=== PATIENT | male | born 1960 | race Caucasian/White ===

== ENCOUNTER → 2018-05-05 | Outpatient (CLI) | payer OTHER | END | disposition home or self-care (01) | LOC: RAD 12:17 | DX: M17.0 Bilateral primary osteoarthritis of knee (principal) | CPT/HCPCS: 73562 ==

== ENCOUNTER → 2021-05-01 | Outpatient (CLI) | payer OTHER ==
[~2021-05-01] MED LIST: IBUP-4 PO
--- NOTE | 2021-05-01 17:16 | KCIC ---
EXAM: Bilateral knees, 3 views. HISTORY: Pain. COMPARISON: 05/05/2018 FINDINGS: Right knee: 3 views of the right knee are obtained. There is severe medial compartment joint space na rrowing with subchondral sclerosis and spurring. There is a moderate right knee effusion. Left knee: 3 views of the left knee are obtained. There is severe medial compartment joint space narr owing, subchondral sclerosis and spurring. There is a moderate left knee effusion. There is left genu varus. IMPRESSION: 1. Severe bilateral medial compartment osteoarthritis and moderate bilateral knee effusions. These fi ndings have progressed compared to the prior exam. 2. Left genu varus. Electronically signed by: Kelsey Allison MD (05/01/2021 5:14 PM) [id number]
== END ==
LOC: KCIC 15:02
PROVIDERS: ATTEND Family Medicine
DX: M17.0 Bilateral primary osteoarthritis of knee (principal); M25.462 Effusion, left knee; M25.461 Effusion, right knee; M21.162 Varus deformity, not elsewhere classified, left knee
CPT/HCPCS: 73562-50

== ENCOUNTER → 2021-07-16 | Outpatient (CLI) | payer OTHER ==
[~2021-07-16] MED LIST changes: +IBUP-1060 PO; +LISI10TA16 PO; +OXYC5CAP PO; +TIMO10DR5 OD; +TRAM50TA PO; +WARF4TAB64 PO
[2021-07-16 09:16] LABS: BASO % 1 % (0-3); EOS # 0.2 x10^3/uL (0.0-0.7); EOS % 3 % (0-3); HEMATOCRIT 39.4 % (39.0-53.0); HEMOGLOBIN 13.8 g/dL (13.0-17.5); LYMPH # 1.4 x10^3/uL (1.0-4.8); LYMPH % 28 % (24-48); MEAN CORPUSCULAR HEMOGLOBIN 30 pg (25-35); MEAN CORPUSCULAR HGB CONC 35 g/dL (31-37); MEAN CORPUSCULAR VOLUME 85 fL (79-100); MONO # 0.6 x10^3/uL (0.0-1.1); MONO % 12 % (0-9); NEUT # 2.9 x10^3/uL (1.8-7.7); NEUT % 56 % (31-73); PLATELET COUNT 241 x10^3/uL (140-400); RED BLOOD COUNT 4.65 x10^6/uL (4.30-5.70); RED CELL DISTRIBUTION WIDTH 13.4 % (11.5-14.5); WHITE BLOOD COUNT 5.1 x10^3/uL (4.0-11.0)
[2021-07-16 09:21] LABS: PROTHROMBIN TIME PATIENT 12.9 SEC (11.7-14.0)
[2021-07-16 09:28] LABS: ALBUMIN 3.7 g/dL (3.4-5.0); CALCIUM 8.8 mg/dL (8.5-10.1); CREATININE 0.9 mg/dL (0.7-1.3); GFR 85.8; POTASSIUM 4.1 mmol/L (3.5-5.1)
--- NOTE | 2021-07-16 11:17 | EKG ---
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
--- NOTE | 2021-07-16 17:26 | RAD ---
Chest, PA and Lateral: Technique: PA and lateral views of the chest were obtained. History: Hypertension. Comparison: None. Findings: The heart and pulmonary vasculature appear within normal limits. Small 4-5 mm nodule or calcified gr anuloma in the left lower lobe lung.. The pleural margins are clear. Impression: Small 4-5 mm nodule or calcified granuloma in the left lower lobe lung. Electronically signed by: Efrain Nelson MD (07/16/2021 5:24 PM) [id number]
[2021-07-17 01:11] LABS: HEMOGLOBIN A1C 5.7 % (4.8-5.6)
== END ==
LOC: SURGPAT 10:40
PROVIDERS: ATTEND Orthopaedic Surgery
DX: Z01.818 Encounter for other preprocedural examination (principal); I45.10 Unspecified right bundle-branch block; M17.12 Unilateral primary osteoarthritis, left knee
CPT/HCPCS: 36415; 71046; 80048; 82040; 82306; 83036; 85025; 85610; 85651; 85730; 87641; 93005

== ENCOUNTER → 2021-07-29 | Outpatient (CLI) | payer OTHER | LOC: LAB 09:09 | PROVIDERS: ATTEND Orthopaedic Surgery | DX: Z01.812 Encounter for preprocedural laboratory examination (principal); Z20.822 Contact with and (suspected) exposure to COVID-19; M17.12 Unilateral primary osteoarthritis, left knee | CPT/HCPCS: U0003; U0005 ==

== ENCOUNTER 2021-07-30 09:49 | Observation (INO) | payer OTHER ==
[2021-07-17 10:59] VITALS: BP 172/88
[~2021-07-30] VITALS: Ht 167.6 cm; Wt 96.6 kg
[2021-07-30] VITALS (9 sets, daily range): BP systolic 116–191; BP diastolic 75–96
[~2021-07-30 09:49] MED LIST changes: +ACETAMINOPHEN 500 MG TABLET PO PRN; +GABAPENTIN 300 MG CAPSULE. PO PRN; +IV RINGERS,LACTATED 1000ML 1,000 ML IV SCH; +MELOXICAM 7.5 MG TABLET PO PRN; +MORPHINE SULFATE 5 MG, KETOROLAC 30MG VIAL 30 MG, ROPIVacaine 0.5% PF 60 ML, EPINEPHrin... INT ART ONE; -OXYC5CAP PO; +PROCHLORPERAZINE 10 MG/2 ML VIAL. IVP PRN; -TRAM50TA PO; +TRANEXAMIC ACID 1,000 MG in IV NS 50ML -- 1ST BAG INJ ONE; +TRANEXAMIC ACID 1,000 MG in IV NS 50ML -- 2ND BAG INJ ONE; -WARF4TAB64 PO; +fentaNYL PF VIAL 100 MCG/2 ML VIAL IVP PRN
[2021-07-30] MEDS ORDERED: VANCOMYCIN 1 GM VIAL. ONE ×2 (10:26)
[2021-07-30 10:53] LABS: PROTHROMBIN TIME PATIENT 13.3 SEC (11.7-14.0)
[2021-07-30] MEDS ORDERED: fentaNYL PF VIAL 250 MCG/5 ML VIAL ONE (11:43)
[2021-07-30] MEDS ORDERED: ONDANSETRON PF 4 MG/2 ML VIAL. ONE (12:05)
[2021-07-30] MEDS ORDERED: PROPOFOL 10 MG/ML (20ML) VIAL. IV ONE (12:05)
[2021-07-30] MEDS ORDERED: LIDOCAINE 2% PF 5 ML VIAL. ONE (12:05)
[2021-07-30] MEDS ORDERED: SEVOFLURANE > 120 MINUTES. IH ONE (12:05)
[2021-07-30] MEDS ORDERED: DEXAMETHASONE SOD PHOS 4 MG/ML VIAL ONE (12:05)
[2021-07-30] MEDS ORDERED: ePHEDrine PF IN SALINE 50 MG/10 ML SYRINGE. IV ONE (12:08)
--- NOTE | 2021-07-30 13:59 | HP ---
ADMIT DATE: 07/30/2021 CHIEF COMPLAINT: Bilateral knee pain, left worse than right, and degenerative joint disease. HISTORY OF PRESENT ILLNESS: The patient is a 60-year-old male with severe left knee pain limiting his activities of daily living much worse than the right and has had no response to treatment with ibuprofen and other nonsteroidals and only about a week of relief with a corticosteroid injection and other unsuccessful management of other nonoperative measures. PAST MEDICAL HISTORY: Significant for hypertension, hypercholesterolemia, history of right heart bundle branch block and he had a history of a rotator cuff tear in the left shoulder. PAST SURGICAL HISTORY: Left elbow surgery. FAMILY HISTORY: Diabetes, hypertension, cancer, coronary artery disease. SOCIAL HISTORY: Denies smoking or drug use. Occasional alcohol use. MEDICATIONS: List is reviewed. ALLERGIES: He has no known drug allergies. REVIEW OF SYSTEMS: Denies any chest pain, shortness of breath, fever, chills or other constitutional symptoms. PHYSICAL EXAMINATION: HEENT: Atraumatic, normocephalic. HEART: Regular rate and rhythm. LUNGS: Clear to auscultation bilaterally. ABDOMEN: Benign. VITAL SIGNS: Please add per admission sheet. EXTREMITIES: Examination of the left knee has more severe varus on the left than the right and has some medial compartment pseudolaxity bilaterally, resulting in some instability with valgus stress. Normal alignment, stability, bilateral hips and ankles. LABORATORY DATA: X-rays show tricompartmental degenerative change in both knees. IMPRESSION: Primary osteoarthritis of both knees, right knee pain greater than left. TREATMENT PLAN: We had previously discussed risks, benefits, postoperative course of total knee arthroplasty including the possibility of infection, nerve or blood vessel damage, medical or other anesthetic complications among others. All his questions were answered and he agrees to proceed with total knee arthroplasty with [facility] observation to follow. RADHA MCCOY: Cristina TID: [id number]
[2021-07-30] MEDS ORDERED: PROCHLORPERAZINE 10 MG/2 ML VIAL. ONE (14:15)
[2021-07-30] MEDS ORDERED: MORPHINE SULFATE 2 MG/ML INJ. ONE (14:15)
[2021-07-30] MEDS: MORPHINE SULFATE 2 MG/ML INJ. IVP PRN ×2 (14:18→14:29)
[2021-07-30] MEDS ORDERED: HYDROmorphone 2 MG/ML VIAL ONE (14:36)
[2021-07-30] MEDS: HYDROmorphone 2 MG/ML VIAL IVP PRN ×2 (14:38→14:52)
--- NOTE | 2021-07-30 14:43 | PDOC4 ---
Operative Note Operative Note Date of surgery: 07/30/2021 Preoperative diagnosis: Degenerative arthritis left knee Postoperative diagnosis: Same Operative procedure: Left total knee arthroplasty Surgeon: Steven Assist: Sunday lindsay Anesthesia: General Estimated blood loss: 25 cc Complications: None Specimens: Cartilage surfaces to pathology Operative indications: Please see my dictated preoperative history and physical for detailed operative indications and note that we had reviewed preoperatively risks benefits postoperative course of the surgery including the possibility of infection continued pain nerve or blood vessel damage premature wear or loosening instability medical or other anesthetic complications among others and he agrees to proceed with surgical evaluation and treatment having given informed consent Operative text: Patient was identified procedure verified patient placed in the supine position on the operating table. After adequate amounts of general anesthesia were administered the left lower extremity was prepped and draped in standard sterile fashion with a thigh tourniquet and after timeout was performed patient procedure identified and verified the left lower extremity was exsanguinated by Esmarch bandage tourniquet inflated to 300 mmHg and a midline incision was made followed by a medial parapatellar approach fat pad was excised and patella everted and the distal femur drilled to accommodate the intramedullary cutting guide which was set at 5 degrees with standard distal cut. A tibial cut was made using the extra medullary cutting guide aligned with the second toe and alignment verified. Balancing was confirmed with the drop leslie and noted in both flexion and extension, tibia was prepared with a size F persona trial component. Femur was sized at a size 9 and AP lateral chamfer cuts were made and ligament balancing carried out. A medial release was carried out and I did achieve excellent stability with a 14 mm trial medial congruent articular surface spacer. Femoral lug holes were drilled and patella was not resurfaced. She had excellent tracking. Trial components were removed thorough irrigation carried out with normal saline solution and the following persona components were cemented in place with polymethylmethacrylate cement: A size F persona natural tibial component and size 9 standard right persona cruciate retaining femur. Excess cement was removed with a curette and a vitamin E medial congruent 14 mm height articular spacer was locked into place and the knee held into extension until cement was dry. Irrigation again carried out with dilute Betadine lavage and normal saline solution and 1 g vancomycin was placed in the knee joint. Retinaculum closed with #1 PDS suture in a running fashion subcutaneous closure with buried Vicryl sutures subcuticular closure with 3-0 strata fix Monocryl. A leonarda dressing was placed. Toes were noted to be warm pink following deflation of the tourniquet patient was returned to recovery room in stable condition having tolerated procedure well. Sunday lindsay was present for the procedure and assisted in patient positioning prepping draping retraction closure dressings. BRYANT HENDRICKS MD Jul 30, 2021 14:43
[2021-07-30] MEDS ORDERED: fentaNYL PF VIAL 100 MCG/2 ML VIAL IVP PRN (14:45)
[2021-07-30] MEDS ORDERED: diphenhydrAMINE 50 MG/ML VIAL IVP PRN (14:45)
[2021-07-30] MEDS ORDERED: PROCHLORPERAZINE 5 MG TABLET. PO PRN (14:45)
[2021-07-30] MEDS ORDERED: CALCIUM CARBONATE 500 MG TAB.CHEW PO PRN (14:45)
[2021-07-30] MEDS ORDERED: 0.9 % SODIUM CHLORIDE 10 ML DISP.SYRIN. IV PRN (14:45)
[2021-07-30] MEDS ORDERED: ZOLPIDEM 5 MG TABLET. PO PRN (14:45)
[2021-07-30] MEDS: IV NORMAL SALINE 1000ML BAG 1,000 ML IV SCH (14:45)
[2021-07-30] MEDS ORDERED: MORPHINE SULFATE 2 MG/ML INJ. IVP PRN (14:45)
[2021-07-30] MEDS ORDERED: DEXTROSE 50% 25 GM / 50ML DISP.SYRIN. IV PRN (14:45)
--- NOTE | 2021-07-30 14:54 | NUR ---
Arrived to unit by bed from PACU. Very drowsy but awakens and falls back to sleep. No c/o. LTK elevated on pillow and ice pack. Left knee dressing d/i with REN. IVF's intact and infusing. O2 at 3l per n/c. Side rails up x's 2 with call light in reach. Family at bedside. Cont. monitor.
--- NOTE | 2021-07-30 15:30 | RAD ---
Left Knee 2 views: History: Postop total knee arthroplasty. Technique: AP and lateral views of the knee were obtained. Findings: The femoral and tibial components are aligned and well seated. There is air and fluid in the joint sp craig. Surgical changes are seen in the posterior patella. Impression: Status post total knee arthroplasty. Electronically signed by: Michael Orellana III, MD (07/30/2021 3:28 PM) [facility]
[2021-07-30] MEDS ORDERED: WARFARIN 7.5 MG TABLET. PO ONE (16:00)
[2021-07-30] MEDS: FERROUS SULFATE 325 MG TABLET. PO SCH (17:49)
[2021-07-30] MEDS: ONDANSETRON PF 4 MG/2 ML VIAL. IVP SCH (17:53)
[2021-07-30] MEDS: ONDANSETRON ODT 4 MG TAB.RAPDIS. PO SCH (17:54)
--- NOTE | 2021-07-30 18:00 | NUR ---
Alert and oriented x's 4. No c/o at this time. Instructed how to use IS went up 2500 ml. and daughter at bedside. Cont. monitor.
[2021-07-30] MEDS: TIMOLOL 0.5% OPHTH SOLUTION 5ML BOTTLE. OD SCH (20:52)
[2021-07-31] MEDS: ONDANSETRON PF 4 MG/2 ML VIAL. IVP SCH ×3 (00:11→12:00)
[2021-07-31] MEDS: ONDANSETRON ODT 4 MG TAB.RAPDIS. PO SCH ×3 (00:11→12:00)
[2021-07-31 03:32] VITALS: BP 128/72
[2021-07-31] MEDS ORDERED: GABAPENTIN 100 MG CAPSULE. PO SCH (06:00)
[2021-07-31] MEDS ORDERED: MAGNESIUM HYDROXIDE 2,400 MG/30 ML ORAL.SUSP. PO PRN (06:00)
[2021-07-31] MEDS: traMADol 50 MG TABLET PO SCH ×3 (06:01→18:03)
[2021-07-31 07:00] VITALS: BP 135/73
[2021-07-31 07:30] LABS: HEMATOCRIT 34.8 % (39.0-53.0)
[2021-07-31 07:58] LABS: PROTHROMBIN TIME PATIENT 14.8 SEC (11.7-14.0)
[2021-07-31] MEDS: ACETAMINOPHEN 500 MG TABLET PO SCH ×3 (08:59→22:27)
[2021-07-31] MEDS: SENNOSIDES/DOCUSATE 8.6/50MG TABLET. PO SCH (08:59)
[2021-07-31] MEDS: MELOXICAM 7.5 MG TABLET PO SCH (08:59)
[2021-07-31] MEDS: TIMOLOL 0.5% OPHTH SOLUTION 5ML BOTTLE. OD SCH ×2 (09:00→21:00)
[2021-07-31] MEDS: FERROUS SULFATE 325 MG TABLET. PO SCH ×2 (09:00→18:03)
[2021-07-31] MEDS: MULTIVITAMIN with MINERAL TABLET. PO SCH (09:00)
[2021-07-31] MEDS: oxyCODONE IR 5 MG TABLET PO PRN ×3 (09:02→22:27)
[2021-07-31] MEDS: LISINOPRIL 10 MG TABLET PO SCH (09:06)
--- NOTE | 2021-07-31 09:46 | NUR ---
Pharmacy Warfarin Dosing Note S:Pharmacy consulted to assist with anticoagulation therapy started 07/30/21 with target INR: 1.6 - 2.5 O:VANIA LEDESMA is a 60 year old M with TKA LABS: Last INR: 1.2 Last HGB: 12 Last HCT: 34.8 Last PLT: -- Last dose of 7.5 mg given on 07/30/21 at 1749 Drug Interaction Changes: Same Interacting Drug Ongoing Drug Interactions: meloxicam A:INR of 1.2 is below desired range. Target range for this patient is: 1.6 - 2.5 P: Warfarin dose: 5 mg Today at 1600 Bridge Therapy: None Next INR due 08/01/21 Pharmacy anticoagulation service will continue to follow. ANGELA VILLAVICENCIO RPH, 07/31/21 0971
--- NOTE | 2021-07-31 10:11 | PDOC ---
PROGRESS NOTES Date of Service DATE: 07/31/21 TIME: 10:08 Subjective Subjective Problems overnight: Indicates pain is well controlled has no other complaints Objective Vital Signs Vital Signs Date Time Temp Pulse Resp B/P (MAP) Pulse Ox O2 Delivery O2 Flow Rate FiO2 07/31/21 09:06 78 135/74 07/31/21 09:02 Room Air 07/31/21 07:00 97.2 16 96 97.2 07/30/21 19:40 2.0 Physical Exam Distal neurovascular status intact leonarda dressing intact excellent stability and patellofemoral tracking Labs Laboratory Tests Test 07/30/21 10:30 07/31/21 05:45 Prothrombin Time 13.3 SEC (11.7-14.0) 14.8 SEC (11.7-14.0) Prothromb Time International Ratio 1.0 (0.8-1.1) 1.2 (0.8-1.1) Activated Partial Thromboplast Time 29 SEC (24-38) Hemoglobin 12.0 g/dL (13.0-17.5) Hematocrit 34.8 % (39.0-53.0) Mean Corpuscular Hemoglobin Concent 35 g/dL (31-37) Laboratory Tests Test 07/30/21 10:30 07/31/21 05:45 Prothrombin Time 13.3 SEC (11.7-14.0) 14.8 SEC (11.7-14.0) Prothromb Time International Ratio 1.0 (0.8-1.1) 1.2 (0.8-1.1) Activated Partial Thromboplast Time 29 SEC (24-38) Hemoglobin 12.0 g/dL (13.0-17.5) Hematocrit 34.8 % (39.0-53.0) Mean Corpuscular Hemoglobin Concent 35 g/dL (31-37) Imaging Postop x-rays show excellent alignment of the left total knee arthroplasty Assessment Assessment POD#1 left total knee Plan Plan of Care Continue mobilize with physical therapy Warfarin anticoagulation likely home health on discharge Justicifation of Admission Dx: Justifications for Admission: Justification of Admission Dx: N/A BRYANT HENDRICKS MD Jul 31, 2021 10:10
[2021-07-31] MEDS ORDERED: ONDANSETRON PF 4 MG/2 ML VIAL. IVP PRN (12:00)
[2021-07-31] MEDS ORDERED: ONDANSETRON ODT 4 MG TAB.RAPDIS. PO PRN (12:00)
[2021-07-31] MEDS: IV NORMAL SALINE 1000ML BAG 1,000 ML IV SCH (14:45)
[2021-07-31] MEDS ORDERED: BISACODYL 10 MG SUPP.RECT. PR PRN (16:00)
[2021-07-31] MEDS ORDERED: WARFARIN 5 MG TABLET. PO ONE (16:00)
[2021-07-31 19:30] VITALS: BP 127/58
[2021-07-31 23:39] VITALS: BP 157/74
[2021-08-01] MEDS: oxyCODONE IR 5 MG TABLET PO PRN ×3 (02:41→16:54)
[2021-08-01 02:54] VITALS: BP 136/65
[2021-08-01] MEDS: ACETAMINOPHEN 500 MG TABLET PO SCH ×3 (03:00→15:14)
[2021-08-01] MEDS: traMADol 50 MG TABLET PO SCH ×3 (06:18→12:27)
[2021-08-01 07:00] VITALS: BP 141/83
[2021-08-01 07:17] LABS: HEMATOCRIT 31.1 % (39.0-53.0); HEMOGLOBIN 10.7 g/dL (13.0-17.5)
[2021-08-01 07:36] LABS: PROTHROMBIN TIME PATIENT 17.9 SEC (11.7-14.0)
[2021-08-01] MEDS: SENNOSIDES/DOCUSATE 8.6/50MG TABLET. PO SCH (08:17)
[2021-08-01] MEDS: LISINOPRIL 10 MG TABLET PO SCH (08:17)
[2021-08-01] MEDS: FERROUS SULFATE 325 MG TABLET. PO SCH ×2 (08:17→15:13)
[2021-08-01] MEDS: MULTIVITAMIN with MINERAL TABLET. PO SCH (08:18)
[2021-08-01] MEDS: TIMOLOL 0.5% OPHTH SOLUTION 5ML BOTTLE. OD SCH (08:18)
[2021-08-01] MEDS: MELOXICAM 7.5 MG TABLET PO SCH (08:21)
[2021-08-01 10:27] VITALS: BP 130/77
[2021-08-01] MEDS: IV NORMAL SALINE 1000ML BAG 1,000 ML IV SCH (13:38)
--- NOTE | 2021-08-01 15:45 | NUR ---
Pharmacy Warfarin Dosing Note S:Pharmacy consulted to assist with anticoagulation therapy started 07/30/21 with target INR: 1.6 - 2.5 O:VANIA LEDESMA is a 60 year old M with TKA LABS: Last INR: 1.5 Last HGB: 12 Last HCT: 34.8 Last PLT: -- Last dose of 5 mg given on 07/31/21 at 1749 Previous Regimen: Vitamin K given: N Drug Interaction Changes: Same Interacting Drug Ongoing Drug Interactions: meloxicam A:INR of 1.5 is below desired range. Target range for this patient is: 1.6 - 2.5 P: Warfarin dose: 3 mg Today at 1600, dc home with 4mg tablet #30 Bridge Therapy: None Next INR due on Sunday 08/05, 08/12 and 08/19 Pharmacy anticoagulation service will continue to follow. YOLANDA CASTILLO [facility], 08/01/21 [id number]
[2021-08-01] MEDS ORDERED: WARFARIN 3 MG TABLET. PO ONE (16:00)
[2021-08-01] MEDS ORDERED: TRAM50TA PO (17:19)
[2021-08-01] MEDS ORDERED: WARF4TAB64 PO (17:19)
[2021-08-01] MEDS ORDERED: OXYC5CAP PO (17:19)
--- NOTE | 2021-08-01 17:26 | DISCH ---
DISCHARGE INSTRUCTIONS Condition on Discharge Condition on Discharge: Stable Activity After Discharge Activity Instructions for Disc: Activity as tolerated, Avoid exertion, Prog ressive ambulation Bathing Instructions: Shower-keep dressing dry, No Tub Bath until see Lifting Instructions after Dis: No heavy lifting, No pulling or pushing Exercise Instruction after Dis: Exercise per therapy, Progress as tolerated Driving Instructions after Dis: Do not drive Weight Bearing Status after Di: As tolerated Diet after Discharge Diet after Discharge: Regular Liquid Texture: Thin Liquid Wound Incision Care Wound/Incision Care: Ice to area for comfort, Keep wound/cast CDI, Do not change dressing (Maintain ren dressing, call if saturated, otherwise when suction machine stops cut tail of dressing and tape over to maintain seal) Other wound/incision instructi: DO NOT remove REN. REN dressing remains in place till your appointment Community/Resources/Services Services at Discharge: Outpatient Therapy, PT EVALUATE & TREAT Contacting the [facility] after DC Call your doctor for: Concerns you may have Follow-Up Follow Up With: CAMILLE Tanner on 08/12/2021 at 10am at [facility]. [phone] Treatment/Equipment after DC Adaptive Equipment Issued: None Warfarin Follow-Up Warfarin Follow UP: Warfarin dosage and testing per [place] [facility] anticoagulation clinic BRYANT HENDRICKS MD Aug 01, 2021 17:26
--- NOTE | 2021-08-01 18:20 | NUR ---
Patient left at 1755 with his . Discharge education completed by this nurse, therapy, and the doctor prior to discharge. REN dressing instructions gone over in detail with a small amount of bloody drainage present at discharge. Coumadin instructions gone over in detail by this nurse and pharmacy with medication given to patient prior to discharge and script for lab draws. No concerns noted at discharge.
--- NOTE | 2021-08-01 19:10 | DS ---
DATE OF DISCHARGE: 08/01/2021 ORTHOPEDIC DISCHARGE SUMMARY PRINCIPAL DIAGNOSIS: Degenerative arthritis, left knee. PROCEDURE: Left total knee arthroplasty. DISPOSITION: Home with outpatient physical therapy. ACTIVITY: Weightbearing as tolerated, standard total knee protocol. Maintain REN dressing, call if saturated, otherwise remove suction machine when it stops at 1 week, cut dressing and tape over tail to maintain seal. CALL IF: Fever, chills, uncontrolled pain or other problems or concerns. DISPOSITION MEDICATIONS: Warfarin 4 mg p.o. daily, times of plan 28 days or as otherwise dictated by [facility] anticoagulation clinic; tramadol 50 mg p.o. q.4 hours p.r.n. moderate pain, dispense #60; oxycodone 5 mg p.o. q.4 hours p.r.n. severe pain, dispensed #30; continue lisinopril 10 mg p.o. daily for hypertension; timolol eyedrops. As previously directed, stop both doses of ibuprofen. BRIEF DESCRIPTION OF HOSPITAL COURSE: The patient underwent uncomplicated left total knee arthroplasty. Postoperatively, noted that he had a little bit less pain than preoperatively when he was trying to get up and around. He had a bit more pain on postop day #1, but progressed well through physical therapy, actually states that his right knee is bothering him a bit less than it did previously. He completed ambulation, transfers as well with physical therapy and was discharged home in stable condition, with planned outpatient physical therapy. Scheduled followup is Dr. Harris or Flores [address]: Cristina TID: [id number]
--- NOTE | 2021-08-02 18:08 | PATHOLOGY ---
[facility] Accession Number: [id number] . 01 Material submitted: . knee - LEFT KNEE CARTILAGE. Modifiers: left . 01 Clinical history: . L TKA LEFT KNEE OA . 02 Diagnosis: Segments of bone and soft tissue, left total knee arthroplasty: - Advanced degenerative arthritis. (JPM:francisco javier; 08/02/2021) QMS 08/02/2021 1140 Local . 02 Electronically signed: . Jon Allen MD, Pathologist NPI- [id number] . 01 Gross description: . The specimen is received in formalin, labeled "ConcradhaaSalty J, left knee cartilage". It consists of multiple peres irregular soft and bony tissue fragments measuring 12.5 x 11.0 x 4.0 cm in aggregate. Multiple bony segments display focally roughened articular surfaces. [employer] sections are submitted in A1 following decalcification. (MRF; 07/31/2021) MFE/MFE 07/31/2021 1831 Local . 02 Pathologist provided ICD-10: M17.12 . 02 CPT . 973610, [id number] Specimen Comment: A courtesy copy of this report has been sent to [phone], [phone] Specimen Comment: [id number] Specimen Comment: Report sent to / DR RODRIGEZ Performed at: 01 [facility] [address], [place] [id number] MD Dk Sweet MD Phone: [phone] Performed at: 02 [facility] [address], [place] [id number] MD Jon Allen MD Phone: [phone]
== END 2021-08-01 18:00 | disposition home or self-care (01) ==
LOC: SURG 09:49 → 4 NORTH 14:34
PROVIDERS: ADMIT Orthopaedic Surgery; ATTEND Orthopaedic Surgery
DX: M17.12 Unilateral primary osteoarthritis, left knee (principal); E78.00 Pure hypercholesterolemia, unspecified; I10 Essential (primary) hypertension; I45.4 Nonspecific intraventricular block; Z82.49 Family history of ischemic heart disease and other diseases of the circulatory system; Z83.3 Family history of diabetes mellitus; Z96.652 Presence of left artificial knee joint
CPT/HCPCS: 27447; 36415; 73560; 85014; 85018; 85610; 85730; 86850; 86900; 86901; 88305; 88311; 96365; 96366; 97110; 97116; 97150; 97162; 97166; 97530; 97535; A4213; A4930; A6223; A6253; A6258; A6402; A6450; A6550; C1713; C1755; C1776; G0378; J0171; J0690; J0780; J1100; J1170; J1885; J2270; J2704; J2795; J3010; J3370; A4223; A6454; G0379; J2405

== ENCOUNTER 2021-08-05 15:39 | Emergency (ER) | payer OTHER ==
[~2021-08-05] VITALS: Ht 167.6 cm; Wt 96.3 kg
[~2021-08-05 15:39] MED LIST changes: -ACETAMINOPHEN 500 MG TABLET PO PRN; -GABAPENTIN 300 MG CAPSULE. PO PRN; -IV RINGERS,LACTATED 1000ML 1,000 ML IV SCH; -MELOXICAM 7.5 MG TABLET PO PRN; -MORPHINE SULFATE 5 MG, KETOROLAC 30MG VIAL 30 MG, ROPIVacaine 0.5% PF 60 ML, EPINEPHrin... INT ART ONE; +OXYC5CAP PO; -PROCHLORPERAZINE 10 MG/2 ML VIAL. IVP PRN; +TRAM50TA PO; -TRANEXAMIC ACID 1,000 MG in IV NS 50ML -- 1ST BAG INJ ONE; -TRANEXAMIC ACID 1,000 MG in IV NS 50ML -- 2ND BAG INJ ONE; +WARF4TAB64 PO; -fentaNYL PF VIAL 100 MCG/2 ML VIAL IVP PRN
--- NOTE | 2021-08-05 17:42 | RAD ---
STUDY: US DPLX VENOUS EXTREMITY LOWER LT INDICATION: Left lower extremity pain. Recent surgery. DVT. TECHNIQUE: Color-flow and pulsed wave duplex ultrasound with compression of venous structures of the left lower extremity. COMPARISON: None. FINDINGS: Duplex ultrasound with compression of the deep venous structures of the left lower extremity from the common femoral vein through the popliteal vein is negative for DVT. The posterior tibial and peroneal veins are segmentally visualized and patent where seen. Normal veno us waveforms and augmentation are noted throughout. IMPRESSION: No deep venous thrombosis throughout the left lower extremity. Electronically signed by: JOHANNY MARK MD (08/05/2021 5:39 PM) [facility]
[2021-08-05 17:59] VITALS: BP 141/74
--- NOTE | 2021-08-05 18:48 | PHYS DOC ---
Past Medical History Past Surgical History: Knee Replacement (TREY SORIANO BORING MACHINE SET UP OPERATOR JIG) Smoking Status: Never Smoker (TREY SORIANO APRN) General Adult EDM: Chief Complaint: LOWER EXT PAIN HPI: HPI: Patient is a 60 year old male who presents to the ED today complaining of 5 out of 10 left moore pain, symptoms have been going on since this morning at physical therapy. Patient states he had left knee replacement last week on Thursday. He states he was put on Coumadin on Thursday last week. He states at physical therapy when he reported his pain he was sent to the ED for DVT rule out. Patient denies any injuries. Describes the pain as sharp and intermittent worse on weightbearing. Denies any chest pain or shortness of breath. (TREY SORIANO APRN) Review of Systems: Review of Systems: Constitutional: Denies fever or chills. [] Musculoskeletal: Reports left moore pain denies back pain Integument: Denies rash. [] Neurologic: Denies headache, focal weakness or sensory changes. [] Psychiatric: Denies depression or anxiety. [] (TREY SORIANO BORING MACHINE SET UP OPERATOR JIG) Heart Score: C/O Chest Pain: N/A Risk Factors: Risk Factors: DM, Current or recent (<one month) smoker, HTN, HLP, family history of CAD, obesity. Risk Scores: Score 0 - 3: 2.5% MACE over next 6 weeks - Discharge Home Score 4 - 6: 20.3% MACE over next 6 weeks - Admit for Clinical Observation Score 7 - 10: 72.7% MACE over next 6 weeks - Early Invasive Strategies (TREY SORIANO BORING MACHINE SET UP OPERATOR JIG) Allergies: Allergies: Allergies Coded Allergies Type Severity Reaction Last Updated Verified No Known Drug Allergies 07/30/21 No (TREY SORIANO APRN) Physical Exam: PE: Constitutional: Well developed, well nourished, no acute distress, non-toxic appearance. [] ] Skin: Warm, dry, no erythema, no rash. [] Back: No tenderness, no CVA tenderness. [] Extremities: Left anterior knee with original surgical dressing with small amount of dried blood in the drain from the incision site. +1 edema to the left lower extremity. +2 left pedal pulse. Negative Homans' sign to the left lower extremity. Range of motion is limited to the left lower extremity partly due to pain. No cellulitis noted. Neurologic: Alert and oriented X 3, normal motor function, normal sensory function, no focal deficits noted. [] Psychologic: Affect normal, judgement normal, mood normal. [] (TREY SROIANO APRN) Current Patient Data: Vital Signs: Vital Signs Date Time Temp Pulse Resp B/P (MAP) Pulse Ox O2 Delivery O2 Flow Rate FiO2 08/05/21 17:59 88 141/74 (96) 98 Room Air 08/05/21 16:50 98.8 18 98.8 (TREY SORIANO APRN) EKG: EKG: [] (TREY SORIANO APRN) Radiology/Procedures: Radiology/Procedures: []PROCEDURE: VENOUS LOWER EXTREMITY LEFT STUDY: US DPLX VENOUS EXTREMITY LOWER LT INDICATION: Left lower extremity pain. Recent surgery. DVT. TECHNIQUE: Color-flow and pulsed wave duplex ultrasound with compression of venous structures of the left lower extremity. COMPARISON: None. FINDINGS: Duplex ultrasound with compression of the deep venous structures of the left lower extremity from the common femoral vein through the popliteal vein is negative for DVT. The posterior tibial and peroneal veins are segmentally visualized and patent where seen. Normal venous waveforms and augmentation are noted throughout. IMPRESSION: No deep venous thrombosis throughout the left lower extremity. Electronically signed by: JOHANNY MARK MD (08/05/2021 5:39 PM) [facility] DICTATED and SIGNED BY: JOHANNY MARK MD DATE: 08/05/21 [id number] (TREY SORIANO APRN) Course & Med Decision Making: Course & Med Decision Making Pertinent Labs and Imaging studies reviewed. (See chart for details) This is a 60-year-old male patient presented to the ED today complaining of left moore pain. Patient had left knee replacement last week and Thursday currently on Coumadin. He is concerned for DVT. Venous Doppler of the left lower extremity is negative. Patient requested INR done in the ED because he missed his appointment this afternoon. INR was done, Ortho and PCP will follow up with it. Discharged back to home. (TREY SORIANO APRN) Course & Med Decision Making I was the Attending physician on the above date of service of this patient. This patient was evaluated, examined, treated, and dispositioned from the emergency department by the mid-level practitioner. Although I was working at the time , no assistance was requested. Electronically signed, Nguyễn Manzanares DO (NGUYỄN MANZANARES DO) Vinny Disclaimer: Vinny Disclaimer: This electronic medical record was generated, in whole or in part, using a voice recognition dictation system. (TREY SORIANO APRN) Departure Departure Impression: Primary Impression: Lower extremity pain, left Disposition: HOME / SELF CARE / HOMELESS Condition: STABLE Referrals: BRITNEY RODRIGEZ MD (PCP) follow up in the course of this week BRYANT HENDRICKS MD follow up in the course of this week Patient Instructions: Musculoskeletal Pain Additional Instructions: You were evaluated in the emergency room with pain to your leg. We did a venous Doppler/ultrasound of your left lower extremity which was negative for any blood clot. We encourage you to continue icing and elevating the left lower extremity. You can take your pain medicine at home as needed. Follow-up with the orthopedic doctor in the course of this week TREY SORIANO APRN Aug 05, 2021 18:48 NGUYỄN MANZANARES DO Aug 09, 2021 17:31
[2021-08-05 18:50] LABS: PROTHROMBIN TIME PATIENT 18.4 SEC (11.7-14.0)
== END 2021-08-05 18:45 | disposition home or self-care (01) ==
LOC: ER 15:39
DX: M79.662 Pain in left lower leg (principal); Z96.652 Presence of left artificial knee joint
CPT/HCPCS: 36415; 85610; 93971; 99284-25

== ENCOUNTER 2021-09-25 07:02 | Inpatient (IN) | payer OTHER ==
[~2021-09-25] VITALS: Ht 170.2 cm; Wt 88.7 kg
--- NOTE | 2021-09-25 07:58 | RAD ---
XR CHEST 1V History: Reason: SOA / Spl. Instructions: / History: Comparison: July 16, 2021 Findings: Mild multifocal ill-defined opacities bilaterally. Prior granulomatous disease within the chest. No p leural effusion. No pneumothorax. Normal heart size. Impression: 1. Mild multifocal opacities bilaterally, represent pneumonia including viral pneumonia. Recommend f ollow-up to ensure resolution. Electronically signed by: Kofi Harper DO (09/25/2021 7:56 AM) [facility]
[2021-09-25 08:40] LABS: BASO % 0 % (0-3); EOS % 0 % (0-3); HEMATOCRIT 35.8 % (39.0-53.0); HEMOGLOBIN 12.5 g/dL (13.0-17.5); LYMPH # 0.9 x10^3/uL (1.0-4.8); LYMPH % 22 % (24-48); MEAN CORPUSCULAR HEMOGLOBIN 28 pg (25-35); MEAN CORPUSCULAR HGB CONC 35 g/dL (31-37); MEAN CORPUSCULAR VOLUME 81 fL (79-100); MONO # 0.3 x10^3/uL (0.0-1.1); MONO % 7 % (0-9); NEUT # 2.9 x10^3/uL (1.8-7.7); NEUT % 71 % (31-73); PLATELET COUNT 209 x10^3/uL (140-400); RED BLOOD COUNT 4.42 x10^6/uL (4.30-5.70); RED CELL DISTRIBUTION WIDTH 13.7 % (11.5-14.5)
--- NOTE | 2021-09-25 08:45 | PHYS DOC ---
Past Medical History Past Surgical History: Knee Replacement Smoking Status: Never Smoker Alcohol Use: Occasionally General Adult EDM: Chief Complaint: SHORTNESS OF BREATH HPI: HPI: Patient is a 60 year old male who present to ER due to cough and trouble breathing for the last 10 days. Patient said his father been infected with COVID-19, currently admitted to hospital. Patient is not vaccinated for COVID- 19. Patient denies any history of diabetic, but he does have history of hypertension. Patient is not a smoker. Patient denies any chest pain. Patient denies history of asthma or COPD, he is not on oxygen at home. Review of Systems: Review of Systems: Constitutional: Positive fever Eyes: Denies change in visual acuity. [] HENT: Denies nasal congestion or sore throat. [] Respiratory: Positive for cough and trouble breathing Cardiovascular: Denies chest pain or edema. [] GI: Denies abdominal pain, nausea, vomiting, bloody stools or diarrhea. [] : Denies dysuria. [] Musculoskeletal: Denies back pain or joint pain. [] Integument: Denies rash. [] Neurologic: Denies headache, focal weakness or sensory changes. [] Endocrine: Denies polyuria or polydipsia. [] Lymphatic: Denies swollen glands. [] Psychiatric: Denies depression or anxiety. [] Heart Score: C/O Chest Pain: N/A Risk Factors: Risk Factors: DM, Current or recent (<one month) smoker, HTN, HLP, family history of CAD, obesity. Risk Scores: Score 0 - 3: 2.5% MACE over next 6 weeks - Discharge Home Score 4 - 6: 20.3% MACE over next 6 weeks - Admit for Clinical Observation Score 7 - 10: 72.7% MACE over next 6 weeks - Early Invasive Strategies Allergies: Allergies: Allergies Coded Allergies Type Severity Reaction Last Updated Verified No Known Drug Allergies 09/25/21 No Physical Exam: PE: Constitutional: Well developed, well nourished, no acute distress, non-toxic appearance. [] HENT: Normocephalic, atraumatic, bilateral external ears normal, oropharynx moist, no oral exudates, nose normal. [] Eyes: PERRLA, EOMI, conjunctiva normal, no discharge. [] Neck: Normal range of motion, no tenderness, supple, no stridor. [] Cardiovascular: Sinus tachycardia, normal] Lungs & Thorax: Bilateral breath sounds crackles at lung bases to auscultation. Abdomen: Bowel sounds normal, soft, no tenderness, no masses, no pulsatile masses. [] Skin: Warm, dry, no erythema, no rash. [] Back: No tenderness, no CVA tenderness. [] Extremities: No tenderness, no cyanosis, no clubbing, ROM intact, no edema. [] Neurologic: Alert and oriented X 3, normal motor function, normal sensory function, no focal deficits noted. [] Psychologic: Affect normal, judgement normal, mood normal. [] Current Patient Data: Labs: Laboratory Tests Test 09/25/21 07:38 09/25/21 08:12 SARS-CoV-2 Antigen (Rapid) Positive White Blood Count 4.0 x10^3/uL Red Blood Count 4.42 x10^6/uL Hemoglobin 12.5 g/dL Hematocrit 35.8 % Mean Corpuscular Volume 81 fL Mean Corpuscular Hemoglobin 28 pg Mean Corpuscular Hemoglobin Concent 35 g/dL Red Cell Distribution Width 13.7 % Platelet Count 209 x10^3/uL Neutrophils (%) (Auto) 71 % Lymphocytes (%) (Auto) 22 % Monocytes (%) (Auto) 7 % Eosinophils (%) (Auto) 0 % Basophils (%) (Auto) 0 % Neutrophils # (Auto) 2.9 x10^3/uL Lymphocytes # (Auto) 0.9 x10^3/uL Monocytes # (Auto) 0.3 x10^3/uL Eosinophils # (Auto) 0.0 x10^3/uL Basophils # (Auto) 0.0 x10^3/uL Sodium Level 133 mmol/L Potassium Level 3.5 mmol/L Chloride Level 95 mmol/L Carbon Dioxide Level 29 mmol/L Anion Gap 9 Blood Urea Nitrogen 21 mg/dL Creatinine 1.3 mg/dL Estimated GFR (Cockcroft-Gault) 56.1 BUN/Creatinine Ratio 16 Glucose Level 116 mg/dL Lactic Acid Level 0.8 mmol/L Calcium Level 8.3 mg/dL Magnesium Level 2.3 mg/dL Total Bilirubin 0.6 mg/dL Aspartate Amino Transf (AST/SGOT) 49 U/L Alanine Aminotransferase (ALT/SGPT) 9 U/L Alkaline Phosphatase 99 U/L Troponin I High Sensitivity 17 ng/L BX-[id number]-[id number]-Type Natriuretic Peptide 335 pg/mL Total Protein 7.9 g/dL Albumin 3.5 g/dL Albumin/Globulin Ratio 0.8 Current Medications Medications (Trade) Dose Ordered Sig/Jody Route PRN Reason Start Time Stop Time Status Last Admin Dose Admin Methylprednisolone Sodium Succinate (SOLU-Medrol 125MG VIAL) 125 mg 1X ONCE IV 09/25/21 09:15 09/25/21 09:16 Laboratory Tests Test 09/25/21 07:38 SARS-CoV-2 Antigen (Rapid) Positive (NEGATIVE) *A Vital Signs: Vital Signs Date Time Temp Pulse Resp B/P (MAP) Pulse Ox O2 Delivery O2 Flow Rate FiO2 09/25/21 07:16 98.1 125 18 133/77 (95) 93 Room Air 98.1 EKG: EKG: [] Radiology/Procedures: Radiology/Procedures: [][facility] [address] [place] [address] IMAGING REPORT Signed PATIENT: VANIA THORPE JACCOUNT: [id number] : 1960 LOCATION: ER AGE: 60 SEX: M EXAM STATUS: REG ER ORD. PHYSICIAN: XAVIER JAY DO REASON: SOA PROCEDURE: CHEST AP ONLY XR CHEST 1V History: Reason: SOA / Spl. Instructions: / History: Comparison: July 16, 2021 Findings: Mild multifocal ill-defined opacities bilaterally. Prior granulomatous disease within the chest. No pleural effusion. No pneumothorax. Normal heart size. Impression: 1. Mild multifocal opacities bilaterally, represent pneumonia including viral pneumonia. Recommend follow-up to ensure resolution. Electronically signed by: Kofi Harper DO (09/25/2021 7:56 AM) [facility] DICTATED and SIGNED BY: KOFI HARPER DO DATE: 09/25/21 [id number] 0 Course & Med Decision Making: Course & Med Decision Making Pertinent Labs and Imaging studies reviewed. (See chart for details) Patient is a 60-year-old male who present to ER due to cough and trouble breathing. Patient was tested positive for COVID-19. Chest x-ray showed bilateral infiltration. Patient is hypoxic on room air. Patient will be admitted to hospital for further evaluation treatment. Dragon Disclaimer: Dragon Disclaimer: This electronic medical record was generated, in whole or in part, using a voice recognition dictation system. Departure Departure Impression: Primary Impression: Pneumonia due to COVID-19 virus Additional Impression: Hypoxia Disposition: ADMITTED INPATIENT Admitting Physician: FLORENTIN (Dr. Mauro Tucker) Condition: STABLE Referrals: BRITNEY RODRIGEZ MD (PCP) XAVIER JAY DO Sep 25, 2021 08:45
[2021-09-25 08:50] LABS: CALCIUM 8.3 mg/dL (8.5-10.1); CREATININE 1.3 mg/dL (0.7-1.3); GFR 56.1; POTASSIUM 3.5 mmol/L (3.5-5.1)
[2021-09-25 08:57] LABS: ALBUMIN 3.5 g/dL (3.4-5.0); ALBUMIN/GLOBULIN RATIO 0.8 (1.0-1.7); MAGNESIUM 2.3 mg/dL (1.8-2.4); TOTAL BILIRUBIN 0.6 mg/dL (0.2-1.0); TOTAL PROTEIN 7.9 g/dL (6.4-8.2)
[2021-09-25] MEDS ORDERED: methylPREDNISolone SOD SUCC PF 125 MG/2 ML VIAL. IV ONE (09:15)
[2021-09-25 09:19] LABS: PROTHROMBIN TIME PATIENT 12.7 SEC (11.7-14.0)
[2021-09-25] MEDS ORDERED: ONDANSETRON PF 4 MG/2 ML VIAL. IVP PRN ×2 (09:30→11:30)
[2021-09-25] MEDS ORDERED: ACETAMINOPHEN 325 MG TABLET. PO PRN ×2 (09:30→11:30)
[2021-09-25] MEDS: IV NORMAL SALINE 1000ML BAG 1,000 ML IV SCH ×2 (09:40→22:13)
[2021-09-25] MEDS ORDERED: AZITHRMYCN 500MG IVPB FOR OMNI 250 ML IV ONE (09:45)
[2021-09-25] MEDS ORDERED: cefTRIAXone IV Push 1 GM VIAL. IVP ONE (09:45)
[2021-09-25] MEDS ORDERED: PIP/TAZO PER PHARMACY MC PRN (11:30)
[2021-09-25] MEDS ORDERED: CALCIUM CARBONATE 500 MG TAB.CHEW PO PRN (11:30)
[2021-09-25] MEDS ORDERED: ELECTROLYTE (NON-ICU) PROTOCOL. MC PRN (11:30)
[2021-09-25] MEDS ORDERED: oxyCODONE/APAP 5/325 1 TAB TABLET PO PRN ×2 (11:30)
[2021-09-25] MEDS ORDERED: ZOLPIDEM 5 MG TABLET. PO PRN (11:30)
[2021-09-25] MEDS ORDERED: traMADol 50 MG TABLET PO PRN (11:30)
[2021-09-25 11:45] VITALS: BP 105/64
[2021-09-25] MEDS ORDERED: ENOXAPARIN 40 MG/0.4 ML SYRINGE. SQ SCH (12:00)
[2021-09-25] MEDS: SENNOSIDES/DOCUSATE 8.6/50MG TABLET. PO SCH ×2 (12:00→22:13)
[2021-09-25] MEDS: MULTIVITAMIN with MINERAL TABLET. PO SCH (12:36)
[2021-09-25] MEDS: PIPERACILLIN/TAZOBACTAM 3.375 GM in IV NORMAL SALINE 50ML 50 ML IV SCH ×3 (12:36→23:53)
--- NOTE | 2021-09-25 13:06 | PDOC1 ---
History and Physical Date of Service: DOS: DATE: 09/25/21 TIME: 13:01 Chief Complaint: Chief Complain: Shortness of breath History of Present Illness: HPI: Patient is 60-year-old male presented to the emergency room today due to 2 worsening shortness of breath. Patient reports he started having some respiratory symptoms about 3 weeks ago. Initially used wzxy-yhl-obeqfvd medicines and actually was improving. However the past 3 to 5 days he said he has had symptoms returned and worsened causing his presentation today. He does have a father he is in close contact with that is currently hospitalized with [facility]. Denies headache, dizziness, vision changes, chest pain, abdominal pain, dysuria When I evaluated patient at bedside he was resting in bed on room air; said that he was feeling a little bit better from earlier. Denies with any other past medical history other than hypertension. He did have his knee replaced and was on warfarin for short time during then. Past Medical/Surgical History: PMH/PSH: HTN, knee replacement Allergies: Allergies: Coded Allergies: No Known Drug Allergies (Unverified , 09/25/21) Family History: Family History: HTN Social History: Social History: Denies alcohol tobacco drug use Current Medications: Current Medications Current Medications Methylprednisolone Sodium Succinate (SOLU-Medrol 125MG VIAL) 125 mg 1X ONCE IV Last administered on 09/25/21at 09:34; Start 09/25/21 at 09:15; Stop 09/25/21 at 09:16; Status DC Ceftriaxone Sodium (Rocephin) 1 gm 1X ONCE IVP Last administered on 09/25/21at 09:35; Start 09/25/21 at 09:45; Stop 09/25/21 at 09:46; Status DC Azithromycin 250 ml @ 250 mls/hr 1X ONCE IV Last administered on 09/25/21at 09:40; Start 09/25/21 at 09:45; Stop 09/25/21 at 10:44; Status DC Ondansetron HCl (Zofran) 4 mg PRN Q8HRS PRN IVP NAUSEA/VOMITING; Start 09/25/21 at 09:30; Stop 09/26/21 at 09:29 Sodium Chloride 1,000 ml @ 75 mls/hr [id number] IV Last administered on 09/25/21at 09:40; Start 09/25/21 at 09:30; Stop 09/26/21 at 09:29 Acetaminophen (Tylenol) 650 mg PRN Q4HRS PRN PO FEVER > 100.3'F; Start 09/25/21 at 09:30; Stop 09/26/21 at 09:29 Dexamethasone Sodium Phosphate (Decadron) 6 mg DAILY IVP ; Start 09/26/21 at 09:00 Multivitamins (Thera M Plus) 1 tab DAILY PO Last administered on 09/25/21at 12:36; Start 09/25/21 at 11:30 Guaifenesin/ Codeine Phosphate (Robitussin Ac) 5 ml PRN Q6HRS PRN PO COUGH; Start 09/25/21 at 11:30 Piperacillin Sod/ Tazobactam Sod (Zosyn Per Pharmacy) 1 each PRN DAILY PRN MC SEE COMMENTS; Start 09/25/21 at 11:30 Lisinopril (Prinivil) 10 mg DAILY PO ; Start 09/26/21 at 09:00 Timolol Maleate (Timoptic 0.5% [facility]) 1 drop BID OD ; Start 09/25/21 at 21:00 Tramadol HCl (Ultram) 50 mg PRN Q4HRS PRN PO MODERATE PAIN 4-6; Start 09/25/21 at 11:30 Ondansetron HCl (Zofran) 4 mg PRN Q6HRS PRN IVP NAUSEA/VOMITING; Start 09/25/21 at 11:30 Calcium Carbonate/ Glycine (Tums) 500 mg PRN Q3HRS PRN PO UPSET STOMACH; Start 09/25/21 at 11:30 Zolpidem Tartrate (Ambien) 5 mg PRN QHS PRN PO INSOMNIA, MAY REPEAT IN 1HR; Start 09/25/21 at 11:30 Info (Non-Icu Electrolyte Protocol) 1 ea PRN DAILY PRN MC SEE COMMENTS; Start 09/25/21 at 11:30 Oxycodone HCl (Roxicodone) 5 mg PRN Q3HRS PRN PO BREAKTHROUGH PAIN; Start 09/25/21 at 11:30 Oxycodone/ Acetaminophen (Percocet 5/325) 1 tab PRN Q4HRS PRN PO MILD PAIN, 1ST CHOICE; Start 09/25/21 at 11:30 Oxycodone/ Acetaminophen (Percocet 5/325) 2 tab PRN Q4HRS PRN PO MODERATE PAIN, SEVERE PAIN; Start 09/25/21 at 11:30 Acetaminophen (Tylenol) 650 mg PRN Q6HRS PRN PO Headaches, Temp > 101.5F; Start 09/25/21 at 11:30 Senna/Docusate Sodium (Senna Plus) 1 tab BID PO ; Start 09/25/21 at 12:00 Enoxaparin Sodium (Lovenox 40mg Syringe) 40 mg Q12HR SQ Last administered on 09/25/21at 12:36; Start 09/25/21 at 12:00 Piperacillin Sod/ Tazobactam Sod 3.375 gm/Sodium Chloride 50 ml @ 100 mls/hr Q6HRS IV Last administered on 09/25/21at 12:36; Start 09/25/21 at 12:00 Active Scripts Active Oxycodone Hcl 5 Mg Capsule 5 Mg PO PRN Q4HRS PRN Tramadol Hcl 50 Mg Tablet 50 Mg PO Q4HRS PRN Warfarin Sodium 4 Mg Tablet 4 Mg PO DAILY 28 Days Reported Timoptic 0.5% (Timolol Maleate) 10 Ml Drops 1 Drop OD BID 30 Days Lisinopril 10 Mg Tablet 10 Mg PO DAILY ROS: Review of Systems Review of System Unless noted in HPI 14 point review of systems was negative Physical Exam: Vital Signs: Vital Signs Date Time Temp Pulse Resp B/P (MAP) Pulse Ox O2 Delivery O2 Flow Rate FiO2 09/25/21 11:45 97.4 81 16 105/64 (78) 93 Room Air 97.4 Physcial Exam: GEN: No apparent distress. Alert and oriented HEENT: Normal cephalic, atraumatic, external auditory canals are patent EYES: Extraocular muscles are intact, pupil are equally round and reactive to light and accommodation MUSCULOSKELETAL: Well developed , well nourished, good range of motion ENDOCRINE: No thyromegaly was palpated LYMPHATICS: No cervical chain or axillary nodes were noted HEMATOPOIETIC: No bruising NECK: Supple, no JVD, no thyromegaly was noted LUNGS: Coarse breath sounds decreased air entry HEART: RRR, S1, S2 present. Peripheral pulses intact, no obvious murmurs noted ABDOMEN: Soft, nontender. Positive bowel sounds, no organomegaly, normal bowel sounds EXTREMITIES: Without clubbing, cyanosis, or edema. Pedal pulses intact. NEUROLOGIC: Normal speech and tone. A&O x 3, moves all extremities, no obvious focal deficits PSYCHIATRIC: Normal affect, normal mood. Stable SKIN: No ulcerations or rashes, good skin turgor, no jaundice VASCULAR: Good capillary refill, neurovascular bundle appears to be intact Labs: Labs: Laboratory Tests Test 09/25/21 07:38 09/25/21 08:12 09/25/21 08:55 SARS-CoV-2 Antigen (Rapid) Positive (NEGATIVE) White Blood Count 4.0 x10^3/uL (4.0-11.0) Red Blood Count 4.42 x10^6/uL (4.30-5.70) Hemoglobin 12.5 g/dL (13.0-17.5) Hematocrit 35.8 % (39.0-53.0) Mean Corpuscular Volume 81 fL (79-100) Mean Corpuscular Hemoglobin 28 pg (25-35) Mean Corpuscular Hemoglobin Concent 35 g/dL (31-37) Red Cell Distribution Width 13.7 % (11.5-14.5) Platelet Count 209 x10^3/uL (140-400) Neutrophils (%) (Auto) 71 % (31-73) Lymphocytes (%) (Auto) 22 % (24-48) Monocytes (%) (Auto) 7 % (0-9) Eosinophils (%) (Auto) 0 % (0-3) Basophils (%) (Auto) 0 % (0-3) Neutrophils # (Auto) 2.9 x10^3/uL (1.8-7.7) Lymphocytes # (Auto) 0.9 x10^3/uL (1.0-4.8) Monocytes # (Auto) 0.3 x10^3/uL (0.0-1.1) Eosinophils # (Auto) 0.0 x10^3/uL (0.0-0.7) Basophils # (Auto) 0.0 x10^3/uL (0.0-0.2) Sodium Level 133 mmol/L (136-145) Potassium Level 3.5 mmol/L (3.5-5.1) Chloride Level 95 mmol/L (98-107) Carbon Dioxide Level 29 mmol/L (21-32) Anion Gap 9 (6-14) Blood Urea Nitrogen 21 mg/dL (8-26) Creatinine 1.3 mg/dL (0.7-1.3) Estimated GFR (Cockcroft-Gault) 56.1 BUN/Creatinine Ratio 16 (6-20) Glucose Level 116 mg/dL (70-99) Lactic Acid Level 0.8 mmol/L (0.4-2.0) Calcium Level 8.3 mg/dL (8.5-10.1) Magnesium Level 2.3 mg/dL (1.8-2.4) Total Bilirubin 0.6 mg/dL (0.2-1.0) Aspartate Amino Transf (AST/SGOT) 49 U/L (15-37) Alanine Aminotransferase (ALT/SGPT) 9 U/L (16-63) Alkaline Phosphatase 99 U/L (46-116) Troponin I High Sensitivity 17 ng/L (4-75) DV-Ynn-A-Type Natriuretic Peptide 335 pg/mL (0-124) Total Protein 7.9 g/dL (6.4-8.2) Albumin 3.5 g/dL (3.4-5.0) Albumin/Globulin Ratio 0.8 (1.0-1.7) Prothrombin Time 12.7 SEC (11.7-14.0) Prothromb Time International Ratio 1.0 (0.8-1.1) Activated Partial Thromboplast Time 39 SEC (24-38) Laboratory Tests Test 09/25/21 07:38 09/25/21 08:12 09/25/21 08:55 SARS-CoV-2 Antigen (Rapid) Positive (NEGATIVE) White Blood Count 4.0 x10^3/uL (4.0-11.0) Red Blood Count 4.42 x10^6/uL (4.30-5.70) Hemoglobin 12.5 g/dL (13.0-17.5) Hematocrit 35.8 % (39.0-53.0) Mean Corpuscular Volume 81 fL (79-100) Mean Corpuscular Hemoglobin 28 pg (25-35) Mean Corpuscular Hemoglobin Concent 35 g/dL (31-37) Red Cell Distribution Width 13.7 % (11.5-14.5) Platelet Count 209 x10^3/uL (140-400) Neutrophils (%) (Auto) 71 % (31-73) Lymphocytes (%) (Auto) 22 % (24-48) Monocytes (%) (Auto) 7 % (0-9) Eosinophils (%) (Auto) 0 % (0-3) Basophils (%) (Auto) 0 % (0-3) Neutrophils # (Auto) 2.9 x10^3/uL (1.8-7.7) Lymphocytes # (Auto) 0.9 x10^3/uL (1.0-4.8) Monocytes # (Auto) 0.3 x10^3/uL (0.0-1.1) Eosinophils # (Auto) 0.0 x10^3/uL (0.0-0.7) Basophils # (Auto) 0.0 x10^3/uL (0.0-0.2) Sodium Level 133 mmol/L (136-145) Potassium Level 3.5 mmol/L (3.5-5.1) Chloride Level 95 mmol/L (98-107) Carbon Dioxide Level 29 mmol/L (21-32) Anion Gap 9 (6-14) Blood Urea Nitrogen 21 mg/dL (8-26) Creatinine 1.3 mg/dL (0.7-1.3) Estimated GFR (Cockcroft-Gault) 56.1 BUN/Creatinine Ratio 16 (6-20) Glucose Level 116 mg/dL (70-99) Lactic Acid Level 0.8 mmol/L (0.4-2.0) Calcium Level 8.3 mg/dL (8.5-10.1) Magnesium Level 2.3 mg/dL (1.8-2.4) Total Bilirubin 0.6 mg/dL (0.2-1.0) Aspartate Amino Transf (AST/SGOT) 49 U/L (15-37) Alanine Aminotransferase (ALT/SGPT) 9 U/L (16-63) Alkaline Phosphatase 99 U/L (46-116) Troponin I High Sensitivity 17 ng/L (4-75) BL-Ade-C-Type Natriuretic Peptide 335 pg/mL (0-124) Total Protein 7.9 g/dL (6.4-8.2) Albumin 3.5 g/dL (3.4-5.0) Albumin/Globulin Ratio 0.8 (1.0-1.7) Prothrombin Time 12.7 SEC (11.7-14.0) Prothromb Time International Ratio 1.0 (0.8-1.1) Activated Partial Thromboplast Time 39 SEC (24-38) Assessment/Plan Assessment/Plan Acute hypoxic respiratory failure secondary to COVID-19 pneumonia, hypertension -Patient with couple weeks of respiratory symptoms initially were improving but worsened over the past few days. Close Covid contacts. Covid positive here. -Received Decadron in emergency room. Will continue this for now. -We will do Zosyn doxy for antibiotics to cover for any superimposed bacterial pneumonia -Should he have an oxygen requirement okay to start remdesivir -As needed inhaler -DVT prophylaxis -Regular diet -Plan of care discussed with bedside RN. Justifications for Admission Other Justification ERIKA VALLE MD Sep 25, 2021 13:06
[2021-09-25] MEDS: DOXYCYCLINE HYCLATE 100 MG TABLET PO SCH ×2 (14:01→22:13)
[2021-09-25 15:00] VITALS: BP 116/55
[2021-09-25 19:00] VITALS: BP 116/55
[2021-09-25] MEDS: TIMOLOL 0.5% OPHTH SOLUTION 5ML BOTTLE. OD SCH (22:14)
[2021-09-25 23:00] VITALS: BP 114/66
[2021-09-26 02:54] VITALS: BP 121/70
[2021-09-26] MEDS: PIPERACILLIN/TAZOBACTAM 3.375 GM in IV NORMAL SALINE 50ML 50 ML IV SCH ×4 (05:58→23:55)
[2021-09-26 07:00] VITALS: BP 113/68
[2021-09-26] MEDS: SENNOSIDES/DOCUSATE 8.6/50MG TABLET. PO SCH ×2 (07:58→20:49)
[2021-09-26] MEDS: DEXAMETHASONE SOD PHOS 4 MG/ML VIAL IVP SCH (08:18)
[2021-09-26] MEDS: TIMOLOL 0.5% OPHTH SOLUTION 5ML BOTTLE. OD SCH ×2 (08:18→20:49)
[2021-09-26] MEDS: DOXYCYCLINE HYCLATE 100 MG TABLET PO SCH ×2 (08:20→20:48)
[2021-09-26] MEDS: MULTIVITAMIN with MINERAL TABLET. PO SCH (08:20)
[2021-09-26] MEDS: LISINOPRIL 10 MG TABLET PO SCH (09:32)
[2021-09-26 11:00] VITALS: BP 113/67
[2021-09-26] MEDS ORDERED: REMDESIVIR LOAD in IV NORMAL SALINE 250ML TV IV ONE (11:30)
--- NOTE | 2021-09-26 12:11 | EKG ---
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
--- NOTE | 2021-09-26 12:18 | PDOC ---
[employer] PROGRESS NOTE Date of Service DOS: DATE: 09/26/21 TIME: 12:12 Chief Complaint Chief Complaint Covid-19 Pneumonia Hypoxia Dyspnea History of Present Illness History of Present Illness 09/26/2021 Patient was seen and examined today, Patient in good spirits and doing better. Patient is on 5 L O2 via NC. Reviewed chart and discussed with RN Vitals/I&O Vitals/I&O: Vital Signs Date Time Temp Pulse Resp B/P (MAP) Pulse Ox O2 Delivery O2 Flow Rate FiO2 09/26/21 11:00 96.3 78 18 113/67 (82) 94 Nasal Cannula 3.0 96.3 I & O 09/25/21 09/25/21 09/26/21 15:00 23:00 07:00 Intake Total 50 ml 300 ml 100 ml Output Total 400 ml 400 ml Balance 50 ml -100 ml -300 ml Assessment and Plan Assessmemt and Plan Problems Medical Problems: (1) Hypoxia Status: Acute (2) Pneumonia due to COVID-19 virus Status: Acute PLAN: Continue Covid Protocol - Continue Remdisiver, Antibiotics (zosyn and doxycycline), Continue steroids, Continue Multivitamin, Albuterol MDI, Codeine Cough Syrup, Levenox, and Supp oxygen. - Start Aspirin Continue Cardiac monitoring Start Home Meds Trend Labs Continue DVT prophylaxis Comment Review of Relevant I have reviewed the following items dino (where applicable) has been applied. Medications: Current Medications Medications (Trade) Dose Ordered Sig/Jody Route PRN Reason Start Time Stop Time Status Last Admin Dose Admin Dexamethasone Sodium Phosphate (Decadron) 6 mg DAILY IVP 09/26/21 09:00 09/26/21 08:18 Lisinopril (Prinivil) 10 mg DAILY PO 09/26/21 09:00 09/26/21 09:32 Timolol Maleate (Timoptic 0.5% Oph) 1 drop BID OD 09/25/21 21:00 09/26/21 08:18 Doxycycline Hyclate (Vibra-Tab) 100 mg BID PO 09/25/21 13:15 09/26/21 08:20 Remdesivir 200 mg/ Sodium Chloride 210 ml @ 210 mls/hr 1X ONCE IV 09/26/21 11:30 09/26/21 12:29 09/26/21 12:02 Justifications for Admission Other Justification CASTLE,NIAL K III DO Sep 26, 2021 12:18
[2021-09-26] MEDS: ENOXAPARIN 40 MG/0.4 ML SYRINGE. SQ SCH (13:25)
[2021-09-26] MEDS: ASPIRIN CHEWABLE 81 MG TABLET. PO SCH (13:48)
--- NOTE | 2021-09-26 14:09 | NUR ---
SS following for discharge planning. SS reviewed pt chart and discussed with pt RN. Pt is currently requiring oxygen at three liters nasal canula. COVID19 positive. Pt on IV Decadron, IV Remdesivir, IV Zosyn, and PO Doxycycline. SS will continue to follow for discharge planning.
[2021-09-26 15:00] VITALS: BP 112/61
[2021-09-26 19:50] VITALS: BP 121/66
[2021-09-26] MEDS: LACTOBACILLUS RHAMNOSUS GG 1 CAPSULE. PO SCH (20:48)
[2021-09-26 22:48] VITALS: BP 123/68
[2021-09-27] MEDS: PIPERACILLIN/TAZOBACTAM 3.375 GM in IV NORMAL SALINE 50ML 50 ML IV SCH ×4 (05:43→23:12)
[2021-09-27 07:57] VITALS: BP 123/70
[2021-09-27] MEDS: SENNOSIDES/DOCUSATE 8.6/50MG TABLET. PO SCH ×2 (09:00→20:28)
[2021-09-27] MEDS: TIMOLOL 0.5% OPHTH SOLUTION 5ML BOTTLE. OD SCH ×2 (09:00→21:00)
[2021-09-27] MEDS: ENOXAPARIN 40 MG/0.4 ML SYRINGE. SQ SCH (09:23)
[2021-09-27] MEDS: ASPIRIN CHEWABLE 81 MG TABLET. PO SCH (09:23)
[2021-09-27] MEDS: DOXYCYCLINE HYCLATE 100 MG TABLET PO SCH ×2 (09:24→20:28)
[2021-09-27] MEDS: LACTOBACILLUS RHAMNOSUS GG 1 CAPSULE. PO SCH ×2 (09:24→20:28)
[2021-09-27] MEDS: DEXAMETHASONE SOD PHOS 4 MG/ML VIAL IVP SCH (09:24)
[2021-09-27] MEDS: LISINOPRIL 10 MG TABLET PO SCH (09:24)
[2021-09-27] MEDS: MULTIVITAMIN with MINERAL TABLET. PO SCH (09:24)
[2021-09-27 11:30] VITALS: BP 94/60
[2021-09-27] MEDS: REMDESIVIR 100mg in NORMAL SALINE 250ML X 4 DAYS IV SCH (11:30)
--- NOTE | 2021-09-27 12:09 | PDOC ---
[employer] PROGRESS NOTE Date of Service DOS: DATE: 09/27/21 TIME: 12:02 Chief Complaint Chief Complaint Covid-19 Pneumonia Hypoxia Dyspnea History of Present Illness History of Present Illness 09/27/2021 Patient was seen and examined today, in NAD and doing well. Patient is on 12 L O2 via NC Daugher was in room to comfort as patient's father was just put on hospice. Reviewed chart and discussed with RN. 09/26/2021 Patient was seen and examined today, Patient in good spirits and doing better. Patient is motivated to continue to improved and be discharged. Patient is on 5 L O2 via NC. Reviewed chart and discussed with RN Vitals/I&O Vitals/I&O: Vital Signs Date Time Temp Pulse Resp B/P (MAP) Pulse Ox O2 Delivery O2 Flow Rate FiO2 09/27/21 09:24 76 123/70 09/27/21 08:00 Nasal Cannula 15.0 09/27/21 07:57 98.0 18 91 98.0 I & O 09/26/21 09/26/21 09/27/21 15:00 23:00 07:00 Intake Total 780 ml 970 ml 300 ml Output Total 400 ml Balance 780 ml 970 ml -100 ml Assessment and Plan Assessmemt and Plan Problems Medical Problems: (1) Hypoxia Status: Acute (2) Pneumonia due to COVID-19 virus Status: Acute Covid-19 Pneumonia, Hypoxia PLAN: Continue Covid Protocol (on day 2 of Remedesivir) Continue IV Abx (Zosyn and Doxycycline) Continue supplemental Oxygen Cardiac Monitoring Home Meds DVT Prophylaxis Full Code Trend Labs Incentive spirometer ordered Comment Review of Relevant I have reviewed the following items dino (where applicable) has been applied. Medications: Current Medications Medications (Trade) Dose Ordered Sig/Jody Route PRN Reason Start Time Stop Time Status Last Admin Dose Admin Enoxaparin Sodium (Lovenox 40mg Syringe) 40 mg DAILY SQ 09/26/21 13:00 09/27/21 09:23 Aspirin (Aspirin Chewable) 81 mg DAILYWBKFT PO 09/26/21 12:30 09/27/21 09:23 Lactobacillus Rhamnosus (Culturelle) 1 cap BID PO 09/26/21 21:00 09/27/21 09:24 Justifications for Admission Other Justification ANJUM NEWTON K III DO Sep 27, 2021 12:09
--- NOTE | 2021-09-27 14:49 | NUR ---
SS following up with discharge planning. SS reviewed pt chart and discussed with pt RN. Pt is currently requiring oxygen at five liters nasal canula. COVID19 positive. Pt on IV Remdesivir, IV Zosyn, IV Decadron, and PO Doxycycline. SS will continue to follow for discharge planning.
[2021-09-27 15:20] VITALS: BP 123/64
[2021-09-27 19:39] VITALS: BP 109/64
[2021-09-27 22:18] VITALS: BP 109/64
[2021-09-28] MEDS: guaiFENesin/CODEINE 100mg/10mg 5 ML LIQUID PO PRN (00:12)
[2021-09-28 02:43] VITALS: BP 115/57
[2021-09-28] MEDS: PIPERACILLIN/TAZOBACTAM 3.375 GM in IV NORMAL SALINE 50ML 50 ML IV SCH ×4 (05:37→23:36)
[2021-09-28 07:00] VITALS: BP 125/65
[2021-09-28] MEDS: ASPIRIN CHEWABLE 81 MG TABLET. PO SCH (08:00)
[2021-09-28] MEDS: SENNOSIDES/DOCUSATE 8.6/50MG TABLET. PO SCH ×2 (09:00→21:36)
[2021-09-28] MEDS: LACTOBACILLUS RHAMNOSUS GG 1 CAPSULE. PO SCH ×2 (09:09→21:36)
[2021-09-28] MEDS: LISINOPRIL 10 MG TABLET PO SCH (09:09)
[2021-09-28] MEDS: MULTIVITAMIN with MINERAL TABLET. PO SCH (09:09)
[2021-09-28] MEDS: ENOXAPARIN 40 MG/0.4 ML SYRINGE. SQ SCH (09:10)
[2021-09-28] MEDS: DOXYCYCLINE HYCLATE 100 MG TABLET PO SCH ×2 (09:10→21:36)
[2021-09-28] MEDS: DEXAMETHASONE SOD PHOS 4 MG/ML VIAL IVP SCH (09:10)
[2021-09-28] MEDS: TIMOLOL 0.5% OPHTH SOLUTION 5ML BOTTLE. OD SCH ×2 (09:13→21:00)
--- NOTE | 2021-09-28 10:31 | PDOC ---
[employer] PROGRESS NOTE Date of Service DOS: DATE: 09/28/21 TIME: 10:29 Chief Complaint Chief Complaint Covid-19 Pneumonia Hypoxia Dyspnea Hypertension Knee replacement History of Present Illness History of Present Illness 09/28/2021 Patient seen and examined He seems a little down apparently his dad from Covid yesterday The is Thursday he would like to get out of here soon He is still on high flow oxygen at 15 L per nasal cannula I turned it down to 10 L he seems to be holding his oxygen saturation for at le ast 5 minutes at 94% or higher Discussed with RN Chart reviewed 09/27/2021 Patient was seen and examined today, in NAD and doing well. Patient is on 12 L O2 via NC Daugher was in room to comfort as patient's father was just put on hospice. Reviewed chart and discussed with RN. 09/26/2021 Patient was seen and examined today, Patient in good spirits and doing better. Patient is motivated to continue to improved and be discharged. Patient is on 5 L O2 via NC. Reviewed chart and discussed with RN Vitals/I&O Vitals/I&O: Vital Signs Date Time Temp Pulse Resp B/P (MAP) Pulse Ox O2 Delivery O2 Flow Rate FiO2 09/28/21 09:09 78 125/65 09/28/21 08:00 Nasal Cannula 15.0 09/28/21 07:00 96.4 25 88 96.4 I & O 09/27/21 09/27/21 09/28/21 15:00 23:00 07:00 Intake Total 240 ml 300 ml 200 ml Output Total 200 ml Balance 240 ml 300 ml 0 ml Physical Exam General: mild distress Heart: Regular rate Lungs: Crackles Abdomen: Normal bowel sounds Extremities: No clubbing Skin: No rashes Assessment and Plan Assessmemt and Plan Problems Medical Problems: (1) Hypoxia Status: Acute (2) Pneumonia due to COVID-19 virus Status: Acute Covid-19 Pneumonia, Hypoxia History of hypertension and knee replacement PLAN: Continue Covid Protocol (on day 3 of Remedesivir) Continue IV Abx (Zosyn and Doxycycline) Continue supplemental Oxygen (I have him down to 10 L per nasal cannula) Cardiac Monitoring Home Meds DVT Prophylaxis Full Code Trend Labs Incentive spirometer ordered Hopefully we can get him out Thursday for his dad's if I can get his oxygen requirements down to at least 2 or 3 L Comment Review of Relevant I have reviewed the following items dino (where applicable) has been applied. Medications: Current Medications Medications (Trade) Dose Ordered Sig/Jody Route PRN Reason Start Time Stop Time Status Last Admin Dose Admin Remdesivir 100 mg/ Sodium Chloride 230 ml @ 460 mls/hr Q24H IV 09/27/21 11:30 09/30/21 11:59 09/27/21 11:30 Justifications for Admission Other Justification ANJUM NEWTON III DO Sep 28, 2021 10:31
[2021-09-28 10:32] VITALS: BP 122/70
--- NOTE | 2021-09-28 14:35 | NUR ---
DISCHARGE INSTRUCTIONS GIVEN, QUESTIONS AND CONCERNS ANSWERED, PATIENT AND FAMILY MEMBERS AT THE BEDSIDE VERBALIZED UNDERSTANDING OF DISCHARGE INFORMATION INCLUDING TAKING ALL MEDICATIONS INSTRUCTED AND FOLLOWING UP WITH HER PRIMARY PROVIDER IN 1-2 WEEKS AND OTHER CONSULTS INSTRUCTED. ALL PERSONAL BELONGINGS GATHERED AND PLACED IN BAGS FOR DISCHARGE BY THE FAMILY. SALINE LOCKS REMOVED FROM PATIENTS 'RIGHT AC AND LEFT WRIST PER THIS COMMUNICATIONS DESIGNER.
[2021-09-28 15:03] VITALS: BP 147/81
--- NOTE | 2021-09-28 15:10 | NUR ---
PATIENT LEAVES THE UNIT PER W/C AND ALONGSIDE HER FAMILY AND THIS FASHION ILLUSTRATOR, EMOTIONAL SUPPORT GIVEN, FOLLOW UP APPOINTMENTS ENCOURAGED.
[2021-09-28] MEDS: REMDESIVIR 100mg in NORMAL SALINE 250ML X 4 DAYS IV SCH (15:45)
[2021-09-28 19:22] VITALS: BP 126/70
[2021-09-28 22:40] VITALS: BP 147/71
[2021-09-29 02:41] VITALS: BP 154/75
[2021-09-29] MEDS: PIPERACILLIN/TAZOBACTAM 3.375 GM in IV NORMAL SALINE 50ML 50 ML IV SCH ×4 (05:46→23:12)
[2021-09-29 06:38] VITALS: BP 165/76
[2021-09-29] MEDS: TIMOLOL 0.5% OPHTH SOLUTION 5ML BOTTLE. OD SCH ×2 (09:00→20:40)
[2021-09-29] MEDS: ASPIRIN CHEWABLE 81 MG TABLET. PO SCH (09:30)
[2021-09-29] MEDS: SENNOSIDES/DOCUSATE 8.6/50MG TABLET. PO SCH ×2 (09:30→20:40)
[2021-09-29] MEDS: DOXYCYCLINE HYCLATE 100 MG TABLET PO SCH ×2 (09:30→20:40)
[2021-09-29] MEDS: LISINOPRIL 10 MG TABLET PO SCH (09:30)
[2021-09-29] MEDS: LACTOBACILLUS RHAMNOSUS GG 1 CAPSULE. PO SCH ×2 (09:30→20:40)
[2021-09-29] MEDS: MULTIVITAMIN with MINERAL TABLET. PO SCH (09:30)
[2021-09-29] MEDS: DEXAMETHASONE SOD PHOS 4 MG/ML VIAL IVP SCH (09:31)
[2021-09-29] MEDS: ENOXAPARIN 40 MG/0.4 ML SYRINGE. SQ SCH (09:31)
[2021-09-29 11:00] VITALS: BP 143/66
[2021-09-29] MEDS: REMDESIVIR 100mg in NORMAL SALINE 250ML X 4 DAYS IV SCH (11:30)
--- NOTE | 2021-09-29 12:46 | PDOC ---
[facility] PROGRESS NOTE Date of Service DOS: DATE: 09/29/21 TIME: 12:44 Chief Complaint Chief Complaint Covid-19 Pneumonia Hypoxia Dyspnea Hypertension Knee replacement History of Present Illness History of Present Illness 09/29/2021 Patient seen and examined He is on the phone talking again I told him to please conserve his energy Chart reviewed Discussed with RN He is currently on 15 L of oxygen per nasal cannula O2 sat ranging from 88-92 09/28/2021 Patient seen and examined He seems a little down apparently his dad from Covid yesterday The is Thursday he would like to get out of here soon He is still on high flow oxygen at 15 L per nasal cannula I turned it down to 10 L he seems to be holding his oxygen saturation for at least 5 minutes at 94% or higher Discussed with RN Chart reviewed 09/27/2021 Patient was seen and examined today, in NAD and doing well. Patient is on 12 L O2 via NC Daugher was in room to comfort as patient's father was just put on hospice. Reviewed chart and discussed with RN. 09/26/2021 Patient was seen and examined today, Patient in good spirits and doing better. Patient is motivated to continue to improved and be discharged. Patient is on 5 L O2 via NC. Reviewed chart and discussed with RN Vitals/I&O Vitals/I&O: Vital Signs Date Time Temp Pulse Resp B/P (MAP) Pulse Ox O2 Delivery O2 Flow Rate FiO2 09/29/21 11:00 99.2 77 18 143/66 (91) 92 Nasal Cannula 12.0 99.2 I & O 09/28/21 09/28/21 09/29/21 15:00 23:00 07:00 Intake Total 550 ml 610 ml 0 ml Output Total 600 ml 1150 ml Balance -50 ml -540 ml 0 ml Physical Exam General: moderate distress Heart: Regular rate Lungs: Crackles Abdomen: Normal bowel sounds Extremities: No clubbing Skin: No rashes Assessment and Plan Assessmemt and Plan Problems Medical Problems: (1) Hypoxia Status: Acute (2) Pneumonia due to COVID-19 virus Status: Acute Covid-19 Pneumonia, Hypoxia History of hypertension and knee replacement PLAN: Continue Covid Protocol (on day 4 of Remedesivir) Continue IV Abx (Zosyn and Doxycycline) Continue supplemental Oxygen trying to titrate down from 15 Cardiac Monitoring Home Meds DVT Prophylaxis Full Code [employer] Incentive spirometer ordered He wants to go to his dad's in the morning but he realizes he probably will not go to make that due to his high oxygen requirement Comment Review of Relevant I have reviewed the following items dino (where applicable) has been applied. Justifications for Admission Other Justification ANJUM NEWTON III DO Sep 29, 2021 12:46
[2021-09-29 15:00] VITALS: BP 137/63
[2021-09-29 19:05] VITALS: BP 138/73
[2021-09-29 23:06] VITALS: BP 146/76
[2021-09-30] VITALS (14 sets, daily range): BP systolic 82–172; BP diastolic 56–85
[2021-09-30] MEDS: PIPERACILLIN/TAZOBACTAM 3.375 GM in IV NORMAL SALINE 50ML 50 ML IV SCH ×3 (05:32→18:03)
[2021-09-30] MEDS: ASPIRIN CHEWABLE 81 MG TABLET. PO SCH (08:15)
[2021-09-30] MEDS: ENOXAPARIN 40 MG/0.4 ML SYRINGE. SQ SCH (08:15)
[2021-09-30] MEDS: LACTOBACILLUS RHAMNOSUS GG 1 CAPSULE. PO SCH ×2 (08:15→20:46)
[2021-09-30] MEDS: DEXAMETHASONE SOD PHOS 4 MG/ML VIAL IVP SCH (08:15)
[2021-09-30] MEDS: DOXYCYCLINE HYCLATE 100 MG TABLET PO SCH ×2 (08:15→20:46)
[2021-09-30] MEDS: SENNOSIDES/DOCUSATE 8.6/50MG TABLET. PO SCH ×2 (08:15→20:52)
[2021-09-30] MEDS: MULTIVITAMIN with MINERAL TABLET. PO SCH (08:15)
[2021-09-30] MEDS: LISINOPRIL 10 MG TABLET PO SCH (08:16)
[2021-09-30] MEDS: TIMOLOL 0.5% OPHTH SOLUTION 5ML BOTTLE. OD SCH ×2 (09:00→20:50)
--- NOTE | 2021-09-30 10:18 | NUR ---
SS following up with discharge planning. SS reviewed pt chart and discussed with pt RN. Pt is currently requiring oxygen at 15 liters non-rebreather and six liters nasal canula. COVID19 positive. Pt on IV Remdesivir, IV Decadron, IV Zosyn, and PO Doxycycline. Pt transferred to ICU 106 this morning. Not stable. SS will continue to follow for discharge planning.
[2021-09-30] MEDS: REMDESIVIR 100mg in NORMAL SALINE 250ML X 4 DAYS IV SCH (10:35)
--- NOTE | 2021-09-30 11:20 | PDOC ---
[facility] [facility] PROGRESS NOTE Date of Service DOS: DATE: 09/30/21 TIME: 11:17 Chief Complaint Chief Complaint Covid-19 Pneumonia Hypoxia Dyspnea Hypertension Knee replacement History of Present Illness History of Present Illness 09/30/2021 Patient seen and examined. He now has increasing oxygen requirements and is on a 100% nonrebreather plus nasal cannula oxygen He keeps taking his mask off trying to talk on the phone seems agitated Only satting in the high 80s I discussed the case with the nurse terminal gauger supervisor Discussed with case management Discussed with RN Chart reviewed I am going to go and transfer to ICU He is becoming critically ill prognosis guarded 09/29/2021 Patient seen and examined He is on the phone talking again I told him to please conserve his energy Chart reviewed Discussed with RN He is currently on 15 L of oxygen per nasal cannula O2 sat ranging from 88-92 09/28/2021 Patient seen and examined He seems a little down apparently his dad from Covid yesterday The is Thursday he would like to get out of here soon He is still on high flow oxygen at 15 L per nasal cannula I turned it down to 10 L he seems to be holding his oxygen saturation for at least 5 minutes at 94% or higher Discussed with RN Chart reviewed 09/27/2021 Patient was seen and examined today, in NAD and doing well. Patient is on 12 L O2 via NC Daugher was in room to comfort as patient's father was just put on hospice. Reviewed chart and discussed with RN. 09/26/2021 Patient was seen and examined today, Patient in good spirits and doing better. Patient is motivated to continue to improved and be discharged. Patient is on 5 L O2 via NC. Reviewed chart and discussed with RN Vitals/I&O Vitals/I&O: Vital Signs Date Time Temp Pulse Resp B/P (MAP) Pulse Ox O2 Delivery O2 Flow Rate FiO2 09/30/21 11:00 97.5 96 22 172/81 (111) 92 NonRebreather Mask 15.0 97.5 I & O 09/29/21 09/29/21 09/30/21 15:00 23:00 07:00 Intake Total 420 ml 580 ml 0 ml Output Total 400 ml Balance 420 ml 180 ml 0 ml Physical Exam General: severe distress Heart: Other (Tachycardic) Lungs: Crackles Abdomen: Normal bowel sounds Extremities: No clubbing Skin: No rashes Assessment and Plan Assessmemt and Plan Problems Medical Problems: (1) Hypoxia Status: Acute (2) Pneumonia due to COVID-19 virus Status: Acute Covid-19 Pneumonia, Hypoxia History of hypertension and knee replacement PLAN: Transfer to ICU Consult pulmonary medicine Continue Covid Protocol (on day 5 of Remedesivir) Continue IV Abx (Zosyn and Doxycycline) Continue supplemental Oxygen trying to titrate down from 15 Cardiac Monitoring Home Meds DVT Prophylaxis Full Code [employer] Incentive spirometry His dad from Covid a few days ago his parents today but I explained to him that he will not be able to go to the Prognosis extremely guarded CC time 32 minutes Comment Review of Relevant I have reviewed the following items dino (where applicable) has been applied. Justifications for Admission Other Justification ANJUM NEWTON III DO Sep 30, 2021 11:20
--- NOTE | 2021-09-30 11:56 | CONS ---
DATE OF CONSULTATION: 09/30/2021 PULMONARY CONSULTATION ATTENDING PHYSICIAN: Mauro Tucker MD REASON FOR CONSULTATION: Respiratory failure, COVID-19 pneumonia. HISTORY OF PRESENT ILLNESS: The patient is a 60-year-old male with no significant tobacco history. He was brought into the hospital with 2 days of increasing shortness of breath. The patient had a cough. No chest pain. He was diagnosed with COVID-19. While in the hospital, his dyspnea and hypoxia has progressed. Now he is requiring 15 liters of oxygen via nonrebreather mask and additional high flow oxygen via nasal cannula. Chest x-ray on admission showed multifocal bilateral patchy infiltrates. He is now being moved to the ICU. I have been asked to see him for further evaluation. He is being treated with dexamethasone, Lovenox for DVT prophylaxis along with remdesivir. PAST MEDICAL HISTORY: History of hypertension and knee replacement. PAST SURGICAL HISTORY: Knee replacement. ALLERGIES: None. MEDICATIONS: Reviewed as listed in the MRAD. REVIEW OF SYSTEMS: Twelve-point system obtained. Pertinent positives discussed in my present illness, otherwise noncontributory. All systems that were negative were reviewed as well. SOCIAL HISTORY: No history of tobacco use. FAMILY HISTORY: Hypertension. Father just of COVID-19 viral pneumonia. PHYSICAL EXAMINATION: Vital signs were reviewed. Blood pressure 172/81, afebrile, pulse ox is 92% on nonrebreather mask. Visual exam done due to COVID-19. He appears anxious and mildly tachypneic, but no significant respiratory distress. He is obese. No obvious leg edema. LABORATORY DATA: Reviewed. BUN and creatinine 21 and 1.3. Bilirubin 0.6, AST mildly elevated at 49. White cell count 4.0, hemoglobin 12.5 and platelets are 209. IMPRESSION: 1. Acute hypoxic respiratory failure secondary to COVID-19 viral pneumonia. 2. COVID-19 viral pneumonia/early acute respiratory distress syndrome. 3. Abnormal chest x-ray with bilateral patchy infiltrates consistent with viral pneumonia. We will followup x-ray. 4. Mildly increased liver function test. Likely due to COVID. 5. Mild leukopenia. Secondary to COVID. RECOMMENDATIONS: 1. Discussed with RN and RT. We will transfer the patient to the ICU and place him on 100% FiO2 via Vapotherm. 2. I have discussed with the patient that if his hypoxia worsens and has relative intolerance to BiPAP mask, he may require intubation. He states that he is going to think about it. He at this point does not want to be very aggressive. 3. Continue to finish remdesivir course. 4. Continue with steroids for a total of 10 days. 5. Obtain CRP and if elevated, may be a candidate for Actemra. 6. DVT prophylaxis. 7. Empiric antibiotics. We will follow along with you. Discussed with RN and RT. Chart reviewed, imaging studies reviewed. Critical care time [address]: Corrina TID: [id number]
[2021-09-30 13:16] LABS: ALBUMIN 2.6 g/dL (3.4-5.0); DIRECT BILIRUBIN 0.2 mg/dL (0.0-0.2); TOTAL BILIRUBIN 0.7 mg/dL (0.2-1.0); TOTAL PROTEIN 7.1 g/dL (6.4-8.2)
[2021-09-30] MEDS ORDERED: METOPROLOL IV PUSH 5 MG/5 ML VIAL. IVP ONE (13:30)
[2021-09-30 15:31] LABS: CALCIUM 8.7 mg/dL (8.5-10.1); CREATININE 0.8 mg/dL (0.7-1.3); GFR 98.3; MAGNESIUM 2.4 mg/dL (1.8-2.4); POTASSIUM 3.6 mmol/L (3.5-5.1)
[2021-09-30 16:33] LABS: C-REACTIVE PROTEIN 193.7 mg/L (0-3.3)
--- NOTE | 2021-09-30 17:52 | EKG ---
[facility] [address] [place] [address] Test Date: 2021-09-30 Test Time: 15:15:25 Pat Name: VANIA THORPE Department: Room: 106 1 Gender: M Dolphin Researcher: : 1960 Requested By: ANJUM NEWTON Order Number: [id number] Reading MD: Yehuda Ledezma Measurements Intervals [place] Rate: 85 P: 28 WI: 138 QRS: 10 QRSD: 84 T: -7 QT: 432 QTc: 520 Interpretive Statements SINUS RHYTHM ST ABNORMALITY, POSSIBLE ISCHEMIA OR SUBENDOCARDIAL INJURY PROLONGED QT Electronically Signed On 10-07-2021 11:26:03 MEAT GRINDER by Yehuda Ledezma
[2021-09-30] MEDS: METOPROLOL IV PUSH 5 MG/5 ML VIAL. IVP SCH (18:05)
[2021-09-30] MEDS ORDERED: TOCILIZUMAB IV ONE (18:30)
[2021-09-30] MEDS ORDERED: NORMAL SALINE IV ONE (18:30)
[2021-10-01] VITALS (24 sets, daily range): BP systolic 104–150; BP diastolic 51–78
[2021-10-01] MEDS: METOPROLOL IV PUSH 5 MG/5 ML VIAL. IVP SCH ×3 (00:17→11:38)
[2021-10-01] MEDS: PIPERACILLIN/TAZOBACTAM 3.375 GM in IV NORMAL SALINE 50ML 50 ML IV SCH ×4 (00:18→18:00)
[2021-10-01] MEDS ORDERED: guaiFENesin ORAL 200 MG/10 ML LIQUID. PO PRN (01:00)
[2021-10-01] MEDS: guaiFENesin/CODEINE 100mg/10mg 5 ML LIQUID PO PRN (01:45)
[2021-10-01] MEDS ORDERED: STERILE WATER for RESP 1,000 ML BAG. INH PRN (03:30)
--- NOTE | 2021-10-01 04:02 | RAD ---
XR CHEST 1V History: Respiratory failure. Covid. Comparison: 09/25/2021, 07/16/2021 Technique: Portable AP radiograph of the chest. Findings: The lungs are adequately inflated. Significant worsening of bilateral airspace opacities. No pleural effusion or pneumothorax. The cardiomediastinal silhouette and pulmonary vasculature are within preethi l limits. Osseous structures and soft tissues are unremarkable. Impression: 1. Progressive bilateral airspace disease compatible with Covid pneumonia. Electronically signed by: Moreno Flores MD (10/01/2021 3:59 AM) [facility]
[2021-10-01] MEDS: ENOXAPARIN 40 MG/0.4 ML SYRINGE. SQ SCH (08:22)
[2021-10-01] MEDS: ASPIRIN CHEWABLE 81 MG TABLET. PO SCH (08:23)
[2021-10-01] MEDS: DOXYCYCLINE HYCLATE 100 MG TABLET PO SCH ×2 (08:23→20:53)
[2021-10-01] MEDS: DEXAMETHASONE SOD PHOS 4 MG/ML VIAL IVP SCH (08:23)
[2021-10-01] MEDS: SENNOSIDES/DOCUSATE 8.6/50MG TABLET. PO SCH ×2 (08:23→20:53)
[2021-10-01] MEDS: MULTIVITAMIN with MINERAL TABLET. PO SCH (08:23)
[2021-10-01] MEDS: LACTOBACILLUS RHAMNOSUS GG 1 CAPSULE. PO SCH ×2 (08:23→20:52)
[2021-10-01] MEDS: LISINOPRIL 10 MG TABLET PO SCH (08:24)
--- NOTE | 2021-10-01 09:55 | PDOC ---
PULMONARY PROGRESS NOTES DATE: 10/01/21 TIME: 09:50 Subjective Remains on Vapotherm at 100% FiO2. Tolerating it reasonably well. No increased shortness of breath Vitals Vital Signs Date Time Temp Pulse Resp B/P (MAP) Pulse Ox O2 Delivery O2 Flow Rate FiO2 10/01/21 09:10 92 VAPOTHERM 40.0 10/01/21 08:24 70 138/72 10/01/21 07:00 20 10/01/21 04:00 99.2 99.2 Comments Visual exam done due to COVID-19 pneumonia. No obvious respiratory distress, no use of accessory muscles. No leg edema no skin rash. Labs Laboratory Tests Test 09/30/21 12:48 Sodium Level 135 mmol/L (136-145) Potassium Level 3.6 mmol/L (3.5-5.1) Chloride Level 97 mmol/L (98-107) Carbon Dioxide Level 26 mmol/L (21-32) Anion Gap 12 (6-14) Blood Urea Nitrogen 12 mg/dL (8-26) Creatinine 0.8 mg/dL (0.7-1.3) Estimated GFR (Cockcroft-Gault) 98.3 Glucose Level 124 mg/dL (70-99) Calcium Level 8.7 mg/dL (8.5-10.1) Magnesium Level 2.4 mg/dL (1.8-2.4) Total Bilirubin 0.7 mg/dL (0.2-1.0) Direct Bilirubin 0.2 mg/dL (0.0-0.2) Aspartate Amino Transf (AST/SGOT) 52 U/L (15-37) Alanine Aminotransferase (ALT/SGPT) 38 U/L (16-63) Alkaline Phosphatase 110 U/L (46-116) C-Reactive Protein, Quantitative 193.7 mg/L (0-3.3) Total Protein 7.1 g/dL (6.4-8.2) Albumin 2.6 g/dL (3.4-5.0) Laboratory Tests Test 09/30/21 12:48 Sodium Level 135 mmol/L (136-145) Potassium Level 3.6 mmol/L (3.5-5.1) Chloride Level 97 mmol/L (98-107) Carbon Dioxide Level 26 mmol/L (21-32) Anion Gap 12 (6-14) Blood Urea Nitrogen 12 mg/dL (8-26) Creatinine 0.8 mg/dL (0.7-1.3) Estimated GFR (Cockcroft-Gault) 98.3 Glucose Level 124 mg/dL (70-99) Calcium Level 8.7 mg/dL (8.5-10.1) Magnesium Level 2.4 mg/dL (1.8-2.4) Total Bilirubin 0.7 mg/dL (0.2-1.0) Direct Bilirubin 0.2 mg/dL (0.0-0.2) Aspartate Amino Transf (AST/SGOT) 52 U/L (15-37) Alanine Aminotransferase (ALT/SGPT) 38 U/L (16-63) Alkaline Phosphatase 110 U/L (46-116) C-Reactive Protein, Quantitative 193.7 mg/L (0-3.3) Total Protein 7.1 g/dL (6.4-8.2) Albumin 2.6 g/dL (3.4-5.0) Medications Active Scripts Medications Dose Route/Sig Max Daily Dose Days Date Category Oxycodone Hcl 5 Mg Capsule 5 Mg PO PRN Q4HRS PRN 08/01/21 Rx Tramadol Hcl 50 Mg Tablet 50 Mg PO Q4HRS PRN 08/01/21 Rx Warfarin Sodium 4 Mg Tablet 4 Mg PO DAILY 28 08/01/21 Rx Timoptic 0.5% (Timolol Maleate) 10 Ml Drops 1 Drop OD BID 30 07/17/21 Reported Lisinopril 10 Mg Tablet 10 Mg PO DAILY 07/17/21 Reported Comments Chest x-ray reviewed dated 10/01/2021. Diffuse bilateral interstitial infiltrates. No significant pleural effusion. There is mild progression. No evidence of pneumothorax Impression . 1. Acute hypoxic respiratory failure secondary to COVID-19 viral pneumonia. 2. COVID-19 viral pneumonia/early acute respiratory distress syndrome. 3. Abnormal chest x-ray with diffuse bilateral infiltrates consistent with viral pneumonia. 4. Mildly increased liver function test. Likely due to COVID. 5. Mild leukopenia. Secondary to COVID. 6. Markedly elevated CRP level of 197. Patient qualified for Actemra. He received with 09/30/2021 Plan . 1. Discussed with RN and RT. continue with 100% FiO2 via Vapotherm. As needed BiPAP. 2. I discussed advanced directives with the patient yesterday. At present full code. 3. Continue to finish remdesivir course. 4. Continue with steroids for a total of 10 days. 5. Status post Actemra. 6. DVT prophylaxis. 7. Empiric antibiotics. . Discussed with RN and RT. total critical care time 30 minutes including decision making ORQUIDEA JENNINGS MD Oct 01, 2021 09:55
[2021-10-01] MEDS: TIMOLOL 0.5% OPHTH SOLUTION 5ML BOTTLE. OD SCH ×2 (10:00→20:54)
--- NOTE | 2021-10-01 10:04 | PDOC ---
[employer] [facility] PROGRESS NOTE Date of Service DOS: DATE: 10/01/21 TIME: 09:59 Chief Complaint Chief Complaint Covid-19 Pneumonia status post remdesivir and Actemra Acute hypoxic respiratory failure requiring Vapotherm support Hypertension Knee replacement Appreciate pulmonology recommendationscontinue Vapotherm and as needed BiPAP Continue with IV steroids for total 10 days Continue Camacho IV antibiotics Lovenox for DVT prophylaxis Continue Protonix for GI prophylaxis while on steroids History of Present Illness History of Present Illness 09/30/2021 Patient seen and examined. He now has increasing oxygen requirements and is on a 100% nonrebreather plus nasal cannula oxygen He keeps taking his mask off trying to talk on the phone seems agitated Only satting in the high 80s I discussed the case with the nurse tube room supervisor Discussed with case management Discussed with RN Chart reviewed I am going to go and transfer to ICU He is becoming critically ill prognosis guarded 09/29/2021 Patient seen and examined He is on the phone talking again I told him to please conserve his energy Chart reviewed Discussed with RN He is currently on 15 L of oxygen per nasal cannula O2 sat ranging from 88-92 09/28/2021 Patient seen and examined He seems a little down apparently his dad from Covid yesterday The is Thursday he would like to get out of here soon He is still on high flow oxygen at 15 L per nasal cannula I turned it down to 10 L he seems to be holding his oxygen saturation for at least 5 minutes at 94% or higher Discussed with RN Chart reviewed 09/27/2021 Patient was seen and examined today, in NAD and doing well. Patient is on 12 L O2 via NC Daugher was in room to comfort as patient's father was just put on hospice. Reviewed chart and discussed with RN. 09/26/2021 Patient was seen and examined today, Patient in good spirits and doing better. Patient is motivated to continue to improved and be discharged. Patient is on 5 L O2 via NC. Reviewed chart and discussed with RN Vitals/I&O Vitals/I&O: Vital Signs Date Time Temp Pulse Resp B/P (MAP) Pulse Ox O2 Delivery O2 Flow Rate FiO2 10/01/21 09:10 92 VAPOTHERM 40.0 10/01/21 08:24 70 138/72 10/01/21 07:00 20 11/23/21 04:00 99.2 99.2 I & O 09/30/21 09/30/21 10/01/21 15:00 23:00 07:00 Intake Total 500 ml 800 ml 300 ml Output Total 350 ml 1000 ml 700 ml Balance 150 ml -200 ml -400 ml Physical Exam General: Alert, Oriented X3, Cooperative, severe distress Heart: Regular rate, Other (Tachycardic) Abdomen: Normal bowel sounds Extremities: No clubbing Skin: No rashes Labs Labs: Laboratory Tests Test 09/30/21 12:48 Sodium Level 135 mmol/L (136-145) Potassium Level 3.6 mmol/L (3.5-5.1) Chloride Level 97 mmol/L (98-107) Carbon Dioxide Level 26 mmol/L (21-32) Anion Gap 12 (6-14) Blood Urea Nitrogen 12 mg/dL (8-26) Creatinine 0.8 mg/dL (0.7-1.3) Estimated GFR (Cockcroft-Gault) 98.3 Glucose Level 124 mg/dL (70-99) Calcium Level 8.7 mg/dL (8.5-10.1) Magnesium Level 2.4 mg/dL (1.8-2.4) Total Bilirubin 0.7 mg/dL (0.2-1.0) Direct Bilirubin 0.2 mg/dL (0.0-0.2) Aspartate Amino Transf (AST/SGOT) 52 U/L (15-37) Alanine Aminotransferase (ALT/SGPT) 38 U/L (16-63) Alkaline Phosphatase 110 U/L (46-116) C-Reactive Protein, Quantitative 193.7 mg/L (0-3.3) Total Protein 7.1 g/dL (6.4-8.2) Albumin 2.6 g/dL (3.4-5.0) Assessment and Plan Assessmemt and Plan Problems Medical Problems: (1) Hypoxia Status: Acute (2) Pneumonia due to COVID-19 virus Status: Acute Comment Review of Relevant I have reviewed the following items dino (where applicable) has been applied. Medications: Current Medications Medications (Trade) Dose Ordered Sig/Jody Route PRN Reason Start Time Stop Time Status Last Admin Dose Admin Metoprolol Tartrate (Lopressor Vial) 5 mg 1X ONCE IVP 09/30/21 13:30 09/30/21 13:31 DC 09/30/21 13:38 Metoprolol Tartrate (Lopressor Vial) 5 mg Q6HRS IVP 09/30/21 18:00 10/01/21 05:58 Tocilizumab 800 mg/Sodium Chloride 100 ml @ 100 mls/hr 1X ONCE IV 09/30/21 18:30 09/30/21 19:29 DC 09/30/21 17:35 Justifications for Admission Other Justification RONNI MENDOZA MD Oct 01, 2021 10:04
--- NOTE | 2021-10-01 11:16 | PDOC2 ---
MARCELO MIRELES ELEVATOR STARTER 10/01/21 1116: CARDIAC CONSULT DATE OF CONSULT Date of Consult DATE: 10/01/21 TIME: 11:09 REASON FOR CONSULT Reason for Consult: New onset a-flutter REFERRING PHYSICIAN Referring Physician: Dr. Ferraro SOURCE Source: Chart review, Patient HISTORY OF PRESENT ILLNESS HISTORY OF PRESENT ILLNESS This is a 60 male who presented secondary to worsening cough and shortness of breath. Patient began having COVID symptoms on 09/17/21. Last Thursday, began feeling short of breath and having difficulty breathing, which prompted his arrival to the ED. Father contracted COVID the week prior and unfortunately . His is today. Patient COVID + upon arrival. Due to increasing oxygen demands, was transferred to ICU yesterday afternoon. On tele, was noted with tachyarrhythmia, which prompted this consult. Metoprolol was added, which has improved heart rhythm and rate and he is presently sinus rhythm. He denies any chest pain, palpitations, dizziness, or diaphoresis. Reports feeling much better today that he did upon arrival. Is presently on Vapotherm. PAST MEDICAL HISTORY Cardiovascular: HTN Musculoskeletal: Osteoarthritis PAST SURGICAL HISTORY Past Surgical History: Total knee replacement FAMILY HISTORY Family History: Heart Disease, Hypertension SOCIAL HISTORY Smoke: No ALCOHOL: social Drugs: None Lives: Alone CURRENT MEDICATIONS CURRENT MEDICATIONS Current Medications Medications (Trade) Dose Ordered Sig/Jody Route PRN Reason Start Time Stop Time Status Last Admin Dose Admin Metoprolol Tartrate (Lopressor Vial) 5 mg 1X ONCE IVP 09/30/21 13:30 09/30/21 13:31 DC 09/30/21 13:38 Metoprolol Tartrate (Lopressor Vial) 5 mg Q6HRS IVP 09/30/21 18:00 10/01/21 05:58 Tocilizumab 800 mg/Sodium Chloride 100 ml @ 100 mls/hr 1X ONCE IV 09/30/21 18:30 09/30/21 19:29 DC 09/30/21 17:35 ALLERGIES ALLERGIES: Coded Allergies: No Known Drug Allergies (Unverified , 09/25/21) ROS Review of System 14 point ROS conducted with pertinent positives noted above in HPI PHYSICAL EXAM General: Alert, Oriented X3, Cooperative, No acute distress HEENT: Atraumatic Lungs: Other (on vapotherm ) Heart: Regular rate (SR) Abdomen: Soft Extremities: No edema, Normal pulses Skin: No significant lesion Neuro: Normal speech, Sensation intact Psych/Mental Status: Mental status NL, Mood NL MUSCULOSKELETAL: Osteoarthritic changes both hands VITALS/I&O VITALS/I&O: Vital Signs Date Time Temp Pulse Resp B/P (MAP) Pulse Ox O2 Delivery O2 Flow Rate FiO2 10/01/21 10:00 92 18 105/51 (69) 90 Vapotherm 40.0 10/01/21 08:00 98.2 98.2 I & O 09/30/21 09/30/21 10/01/21 15:00 23:00 07:00 Intake Total 500 ml 800 ml 300 ml Output Total 350 ml 1000 ml 700 ml Balance 150 ml -200 ml -400 ml LABS Lab: Laboratory Tests Test 09/30/21 12:48 Sodium Level 135 mmol/L (136-145) L Potassium Level 3.6 mmol/L (3.5-5.1) Chloride Level 97 mmol/L (98-107) L Carbon Dioxide Level 26 mmol/L (21-32) Anion Gap 12 (6-14) Blood Urea Nitrogen 12 mg/dL (8-26) Creatinine 0.8 mg/dL (0.7-1.3) Estimated GFR (Cockcroft-Gault) 98.3 Glucose Level 124 mg/dL (70-99) H Calcium Level 8.7 mg/dL (8.5-10.1) Magnesium Level 2.4 mg/dL (1.8-2.4) Total Bilirubin 0.7 mg/dL (0.2-1.0) Direct Bilirubin 0.2 mg/dL (0.0-0.2) Aspartate Amino Transferase (AST) 52 U/L (15-37) H Alanine Aminotransferase (ALT) 38 U/L (16-63) Alkaline Phosphatase 110 U/L (46-116) C-Reactive Protein, Quantitative 193.7 mg/L (0-3.3) H Total Protein 7.1 g/dL (6.4-8.2) Albumin 2.6 g/dL (3.4-5.0) L Laboratory Tests 09/30/21 12:48 ASSESSMENT/PLAN ASSESSMENT/PLAN 1. Acute respiratory failure secondary to COVID 2. Tachyarrhythmia; tele noted with periods of ST and bursts of SVT. Metoprolol added and patient maintaining SR. Most probable secondary to above 3. Hypertension; controlled 4. Hypokalemia 5. Hyperthyroidism; as per IM Recommendations Continue metoprolol ASA therapy Monitor tele Replace K Ongoing lung optimization, treatment of COVID as per pulmonary team Consider outpatient echo when recovered from COVID Supportive care CHANDLER CRUZ MD 10/02/21 0754: CARDIAC CONSULT ASSESSMENT/PLAN ASSESSMENT/PLAN Patient seen and examined 10/01/2021. Agree with TECHNICAL SERVICES COORDINATOR's assessment and plan. Telemetry with brief episodes of AT/SVT noted. Agree with adding metoprolol. Continue current treatment for acute respiratory failure secondary to Covid pneumonia per pulmonary team. Plan for 2D echo and event monitor recording once Covid recovered. Thank you for your consultation MARCELO MIRELES APRN Oct 01, 2021 11:16 CHANDLER CRUZ MD Oct 02, 2021 07:54
[2021-10-01] MEDS: PANTOPRAZOLE 40 MG TABLET.DR. PO SCH (11:38)
[2021-10-01 12:33] LABS: HEMATOCRIT 37.1 % (39.0-53.0); HEMOGLOBIN 12.5 g/dL (13.0-17.5); RED BLOOD COUNT 4.61 x10^6/uL (4.30-5.70); RED CELL DISTRIBUTION WIDTH 13.6 % (11.5-14.5); WHITE BLOOD COUNT 8.6 x10^3/uL (4.0-11.0)
[2021-10-01 12:52] LABS: CALCIUM 8.3 mg/dL (8.5-10.1); CREATININE 0.9 mg/dL (0.7-1.3); GFR 85.8; MAGNESIUM 2.5 mg/dL (1.8-2.4); POTASSIUM 3.1 mmol/L (3.5-5.1)
[2021-10-01] MEDS ORDERED: POTASSIUM CHLORIDE 20 MEQ TABLET.ER. PO ONE (13:30)
--- NOTE | 2021-10-01 14:18 | NUR ---
SS following up with discharge planning. SS reviewed pt chart and discussed with pt RN. Pt is currently on Vapotherm at 40 liters and 100%. COVID19 positive. Pt on IV Decadron, IV Zosyn, and PO Doxycycline. SS will continue to follow for discharge planning.
[2021-10-01] MEDS: STERILE WATER for RESP 2,000 ML BAG. INH PRN (18:10)
[2021-10-01] MEDS: METOPROLOL TART IMMED RELEASE 25 MG TABLET. PO SCH (20:53)
[2021-10-02] VITALS (24 sets, daily range): BP systolic 105–159; BP diastolic 59–107
[2021-10-02] MEDS: PIPERACILLIN/TAZOBACTAM 3.375 GM in IV NORMAL SALINE 50ML 50 ML IV SCH ×4 (00:04→17:44)
[2021-10-02] MEDS: MULTIVITAMIN with MINERAL TABLET. PO SCH (08:30)
[2021-10-02] MEDS: DOXYCYCLINE HYCLATE 100 MG TABLET PO SCH ×2 (08:30→21:11)
[2021-10-02] MEDS: LACTOBACILLUS RHAMNOSUS GG 1 CAPSULE. PO SCH ×2 (08:30→21:10)
[2021-10-02] MEDS: SENNOSIDES/DOCUSATE 8.6/50MG TABLET. PO SCH ×3 (08:30→21:00)
[2021-10-02] MEDS: PANTOPRAZOLE 40 MG TABLET.DR. PO SCH (08:31)
[2021-10-02] MEDS: ENOXAPARIN 40 MG/0.4 ML SYRINGE. SQ SCH (08:31)
[2021-10-02] MEDS: LISINOPRIL 10 MG TABLET PO SCH (08:31)
[2021-10-02] MEDS: ASPIRIN CHEWABLE 81 MG TABLET. PO SCH (08:31)
[2021-10-02] MEDS: METOPROLOL TART IMMED RELEASE 25 MG TABLET. PO SCH ×2 (08:31→21:11)
[2021-10-02] MEDS: DEXAMETHASONE SOD PHOS 4 MG/ML VIAL IVP SCH (08:32)
[2021-10-02] MEDS: TIMOLOL 0.5% OPHTH SOLUTION 5ML BOTTLE. OD SCH ×2 (08:32→21:00)
[2021-10-02 08:46] LABS: CALCIUM 8.2 mg/dL (8.5-10.1); CREATININE 0.9 mg/dL (0.7-1.3); GFR 85.8; POTASSIUM 3.2 mmol/L (3.5-5.1)
--- NOTE | 2021-10-02 09:46 | PDOC ---
PULMONARY PROGRESS NOTES DATE: 10/02/21 TIME: 09:45 Subjective Remains on Vapotherm at 100% FiO2. He also is on supplemental nonrebreather mask. Tolerating it reasonably well. No increased shortness of breath but he desaturates very easily with any activity. Vitals Vital Signs Date Time Temp Pulse Resp B/P (MAP) Pulse Ox O2 Delivery O2 Flow Rate FiO2 10/02/21 08:31 84 159/81 10/02/21 08:00 Vapotherm 40.0 10/02/21 07:15 91 10/02/21 06:00 20 10/02/21 04:00 98.3 98.3 Comments Visual exam done due to COVID-19 pneumonia. No obvious respiratory distress, no use of accessory muscles. No leg edema no skin rash. Labs Laboratory Tests Test 09/30/21 12:48 10/01/21 11:57 10/02/21 08:00 Sodium Level 135 mmol/L (136-145) 136 mmol/L (136-145) 141 mmol/L (136-145) Potassium Level 3.6 mmol/L (3.5-5.1) 3.1 mmol/L (3.5-5.1) 3.2 mmol/L (3.5-5.1) Chloride Level 97 mmol/L (98-107) 99 mmol/L (98-107) 100 mmol/L (98-107) Carbon Dioxide Level 26 mmol/L (21-32) 29 mmol/L (21-32) 32 mmol/L (21-32) Anion Gap 12 (6-14) 8 (6-14) 9 (6-14) Blood Urea Nitrogen 12 mg/dL (8-26) 20 mg/dL (8-26) 20 mg/dL (8-26) Creatinine 0.8 mg/dL (0.7-1.3) 0.9 mg/dL (0.7-1.3) 0.9 mg/dL (0.7-1.3) Estimated GFR (Cockcroft-Gault) 98.3 85.8 85.8 Glucose Level 124 mg/dL (70-99) 149 mg/dL (70-99) 99 mg/dL (70-99) Calcium Level 8.7 mg/dL (8.5-10.1) 8.3 mg/dL (8.5-10.1) 8.2 mg/dL (8.5-10.1) Magnesium Level 2.4 mg/dL (1.8-2.4) 2.5 mg/dL (1.8-2.4) Total Bilirubin 0.7 mg/dL (0.2-1.0) Direct Bilirubin 0.2 mg/dL (0.0-0.2) Aspartate Amino Transf (AST/SGOT) 52 U/L (15-37) Alanine Aminotransferase (ALT/SGPT) 38 U/L (16-63) Alkaline Phosphatase 110 U/L (46-116) C-Reactive Protein, Quantitative 193.7 mg/L (0-3.3) Total Protein 7.1 g/dL (6.4-8.2) Albumin 2.6 g/dL (3.4-5.0) White Blood Count 8.6 x10^3/uL (4.0-11.0) Red Blood Count 4.61 x10^6/uL (4.30-5.70) Hemoglobin 12.5 g/dL (13.0-17.5) Hematocrit 37.1 % (39.0-53.0) Mean Corpuscular Volume 81 fL (79-100) Mean Corpuscular Hemoglobin 27 pg (25-35) Mean Corpuscular Hemoglobin Concent 34 g/dL (31-37) Red Cell Distribution Width 13.6 % (11.5-14.5) Platelet Count 413 x10^3/uL (140-400) Thyroid Stimulating Hormone (TSH) 0.194 uIU/mL (0.358-3.74) Laboratory Tests Test 10/01/21 11:57 10/02/21 08:00 White Blood Count 8.6 x10^3/uL (4.0-11.0) Red Blood Count 4.61 x10^6/uL (4.30-5.70) Hemoglobin 12.5 g/dL (13.0-17.5) Hematocrit 37.1 % (39.0-53.0) Mean Corpuscular Volume 81 fL (79-100) Mean Corpuscular Hemoglobin 27 pg (25-35) Mean Corpuscular Hemoglobin Concent 34 g/dL (31-37) Red Cell Distribution Width 13.6 % (11.5-14.5) Platelet Count 413 x10^3/uL (140-400) Sodium Level 136 mmol/L (136-145) 141 mmol/L (136-145) Potassium Level 3.1 mmol/L (3.5-5.1) 3.2 mmol/L (3.5-5.1) Chloride Level 99 mmol/L (98-107) 100 mmol/L (98-107) Carbon Dioxide Level 29 mmol/L (21-32) 32 mmol/L (21-32) Anion Gap 8 (6-14) 9 (6-14) Blood Urea Nitrogen 20 mg/dL (8-26) 20 mg/dL (8-26) Creatinine 0.9 mg/dL (0.7-1.3) 0.9 mg/dL (0.7-1.3) Estimated GFR (Cockcroft-Gault) 85.8 85.8 Glucose Level 149 mg/dL (70-99) 99 mg/dL (70-99) Calcium Level 8.3 mg/dL (8.5-10.1) 8.2 mg/dL (8.5-10.1) Magnesium Level 2.5 mg/dL (1.8-2.4) Thyroid Stimulating Hormone (TSH) 0.194 uIU/mL (0.358-3.74) Medications Active Scripts Medications Dose Route/Sig Max Daily Dose Days Date Category Oxycodone Hcl 5 Mg Capsule 5 Mg PO PRN Q4HRS PRN 08/01/21 Rx Tramadol Hcl 50 Mg Tablet 50 Mg PO Q4HRS PRN 08/01/21 Rx Warfarin Sodium 4 Mg Tablet 4 Mg PO DAILY 28 08/01/21 Rx Timoptic 0.5% (Timolol Maleate) 10 Ml Drops 1 Drop OD BID 30 07/17/21 Reported Lisinopril 10 Mg Tablet 10 Mg PO DAILY 07/17/21 Reported Comments Chest x-ray reviewed dated 10/01/2021. Diffuse bilateral interstitial infiltrates. No significant pleural effusion. There is mild progression. No evidence of pneumothorax Impression . 1. Acute hypoxic respiratory failure secondary to COVID-19 viral pneumonia. 2. COVID-19 viral pneumonia/early acute respiratory distress syndrome. 3. Abnormal chest x-ray with diffuse bilateral infiltrates consistent with viral pneumonia. 4. Mildly increased liver function test. Likely due to COVID. 5. Mild leukopenia. Secondary to COVID. 6. Markedly elevated CRP level of 197. Patient qualified for Actemra. He received with 09/30/2021 Plan . 1. Discussed with RN and RT. continue with 100% FiO2 via Vapotherm. As needed BiPAP. 2. We will continue to discuss advanced directives moving forward. 3. Continue to finish remdesivir course. 4. Continue with steroids for a total of 10 days. 5. Status post Actemra. 6. DVT prophylaxis. 7. Empiric antibiotics. . Discussed with RN and RT. ORQUIDEA JENNINGS MD Oct 02, 2021 09:46
--- NOTE | 2021-10-02 09:49 | PDOC ---
MARY BANG INTERPRETER 10/02/21 0949: CARDIO Progress Notes Date and Time Date of Service 10/02/2021 Time of Evaluation 0830 Subjective Subjective: No Chest Pain, No Palpitations, Other (SOA better) Vitals Vitals Vital Signs Date Time Temp Pulse Resp B/P (MAP) Pulse Ox O2 Delivery O2 Flow Rate FiO2 10/02/21 08:31 84 159/81 10/02/21 08:00 Vapotherm 40.0 10/02/21 07:15 91 10/02/21 06:00 20 10/02/21 04:00 98.3 98.3 Weight Weight [ ] Input and Output Intake and Output Intake and Output 10/02/21 07:00 Intake Total 840 ml Output Total 1550 ml Balance -710 ml Intake Oral 740 ml IV Total 100 ml Output Urine Total 1550 ml Laboratory Labs Laboratory Tests Test 10/01/21 11:57 10/02/21 08:00 White Blood Count 8.6 x10^3/uL (4.0-11.0) Red Blood Count 4.61 x10^6/uL (4.30-5.70) Hemoglobin 12.5 g/dL (13.0-17.5) Hematocrit 37.1 % (39.0-53.0) Mean Corpuscular Volume 81 fL (79-100) Mean Corpuscular Hemoglobin 27 pg (25-35) Mean Corpuscular Hemoglobin Concent 34 g/dL (31-37) Red Cell Distribution Width 13.6 % (11.5-14.5) Platelet Count 413 x10^3/uL (140-400) Sodium Level 136 mmol/L (136-145) 141 mmol/L (136-145) Potassium Level 3.1 mmol/L (3.5-5.1) 3.2 mmol/L (3.5-5.1) Chloride Level 99 mmol/L (98-107) 100 mmol/L (98-107) Carbon Dioxide Level 29 mmol/L (21-32) 32 mmol/L (21-32) Anion Gap 8 (6-14) 9 (6-14) Blood Urea Nitrogen 20 mg/dL (8-26) 20 mg/dL (8-26) Creatinine 0.9 mg/dL (0.7-1.3) 0.9 mg/dL (0.7-1.3) Estimated GFR (Cockcroft-Gault) 85.8 85.8 Glucose Level 149 mg/dL (70-99) 99 mg/dL (70-99) Calcium Level 8.3 mg/dL (8.5-10.1) 8.2 mg/dL (8.5-10.1) Magnesium Level 2.5 mg/dL (1.8-2.4) Thyroid Stimulating Hormone (TSH) 0.194 uIU/mL (0.358-3.74) Microbiology Micro Microbiology 09/25/21 Blood Culture - Final, Complete NO GROWTH AFTER 5 DAYS Physical Exam HEENT: Neck Supple W Full Motion Chest: Symmetric LUNGS: Other (NRB) Heart: RRR (SR) Abdomen: Soft N/T Extremities: No Calf Tenderness Neurology: alert, oriented, follow commands Assessment Assessment 1. Acute respiratory failure secondary to COVID: on NRB 2. Tachyarrhythmia; tele noted with periods of ST and bursts of SVT. better with BB 3. Hypertension; controlled 4. Hypokalemia 5. Hyperthyroidism; as per IM Recommendations Continue metoprolol ASA therapy. Replace K Ongoing lung optimization, treatment of COVID as per pulmonary team Consider outpatient echo when recovered from COVID Supportive care Justicifation of Admission Dx: Justifications for Admission: Justification of Admission Dx: N/A CHANDLER CRUZ MD 10/03/21 1153: CARDIO Progress Notes Assessment Assessment Patient seen and examined 10/02/2021. Agree with MANAGER WEB [employer]PLICATION's assessment and plan. Tele did not show any further episodes of AT/SVT noted. Continue metoprolol. Continue current treatment for acute respiratory failure secondary to Covid pneumonia per pulmonary team. Plan for 2D echo and event monitor recording once Covid recovered. MARY BANG APRN Oct 02, 2021 09:49 CHANDLER CRUZ MD Oct 03, 2021 11:53
--- NOTE | 2021-10-02 10:20 | PDOC ---
[facility] PROGRESS NOTE Date of Service DOS: DATE: 10/02/21 TIME: 10:16 Chief Complaint Chief Complaint Covid-19 Pneumonia status post remdesivir and Actemra Acute hypoxic respiratory failure requiring Vapotherm support Hypertension Knee replacement Appreciate pulmonology recommendationscontinue Vapotherm and as needed BiPAP Continue with IV steroids for total 10 days Continue Camacho IV antibiotics Lovenox for DVT prophylaxis Continue Protonix for GI prophylaxis while on steroids History of Present Illness History of Present Illness 10/02: Seen in ICU. On Vapotherm 40 L/min 100% FiO2 with supplemental facemask O2 saturations 94%. Chest radiograph from 10/01 consistent with severe COVID. CR 3.2 cc time 34 min 09/30: Patient seen and examined. He now has increasing oxygen requirements and is on a 100% nonrebreather plus nasal cannula oxygen He keeps taking his mask off trying to talk on the phone seems agitated Only satting in the high 80s I discussed the case with the nurse extra gang supervisor Discussed with case management Discussed with RN Chart reviewed I am going to go and transfer to ICU He is becoming critically ill prognosis guarded 09/29/2021 Patient seen and examined He is on the phone talking again I told him to please conserve his energy Chart reviewed Discussed with RN He is currently on 15 L of oxygen per nasal cannula O2 sat ranging from 88-92 09/28/2021 Patient seen and examined He seems a little down apparently his dad from Covid yesterday The is Thursday he would like to get out of here soon He is still on high flow oxygen at 15 L per nasal cannula I turned it down to 10 L he seems to be holding his oxygen saturation for at least 5 minutes at 94% or higher Discussed with RN Chart reviewed 09/27/2021 Patient was seen and examined today, in NAD and doing well. Patient is on 12 L O2 via NC Daugher was in room to comfort as patient's father was just put on hospice. Reviewed chart and discussed with RN. 09/26/2021 Patient was seen and examined today, Patient in good spirits and doing better. Patient is motivated to continue to improved and be discharged. Patient is on 5 L O2 via NC. Reviewed chart and discussed with RN Vitals/I&O Vitals/I&O: Vital Signs Date Time Temp Pulse Resp B/P (MAP) Pulse Ox O2 Delivery O2 Flow Rate FiO2 10/02/21 09:35 92 VAPOTHERM 40.0 10/02/21 08:31 84 159/81 10/02/21 06:00 20 10/02/21 04:00 98.3 98.3 I & O 10/01/21 10/01/21 10/02/21 15:00 23:00 07:00 Intake Total 490 ml 350 ml Output Total 500 ml 750 ml 300 ml Balance -10 ml -400 ml -300 ml Physical Exam General: Alert, Oriented X3, Cooperative, No acute distress Heart: Regular rate (SR) Abdomen: Soft Extremities: No edema, Normal pulses Skin: No significant lesion Labs Labs: Laboratory Tests Test 10/01/21 11:57 10/02/21 08:00 White Blood Count 8.6 x10^3/uL (4.0-11.0) Red Blood Count 4.61 x10^6/uL (4.30-5.70) Hemoglobin 12.5 g/dL (13.0-17.5) Hematocrit 37.1 % (39.0-53.0) Mean Corpuscular Volume 81 fL (79-100) Mean Corpuscular Hemoglobin 27 pg (25-35) Mean Corpuscular Hemoglobin Concent 34 g/dL (31-37) Red Cell Distribution Width 13.6 % (11.5-14.5) Platelet Count 413 x10^3/uL (140-400) Sodium Level 136 mmol/L (136-145) 141 mmol/L (136-145) Potassium Level 3.1 mmol/L (3.5-5.1) 3.2 mmol/L (3.5-5.1) Chloride Level 99 mmol/L (98-107) 100 mmol/L (98-107) Carbon Dioxide Level 29 mmol/L (21-32) 32 mmol/L (21-32) Anion Gap 8 (6-14) 9 (6-14) Blood Urea Nitrogen 20 mg/dL (8-26) 20 mg/dL (8-26) Creatinine 0.9 mg/dL (0.7-1.3) 0.9 mg/dL (0.7-1.3) Estimated GFR (Cockcroft-Gault) 85.8 85.8 Glucose Level 149 mg/dL (70-99) 99 mg/dL (70-99) Calcium Level 8.3 mg/dL (8.5-10.1) 8.2 mg/dL (8.5-10.1) Magnesium Level 2.5 mg/dL (1.8-2.4) Thyroid Stimulating Hormone (TSH) 0.194 uIU/mL (0.358-3.74) Assessment and Plan Assessmemt and Plan Problems Medical Problems: (1) Hypoxia Status: Acute (2) Pneumonia due to COVID-19 virus Status: Acute Comment Review of Relevant I have reviewed the following items dino (where applicable) has been applied. Medications: Current Medications Medications (Trade) Dose Ordered Sig/Jody Route PRN Reason Start Time Stop Time Status Last Admin Dose Admin Pantoprazole Sodium (Protonix) 40 mg DAILYAC PO 10/01/21 11:30 10/02/21 08:31 Metoprolol Tartrate (Lopressor) 25 mg BID PO 10/01/21 21:00 10/02/21 08:31 Potassium Chloride (Klor-Con) 40 meq 1X ONCE PO 10/01/21 13:30 10/01/21 13:31 DC 10/01/21 13:30 Sterile Water (WATER for RESP) 2,000 ml CONT PRN INH VIA VAPOTHERM DEVICE 10/01/21 16:30 10/01/21 18:10 Justifications for Admission Other Justification ERIKA GONZALEZ MD Oct 02, 2021 10:20
[2021-10-02] MEDS ORDERED: POTASSIUM CHLORIDE 20 MEQ TABLET.ER. PO ONE (10:30)
[2021-10-02] MEDS: guaiFENesin/CODEINE 100mg/10mg 5 ML LIQUID PO PRN (11:53)
[2021-10-02] MEDS: STERILE WATER for RESP 2,000 ML BAG. INH PRN (16:12)
[2021-10-02] MEDS ORDERED: IV NORMAL SALINE 500ML BAG 500 ML IV PRN (18:00)
[2021-10-02] MEDS ORDERED: ATROPINE 0.5 MG/5 ML DISP.SYRINGE. IV PRN (18:00)
[2021-10-03] VITALS (23 sets, daily range): BP systolic 91–166; BP diastolic 51–82
[2021-10-03] MEDS: PIPERACILLIN/TAZOBACTAM 3.375 GM in IV NORMAL SALINE 50ML 50 ML IV SCH ×5 (00:05→23:33)
--- NOTE | 2021-10-03 03:00 | NUR ---
Pt slightly agitated this am and having difficulty getting back to sleep. Pt refused ambien tonight and states he did not need it. Pt with VT elevated on bipap. Called RT and notified of pt's status. Bipap continued to beep during the noc until RT arrived. Pt with O2 saturation between 88-91% majority of the noc until this am. Noted pt O2 saturation 82-85%. Called RT back after pt started on precedex gtt and only able to get O2 saturation to 82% on current bipap settings. ABG done and currently abnormal. Report given to ICU nurse and mccoy catheter placed.
[2021-10-03] MEDS: DEXMEDETOMIDINE 400 MCG in IV NORMAL SALINE 100ML 96 ML IV PRN ×3 (03:40→16:36)
--- NOTE | 2021-10-03 05:00 | NUR ---
Due to pt's current status report given to ICU nurse.
[2021-10-03 05:01] LABS: BASE EXCESS ABG 3 mmol/L (-3-3); HCO3 ABG 26 mmol/L (21-28); PCO2 ABG 35 mmHg (35-46); SAT O2 ABG 81 % (92-99)
[2021-10-03 05:06] LABS: PO2 ABG 45 mmHg (65-108)
[2021-10-03 05:07] LABS: FIO2 ABG 100
--- NOTE | 2021-10-03 06:26 | NUR ---
ABG results obtained with a critical value, [id number]. Patients RR has been between 35-40 throughout this night. ABG results called into . stated to discuss intubation and code status with patient. Orders given to intubate patient if patient is agreeable and to determine code status if not. Patient stated he did not want to be intubated and he would like to change his code status to DNR.
[2021-10-03] MEDS: DEXAMETHASONE SOD PHOS 4 MG/ML VIAL IVP SCH (08:12)
[2021-10-03] MEDS ORDERED: BISACODYL 10 MG SUPP.RECT. PR PRN (09:00)
[2021-10-03] MEDS: TIMOLOL 0.5% OPHTH SOLUTION 5ML BOTTLE. OD SCH ×2 (09:00→20:36)
--- NOTE | 2021-10-03 09:05 | PDOC ---
[facility] [facility] PROGRESS NOTE Date of Service DOS: DATE: 10/03/21 TIME: 08:58 Chief Complaint Chief Complaint Covid-19 Pneumonia status post remdesivir and Actemra Acute hypoxic respiratory failure requiring Vapotherm support Hypertension Knee replacement Appreciate pulmonology recommendationscontinue Vapotherm and as needed BiPAP Continue with IV steroids for total 10 days Continue empiric IV antibiotics Lovenox for DVT prophylaxis Continue Protonix for GI prophylaxis while on steroids CODE - DNR/DNI History of Present Illness History of Present Illness 10/03: Had O2 desaturations overnight and ABG 7.4 / on Vapotherm 100% FiO2 40 L/min. He discussed with nursing staff and family he wishes not to be on a ventilator. Currently on BiPAP 26/04 100% FiO2 with saturations 76 to 89%. cc time 37 min 10/02: Seen in ICU. On Vapotherm 40 L/min 100% FiO2 with supplemental facemask O2 saturations 94%. Chest radiograph from 10/01 consistent with severe COVID. CR 3.2 09/30: Patient seen and examined. He now has increasing oxygen requirements and is on a 100% nonrebreather plus nasal cannula oxygen. Only satting in the high 80s. Transfer to ICU 09/29: Patient seen and examined. He is currently on 15 L of oxygen per nasal cannula. O2 sat ranging from 88-92 09/28: Patient seen and examined. He seems a little down apparently his dad from Covid yesterday. The is Thursday he would like to get out of here soon. He is still on high flow oxygen at 15 L per nasal cannula. 09/27: Patient was seen and examined today, in NAD and doing well. Patient is on 12 L O2 via NC. Daughter was in room to comfort as patient's father was just put on hospice. 09/26: Patient was seen and examined today, Patient in good spirits and doing better. Patient is motivated to continue to improved and be discharged. Patient is on 5 L O2 via NC. Vitals/I&O Vitals/I&O: Vital Signs Date Time Temp Pulse Resp B/P (MAP) Pulse Ox O2 Delivery O2 Flow Rate FiO2 10/03/21 07:38 Vapotherm 40.0 10/03/21 07:29 82 10/03/21 06:00 84 35 135/66 10/03/21 04:30 98.7 98.7 I & O 10/02/21 10/02/21 10/03/21 15:00 23:00 07:00 Intake Total 680 ml 500 ml 50 ml Output Total 640 ml 0 ml 300 ml Balance 40 ml 500 ml -250 ml Physical Exam General: Alert, Oriented X3, Cooperative, No acute distress Heart: Regular rate (SR) Abdomen: Soft Extremities: No edema, Normal pulses Skin: No significant lesion Labs Labs: Laboratory Tests Test 10/03/21 04:34 O2 Saturation 81 % (92-99) Arterial Blood pH 7.48 (7.35-7.45) Arterial Blood pCO2 at Patient Temp 35 mmHg (35-46) Arterial Blood pO2 at Patient Temp 45 mmHg (65-108) Arterial Blood HCO3 26 mmol/L (21-28) Arterial Blood Base Excess 3 mmol/L (-3-3) FiO2 100 Assessment and Plan Assessmemt and Plan Problems Medical Problems: (1) Hypoxia Status: Acute (2) Pneumonia due to COVID-19 virus Status: Acute Comment Review of Relevant I have reviewed the following items dino (where applicable) has been applied. Medications: Current Medications Medications (Trade) Dose Ordered Sig/Jody Route PRN Reason Start Time Stop Time Status Last Admin Dose Admin Potassium Chloride (Klor-Con) 40 meq 1X ONCE PO 10/02/21 10:30 10/02/21 10:31 DC 10/02/21 10:16 Dexmedetomidine HCl 400 mcg/ Sodium Chloride 100 ml @ 4.84 mls/hr CONT PRN IV PER PROTOCOL 10/02/21 18:00 10/03/21 08:14 Justifications for Admission Other Justification ERIKA GONZALEZ MD Oct 03, 2021 09:05
[2021-10-03 09:15] LABS: BASO % 0 % (0-3); EOS # 0.5 x10^3/uL (0.0-0.7); EOS % 5 % (0-3); HEMATOCRIT 38.2 % (39.0-53.0); HEMOGLOBIN 12.5 g/dL (13.0-17.5); LYMPH # 0.4 x10^3/uL (1.0-4.8); LYMPH % 4 % (24-48); MEAN CORPUSCULAR HEMOGLOBIN 27 pg (25-35); MEAN CORPUSCULAR HGB CONC 33 g/dL (31-37); MEAN CORPUSCULAR VOLUME 81 fL (79-100); MONO # 0.3 x10^3/uL (0.0-1.1); MONO % 3 % (0-9); NEUT # 8.7 x10^3/uL (1.8-7.7); NEUT % 88 % (31-73); PLATELET COUNT 285 x10^3/uL (140-400); RED BLOOD COUNT 4.71 x10^6/uL (4.30-5.70); RED CELL DISTRIBUTION WIDTH 14.2 % (11.5-14.5); WHITE BLOOD COUNT 9.8 x10^3/uL (4.0-11.0)
[2021-10-03 09:27] LABS: ALBUMIN 2.2 g/dL (3.4-5.0); ALBUMIN/GLOBULIN RATIO 0.6 (1.0-1.7); CALCIUM 7.6 mg/dL (8.5-10.1); CREATININE 0.9 mg/dL (0.7-1.3); GFR 85.8; POTASSIUM 3.7 mmol/L (3.5-5.1); TOTAL BILIRUBIN 0.5 mg/dL (0.2-1.0); TOTAL PROTEIN 5.9 g/dL (6.4-8.2)
[2021-10-03 09:49] LABS: % ATYL 2 % (0-0); % BANDS 4 % (0-9); % EOS 7 % (0-5); % LYMPHS 6 % (24-48); % MONOS 1 % (0-10); % SEGS 80 % (35-66); PLT ESTIMATE ADEQUATE (ADEQUATE)
--- NOTE | 2021-10-03 10:01 | PDOC ---
CARDIOLOGY PROGRESS NOTE SUBJECTIVE: Overnight, patient had worsening hypoxic resp failure. No chest pain. Few bouts of SVT. Currently is DNR as he did not want to be intubated. OBJECTIVE: Vital Signs/I&O: Vital Signs Date Time Temp Pulse Resp B/P (MAP) Pulse Ox O2 Delivery O2 Flow Rate FiO2 10/03/21 09:44 82 VAPOTHERM 40.0 10/03/21 06:00 84 35 135/66 10/03/21 04:30 98.7 98.7 l I & O 10/02/21 10/02/21 10/03/21 15:00 23:00 07:00 Intake Total 680 ml 500 ml 50 ml Output Total 640 ml 0 ml 300 ml Balance 40 ml 500 ml -250 ml Objective: HEENT: NC/AT Chest: Symmetric LUNGS: Other -vapotherm, tachypneic Heart: RRR (SR) Abdomen: Soft N/T Extremities: No Calf Tenderness Neurology: alert, oriented, follow commands CURRENT MEDICATIONS: Metoprolol 5mg IV push q 6 hours prn DIAGNOSTIC TESTING: No new diagnostic tests Telemetry reviewed. Labs: Laboratory Tests 10/03/21 08:50 Laboratory Tests Test 10/03/21 04:34 10/03/21 08:50 O2 Saturation 81 % (92-99) L Arterial Blood pH 7.48 (7.35-7.45) H Arterial Blood pCO2 at Patient Temp 35 mmHg (35-46) Arterial Blood pO2 at Patient Temp 45 mmHg (65-108) *L Arterial Blood HCO3 26 mmol/L (21-28) Arterial Blood Base Excess 3 mmol/L (-3-3) FiO2 100 White Blood Count 9.8 x10^3/uL (4.0-11.0) Red Blood Count 4.71 x10^6/uL (4.30-5.70) Hemoglobin 12.5 g/dL (13.0-17.5) L Hematocrit 38.2 % (39.0-53.0) L Mean Corpuscular Volume 81 fL (79-100) Mean Corpuscular Hemoglobin 27 pg (25-35) Mean Corpuscular Hemoglobin Concent 33 g/dL (31-37) Red Cell Distribution Width 14.2 % (11.5-14.5) Platelet Count 285 x10^3/uL (140-400) Neutrophils (%) (Auto) 88 % (31-73) H Lymphocytes (%) (Auto) 4 % (24-48) L Monocytes (%) (Auto) 3 % (0-9) Eosinophils (%) (Auto) 5 % (0-3) H Basophils (%) (Auto) 0 % (0-3) Neutrophils # (Auto) 8.7 x10^3/uL (1.8-7.7) H Lymphocytes # (Auto) 0.4 x10^3/uL (1.0-4.8) L Monocytes # (Auto) 0.3 x10^3/uL (0.0-1.1) Eosinophils # (Auto) 0.5 x10^3/uL (0.0-0.7) Basophils # (Auto) 0.0 x10^3/uL (0.0-0.2) Segmented Neutrophils % 80 % (35-66) H Band Neutrophils % 4 % (0-9) Lymphocytes % 6 % (24-48) L Atypical Lymphocytes % (Manual) 2 % (0-0) H Monocytes % 1 % (0-10) Eosinophils % 7 % (0-5) H Platelet Estimate Adequate (ADEQUATE) Sodium Level 139 mmol/L (136-145) Potassium Level 3.7 mmol/L (3.5-5.1) Chloride Level 102 mmol/L (98-107) Carbon Dioxide Level 28 mmol/L (21-32) Anion Gap 9 (6-14) Blood Urea Nitrogen 22 mg/dL (8-26) Creatinine 0.9 mg/dL (0.7-1.3) Estimated GFR (Cockcroft-Gault) 85.8 BUN/Creatinine Ratio 24 (6-20) H Glucose Level 112 mg/dL (70-99) H Calcium Level 7.6 mg/dL (8.5-10.1) L Total Bilirubin 0.5 mg/dL (0.2-1.0) Aspartate Amino Transf (AST/SGOT) 64 U/L (15-37) H Alkaline Phosphatase 159 U/L (46-116) H Total Protein 5.9 g/dL (6.4-8.2) L Albumin 2.2 g/dL (3.4-5.0) L Albumin/Globulin Ratio 0.6 (1.0-1.7) L ASSESSMENT: 1. Acute hypoxic resp failure due to COVID 2. SVT due to above. PLAN: 1. Supportive care for resp failure. No new CV interventions needed. 2. Check CXR given worsening hypoxia. Outpt f/u in cardiology. Justicifation of Admission Dx: Justifications for Admission: Justification of Admission Dx: N/A PRINCE KOENIG MD Oct 03, 2021 10:01
--- NOTE | 2021-10-03 10:28 | RAD ---
EXAM: CHEST ONE VIEW. HISTORY: Hypoxia. COMPARISON: 10/01/2021. FINDINGS: A frontal view of the chest is obtained. Bilateral diffuse airspace and interstitial infiltrates have increased. There is no pneumothorax or c lear pleural effusion. The heart is not enlarged. There are calcified granulomas in the left hilum an d left base. IMPRESSION: 1. Bilateral diffuse infiltrates have increased. Electronically signed by: Misha Valencia MD (10/03/2021 10:26 AM) [id number]
[2021-10-03] MEDS: METOPROLOL TART IMMED RELEASE 25 MG TABLET. PO SCH ×2 (10:30→20:35)
[2021-10-03] MEDS: PANTOPRAZOLE 40 MG TABLET.DR. PO SCH (10:30)
[2021-10-03] MEDS: LACTOBACILLUS RHAMNOSUS GG 1 CAPSULE. PO SCH ×2 (10:30→20:35)
[2021-10-03] MEDS: ASPIRIN CHEWABLE 81 MG TABLET. PO SCH (10:30)
[2021-10-03] MEDS: SENNOSIDES/DOCUSATE 8.6/50MG TABLET. PO SCH ×2 (10:31→20:36)
[2021-10-03] MEDS: LISINOPRIL 10 MG TABLET PO SCH (10:31)
[2021-10-03] MEDS: MULTIVITAMIN with MINERAL TABLET. PO SCH (10:32)
[2021-10-03] MEDS: DOXYCYCLINE HYCLATE 100 MG TABLET PO SCH ×2 (10:32→20:36)
[2021-10-03] MEDS: AA 4.25 %/CALCIUM/LYTES/D5W 1,000 ML IV SCH ×2 (10:38→21:34)
[2021-10-03] MEDS: ENOXAPARIN 40 MG/0.4 ML SYRINGE. SQ SCH (10:38)
--- NOTE | 2021-10-03 10:56 | PDOC ---
PULMONARY PROGRESS NOTES DATE: 10/03/21 TIME: 10:52 Subjective Remains on Vapotherm at 100% FiO2. He also is on supplemental nonrebreather mask. Patient was noted to have severe hypoxia early this morning. Advanced directives were discussed with him. Patient wants to be a DNR/DNI. Vitals Vital Signs Date Time Temp Pulse Resp B/P (MAP) Pulse Ox O2 Delivery O2 Flow Rate FiO2 10/03/21 09:44 82 VAPOTHERM 40.0 10/03/21 06:00 84 35 135/66 10/03/21 04:30 98.7 98.7 Comments Visual exam done due to COVID-19 pneumonia. No obvious respiratory distress, no use of accessory muscles. No leg edema no skin rash. ROS: No Nausea, No Chest Pain Labs Laboratory Tests Test 10/01/21 11:57 10/02/21 08:00 10/03/21 04:34 10/03/21 08:50 White Blood Count 8.6 x10^3/uL (4.0-11.0) 9.8 x10^3/uL (4.0-11.0) Red Blood Count 4.61 x10^6/uL (4.30-5.70) 4.71 x10^6/uL (4.30-5.70) Hemoglobin 12.5 g/dL (13.0-17.5) 12.5 g/dL (13.0-17.5) Hematocrit 37.1 % (39.0-53.0) 38.2 % (39.0-53.0) Mean Corpuscular Volume 81 fL (79-100) 81 fL (79-100) Mean Corpuscular Hemoglobin 27 pg (25-35) 27 pg (25-35) Mean Corpuscular Hemoglobin Concent 34 g/dL (31-37) 33 g/dL (31-37) Red Cell Distribution Width 13.6 % (11.5-14.5) 14.2 % (11.5-14.5) Platelet Count 413 x10^3/uL (140-400) 285 x10^3/uL (140-400) Sodium Level 136 mmol/L (136-145) 141 mmol/L (136-145) 139 mmol/L (136-145) Potassium Level 3.1 mmol/L (3.5-5.1) 3.2 mmol/L (3.5-5.1) 3.7 mmol/L (3.5-5.1) Chloride Level 99 mmol/L (98-107) 100 mmol/L (98-107) 102 mmol/L (98-107) Carbon Dioxide Level 29 mmol/L (21-32) 32 mmol/L (21-32) 28 mmol/L (21-32) Anion Gap 8 (6-14) 9 (6-14) 9 (6-14) Blood Urea Nitrogen 20 mg/dL (8-26) 20 mg/dL (8-26) 22 mg/dL (8-26) Creatinine 0.9 mg/dL (0.7-1.3) 0.9 mg/dL (0.7-1.3) 0.9 mg/dL (0.7-1.3) Estimated GFR (Cockcroft-Gault) 85.8 85.8 85.8 Glucose Level 149 mg/dL (70-99) 99 mg/dL (70-99) 112 mg/dL (70-99) Calcium Level 8.3 mg/dL (8.5-10.1) 8.2 mg/dL (8.5-10.1) 7.6 mg/dL (8.5-10.1) Magnesium Level 2.5 mg/dL (1.8-2.4) Thyroid Stimulating Hormone (TSH) 0.194 uIU/mL (0.358-3.74) Free Thyroxine 1.49 ng/dL (0.76-1.46) Total Triiodothyronine 70 ng/dL (71-180) O2 Saturation 81 % (92-99) Arterial Blood pH 7.48 (7.35-7.45) Arterial Blood pCO2 at Patient Temp 35 mmHg (35-46) Arterial Blood pO2 at Patient Temp 45 mmHg (65-108) Arterial Blood HCO3 26 mmol/L (21-28) Arterial Blood Base Excess 3 mmol/L (-3-3) FiO2 100 Neutrophils (%) (Auto) 88 % (31-73) Lymphocytes (%) (Auto) 4 % (24-48) Monocytes (%) (Auto) 3 % (0-9) Eosinophils (%) (Auto) 5 % (0-3) Basophils (%) (Auto) 0 % (0-3) Neutrophils # (Auto) 8.7 x10^3/uL (1.8-7.7) Lymphocytes # (Auto) 0.4 x10^3/uL (1.0-4.8) Monocytes # (Auto) 0.3 x10^3/uL (0.0-1.1) Eosinophils # (Auto) 0.5 x10^3/uL (0.0-0.7) Basophils # (Auto) 0.0 x10^3/uL (0.0-0.2) Segmented Neutrophils % 80 % (35-66) Band Neutrophils % 4 % (0-9) Lymphocytes % 6 % (24-48) Atypical Lymphocytes % (Manual) 2 % (0-0) Monocytes % 1 % (0-10) Eosinophils % 7 % (0-5) Platelet Estimate Adequate (ADEQUATE) BUN/Creatinine Ratio 24 (6-20) Total Bilirubin 0.5 mg/dL (0.2-1.0) Aspartate Amino Transf (AST/SGOT) 64 U/L (15-37) Alanine Aminotransferase (ALT/SGPT) 34 U/L (16-63) Alkaline Phosphatase 159 U/L (46-116) Total Protein 5.9 g/dL (6.4-8.2) Albumin 2.2 g/dL (3.4-5.0) Albumin/Globulin Ratio 0.6 (1.0-1.7) Laboratory Tests Test 10/03/21 04:34 10/03/21 08:50 O2 Saturation 81 % (92-99) Arterial Blood pH 7.48 (7.35-7.45) Arterial Blood pCO2 at Patient Temp 35 mmHg (35-46) Arterial Blood pO2 at Patient Temp 45 mmHg (65-108) Arterial Blood HCO3 26 mmol/L (21-28) Arterial Blood Base Excess 3 mmol/L (-3-3) FiO2 100 White Blood Count 9.8 x10^3/uL (4.0-11.0) Red Blood Count 4.71 x10^6/uL (4.30-5.70) Hemoglobin 12.5 g/dL (13.0-17.5) Hematocrit 38.2 % (39.0-53.0) Mean Corpuscular Volume 81 fL (79-100) Mean Corpuscular Hemoglobin 27 pg (25-35) Mean Corpuscular Hemoglobin Concent 33 g/dL (31-37) Red Cell Distribution Width 14.2 % (11.5-14.5) Platelet Count 285 x10^3/uL (140-400) Neutrophils (%) (Auto) 88 % (31-73) Lymphocytes (%) (Auto) 4 % (24-48) Monocytes (%) (Auto) 3 % (0-9) Eosinophils (%) (Auto) 5 % (0-3) Basophils (%) (Auto) 0 % (0-3) Neutrophils # (Auto) 8.7 x10^3/uL (1.8-7.7) Lymphocytes # (Auto) 0.4 x10^3/uL (1.0-4.8) Monocytes # (Auto) 0.3 x10^3/uL (0.0-1.1) Eosinophils # (Auto) 0.5 x10^3/uL (0.0-0.7) Basophils # (Auto) 0.0 x10^3/uL (0.0-0.2) Segmented Neutrophils % 80 % (35-66) Band Neutrophils % 4 % (0-9) Lymphocytes % 6 % (24-48) Atypical Lymphocytes % (Manual) 2 % (0-0) Monocytes % 1 % (0-10) Eosinophils % 7 % (0-5) Platelet Estimate Adequate (ADEQUATE) Sodium Level 139 mmol/L (136-145) Potassium Level 3.7 mmol/L (3.5-5.1) Chloride Level 102 mmol/L (98-107) Carbon Dioxide Level 28 mmol/L (21-32) Anion Gap 9 (6-14) Blood Urea Nitrogen 22 mg/dL (8-26) Creatinine 0.9 mg/dL (0.7-1.3) Estimated GFR (Cockcroft-Gault) 85.8 BUN/Creatinine Ratio 24 (6-20) Glucose Level 112 mg/dL (70-99) Calcium Level 7.6 mg/dL (8.5-10.1) Total Bilirubin 0.5 mg/dL (0.2-1.0) Aspartate Amino Transf (AST/SGOT) 64 U/L (15-37) Alanine Aminotransferase (ALT/SGPT) 34 U/L (16-63) Alkaline Phosphatase 159 U/L (46-116) Total Protein 5.9 g/dL (6.4-8.2) Albumin 2.2 g/dL (3.4-5.0) Albumin/Globulin Ratio 0.6 (1.0-1.7) Medications Active Scripts Medications Dose Route/Sig Max Daily Dose Days Date Category Oxycodone Hcl 5 Mg Capsule 5 Mg PO PRN Q4HRS PRN 08/01/21 Rx Tramadol Hcl 50 Mg Tablet 50 Mg PO Q4HRS PRN 08/01/21 Rx Warfarin Sodium 4 Mg Tablet 4 Mg PO DAILY 28 08/01/21 Rx Timoptic 0.5% (Timolol Maleate) 10 Ml Drops 1 Drop OD BID 30 07/17/21 Reported Lisinopril 10 Mg Tablet 10 Mg PO DAILY 07/17/21 Reported Comments Chest x-ray reviewed dated 10/01/2021. Diffuse bilateral interstitial infiltrates. No significant pleural effusion. There is mild progression. No evidence of pneumothorax Impression . 1. Acute hypoxic respiratory failure secondary to COVID-19 viral pneumonia. 2. COVID-19 viral pneumonia/early acute respiratory distress syndrome. 3. Abnormal chest x-ray with diffuse bilateral infiltrates consistent with viral pneumonia. 4. Mildly increased liver function test. Likely due to COVID. 5. Mild leukopenia. Secondary to COVID. 6. Markedly elevated CRP level of 197. Patient qualified for Actemra. He received with 09/30/2021 Plan . 1. Discussed with RN and RT. continue with 100% FiO2 via Vapotherm. As needed BiPAP. 2. I have discussed the advanced directives again with the patient. He wants to be DNR/DNI. At this point he wants to fight but does not want to have mechanical ventilation 3. Continue to finish remdesivir course. 4. Continue with steroids for a total of 10 days. 5. Status post Actemra. 6. DVT prophylaxis. 7. Empiric antibiotics. . Discussed with RN and RT.. Discussed with Dr. Loo. We will continue present aggressive care. Critical care time 30 minutes ORQUIDEA JENNINGS MD Oct 03, 2021 10:56
[2021-10-03] MEDS: MORPHINE SULFATE 2 MG/ML INJ. IVP PRN (19:45)
[2021-10-04] VITALS (23 sets, daily range): BP systolic 90–145; BP diastolic 54–86
[2021-10-04] MEDS: DEXMEDETOMIDINE 400 MCG in IV NORMAL SALINE 100ML 96 ML IV PRN ×4 (00:25→22:42)
[2021-10-04] MEDS: STERILE WATER for RESP 2,000 ML BAG. INH PRN (01:00)
[2021-10-04] MEDS: MORPHINE SULFATE 2 MG/ML INJ. IVP PRN ×2 (03:54→20:39)
[2021-10-04] MEDS: PIPERACILLIN/TAZOBACTAM 3.375 GM in IV NORMAL SALINE 50ML 50 ML IV SCH ×4 (05:31→23:52)
[2021-10-04] MEDS: ASPIRIN CHEWABLE 81 MG TABLET. PO SCH (08:00)
[2021-10-04] MEDS: PANTOPRAZOLE IV PUSH 40 MG VIAL. IVP SCH (08:20)
[2021-10-04] MEDS: DEXAMETHASONE SOD PHOS 4 MG/ML VIAL IVP SCH (08:20)
[2021-10-04] MEDS: ENOXAPARIN 40 MG/0.4 ML SYRINGE. SQ SCH (08:21)
[2021-10-04] MEDS: LACTOBACILLUS RHAMNOSUS GG 1 CAPSULE. PO SCH ×2 (08:23→20:51)
[2021-10-04] MEDS: LISINOPRIL 10 MG TABLET PO SCH (08:23)
[2021-10-04] MEDS: SENNOSIDES/DOCUSATE 8.6/50MG TABLET. PO SCH ×2 (08:24→20:51)
[2021-10-04] MEDS: MULTIVITAMIN with MINERAL TABLET. PO SCH (08:24)
--- NOTE | 2021-10-04 08:56 | PDOC ---
CARDIOLOGY PROGRESS NOTE SUBJECTIVE: No new issues. He has refused oral meds due to dyspnea. No chest pain. OBJECTIVE: Vital Signs/I&O: Vital Signs Date Time Temp Pulse Resp B/P (MAP) Pulse Ox O2 Delivery O2 Flow Rate FiO2 10/04/21 08:23 83 121/72 10/04/21 08:11 40.0 10/04/21 08:10 98.7 39 79 BiPAP/CPAP 98.7 I & O 10/03/21 10/03/21 10/04/21 15:00 23:00 07:00 Intake Total 80 ml 1012.6 ml 1330 ml Output Total 400 ml 325 ml 300 ml Balance -320 ml 687.6 ml 1030 ml Objective: Examined from door due to covid precautions He is a/o x3. He is tachypneic No edema. CURRENT MEDICATIONS: Metoprolol/lisinopril held this a.m due to dyspnea. DIAGNOSTIC TESTING: Labs reviewed. Tele reviewed. ASSESSMENT: 1. COVID pna 2. Hypoxic resp failure. 3. Paroxysmal SVT PLAN: 1. Plan for lasix today as he is overtly positive last 24 hours. 2. Otherwise, supportive care. No further CV interventions needed. Justicifation of Admission Dx: Justifications for Admission: Justification of Admission Dx: N/A PRINCE KOENIG MD Oct 04, 2021 08:56
[2021-10-04] MEDS ORDERED: FUROSEMIDE 40 MG/4 ML VIAL. IVP ONE (09:00)
[2021-10-04] MEDS: METOPROLOL TART IMMED RELEASE 25 MG TABLET. PO SCH (09:00)
[2021-10-04] MEDS: TIMOLOL 0.5% OPHTH SOLUTION 5ML BOTTLE. OD SCH ×2 (09:00→20:38)
[2021-10-04 09:15] LABS: BASO % 0 % (0-3); EOS # 0.5 x10^3/uL (0.0-0.7); EOS % 4 % (0-3); HEMATOCRIT 41.1 % (39.0-53.0); HEMOGLOBIN 13.5 g/dL (13.0-17.5); LYMPH # 0.4 x10^3/uL (1.0-4.8); LYMPH % 3 % (24-48); MEAN CORPUSCULAR HEMOGLOBIN 27 pg (25-35); MEAN CORPUSCULAR HGB CONC 33 g/dL (31-37); MEAN CORPUSCULAR VOLUME 83 fL (79-100); MONO # 0.3 x10^3/uL (0.0-1.1); MONO % 2 % (0-9); NEUT # 13.4 x10^3/uL (1.8-7.7); NEUT % 91 % (31-73); PLATELET COUNT 253 x10^3/uL (140-400); RED BLOOD COUNT 4.97 x10^6/uL (4.30-5.70); RED CELL DISTRIBUTION WIDTH 13.9 % (11.5-14.5); WHITE BLOOD COUNT 14.7 x10^3/uL (4.0-11.0)
[2021-10-04 09:22] LABS: CALCIUM 7.8 mg/dL (8.5-10.1); POTASSIUM 3.9 mmol/L (3.5-5.1)
--- NOTE | 2021-10-04 09:38 | PDOC ---
PULMONARY PROGRESS NOTES DATE: 10/04/21 TIME: 09:35 Subjective Patient is currently on BiPAP at 100% FiO2 due to worsening hypoxia. He does appear to be comfortable. Vitals Vital Signs Date Time Temp Pulse Resp B/P (MAP) Pulse Ox O2 Delivery O2 Flow Rate FiO2 10/04/21 08:23 83 121/72 10/04/21 08:11 40.0 10/04/21 08:10 98.7 39 79 BiPAP/CPAP 98.7 Comments Visual exam done due to COVID-19 pneumonia. No obvious respiratory distress, no use of accessory muscles. No leg edema no skin rash. ROS: No Nausea, No Chest Pain Labs Laboratory Tests Test 10/03/21 04:34 10/03/21 08:50 O2 Saturation 81 % (92-99) Arterial Blood pH 7.48 (7.35-7.45) Arterial Blood pCO2 at Patient Temp 35 mmHg (35-46) Arterial Blood pO2 at Patient Temp 45 mmHg (65-108) Arterial Blood HCO3 26 mmol/L (21-28) Arterial Blood Base Excess 3 mmol/L (-3-3) FiO2 100 White Blood Count 9.8 x10^3/uL (4.0-11.0) Red Blood Count 4.71 x10^6/uL (4.30-5.70) Hemoglobin 12.5 g/dL (13.0-17.5) Hematocrit 38.2 % (39.0-53.0) Mean Corpuscular Volume 81 fL (79-100) Mean Corpuscular Hemoglobin 27 pg (25-35) Mean Corpuscular Hemoglobin Concent 33 g/dL (31-37) Red Cell Distribution Width 14.2 % (11.5-14.5) Platelet Count 285 x10^3/uL (140-400) Neutrophils (%) (Auto) 88 % (31-73) Lymphocytes (%) (Auto) 4 % (24-48) Monocytes (%) (Auto) 3 % (0-9) Eosinophils (%) (Auto) 5 % (0-3) Basophils (%) (Auto) 0 % (0-3) Neutrophils # (Auto) 8.7 x10^3/uL (1.8-7.7) Lymphocytes # (Auto) 0.4 x10^3/uL (1.0-4.8) Monocytes # (Auto) 0.3 x10^3/uL (0.0-1.1) Eosinophils # (Auto) 0.5 x10^3/uL (0.0-0.7) Basophils # (Auto) 0.0 x10^3/uL (0.0-0.2) Segmented Neutrophils % 80 % (35-66) Band Neutrophils % 4 % (0-9) Lymphocytes % 6 % (24-48) Atypical Lymphocytes % (Manual) 2 % (0-0) Monocytes % 1 % (0-10) Eosinophils % 7 % (0-5) Platelet Estimate Adequate (ADEQUATE) Sodium Level 139 mmol/L (136-145) Potassium Level 3.7 mmol/L (3.5-5.1) Chloride Level 102 mmol/L (98-107) Carbon Dioxide Level 28 mmol/L (21-32) Anion Gap 9 (6-14) Blood Urea Nitrogen 22 mg/dL (8-26) Creatinine 0.9 mg/dL (0.7-1.3) Estimated GFR (Cockcroft-Gault) 85.8 BUN/Creatinine Ratio 24 (6-20) Glucose Level 112 mg/dL (70-99) Calcium Level 7.6 mg/dL (8.5-10.1) Total Bilirubin 0.5 mg/dL (0.2-1.0) Aspartate Amino Transf (AST/SGOT) 64 U/L (15-37) Alanine Aminotransferase (ALT/SGPT) 34 U/L (16-63) Alkaline Phosphatase 159 U/L (46-116) Total Protein 5.9 g/dL (6.4-8.2) Albumin 2.2 g/dL (3.4-5.0) Albumin/Globulin Ratio 0.6 (1.0-1.7) Medications Active Scripts Medications Dose Route/Sig Max Daily Dose Days Date Category Oxycodone Hcl 5 Mg Capsule 5 Mg PO PRN Q4HRS PRN 08/01/21 Rx Tramadol Hcl 50 Mg Tablet 50 Mg PO Q4HRS PRN 08/01/21 Rx Warfarin Sodium 4 Mg Tablet 4 Mg PO DAILY 28 08/01/21 Rx Timoptic 0.5% (Timolol Maleate) 10 Ml Drops 1 Drop OD BID 30 07/17/21 Reported Lisinopril 10 Mg Tablet 10 Mg PO DAILY 07/17/21 Reported Comments Chest x-ray reviewed dated 10/01/2021. Diffuse bilateral interstitial infiltrates. No significant pleural effusion. There is mild progression. No evidence of pneumothorax Impression . 1. Acute hypoxic respiratory failure secondary to COVID-19 viral pneumonia. 2. COVID-19 viral pneumonia/early acute respiratory distress syndrome. 3. Abnormal chest x-ray with diffuse bilateral infiltrates consistent with viral pneumonia. 4. Mildly increased liver function test. Likely due to COVID. 5. Mild leukopenia. Secondary to COVID. 6. Markedly elevated CRP level of 197. Patient qualified for Actemra. He received with 09/30/2021 Plan . Updated 10/04/2021. 1. Discussed with RN and RT. continue with 100% FiO2 via BiPAP along with supplemental oxygen. 2. Patient remains DNR/DNI 3. Continue to finish remdesivir course. 4. Continue with steroids for a total of 10 days. 5. Status post Actemra. 6. DVT prophylaxis. 7. Empiric antibiotics. Discussed with RN and RT.. Discussed with Dr. Loo. We will continue present aggressive care. 1. Discussed with RN and RT. continue with 100% FiO2 via Vapotherm. As needed BiPAP. 2. I have discussed the advanced directives again with the patient. He wants to be DNR/DNI. At this point he wants to fight but does not want to have mechanical ventilation 3. Continue to finish remdesivir course. 4. Continue with steroids for a total of 10 days. 5. Status post Actemra. 6. DVT prophylaxis. 7. Empiric antibiotics. . Discussed with RN and RT.. Discussed with Dr. Loo. We will continue present aggressive care. Critical care time 30 minutes ORQUIDEA JENNINGS MD Oct 04, 2021 09:38
[2021-10-04] MEDS ORDERED: ENALAPRILAT 1.25 MG/ML VIAL. IVP PRN (09:45)
[2021-10-04] MEDS ORDERED: ASPIRIN RECTAL 300 MG SUPP. PR PRN (09:45)
[2021-10-04] MEDS ORDERED: ACETAMINOPHEN 650 MG SUPP.RECT. PR PRN (09:45)
--- NOTE | 2021-10-04 09:49 | PDOC ---
[employer] PROGRESS NOTE Date of Service DOS: DATE: 10/04/21 TIME: 09:47 Chief Complaint Chief Complaint Covid-19 Pneumonia status post remdesivir and Actemra Acute hypoxic respiratory failure requiring Vapotherm support Hypertension Knee replacement Appreciate pulmonology recommendationscontinue Vapotherm and as needed BiPAP Continue with IV steroids for total 10 days Continue empiric IV antibiotics Lovenox for DVT prophylaxis Continue Protonix for GI prophylaxis while on steroids CODE - DNR/DNI History of Present Illness History of Present Illness 10/04: Seen in ICU on Vapotherm 100% FiO2 40 L/min supplemental BiPAP 18/6. O2 saturations are 76 to 82%. He is medically clear he does not want to be intubated we will attempt to prone. Long discussion with patient and family 10/03 involving goals of care, he wants to be comfortable but still wants maximum treatment up to but not including mechanical ventilation. We will continue aggressive care. I discussed with pulmonology will initiate TPN today and PICC insertion cc time 35 min 10/03: Had O2 desaturations overnight and ABG 7.4 on Vapotherm 100% FiO2 40 L/min. He discussed with nursing staff and family he wishes not to be on a ventilator. Currently on BiPAP 18/6 100% FiO2 with saturations 76 to 89%. 10/02: Seen in ICU. On Vapotherm 40 L/min 100% FiO2 with supplemental facemask O2 saturations 94%. Chest radiograph from 10/01 consistent with severe COVID. CR 3.2 09/30: Patient seen and examined. He now has increasing oxygen requirements and is on a 100% nonrebreather plus nasal cannula oxygen. Only satting in the high 80s. Transfer to ICU 09/29: Patient seen and examined. He is currently on 15 L of oxygen per nasal cannula. O2 sat ranging from 88-92 09/28: Patient seen and examined. He seems a little down apparently his dad from Covid yesterday. The is Thursday he would like to get out of here soon. He is still on high flow oxygen at 15 L per nasal cannula. 09/27: Patient was seen and examined today, in NAD and doing well. Patient is on 12 L O2 via NC. Daughter was in room to comfort as patient's father was just put on hospice. 09/26: Patient was seen and examined today, Patient in good spirits and doing better. Patient is motivated to continue to improved and be discharged. Patient is on 5 L O2 via NC. Vitals/I&O Vitals/I&O: Vital Signs Date Time Temp Pulse Resp B/P (MAP) Pulse Ox O2 Delivery O2 Flow Rate FiO2 10/04/21 08:23 83 121/72 10/04/21 08:11 40.0 10/04/21 08:10 98.7 39 79 BiPAP/CPAP 98.7 I & O 10/03/21 10/03/21 10/04/21 15:00 23:00 07:00 Intake Total 80 ml 1012.6 ml 1330 ml Output Total 400 ml 325 ml 300 ml Balance -320 ml 687.6 ml 1030 ml Physical Exam General: Alert, Oriented X3, Cooperative, No acute distress Heart: Regular rate (SR) Abdomen: Soft Extremities: No edema, Normal pulses Skin: No significant lesion Labs Labs: Laboratory Tests Test 10/04/21 08:45 White Blood Count 14.7 x10^3/uL (4.0-11.0) Red Blood Count 4.97 x10^6/uL (4.30-5.70) Hemoglobin 13.5 g/dL (13.0-17.5) Hematocrit 41.1 % (39.0-53.0) Mean Corpuscular Volume 83 fL (79-100) Mean Corpuscular Hemoglobin 27 pg (25-35) Mean Corpuscular Hemoglobin Concent 33 g/dL (31-37) Red Cell Distribution Width 13.9 % (11.5-14.5) Platelet Count 253 x10^3/uL (140-400) Neutrophils (%) (Auto) 91 % (31-73) Lymphocytes (%) (Auto) 3 % (24-48) Monocytes (%) (Auto) 2 % (0-9) Eosinophils (%) (Auto) 4 % (0-3) Basophils (%) (Auto) 0 % (0-3) Neutrophils # (Auto) 13.4 x10^3/uL (1.8-7.7) Lymphocytes # (Auto) 0.4 x10^3/uL (1.0-4.8) Monocytes # (Auto) 0.3 x10^3/uL (0.0-1.1) Eosinophils # (Auto) 0.5 x10^3/uL (0.0-0.7) Basophils # (Auto) 0.0 x10^3/uL (0.0-0.2) Sodium Level 140 mmol/L (136-145) Potassium Level 3.9 mmol/L (3.5-5.1) Chloride Level 104 mmol/L (98-107) Carbon Dioxide Level 26 mmol/L (21-32) Anion Gap 10 (6-14) Blood Urea Nitrogen 32 mg/dL (8-26) Creatinine 1.0 mg/dL (0.7-1.3) Estimated GFR (Cockcroft-Gault) 76.0 Glucose Level 132 mg/dL (70-99) Calcium Level 7.8 mg/dL (8.5-10.1) Assessment and Plan Assessmemt and Plan Problems Medical Problems: (1) Hypoxia Status: Acute (2) Pneumonia due to COVID-19 virus Status: Acute Comment Review of Relevant I have reviewed the following items dino (where applicable) has been applied. Medications: Current Medications Medications (Trade) Dose Ordered Sig/Jody Route PRN Reason Start Time Stop Time Status Last Admin Dose Admin Pantoprazole Sodium (PROTONIX VIAL for IV PUSH) 40 mg DAILYAC IVP 10/04/21 08:15 10/04/21 08:20 Furosemide (Lasix) 40 mg 1X ONCE IVP 10/04/21 09:00 10/04/21 09:01 DC 10/04/21 09:32 Justifications for Admission Other Justification ERIKA GONZALEZ MD Oct 04, 2021 09:49
[2021-10-04] MEDS: DOXYCYCLINE HYCLATE 100 MG in IV DEXTROSE 5% 100ML 100 ML IV SCH ×2 (10:15→20:38)
[2021-10-04] MEDS: TPN PER PHARMACY MC PRN (12:13)
--- NOTE | 2021-10-04 12:17 | NUR ---
Pharmacy TPN Dosing Note S: JACINTOAILYNVANIA Yarbrough is a 60 year old M Currently receiving Central Continuous TPN started 10/04/21 B:Pertinent PMH: NPO Height: 5 feet, 7 inches Weight: 91.3 kg Current diet: NPO LABS: Sodium: 140 Potassium: 3.9 Chloride: 104 Calcium: 7.8 Corrected Calcium: 9.24 Magnesium: 2.5 CO2: 26 SCr: 1 Glucose: 132 Albumin: 2.2 AST: 64 ALT: 34 TPN FORMULA: TPN TYPE: Central Continuous AMINO ACIDS: 80 gm DEXTROSE: 255 gm LIPIDS: 0 gm SODIUM CHLORIDE: 90 mEq POTASSIUM CHLORIDE: 50 mEq POTASSIUM PHOSPHATE: 13.6 mmol MAGNESIUM: 10 mEq CALCIUM: 10 mEq MULTIPLE VITAMIN: 10 ml TRACE ELEMENTS: 1 ml(s) TPN PLAN: Inititate TPN per decontamination worker rec's and standard electrolytes. Lipids will be omitted for today d/t national shortage. Can be added next week at maximum of 100g/week (i.e. 30g MWF). R: Begin TPN per plan and ordered formula. Will monitor electrolytes, glucose, and tolerance to TPN. Mariana Mcfarlane [facility], 10/04/21 [id number]
[2021-10-04] MEDS: AA 4.25 %/CALCIUM/LYTES/D5W 1,000 ML IV SCH (12:19)
--- NOTE | 2021-10-04 15:23 | NUR ---
Patient's son called to let us know that patient would like the son to be his DPOA while in hospital to take care of some matters. This RN called Nursing Integrity Consultant to see what we can do for a notary. The Nursing Integrity Consultant relayed to this RN that the notary is able to stand outside the room to witness the patient signing paperwork. This RN relayed this information to the patient and his son.
--- NOTE | 2021-10-04 19:40 | RAD ---
Exam: Chest one view INDICATION: PICC placement TECHNIQUE: Frontal view of the chest Comparisons: 08/03/2021 FINDINGS: Left-sided PICC with tip likely in the SVC. Heart size is normal. Pulmonary vessels are obscured. Extensive bilateral airspace disease. No pleural effusion. IMPRESSION: Lines and tubes described above. Electronically signed by: Marla Brady MD (10/04/2021 7:37 PM) [facility]
[2021-10-04] MEDS ORDERED: [UNRECOGNIZED DRUG - OTHER] IV SCH (22:00)
[2021-10-04] MEDS ORDERED: AMINO ACID IV SCH (22:00)
[2021-10-04] MEDS ORDERED: DEXTROSE 70% IV SCH (22:00)
[2021-10-04] MEDS ORDERED: TOTAL PARENTERAL NUTRITION IV SCH (22:00)
[2021-10-05] VITALS (24 sets, daily range): BP systolic 84–177; BP diastolic 52–96
[2021-10-05] MEDS: MORPHINE SULFATE 2 MG/ML INJ. IVP PRN ×3 (00:18→20:52)
[2021-10-05] MEDS: STERILE WATER for RESP 2,000 ML BAG. INH PRN (01:45)
[2021-10-05] MEDS: DEXMEDETOMIDINE 400 MCG in IV NORMAL SALINE 100ML 96 ML IV PRN ×3 (04:58→18:40)
[2021-10-05] MEDS: PIPERACILLIN/TAZOBACTAM 3.375 GM in IV NORMAL SALINE 50ML 50 ML IV SCH ×3 (05:56→18:23)
[2021-10-05 06:42] LABS: CALCIUM 7.9 mg/dL (8.5-10.1); MAGNESIUM 2.6 mg/dL (1.8-2.4); PHOSPHORUS 3.9 mg/dL (2.6-4.7); POTASSIUM 3.7 mmol/L (3.5-5.1)
[2021-10-05] MEDS: LACTOBACILLUS RHAMNOSUS GG 1 CAPSULE. PO SCH (07:31)
[2021-10-05] MEDS: ASPIRIN CHEWABLE 81 MG TABLET. PO SCH (07:31)
[2021-10-05] MEDS: SENNOSIDES/DOCUSATE 8.6/50MG TABLET. PO SCH ×2 (07:31→20:53)
[2021-10-05] MEDS: MULTIVITAMIN with MINERAL TABLET. PO SCH (07:32)
[2021-10-05] MEDS: PANTOPRAZOLE IV PUSH 40 MG VIAL. IVP SCH (08:15)
[2021-10-05] MEDS: DEXAMETHASONE SOD PHOS 4 MG/ML VIAL IVP SCH (08:15)
[2021-10-05] MEDS: ENOXAPARIN 40 MG/0.4 ML SYRINGE. SQ SCH (08:16)
[2021-10-05] MEDS: TIMOLOL 0.5% OPHTH SOLUTION 5ML BOTTLE. OD SCH ×2 (08:16→20:52)
[2021-10-05] MEDS: DOXYCYCLINE HYCLATE 100 MG in IV DEXTROSE 5% 100ML 100 ML IV SCH ×2 (08:16→20:52)
--- NOTE | 2021-10-05 09:52 | PDOC ---
PULMONARY PROGRESS NOTES DATE: 10/05/21 TIME: 09:50 Subjective Patient is currently on BiPAP at 100% FiO2 due to worsening hypoxia. He is also 100% FiO2 via Vapotherm. He does appear to be comfortable. Vitals Vital Signs Date Time Temp Pulse Resp B/P (MAP) Pulse Ox O2 Delivery O2 Flow Rate FiO2 10/05/21 09:07 82 36 136/73 78 BiPAP/CPAP 10/05/21 08:37 40.0 10/05/21 08:00 97.2 97.2 Comments Visual exam done due to COVID-19 pneumonia. No obvious respiratory distress, no use of accessory muscles. No leg edema no skin rash. ROS: No Nausea, No Chest Pain Labs Laboratory Tests Test 10/04/21 08:45 10/05/21 05:30 White Blood Count 14.7 x10^3/uL (4.0-11.0) Red Blood Count 4.97 x10^6/uL (4.30-5.70) Hemoglobin 13.5 g/dL (13.0-17.5) Hematocrit 41.1 % (39.0-53.0) Mean Corpuscular Volume 83 fL (79-100) Mean Corpuscular Hemoglobin 27 pg (25-35) Mean Corpuscular Hemoglobin Concent 33 g/dL (31-37) Red Cell Distribution Width 13.9 % (11.5-14.5) Platelet Count 253 x10^3/uL (140-400) Neutrophils (%) (Auto) 91 % (31-73) Lymphocytes (%) (Auto) 3 % (24-48) Monocytes (%) (Auto) 2 % (0-9) Eosinophils (%) (Auto) 4 % (0-3) Basophils (%) (Auto) 0 % (0-3) Neutrophils # (Auto) 13.4 x10^3/uL (1.8-7.7) Lymphocytes # (Auto) 0.4 x10^3/uL (1.0-4.8) Monocytes # (Auto) 0.3 x10^3/uL (0.0-1.1) Eosinophils # (Auto) 0.5 x10^3/uL (0.0-0.7) Basophils # (Auto) 0.0 x10^3/uL (0.0-0.2) Sodium Level 140 mmol/L (136-145) 140 mmol/L (136-145) Potassium Level 3.9 mmol/L (3.5-5.1) 3.7 mmol/L (3.5-5.1) Chloride Level 104 mmol/L (98-107) 104 mmol/L (98-107) Carbon Dioxide Level 26 mmol/L (21-32) 28 mmol/L (21-32) Anion Gap 10 (6-14) 8 (6-14) Blood Urea Nitrogen 32 mg/dL (8-26) 41 mg/dL (8-26) Creatinine 1.0 mg/dL (0.7-1.3) 1.0 mg/dL (0.7-1.3) Estimated GFR (Cockcroft-Gault) 76.0 76.0 Glucose Level 132 mg/dL (70-99) 132 mg/dL (70-99) Calcium Level 7.8 mg/dL (8.5-10.1) 7.9 mg/dL (8.5-10.1) Phosphorus Level 3.9 mg/dL (2.6-4.7) Magnesium Level 2.6 mg/dL (1.8-2.4) Triglycerides Level 222 mg/dL (0-150) Laboratory Tests Test 10/05/21 05:30 Sodium Level 140 mmol/L (136-145) Potassium Level 3.7 mmol/L (3.5-5.1) Chloride Level 104 mmol/L (98-107) Carbon Dioxide Level 28 mmol/L (21-32) Anion Gap 8 (6-14) Blood Urea Nitrogen 41 mg/dL (8-26) Creatinine 1.0 mg/dL (0.7-1.3) Estimated GFR (Cockcroft-Gault) 76.0 Glucose Level 132 mg/dL (70-99) Calcium Level 7.9 mg/dL (8.5-10.1) Phosphorus Level 3.9 mg/dL (2.6-4.7) Magnesium Level 2.6 mg/dL (1.8-2.4) Triglycerides Level 222 mg/dL (0-150) Medications Active Scripts Medications Dose Route/Sig Max Daily Dose Days Date Category Oxycodone Hcl 5 Mg Capsule 5 Mg PO PRN Q4HRS PRN 9/23/21 Rx Tramadol Hcl 50 Mg Tablet 50 Mg PO Q4HRS PRN 08/01/21 Rx Warfarin Sodium 4 Mg Tablet 4 Mg PO DAILY 28 08/01/21 Rx Timoptic 0.5% (Timolol Maleate) 10 Ml Drops 1 Drop OD BID 30 07/17/21 Reported Lisinopril 10 Mg Tablet 10 Mg PO DAILY 07/17/21 Reported Comments Chest x-ray reviewed dated 10/01/2021. Diffuse bilateral interstitial infiltrates. No significant pleural effusion. There is mild progression. No evidence of pneumothorax Impression . 1. Acute hypoxic respiratory failure secondary to COVID-19 viral pneumonia. 2. COVID-19 viral pneumonia/early acute respiratory distress syndrome. 3. Abnormal chest x-ray with diffuse bilateral infiltrates consistent with viral pneumonia. 4. Mildly increased liver function test. Likely due to COVID. 5. Mild leukopenia. Secondary to COVID. 6. Markedly elevated CRP level of 197. Patient qualified for Actemra. He received with 09/30/2021 Plan . Updated 10/05 1. Discussed with RN and RT. continue with 100% FiO2 via BiPAP along with supplemental oxygen, 100% via Vapotherm.. 2. Patient remains DNR/DNI 3. Status post remdesivir course. 4. Continue with steroids for a total of 10 days. 5. Status post Actemra. 6. DVT prophylaxis. 7. Empiric antibiotics. Discussed with RN and RT.. Discussed with Dr. Loo. We will continue present aggressive care. Updated 10/04/2021. 1. Discussed with RN and RT. continue with 100% FiO2 via BiPAP along with supplemental oxygen. 2. Patient remains DNR/DNI 3. Continue to finish remdesivir course. 4. Continue with steroids for a total of 10 days. 5. Status post Actemra. 6. DVT prophylaxis. 7. Empiric antibiotics. Discussed with RN and RT.. Discussed with Dr. Loo. We will continue present aggressive care. 1. Discussed with RN and RT. continue with 100% FiO2 via Vapotherm. As needed BiPAP. 2. I have discussed the advanced directives again with the patient. He wants to be DNR/DNI. At this point he wants to fight but does not want to have mechanical ventilation 3. Continue to finish remdesivir course. 4. Continue with steroids for a total of 10 days. 5. Status post Actemra. 6. DVT prophylaxis. 7. Empiric antibiotics. . Discussed with RN and RT.. Discussed with Dr. Loo. We will continue present aggressive care. Critical care time 30 minutes ORQUIDEA JENNINGS MD Oct 05, 2021 09:52
[2021-10-05] MEDS: TPN PER PHARMACY MC PRN (10:03)
--- NOTE | 2021-10-05 10:04 | NUR ---
Pharmacy TPN Dosing Note S: ILAVANIA is a 60 year old M Currently receiving Central Continuous TPN started 10/04/21 B:Pertinent PMH: NPO Height: 5 feet, 7 inches Weight: 89.6 kg Current diet: NPO LABS: Sodium: 140 Potassium: 3.7 Chloride: 104 Calcium: 7.9 Corrected Calcium: 9.34 Magnesium: 2.6 CO2: 28 SCr: 1 Glucose: 132 Albumin: 2.2 AST: 64 ALT: 34 TPN FORMULA: TPN TYPE: Central Continuous AMINO ACIDS: 80 gm DEXTROSE: 255 gm SODIUM CHLORIDE: 90 mEq POTASSIUM CHLORIDE: 50 mEq POTASSIUM PHOSPHATE: 13.6 mmol CALCIUM: 10 mEq INSULIN: units MULTIPLE VITAMIN: 10 ml TRACE ELEMENTS: 1 ml(s) TPN PLAN: Remove magnesium from tonight's bag of TPN R: Change TPN per plan and ordered formula Will monitor electrolytes, glucose, and tolerance to TPN. Mariana Mcfarlane [facility], 10/05/21 [id number]
--- NOTE | 2021-10-05 10:07 | PDOC ---
[employer] PROGRESS NOTE Date of Service DOS: DATE: 10/05/21 TIME: 10:06 Chief Complaint Chief Complaint Covid-19 Pneumonia status post remdesivir and Actemra Acute hypoxic respiratory failure requiring Vapotherm support Hypertension Knee replacement Appreciate pulmonology recommendationscontinue Vapotherm and as needed BiPAP Continue with IV steroids for total 10 days Continue empiric IV antibiotics Lovenox for DVT prophylaxis Continue Protonix for GI prophylaxis while on steroids CODE - DNR/DNI History of Present Illness History of Present Illness 10/05: Afebrile. Seen in ICU on Vapotherm 1% FiO2 40 L/min with supplemental BiPAP 18/6. O2 saturations 82 to 84% today. PICC placed and tolerating TPN. He is alert. cc time 31 min 10/04: Seen in ICU on Vapotherm 100% FiO2 40 L/min supplemental BiPAP 18/6. O2 saturations are 76 to 82%. He is mentally clear he does not want to be intubated we will attempt to prone. Long discussion with patient and family 10/03 involving goals of care, he wants to be comfortable but still wants maximum treatment up to but not including mechanical ventilation. We will continue aggressive care. I discussed with pulmonology will initiate TPN today and PICC insertion 10/03: Had O2 desaturations overnight and ABG 7.4 / on Vapotherm 100% FiO2 40 L/min. He discussed with nursing staff and family he wishes not to be on a ventilator. Currently on BiPAP 18/6 100% FiO2 with saturations 76 to 89%. 10/02: Seen in ICU. On Vapotherm 40 L/min 100% FiO2 with supplemental facemask O2 saturations 94%. Chest radiograph from 10/01 consistent with severe COVID. CR 3.2 09/30: Patient seen and examined. He now has increasing oxygen requirements and is on a 100% nonrebreather plus nasal cannula oxygen. Only satting in the high 80s. Transfer to ICU 09/29: Patient seen and examined. He is currently on 15 L of oxygen per nasal cannula. O2 sat ranging from 88-92 09/28: Patient seen and examined. He seems a little down apparently his dad from Covid yesterday. The is Thursday he would like to get out of here soon. He is still on high flow oxygen at 15 L per nasal cannula. 09/27: Patient was seen and examined today, in NAD and doing well. Patient is on 12 L O2 via NC. Daughter was in room to comfort as patient's father was just put on hospice. 09/26: Patient was seen and examined today, Patient in good spirits and doing better. Patient is motivated to continue to improved and be discharged. Patient is on 5 L O2 via NC. Vitals/I&O Vitals/I&O: Vital Signs Date Time Temp Pulse Resp B/P (MAP) Pulse Ox O2 Delivery O2 Flow Rate FiO2 10/05/21 09:07 82 36 136/73 78 BiPAP/CPAP 10/05/21 08:37 40.0 10/05/21 08:00 97.2 97.2 I & O 10/04/21 10/04/21 10/05/21 15:00 23:00 07:00 Intake Total 150 ml 1525 ml 691 ml Output Total 1700 ml 625 ml 425 ml Balance -1550 ml 900 ml 266 ml Physical Exam General: Alert, Oriented X3, Cooperative, No acute distress Heart: Regular rate (SR) Abdomen: Soft Extremities: No edema, Normal pulses Skin: No significant lesion Labs Labs: Laboratory Tests Test 10/05/21 05:30 Sodium Level 140 mmol/L (136-145) Potassium Level 3.7 mmol/L (3.5-5.1) Chloride Level 104 mmol/L (98-107) Carbon Dioxide Level 28 mmol/L (21-32) Anion Gap 8 (6-14) Blood Urea Nitrogen 41 mg/dL (8-26) Creatinine 1.0 mg/dL (0.7-1.3) Estimated GFR (Cockcroft-Gault) 76.0 Glucose Level 132 mg/dL (70-99) Calcium Level 7.9 mg/dL (8.5-10.1) Phosphorus Level 3.9 mg/dL (2.6-4.7) Magnesium Level 2.6 mg/dL (1.8-2.4) Triglycerides Level 222 mg/dL (0-150) Assessment and Plan Assessmemt and Plan Problems Medical Problems: (1) Hypoxia Status: Acute (2) Pneumonia due to COVID-19 virus Status: Acute Comment Review of Relevant I have reviewed the following items dino (where applicable) has been applied. Medications: Current Medications Medications (Trade) Dose Ordered Sig/Jody Route PRN Reason Start Time Stop Time Status Last Admin Dose Admin Doxycycline Hyclate 100 mg/ Dextrose 100 ml @ 50 mls/hr Q12HR IV 10/04/21 10:30 10/05/21 08:16 Sodium Chloride 90 meq/Potassium Chloride 50 meq/ Potassium Phosphate 13.6 mmol/Magnesium Sulfate 10 meq/ Calcium Gluconate 10 meq/ Multivitamins 10 ml/Zinc/Copper/ Manganese/ Selenium 1 ml/ Total Parenteral Nutrition/Amino Acids/Dextrose/ Fat Emulsion Intravenous 1,512 ml @ 63 mls/hr TPN CONT IV 10/04/21 22:00 10/05/21 21:59 10/04/21 21:59 Info (Tpn Per Pharmacy) 1 each PRN DAILY PRN MC SEE COMMENTS 10/04/21 12:15 10/05/21 10:03 Justifications for Admission Other Justification ERIKA GONZALEZ MD Oct 05, 2021 10:07
--- NOTE | 2021-10-05 17:25 | PDOC ---
CARDIOLOGY PROGRESS NOTE SUBJECTIVE: No new events overnight. No chest pain. He is having some confusion. OBJECTIVE: Vital Signs/I&O: Vital Signs Date Time Temp Pulse Resp B/P (MAP) Pulse Ox O2 Delivery O2 Flow Rate FiO2 10/05/21 17:06 91 30 137/80 84 BiPap + Vapotherm 10/05/21 16:08 97.5 97.5 10/05/21 15:48 40.0 I & O 10/04/21 10/04/21 10/05/21 15:00 23:00 07:00 Intake Total 150 ml 1525 ml 741 ml Output Total 1700 ml 625 ml 425 ml Balance -1550 ml 900 ml 316 ml Objective: GEN.: No apparent distress. Alert. HEENT: Head is normocephalic, atraumatic NECK: Supple. LUNGS: Diminished breath sounds. HEART: Tachycardic. Pulses intact. ABDOMEN: Soft, nontender. Positive bowel sounds. EXTREMITIES: Without any cyanosis. NEUROLOGIC: Normal speech, normal tone PSYCHIATRIC: Flat affect. SKIN: No ulcerations CURRENT MEDICATIONS: No specific CV meds DIAGNOSTIC TESTING: Labs/meds reviewed. Labs: Laboratory Tests 10/05/21 05:30 Laboratory Tests Test 10/05/21 05:30 Sodium Level 140 mmol/L (136-145) Potassium Level 3.7 mmol/L (3.5-5.1) Chloride Level 104 mmol/L (98-107) Carbon Dioxide Level 28 mmol/L (21-32) Anion Gap 8 (6-14) Blood Urea Nitrogen 41 mg/dL (8-26) H Creatinine 1.0 mg/dL (0.7-1.3) Estimated GFR (Cockcroft-Gault) 76.0 Glucose Level 132 mg/dL (70-99) H Calcium Level 7.9 mg/dL (8.5-10.1) L Phosphorus Level 3.9 mg/dL (2.6-4.7) ASSESSMENT: ASSESSMENT: 1. COVID pna 2. Hypoxic resp failure. 3. Paroxysmal SVT PLAN: 1. Supportive care. No new issues. Justicifation of Admission Dx: Justifications for Admission: Justification of Admission Dx: N/A PRINCE KOENIG MD Oct 05, 2021 17:25
[2021-10-05] MEDS ORDERED: DEXTROSE 70% IV SCH (22:00)
[2021-10-05] MEDS ORDERED: AMINO ACID IV SCH (22:00)
[2021-10-05] MEDS ORDERED: [UNRECOGNIZED DRUG - OTHER] IV SCH (22:00)
[2021-10-05] MEDS ORDERED: TOTAL PARENTERAL NUTRITION IV SCH (22:00)
[2021-10-06] VITALS (23 sets, daily range): BP systolic 114–237; BP diastolic 64–120
[2021-10-06] MEDS: PIPERACILLIN/TAZOBACTAM 3.375 GM in IV NORMAL SALINE 50ML 50 ML IV SCH ×5 (00:37→23:23)
[2021-10-06] MEDS: DEXMEDETOMIDINE 400 MCG in IV NORMAL SALINE 100ML 96 ML IV PRN ×5 (01:32→20:38)
[2021-10-06] MEDS: STERILE WATER for RESP 2,000 ML BAG. INH PRN ×2 (02:19→16:22)
[2021-10-06] MEDS: MORPHINE SULFATE 2 MG/ML INJ. IVP PRN ×6 (02:41→23:24)
[2021-10-06 06:26] LABS: CREATININE 0.7 mg/dL (0.7-1.3); GFR 114.6; MAGNESIUM 2.1 mg/dL (1.8-2.4); POTASSIUM 4.2 mmol/L (3.5-5.1)
[2021-10-06] MEDS: SENNOSIDES/DOCUSATE 8.6/50MG TABLET. PO SCH ×2 (07:36→20:36)
[2021-10-06] MEDS: ASPIRIN CHEWABLE 81 MG TABLET. PO SCH (07:36)
[2021-10-06] MEDS: PANTOPRAZOLE IV PUSH 40 MG VIAL. IVP SCH (08:53)
[2021-10-06] MEDS: TIMOLOL 0.5% OPHTH SOLUTION 5ML BOTTLE. OD SCH ×2 (08:53→20:35)
[2021-10-06] MEDS: DOXYCYCLINE HYCLATE 100 MG in IV DEXTROSE 5% 100ML 100 ML IV SCH ×2 (08:53→20:35)
[2021-10-06] MEDS: ENOXAPARIN 40 MG/0.4 ML SYRINGE. SQ SCH (08:53)
--- NOTE | 2021-10-06 09:52 | PDOC ---
[employer] PROGRESS NOTE Date of Service DOS: DATE: 10/06/21 TIME: 09:51 Chief Complaint Chief Complaint Covid-19 Pneumonia status post remdesivir and Actemra Acute hypoxic respiratory failure requiring Vapotherm support Hypertension Knee replacement Appreciate pulmonology recommendationscontinue Vapotherm and as needed BiPAP Continue with IV steroids for total 10 days Continue empiric IV antibiotics Lovenox for DVT prophylaxis Continue Protonix for GI prophylaxis while on steroids CODE - DNR/DNI History of Present Illness History of Present Illness 10/06: Afebrile. Seen in ICU on Vapotherm high percent FiO2 40 L/min with supplemental BiPAP 18/6. O2 saturations in the mid 80s high as 84. He was little more anxious and had Precedex increased. No pain complaints. Still communicating well. Updated family 10/05: Afebrile. Seen in ICU on Vapotherm 100% FiO2 40 L/min with supplemental BiPAP 18/6. O2 saturations 82 to 84% today. PICC placed and tolerating TPN. He is alert. 10/04: Seen in ICU on Vapotherm 100% FiO2 40 L/min supplemental BiPAP 18/6. O2 saturations are 76 to 82%. He is mentally clear he does not want to be intubated we will attempt to prone. Long discussion with patient and family 10/03 involving goals of care, he wants to be comfortable but still wants maximum treatment up to but not including mechanical ventilation. We will continue aggressive care. I discussed with pulmonology will initiate TPN today and PICC insertion 10/03: Had O2 desaturations overnight and ABG 7.4 8/45 on Vapotherm 100% FiO2 40 L/min. He discussed with nursing staff and family he wishes not to be on a ventilator. Currently on BiPAP 18/6 100% FiO2 with saturations 76 to 89%. 10/02: Seen in ICU. On Vapotherm 40 L/min 100% FiO2 with supplemental facemask O2 saturations 94%. Chest radiograph from 10/01 consistent with severe COVID. CR 3.2 09/30: Patient seen and examined. He now has increasing oxygen requirements and is on a 100% nonrebreather plus nasal cannula oxygen. Only satting in the high 80s. Transfer to ICU 09/29: Patient seen and examined. He is currently on 15 L of oxygen per nasal cannula. O2 sat ranging from 88-92 09/28: Patient seen and examined. He seems a little down apparently his dad from Covid yesterday. The is Thursday he would like to get out of here soon. He is still on high flow oxygen at 15 L per nasal cannula. 09/27: Patient was seen and examined today, in NAD and doing well. Patient is on 12 L O2 via NC. Daughter was in room to comfort as patient's father was just put on hospice. 09/26: Patient was seen and examined today, Patient in good spirits and doing better. Patient is motivated to continue to improved and be discharged. Patient is on 5 L O2 via NC. Vitals/I&O Vitals/I&O: Vital Signs Date Time Temp Pulse Resp B/P (MAP) Pulse Ox O2 Delivery O2 Flow Rate FiO2 10/06/21 09:00 88 37 150/76 84 BiPap + Vapotherm 10/06/21 08:00 40.0 10/06/21 08:00 97.5 97.5 I & O 10/05/21 10/05/21 10/06/21 15:00 23:00 07:00 Intake Total 150 ml 955 ml 1167 ml Output Total 700 ml 750 ml 350 ml Balance -550 ml 205 ml 817 ml Physical Exam General: Alert, Oriented X3, Cooperative, No acute distress Heart: Regular rate (SR) Abdomen: Soft Extremities: No edema, Normal pulses Skin: No significant lesion Labs Labs: Laboratory Tests Test 10/06/21 06:00 Sodium Level 143 mmol/L (136-145) Potassium Level 4.2 mmol/L (3.5-5.1) Chloride Level 108 mmol/L (98-107) Carbon Dioxide Level 27 mmol/L (21-32) Anion Gap 8 (6-14) Blood Urea Nitrogen 31 mg/dL (8-26) Creatinine 0.7 mg/dL (0.7-1.3) Estimated GFR (Cockcroft-Gault) 114.6 Glucose Level 127 mg/dL (70-99) Calcium Level 8.0 mg/dL (8.5-10.1) Phosphorus Level 3.0 mg/dL (2.6-4.7) Magnesium Level 2.1 mg/dL (1.8-2.4) Assessment and Plan Assessmemt and Plan Problems Medical Problems: (1) Hypoxia Status: Acute (2) Pneumonia due to COVID-19 virus Status: Acute Comment Review of Relevant I have reviewed the following items dino (where applicable) has been applied. Medications: Current Medications Medications (Trade) Dose Ordered Sig/Jody Route PRN Reason Start Time Stop Time Status Last Admin Dose Admin Sodium Chloride 90 meq/Potassium Chloride 50 meq/ Potassium Phosphate 13.6 mmol/Calcium Gluconate 10 meq/ Multivitamins 10 ml/Zinc/Copper/ Manganese/ Selenium 1 ml/ Total Parenteral Nutrition/Amino Acids/Dextrose/ Fat Emulsion Intravenous 1,512 ml @ 63 mls/hr TPN CONT IV 10/05/21 22:00 10/06/21 21:59 10/05/21 21:46 Justifications for Admission Other Justification ERIKA GONZALEZ MD Oct 06, 2021 09:52
--- NOTE | 2021-10-06 10:06 | PDOC ---
PULMONARY PROGRESS NOTES DATE: 10/06/21 TIME: 10:04 Subjective Patient remains on BiPAP at 100% FiO2 . He is also 100% FiO2 via Vapotherm. He does appear to be comfortable. Vitals Vital Signs Date Time Temp Pulse Resp B/P (MAP) Pulse Ox O2 Delivery O2 Flow Rate FiO2 10/06/21 09:00 88 37 150/76 84 BiPap + Vapotherm 10/06/21 08:00 40.0 10/06/21 08:00 97.5 97.5 Comments Visual exam done due to COVID-19 pneumonia. No obvious respiratory distress, no use of accessory muscles. No leg edema no skin rash. ROS: No Nausea, No Chest Pain Labs Laboratory Tests Test 10/05/21 05:30 10/06/21 06:00 Sodium Level 140 mmol/L (136-145) 143 mmol/L (136-145) Potassium Level 3.7 mmol/L (3.5-5.1) 4.2 mmol/L (3.5-5.1) Chloride Level 104 mmol/L (98-107) 108 mmol/L (98-107) Carbon Dioxide Level 28 mmol/L (21-32) 27 mmol/L (21-32) Anion Gap 8 (6-14) 8 (6-14) Blood Urea Nitrogen 41 mg/dL (8-26) 31 mg/dL (8-26) Creatinine 1.0 mg/dL (0.7-1.3) 0.7 mg/dL (0.7-1.3) Estimated GFR (Cockcroft-Gault) 76.0 114.6 Glucose Level 132 mg/dL (70-99) 127 mg/dL (70-99) Calcium Level 7.9 mg/dL (8.5-10.1) 8.0 mg/dL (8.5-10.1) Phosphorus Level 3.9 mg/dL (2.6-4.7) 3.0 mg/dL (2.6-4.7) Magnesium Level 2.6 mg/dL (1.8-2.4) 2.1 mg/dL (1.8-2.4) Triglycerides Level 222 mg/dL (0-150) Laboratory Tests Test 10/06/21 06:00 Sodium Level 143 mmol/L (136-145) Potassium Level 4.2 mmol/L (3.5-5.1) Chloride Level 108 mmol/L (98-107) Carbon Dioxide Level 27 mmol/L (21-32) Anion Gap 8 (6-14) Blood Urea Nitrogen 31 mg/dL (8-26) Creatinine 0.7 mg/dL (0.7-1.3) Estimated GFR (Cockcroft-Gault) 114.6 Glucose Level 127 mg/dL (70-99) Calcium Level 8.0 mg/dL (8.5-10.1) Phosphorus Level 3.0 mg/dL (2.6-4.7) Magnesium Level 2.1 mg/dL (1.8-2.4) Medications Active Scripts Medications Dose Route/Sig Max Daily Dose Days Date Category Oxycodone Hcl 5 Mg Capsule 5 Mg PO PRN Q4HRS PRN 08/01/21 Rx Tramadol Hcl 50 Mg Tablet 50 Mg PO Q4HRS PRN 08/01/21 Rx Warfarin Sodium 4 Mg Tablet 4 Mg PO DAILY 28 08/01/21 Rx Timoptic 0.5% (Timolol Maleate) 10 Ml Drops 1 Drop OD BID 30 07/17/21 Reported Lisinopril 10 Mg Tablet 10 Mg PO DAILY 07/17/21 Reported Comments Chest x-ray reviewed dated 10/01/2021. Diffuse bilateral interstitial infiltrates. No significant pleural effusion. There is mild progression. No evidence of pneumothorax Impression . 1. Acute hypoxic respiratory failure secondary to COVID-19 viral pneumonia. 2. COVID-19 viral pneumonia/early acute respiratory distress syndrome. 3. Abnormal chest x-ray with diffuse bilateral infiltrates consistent with viral pneumonia. 4. Mildly increased liver function test. Likely due to COVID. 5. Mild leukopenia. Secondary to COVID. 6. Markedly elevated CRP level of 197. Status post Actemra. He received with 09/30/2021 Plan . Updated 10/06 1. Discussed with RN and RT. continue with 100% FiO2 via BiPAP along with supplemental oxygen,/ 100% via Vapotherm.. Patient has so far tolerated hypoxia reasonably well without any obvious respiratory distress. We will continue present high flow oxygen 2. Patient remains DNR/DNI 3. Status post remdesivir course. 4. Continue with steroids for a total of 10 days. 5. Status post Actemra. 6. DVT prophylaxis. 7. Empiric antibiotics. Discussed with RN and RT.. Discussed with Dr. Loo. We will continue present aggressive care. Updated 10/05 1. Discussed with RN and RT. continue with 100% FiO2 via BiPAP along with supplemental oxygen, 100% via Vapotherm.. 2. Patient remains DNR/DNI 3. Status post remdesivir course. 4. Continue with steroids for a total of 10 days. 5. Status post Actemra. 6. DVT prophylaxis. 7. Empiric antibiotics. Discussed with RN and RT.. Discussed with Dr. Loo. We will continue present aggressive care. Updated 10/04/2021. 1. Discussed with RN and RT. continue with 100% FiO2 via BiPAP along with supplemental oxygen. 2. Patient remains DNR/DNI 3. Continue to finish remdesivir course. 4. Continue with steroids for a total of 10 days. 5. Status post Actemra. 6. DVT prophylaxis. 7. Empiric antibiotics. Discussed with RN and RT.. Discussed with Dr. Loo. We will continue present aggressive care. 1. Discussed with RN and RT. continue with 100% FiO2 via Vapotherm. As needed BiPAP. 2. I have discussed the advanced directives again with the patient. He wants to be DNR/DNI. At this point he wants to fight but does not want to have mechanical ventilation 3. Continue to finish remdesivir course. 4. Continue with steroids for a total of 10 days. 5. Status post Actemra. 6. DVT prophylaxis. 7. Empiric antibiotics. . Discussed with RN and RT.. Discussed with Dr. Loo. We will continue present aggressive care. Critical care time 30 minutes ORQUIDEA JENNINGS MD Oct 06, 2021 10:06
[2021-10-06] MEDS ORDERED: TOTAL PARENTERAL NUTRITION IV SCH (22:00)
[2021-10-06] MEDS ORDERED: [UNRECOGNIZED DRUG - OTHER] IV SCH (22:00)
[2021-10-06] MEDS ORDERED: AMINO ACID IV SCH (22:00)
[2021-10-06] MEDS ORDERED: DEXTROSE 70% IV SCH (22:00)
[2021-10-07] VITALS (25 sets, daily range): BP systolic 85–219; BP diastolic 69–115
[2021-10-07] MEDS: DEXMEDETOMIDINE 400 MCG in IV NORMAL SALINE 100ML 96 ML IV PRN ×5 (02:05→23:45)
[2021-10-07] MEDS: MORPHINE SULFATE 2 MG/ML INJ. IVP PRN ×2 (02:16→16:19)
[2021-10-07] MEDS: PIPERACILLIN/TAZOBACTAM 3.375 GM in IV NORMAL SALINE 50ML 50 ML IV SCH ×4 (06:17→23:44)
[2021-10-07] MEDS: SENNOSIDES/DOCUSATE 8.6/50MG TABLET. PO SCH ×2 (07:33→21:00)
[2021-10-07] MEDS: ASPIRIN CHEWABLE 81 MG TABLET. PO SCH (07:33)
[2021-10-07 08:09] LABS: CALCIUM 8.2 mg/dL (8.5-10.1); CREATININE 0.6 mg/dL (0.7-1.3); PHOSPHORUS 3.4 mg/dL (2.6-4.7); POTASSIUM 4.3 mmol/L (3.5-5.1)
[2021-10-07] MEDS: DOXYCYCLINE HYCLATE 100 MG in IV DEXTROSE 5% 100ML 100 ML IV SCH ×2 (08:52→21:51)
[2021-10-07] MEDS: ENOXAPARIN 40 MG/0.4 ML SYRINGE. SQ SCH (08:52)
[2021-10-07] MEDS: PANTOPRAZOLE IV PUSH 40 MG VIAL. IVP SCH (08:52)
[2021-10-07] MEDS: METOPROLOL IV PUSH 5 MG/5 ML VIAL. IVP PRN (08:54)
[2021-10-07] MEDS: TIMOLOL 0.5% OPHTH SOLUTION 5ML BOTTLE. OD SCH ×2 (09:00→21:00)
--- NOTE | 2021-10-07 09:15 | PDOC ---
[employer] PROGRESS NOTE Date of Service DOS: DATE: 10/07/21 TIME: 09:04 Chief Complaint Chief Complaint Covid-19 Pneumonia status post remdesivir and Actemra Acute hypoxic respiratory failure requiring Vapotherm support Hypertension Knee replacement Appreciate pulmonology recommendationscontinue Vapotherm and as needed BiPAP Continue with IV steroids for total 10 days Continue empiric IV antibiotics Lovenox for DVT prophylaxis Continue Protonix for GI prophylaxis while on steroids CODE - DNR/DNI History of Present Illness History of Present Illness 10/07: Afebrile. Seen in ICU Vapotherm 100% FiO2 40 L/min with supplemental BiPAP 18/6 with O2 saturations 80%. Anxiety and pain are controlled today. He still communicating well. He still reinforces he does not wish for intubation. Tolerating TPN and PICC well. cc time 31 min 10/06: Afebrile. Seen in ICU on Vapotherm high percent FiO2 40 L/min with supplemental BiPAP 18/6. O2 saturations in the mid 80s high as 84. He was little more anxious and had Precedex increased. No pain complaints. Still communicating well. Updated family 10/05: Afebrile. Seen in ICU on Vapotherm 100% FiO2 40 L/min with supplemental BiPAP 18/6. O2 saturations 82 to 84% today. PICC placed and tolerating TPN. He is alert. 10/04: Seen in ICU on Vapotherm 100% FiO2 40 L/min supplemental BiPAP 18/6. O2 saturations are 76 to 82%. He is mentally clear he does not want to be intubated we will attempt to prone. Long discussion with patient and family 10/03 involving goals of care, he wants to be comfortable but still wants maximum treatment up to but not including mechanical ventilation. We will continue aggressive care. I discussed with pulmonology will initiate TPN today and PICC insertion 10/03: Had O2 desaturations overnight and ABG 7.4 / on Vapotherm 100% FiO2 40 L/min. He discussed with nursing staff and family he wishes not to be on a ventilator. Currently on BiPAP 18/6 100% FiO2 with saturations 76 to 89%. 10/02: Seen in ICU. On Vapotherm 40 L/min 100% FiO2 with supplemental facemask O2 saturations 94%. Chest radiograph from 10/01 consistent with severe COVID. CR 3.2 09/30: Patient seen and examined. He now has increasing oxygen requirements and is on a 100% nonrebreather plus nasal cannula oxygen. Only satting in the high 80s. Transfer to ICU 09/29: Patient seen and examined. He is currently on 15 L of oxygen per nasal cannula. O2 sat ranging from 88-92 09/28: Patient seen and examined. He seems a little down apparently his dad from Covid yesterday. The is Thursday he would like to get out of here soon. He is still on high flow oxygen at 15 L per nasal cannula. 09/27: Patient was seen and examined today, in NAD and doing well. Patient is on 12 L O2 via NC. Daughter was in room to comfort as patient's father was just put on hospice. 09/26: Patient was seen and examined today, Patient in good spirits and doing better. Patient is motivated to continue to improved and be discharged. Patient is on 5 L O2 via NC. Mr Lehman is a 60-year-old male with PMHx HTN brought into the hospital due to cough and trouble breathing for the last 10 days, notes his father was positive for COVID 19 and was hospitalized. He has not been vaccinated against COVID 19. 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 Notably hypoxic on initial examination. Chest x-ray on admission showed multifocal bilateral patchy infiltrates. Rapid COVID 19 positive, started on dexamethasone, Lovenox for DVT prophylaxis along with remdesivir and admitted for further care. Vitals/I&O Vitals/I&O: Vital Signs Date Time Temp Pulse Resp B/P (MAP) Pulse Ox O2 Delivery O2 Flow Rate FiO2 10/07/21 08:54 105 161/101 10/07/21 08:29 82 BiPAP/CPAP 10/07/21 06:00 34 10/07/21 04:00 40.0 10/07/21 04:00 97.7 97.7 I & O 10/06/21 10/06/21 10/07/21 15:00 23:00 07:00 Intake Total 100 ml 2130 ml Output Total 700 ml 1200 ml 550 ml Balance -700 ml -1100 ml 1580 ml Physical Exam General: Alert, Oriented X3, Cooperative, No acute distress Heart: Regular rate (SR) Abdomen: Soft Extremities: No edema, Normal pulses Skin: No significant lesion Labs Labs: Laboratory Tests Test 10/07/21 06:20 Sodium Level 143 mmol/L (136-145) Potassium Level 4.3 mmol/L (3.5-5.1) Chloride Level 107 mmol/L (98-107) Carbon Dioxide Level 28 mmol/L (21-32) Anion Gap 8 (6-14) Blood Urea Nitrogen 28 mg/dL (8-26) Creatinine 0.6 mg/dL (0.7-1.3) Estimated GFR (Cockcroft-Gault) 137.0 Glucose Level 123 mg/dL (70-99) Calcium Level 8.2 mg/dL (8.5-10.1) Phosphorus Level 3.4 mg/dL (2.6-4.7) Magnesium Level 2.0 mg/dL (1.8-2.4) Assessment and Plan Assessmemt and Plan Problems Medical Problems: (1) Hypoxia Status: Acute (2) Pneumonia due to COVID-19 virus Status: Acute Comment Review of Relevant I have reviewed the following items dino (where applicable) has been applied. Medications: Current Medications Medications (Trade) Dose Ordered Sig/Jody Route PRN Reason Start Time Stop Time Status Last Admin Dose Admin Sodium Chloride 90 meq/Potassium Chloride 50 meq/ Potassium Phosphate 13.6 mmol/Calcium Gluconate 10 meq/ Multivitamins 10 ml/Zinc/Copper/ Manganese/ Selenium 1 ml/ Total Parenteral Nutrition/Amino Acids/Dextrose/ Fat Emulsion Intravenous 1,512 ml @ 63 mls/hr TPN CONT IV 10/06/21 22:00 10/07/21 21:59 10/06/21 21:09 Justifications for Admission Other Justification ERIKA GONZALEZ MD Oct 07, 2021 09:15
[2021-10-07] MEDS: TPN PER PHARMACY MC PRN ×2 (10:03→12:40)
--- NOTE | 2021-10-07 10:22 | PDOC ---
MARCELO MIRELES NURSERY RN 10/07/21 1022: CARDIO Progress Notes Date and Time Date of Service 10/07/21 Time of Evaluation 1020 Subjective Subjective: Other (on BiPAP) Vitals Vitals Vital Signs Date Time Temp Pulse Resp B/P (MAP) Pulse Ox O2 Delivery O2 Flow Rate FiO2 10/07/21 08:54 105 161/101 10/07/21 08:29 82 BiPAP/CPAP 10/07/21 06:00 34 10/07/21 04:00 40.0 10/07/21 04:00 97.7 97.7 Weight Weight [ ] Input and Output Intake and Output Intake and Output 10/07/21 07:00 Intake Total 2230 ml Output Total 2450 ml Balance -220 ml IV Total 2230 ml Output Urine Total 2450 ml Laboratory Labs Laboratory Tests Test 10/07/21 06:20 Sodium Level 143 mmol/L (136-145) Potassium Level 4.3 mmol/L (3.5-5.1) Chloride Level 107 mmol/L (98-107) Carbon Dioxide Level 28 mmol/L (21-32) Anion Gap 8 (6-14) Blood Urea Nitrogen 28 mg/dL (8-26) Creatinine 0.6 mg/dL (0.7-1.3) Estimated GFR (Cockcroft-Gault) 137.0 Glucose Level 123 mg/dL (70-99) Calcium Level 8.2 mg/dL (8.5-10.1) Phosphorus Level 3.4 mg/dL (2.6-4.7) Magnesium Level 2.0 mg/dL (1.8-2.4) Microbiology Micro Microbiology 09/25/21 Blood Culture - Final, Complete NO GROWTH AFTER 5 DAYS Physical Exam HEENT: Neck Supple W Full Motion Chest: Symmetric LUNGS: Other (BIPAP) Heart: RRR (SR) Abdomen: Other (obese ) Extremities: No Edema Neurology: alert, oriented, follow commands Assessment Assessment 1. Acute respiratory failure secondary to COVID: on NRB 2. Tachyarrhythmia; tele noted with periods of AT and bursts of SVT. improved with BB 3. Hypertension; controlled 4. Hyperthyroidism; as per IM 5. Leukocytosis Recommendations Continue metoprolol ASA therapy. Ongoing lung optimization, treatment of COVID as per pulmonary team Consider outpatient echo when recovered from COVID Supportive care Justicifation of Admission Dx: Justifications for Admission: Justification of Admission Dx: N/A CHANDLER CRUZ MD 10/07/21 1639: CARDIO Progress Notes Assessment Assessment Agree with RAILROAD INSPECTOR's assessment and plan. AT/SVT noted on telemetry, improved with beta-blockers Continue current treatment for Covid pneumonia Plan for outpatient 2D echocardiogram and possibly event monitor recording MARCELO MIRELES APRN Oct 07, 2021 10:22 CHANDLER CRUZ MD Oct 07, 2021 16:39
--- NOTE | 2021-10-07 10:32 | PDOC ---
PULMONARY PROGRESS NOTES DATE: 10/07/21 TIME: 10:31 Subjective Patient remains on BiPAP at 100% FiO2 . He is also 100% FiO2 via Vapotherm. He does appear to be comfortable. Vitals Vital Signs Date Time Temp Pulse Resp B/P (MAP) Pulse Ox O2 Delivery O2 Flow Rate FiO2 10/07/21 08:54 105 161/101 10/07/21 08:29 82 BiPAP/CPAP 10/07/21 07:00 97.7 33 40.0 97.7 Comments Visual exam done due to COVID-19 pneumonia. No obvious respiratory distress, no use of accessory muscles. No leg edema no skin rash. ROS: No Nausea, No Chest Pain Labs Laboratory Tests Test 10/06/21 06:00 10/07/21 06:20 Sodium Level 143 mmol/L (136-145) 143 mmol/L (136-145) Potassium Level 4.2 mmol/L (3.5-5.1) 4.3 mmol/L (3.5-5.1) Chloride Level 108 mmol/L (98-107) 107 mmol/L (98-107) Carbon Dioxide Level 27 mmol/L (21-32) 28 mmol/L (21-32) Anion Gap 8 (6-14) 8 (6-14) Blood Urea Nitrogen 31 mg/dL (8-26) 28 mg/dL (8-26) Creatinine 0.7 mg/dL (0.7-1.3) 0.6 mg/dL (0.7-1.3) Estimated GFR (Cockcroft-Gault) 114.6 137.0 Glucose Level 127 mg/dL (70-99) 123 mg/dL (70-99) Calcium Level 8.0 mg/dL (8.5-10.1) 8.2 mg/dL (8.5-10.1) Phosphorus Level 3.0 mg/dL (2.6-4.7) 3.4 mg/dL (2.6-4.7) Magnesium Level 2.1 mg/dL (1.8-2.4) 2.0 mg/dL (1.8-2.4) Laboratory Tests Test 10/07/21 06:20 Sodium Level 143 mmol/L (136-145) Potassium Level 4.3 mmol/L (3.5-5.1) Chloride Level 107 mmol/L (98-107) Carbon Dioxide Level 28 mmol/L (21-32) Anion Gap 8 (6-14) Blood Urea Nitrogen 28 mg/dL (8-26) Creatinine 0.6 mg/dL (0.7-1.3) Estimated GFR (Cockcroft-Gault) 137.0 Glucose Level 123 mg/dL (70-99) Calcium Level 8.2 mg/dL (8.5-10.1) Phosphorus Level 3.4 mg/dL (2.6-4.7) Magnesium Level 2.0 mg/dL (1.8-2.4) Medications Active Scripts Medications Dose Route/Sig Max Daily Dose Days Date Category Oxycodone Hcl 5 Mg Capsule 5 Mg PO PRN Q4HRS PRN 08/01/21 Rx Tramadol Hcl 50 Mg Tablet 50 Mg PO Q4HRS PRN 08/01/21 Rx Warfarin Sodium 4 Mg Tablet 4 Mg PO DAILY 28 08/01/21 Rx Timoptic 0.5% (Timolol Maleate) 10 Ml Drops 1 Drop OD BID 30 07/17/21 Reported Lisinopril 10 Mg Tablet 10 Mg PO DAILY 07/17/21 Reported Comments Chest x-ray reviewed dated 10/01/2021. Diffuse bilateral interstitial infiltrates. No significant pleural effusion. T here is mild progression. No evidence of pneumothorax Impression . 1. Acute hypoxic respiratory failure secondary to COVID-19 viral pneumonia. 2. COVID-19 viral pneumonia/early acute respiratory distress syndrome. 3. Abnormal chest x-ray with diffuse bilateral infiltrates consistent with viral pneumonia. 4. Mildly increased liver function test. Likely due to COVID. 5. Mild leukopenia. Secondary to COVID. 6. Markedly elevated CRP level of 197. Status post Actemra. He received with 09/30/2021 Plan . Updated 10/07 1. Discussed with RN and RT. continue with 100% FiO2 via BiPAP along with supplemental oxygen,/ 100% via Vapotherm.. Patient has so far tolerated hypoxia reasonably well without any obvious respiratory distress. We will continue present high flow oxygen 2. Patient remains DNR/DNI 3. Status post remdesivir course. 4. Continue with steroids for a total of 10 days. 5. Status post Actemra. 6. DVT prophylaxis. 7. Empiric antibiotics. Discussed with RN and RT.. Discussed with Dr. Loo. We will continue present aggressive care. Updated 10/06 1. Discussed with RN and RT. continue with 100% FiO2 via BiPAP along with supplemental oxygen,/ 100% via Vapotherm.. Patient has so far tolerated hypoxia reasonably well without any obvious respiratory distress. We will continue present high flow oxygen 2. Patient remains DNR/DNI 3. Status post remdesivir course. 4. Continue with steroids for a total of 10 days. 5. Status post Actemra. 6. DVT prophylaxis. 7. Empiric antibiotics. Discussed with RN and RT.. Discussed with Dr. Loo. We will continue present aggressive care. Updated 10/05 1. Discussed with RN and RT. continue with 100% FiO2 via BiPAP along with supplemental oxygen, 100% via Vapotherm.. 2. Patient remains DNR/DNI 3. Status post remdesivir course. 4. Continue with steroids for a total of 10 days. 5. Status post Actemra. 6. DVT prophylaxis. 7. Empiric antibiotics. Discussed with RN and RT.. Discussed with Dr. Loo. We will continue present aggressive care. Updated 10/04/2021. 1. Discussed with RN and RT. continue with 100% FiO2 via BiPAP along with supplemental oxygen. 2. Patient remains DNR/DNI 3. Continue to finish remdesivir course. 4. Continue with steroids for a total of 10 days. 5. Status post Actemra. 6. DVT prophylaxis. 7. Empiric antibiotics. Discussed with RN and RT.. Discussed with Dr. Loo. We will continue present aggressive care. 1. Discussed with RN and RT. continue with 100% FiO2 via Vapotherm. As needed BiPAP. 2. I have discussed the advanced directives again with the patient. He wants to be DNR/DNI. At this point he wants to fight but does not want to have mechanical ventilation 3. Continue to finish remdesivir course. 4. Continue with steroids for a total of 10 days. 5. Status post Actemra. 6. DVT prophylaxis. 7. Empiric antibiotics. . Discussed with RN and RT.. Discussed with Dr. Loo. We will continue present aggressive care. Critical care time 30 minutes ORQUIDEA JENNINGS MD Oct 07, 2021 10:32
--- NOTE | 2021-10-07 14:57 | NUR ---
report given to Delia TOTH
--- NOTE | 2021-10-07 15:51 | NUR ---
SS following up with discharge planning. SS reviewed pt chart and discussed with pt RN. Pt is currently on BIPAP and Vapotherm at 100%. COVID19 positive. Pt on TPN, IV Doxycycline, and IV Zosyn. Pt on Precedex. DNR/DNI. Not stable. SS will continue to follow for discharge planning.
[2021-10-07] MEDS ORDERED: TOTAL PARENTERAL NUTRITION IV SCH (22:00)
[2021-10-07] MEDS ORDERED: AMINO ACID IV SCH (22:00)
[2021-10-07] MEDS ORDERED: [UNRECOGNIZED DRUG - OTHER] IV SCH (22:00)
[2021-10-07] MEDS ORDERED: DEXTROSE 70% IV SCH (22:00)
[2021-10-07] MEDS: fentaNYL PF VIAL 100 MCG/2 ML VIAL IVP PRN (23:42)
[2021-10-08] VITALS (24 sets, daily range): BP systolic 109–206; BP diastolic 71–110
[2021-10-08] MEDS: fentaNYL PF VIAL 100 MCG/2 ML VIAL IVP PRN (02:05)
[2021-10-08] MEDS: STERILE WATER for RESP 1,000 ML BAG. INH PRN ×2 (05:13→15:07)
[2021-10-08] MEDS: DEXMEDETOMIDINE 400 MCG in IV NORMAL SALINE 100ML 96 ML IV PRN ×4 (05:16→20:44)
[2021-10-08] MEDS: PIPERACILLIN/TAZOBACTAM 3.375 GM in IV NORMAL SALINE 50ML 50 ML IV SCH ×4 (05:30→23:59)
[2021-10-08] MEDS: ASPIRIN CHEWABLE 81 MG TABLET. PO SCH (08:00)
--- NOTE | 2021-10-08 08:08 | PDOC ---
PULMONARY PROGRESS NOTES DATE: 10/08/21 TIME: 08:08 Subjective Patient remains on BiPAP, along with Vapotherm. Vitals Vital Signs Date Time Temp Pulse Resp B/P (MAP) Pulse Ox O2 Delivery O2 Flow Rate FiO2 10/08/21 07:20 90 30 119/75 81 BiPAP/CPAP 40.0 10/08/21 04:00 98.4 98.4 ROS: No Nausea, No Chest Pain, No Abdominal Pain General: Alert Cardiovascular: S1, S2 Abdomen: Soft Neuro Exam: Alert Extremities: No Edema Skin: Warm Labs Laboratory Tests Test 10/07/21 06:20 Sodium Level 143 mmol/L (136-145) Potassium Level 4.3 mmol/L (3.5-5.1) Chloride Level 107 mmol/L (98-107) Carbon Dioxide Level 28 mmol/L (21-32) Anion Gap 8 (6-14) Blood Urea Nitrogen 28 mg/dL (8-26) Creatinine 0.6 mg/dL (0.7-1.3) Estimated GFR (Cockcroft-Gault) 137.0 Glucose Level 123 mg/dL (70-99) Calcium Level 8.2 mg/dL (8.5-10.1) Phosphorus Level 3.4 mg/dL (2.6-4.7) Magnesium Level 2.0 mg/dL (1.8-2.4) Medications Active Scripts Medications Dose Route/Sig Max Daily Dose Days Date Category Oxycodone Hcl 5 Mg Capsule 5 Mg PO PRN Q4HRS PRN 08/01/21 Rx Tramadol Hcl 50 Mg Tablet 50 Mg PO Q4HRS PRN 08/01/21 Rx Warfarin Sodium 4 Mg Tablet 4 Mg PO DAILY 28 08/01/21 Rx Timoptic 0.5% (Timolol Maleate) 10 Ml Drops 1 Drop OD BID 30 07/17/21 Reported Lisinopril 10 Mg Tablet 10 Mg PO DAILY 07/17/21 Reported Comments Chest x-ray reviewed dated 10/01/2021. Diffuse bilateral interstitial infiltrates. No significant pleural effusion. There is mild progression. No evidence of pneumothorax Impression . 1. Acute hypoxic respiratory failure secondary to COVID-19 viral pneumonia. 2. COVID-19 viral pneumonia/early acute respiratory distress syndrome. 3. Abnormal chest x-ray with diffuse bilateral infiltrates consistent with viral pneumonia. 4. Mildly increased liver function test. Likely due to COVID. 5. Mild leukopenia. Secondary to COVID. 6. Markedly elevated CRP level of 197. Status post Actemra. He received on 09/30/2021 Plan . Update 10/08 Continue BiPAP, supplemental oxygen with Vapotherm Patient has elected to proceed with DO NOT INTUBATE DO NOT RESUSCITATE Completed course of remdesivir Steroids Status post tocilizumab updated 10/07 1. Discussed with RN and RT. continue with 100% FiO2 via BiPAP along with supplemental oxygen,/ 100% via Vapotherm.. Patient has so far tolerated hypoxia reasonably well without any obvious respiratory distress. We will continue present high flow oxygen 2. Patient remains DNR/DNI 3. Status post remdesivir course. 4. Continue with steroids for a total of 10 days. 5. Status post Actemra. 6. DVT prophylaxis. 7. Empiric antibiotics. Discussed with RN and RT.. Discussed with Dr. Loo. We will continue present aggressive care. KRAIG YADAV MD Oct 08, 2021 08:08
[2021-10-08] MEDS: PANTOPRAZOLE IV PUSH 40 MG VIAL. IVP SCH (08:24)
[2021-10-08] MEDS: DOXYCYCLINE HYCLATE 100 MG in IV DEXTROSE 5% 100ML 100 ML IV SCH ×2 (08:25→20:45)
[2021-10-08] MEDS: TIMOLOL 0.5% OPHTH SOLUTION 5ML BOTTLE. OD SCH ×2 (08:25→20:47)
[2021-10-08] MEDS: ENOXAPARIN 40 MG/0.4 ML SYRINGE. SQ SCH (08:26)
[2021-10-08] MEDS: SENNOSIDES/DOCUSATE 8.6/50MG TABLET. PO SCH ×2 (08:26→20:47)
[2021-10-08] MEDS: MORPHINE SULFATE 2 MG/ML INJ. IVP PRN ×5 (08:56→23:04)
--- NOTE | 2021-10-08 09:29 | PDOC ---
[facility] PROGRESS NOTE Date of Service DOS: DATE: 10/08/21 TIME: 09:27 Chief Complaint Chief Complaint Covid-19 Pneumonia status post remdesivir and Actemra Acute hypoxic respiratory failure requiring Vapotherm support Hypertension Knee replacement Appreciate pulmonology recommendationscontinue Vapotherm and as needed BiPAP Continue with IV steroids for total 10 days Continue empiric IV antibiotics Lovenox for DVT prophylaxis Continue Protonix for GI prophylaxis while on steroids CODE - DNR/DNI History of Present Illness History of Present Illness 10/08: Afebrile. Seen in ICU on Vapotherm 1% FiO2 4 L/min with supplemental BiPAP 18/6 O2 saturations steady 80%. He is able to have a conversation. Notes he is having a little trouble seen in his nose hurts. Pretty weak. Tolerating TPN well. cc time 31 min 10/07: Afebrile. Seen in ICU Vapotherm 100% FiO2 40 L/min with supplemental BiPAP 18/6 with O2 saturations 80%. Anxiety and pain are controlled today. He still communicating well. He still reinforces he does not wish for intubation. Tolerating TPN and PICC well. 10/06: Afebrile. Seen in ICU on Vapotherm high percent FiO2 40 L/min with supplemental BiPAP 18/6. O2 saturations in the mid 80s high as 84. He was little more anxious and had Precedex increased. No pain complaints. Still communicating well. Updated family 10/05: Afebrile. Seen in ICU on Vapotherm 100% FiO2 40 L/min with supplemental BiPAP 18/6. O2 saturations 82 to 84% today. PICC placed and tolerating TPN. He is alert. 10/04: Seen in ICU on Vapotherm 100% FiO2 40 L/min supplemental BiPAP 18/6. O2 saturations are 76 to 82%. He is mentally clear he does not want to be intubated we will attempt to prone. Long discussion with patient and family 10/03 involving goals of care, he wants to be comfortable but still wants maximum treatment up to but not including mechanical ventilation. We will continue aggressive care. I discussed with pulmonology will initiate TPN today and PICC insertion 10/03: Had O2 desaturations overnight and ABG 7.4 on Vapotherm 100% FiO2 40 L/min. He discussed with nursing staff and family he wishes not to be on a ventilator. Currently on BiPAP 26/04 100% FiO2 with saturations 76 to 89%. 10/02: Seen in ICU. On Vapotherm 40 L/min 100% FiO2 with supplemental facemask O2 saturations 94%. Chest radiograph from 10/01 consistent with severe COVID. CR 3.2 09/30: Patient seen and examined. He now has increasing oxygen requirements and is on a 100% nonrebreather plus nasal cannula oxygen. Only satting in the high 80s. Transfer to ICU 09/29: Patient seen and examined. He is currently on 15 L of oxygen per nasal cannula. O2 sat ranging from 88-92 09/28: Patient seen and examined. He seems a little down apparently his dad from Covid yesterday. The is Thursday he would like to get out of here soon. He is still on high flow oxygen at 15 L per nasal cannula. 09/27: Patient was seen and examined today, in NAD and doing well. Patient is on 12 L O2 via NC. Daughter was in room to comfort as patient's father was just put on hospice. 09/26: Patient was seen and examined today, Patient in good spirits and doing better. Patient is motivated to continue to improved and be discharged. Patient is on 5 L O2 via NC. Mr Lehman is a 60-year-old male with PMHx HTN brought into the hospital due to cough and trouble breathing for the last 10 days, notes his father was positive for COVID 19 and was hospitalized. He has not been vaccinated against COVID 19. 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 Notably hypoxic on initial examination. Chest x-ray on admission showed multifocal bilateral patchy infiltrates. Rapid COVID 19 positive, started on dexamethasone, Lovenox for DVT prophylaxis along with remdesivir and admitted for further care. Vitals/I&O Vitals/I&O: Vital Signs Date Time Temp Pulse Resp B/P (MAP) Pulse Ox O2 Delivery O2 Flow Rate FiO2 10/08/21 09:00 97 31 148/90 85 BiPAP/CPAP 40.0 10/08/21 04:00 98.4 98.4 I & O 10/07/21 10/07/21 10/08/21 15:00 23:00 07:00 Intake Total 150 ml 929 ml 998 ml Output Total 680 ml 1080 ml 900 ml Balance -530 ml -151 ml 98 ml Physical Exam General: Alert, Oriented X3, Cooperative, No acute distress Heart: Regular rate (SR) Abdomen: Soft Extremities: No edema, Normal pulses Skin: No significant lesion Assessment and Plan Assessmemt and Plan Problems Medical Problems: (1) Hypoxia Status: Acute (2) Pneumonia due to COVID-19 virus Status: Acute Comment Review of Relevant I have reviewed the following items dino (where applicable) has been applied. Medications: Current Medications Medications (Trade) Dose Ordered Sig/Jody Route PRN Reason Start Time Stop Time Status Last Admin Dose Admin Sodium Chloride 80 meq/Potassium Chloride 50 meq/ Potassium Phosphate 13.6 mmol/Calcium Gluconate 10 meq/ Multivitamins 10 ml/Zinc/Copper/ Manganese/ Selenium 1 ml/ Total Parenteral Nutrition/Amino Acids/Dextrose/ Fat Emulsion Intravenous 1,512 ml @ 63 mls/hr TPN CONT IV 10/07/21 22:00 10/08/21 21:59 10/07/21 21:54 Justifications for Admission Other Justification ERIKA GONZALEZ MD Oct 08, 2021 09:29
--- NOTE | 2021-10-08 10:25 | PDOC ---
MARCELO MIRELES APRN 10/08/21 1025: CARDIO Progress Notes Date and Time Date of Service 10/08/21 Time of Evaluation 1020 Subjective Subjective: Other (on BiPAP) Vitals Vitals Vital Signs Date Time Temp Pulse Resp B/P (MAP) Pulse Ox O2 Delivery O2 Flow Rate FiO2 10/08/21 10:00 98 34 166/100 86 BiPAP/CPAP 40.0 10/08/21 04:00 98.4 98.4 Weight Weight [ ] Input and Output Intake and Output l Intake and Output 10/08/21 07:00 Intake Total 2077 ml Output Total 2660 ml Balance -583 ml IV Total 2077 ml Output Urine Total 2660 ml Microbiology Micro Microbiology 09/25/21 Blood Culture - Final, Complete NO GROWTH AFTER 5 DAYS Physical Exam HEENT: Neck Supple W Full Motion Chest: Symmetric LUNGS: Other (BIPAP, vapotherm) Heart: RRR (SR) Abdomen: Other (obese ) Extremities: No Edema Neurology: alert, oriented, follow commands Assessment Assessment 1. Acute respiratory failure secondary to COVID: on NRB 2. Tachyarrhythmia; tele noted with periods of AT, bursts of SVT. improved with BB. Now SR/ST 3. Hypertension; controlled 4. Hyperthyroidism; as per IM 5. Leukocytosis Recommendations Continue metoprolol ASA therapy Ongoing lung optimization, treatment of COVID as per pulmonary team Consider outpatient echo when recovered from COVID Supportive care Justicifation of Admission Dx: Justifications for Admission: Justification of Admission Dx: N/A CHANDLER CRUZ MD 10/08/21 1804: CARDIO Progress Notes Assessment Assessment Agree with HIGHBALLER's assessment and plan. AT/SVT noted on telemetry, improved with beta-blockers Continue current treatment for Covid pneumonia Plan for outpatient 2D echocardiogram and possibly event monitor recording MARCELO MIRELES APRN Oct 08, 2021 10:25 CHANDLER CRUZ MD Oct 08, 2021 18:04
[2021-10-08] MEDS: TPN PER PHARMACY MC PRN (12:16)
--- NOTE | 2021-10-08 12:16 | NUR ---
Pharmacy TPN Dosing Note S: JACINTONIKOLASVANIA ENRIQUE is a 60 year old M Currently receiving Central Continuous TPN started 10/04/21 B:Pertinent PMH: NPO Height: 5 feet, 7 inches Weight: 88.0 kg Current diet: NPO LABS: Sodium: 143 Potassium: 4.3 Chloride: 107 Calcium: 8.2 Corrected Calcium: 9.64 Magnesium: 2.0 CO2: 28 SCr: 0.6 Glucose: 123 Albumin: 2.2 AST: 64 ALT: 34 TPN FORMULA: TPN TYPE: Central Continuous AMINO ACIDS: 80 gm DEXTROSE: 255 gm SODIUM CHLORIDE: 70 mEq POTASSIUM CHLORIDE: 50 mEq POTASSIUM PHOSPHATE: 13.6 mmol CALCIUM: 10 mEq MULTIPLE VITAMIN: 10 ml TRACE ELEMENTS: 1 ml(s) TPN PLAN: No labs today. Remove lipids - dosing MWF d/t shortage. -BMP, Mag and Phos in AM. R: Change TPN as noted above. Will monitor electrolytes, glucose, and tolerance to TPN. ANGELA VILLAVICENCIO [facility], 10/08/21 [id number]
[2021-10-08] MEDS ORDERED: STERILE WATER for RESP 2,000 ML BAG. INH PRN (18:45)
[2021-10-08] MEDS ORDERED: DEXTROSE 70% IV SCH (22:00)
[2021-10-08] MEDS ORDERED: [UNRECOGNIZED DRUG - OTHER] IV SCH (22:00)
[2021-10-08] MEDS ORDERED: TOTAL PARENTERAL NUTRITION IV SCH (22:00)
[2021-10-08] MEDS ORDERED: AMINO ACID IV SCH (22:00)
[2021-10-09] VITALS (23 sets, daily range): BP systolic 112–167; BP diastolic 74–101
[2021-10-09] MEDS: DEXMEDETOMIDINE 400 MCG in IV NORMAL SALINE 100ML 96 ML IV PRN ×4 (02:12→19:25)
[2021-10-09] MEDS: PIPERACILLIN/TAZOBACTAM 3.375 GM in IV NORMAL SALINE 50ML 50 ML IV SCH ×4 (05:29→23:33)
[2021-10-09 06:30] LABS: BASO # 0.1 x10^3/uL (0.0-0.2); BASO % 0 % (0-3); EOS # 0.5 x10^3/uL (0.0-0.7); EOS % 3 % (0-3); HEMATOCRIT 42.1 % (39.0-53.0); HEMOGLOBIN 13.7 g/dL (13.0-17.5); LYMPH # 0.8 x10^3/uL (1.0-4.8); LYMPH % 6 % (24-48); MEAN CORPUSCULAR HEMOGLOBIN 28 pg (25-35); MEAN CORPUSCULAR HGB CONC 33 g/dL (31-37); MEAN CORPUSCULAR VOLUME 85 fL (79-100); MONO # 0.8 x10^3/uL (0.0-1.1); MONO % 6 % (0-9); NEUT # 11.8 x10^3/uL (1.8-7.7); NEUT % 85 % (31-73); PLATELET COUNT 192 x10^3/uL (140-400); RED BLOOD COUNT 4.98 x10^6/uL (4.30-5.70); RED CELL DISTRIBUTION WIDTH 15.2 % (11.5-14.5); WHITE BLOOD COUNT 13.9 x10^3/uL (4.0-11.0)
[2021-10-09 06:41] LABS: CREATININE 0.6 mg/dL (0.7-1.3); GFR 136.5; MAGNESIUM 2.1 mg/dL (1.8-2.4); PHOSPHORUS 3.8 mg/dL (2.6-4.7); POTASSIUM 4.3 mmol/L (3.5-5.1)
[2021-10-09] MEDS: MORPHINE SULFATE 2 MG/ML INJ. IVP PRN ×3 (06:45→23:06)
[2021-10-09] MEDS: ASPIRIN CHEWABLE 81 MG TABLET. PO SCH (08:00)
--- NOTE | 2021-10-09 08:07 | PDOC ---
PULMONARY PROGRESS NOTES DATE: 10/09/21 TIME: 08:07 Subjective Patient currently on BiPAP 16/8, 100% FiO2, Precedex. Vitals Vital Signs Date Time Temp Pulse Resp B/P (MAP) Pulse Ox O2 Delivery O2 Flow Rate FiO2 10/09/21 07:34 98 31 150/101 82 BiPAP/CPAP 40.0 10/09/21 04:00 97.8 97.8 ROS: No Nausea, No Chest Pain, No Abdominal Pain General: Alert Cardiovascular: S1, S2 Abdomen: Soft Neuro Exam: Alert Extremities: No Edema Skin: Warm Labs Laboratory Tests Test 10/09/21 05:58 White Blood Count 13.9 x10^3/uL (4.0-11.0) Red Blood Count 4.98 x10^6/uL (4.30-5.70) Hemoglobin 13.7 g/dL (13.0-17.5) Hematocrit 42.1 % (39.0-53.0) Mean Corpuscular Volume 85 fL (79-100) Mean Corpuscular Hemoglobin 28 pg (25-35) Mean Corpuscular Hemoglobin Concent 33 g/dL (31-37) Red Cell Distribution Width 15.2 % (11.5-14.5) Platelet Count 192 x10^3/uL (140-400) Neutrophils (%) (Auto) 85 % (31-73) Lymphocytes (%) (Auto) 6 % (24-48) Monocytes (%) (Auto) 6 % (0-9) Eosinophils (%) (Auto) 3 % (0-3) Basophils (%) (Auto) 0 % (0-3) Neutrophils # (Auto) 11.8 x10^3/uL (1.8-7.7) Lymphocytes # (Auto) 0.8 x10^3/uL (1.0-4.8) Monocytes # (Auto) 0.8 x10^3/uL (0.0-1.1) Eosinophils # (Auto) 0.5 x10^3/uL (0.0-0.7) Basophils # (Auto) 0.1 x10^3/uL (0.0-0.2) Sodium Level 139 mmol/L (136-145) Potassium Level 4.3 mmol/L (3.5-5.1) Chloride Level 104 mmol/L (98-107) Carbon Dioxide Level 28 mmol/L (21-32) Anion Gap 7 (6-14) Blood Urea Nitrogen 22 mg/dL (8-26) Creatinine 0.6 mg/dL (0.7-1.3) Estimated GFR (Cockcroft-Gault) 136.5 Glucose Level 163 mg/dL (70-99) Calcium Level 8.0 mg/dL (8.5-10.1) Phosphorus Level 3.8 mg/dL (2.6-4.7) Magnesium Level 2.1 mg/dL (1.8-2.4) Laboratory Tests Test 10/09/21 05:58 White Blood Count 13.9 x10^3/uL (4.0-11.0) Red Blood Count 4.98 x10^6/uL (4.30-5.70) Hemoglobin 13.7 g/dL (13.0-17.5) Hematocrit 42.1 % (39.0-53.0) Mean Corpuscular Volume 85 fL (79-100) Mean Corpuscular Hemoglobin 28 pg (25-35) Mean Corpuscular Hemoglobin Concent 33 g/dL (31-37) Red Cell Distribution Width 15.2 % (11.5-14.5) Platelet Count 192 x10^3/uL (140-400) Neutrophils (%) (Auto) 85 % (31-73) Lymphocytes (%) (Auto) 6 % (24-48) Monocytes (%) (Auto) 6 % (0-9) Eosinophils (%) (Auto) 3 % (0-3) Basophils (%) (Auto) 0 % (0-3) Neutrophils # (Auto) 11.8 x10^3/uL (1.8-7.7) Lymphocytes # (Auto) 0.8 x10^3/uL (1.0-4.8) Monocytes # (Auto) 0.8 x10^3/uL (0.0-1.1) Eosinophils # (Auto) 0.5 x10^3/uL (0.0-0.7) Basophils # (Auto) 0.1 x10^3/uL (0.0-0.2) Sodium Level 139 mmol/L (136-145) Potassium Level 4.3 mmol/L (3.5-5.1) Chloride Level 104 mmol/L (98-107) Carbon Dioxide Level 28 mmol/L (21-32) Anion Gap 7 (6-14) Blood Urea Nitrogen 22 mg/dL (8-26) Creatinine 0.6 mg/dL (0.7-1.3) Estimated GFR (Cockcroft-Gault) 136.5 Glucose Level 163 mg/dL (70-99) Calcium Level 8.0 mg/dL (8.5-10.1) Phosphorus Level 3.8 mg/dL (2.6-4.7) Magnesium Level 2.1 mg/dL (1.8-2.4) Medications Active Scripts Medications Dose Route/Sig Max Daily Dose Days Date Category Oxycodone Hcl 5 Mg Capsule 5 Mg PO PRN Q4HRS PRN 08/01/21 Rx Tramadol Hcl 50 Mg Tablet 50 Mg PO Q4HRS PRN 08/01/21 Rx Warfarin Sodium 4 Mg Tablet 4 Mg PO DAILY 28 08/01/21 Rx Timoptic 0.5% (Timolol Maleate) 10 Ml Drops 1 Drop OD BID 30 07/17/21 Reported Lisinopril 10 Mg Tablet 10 Mg PO DAILY 07/17/21 Reported Comments Chest x-ray reviewed dated 10/01/2021. Diffuse bilateral interstitial infiltrates. No significant pleural effusion. There is mild progression. No evidence of pneumothorax Impression . 1. Acute hypoxic respiratory failure secondary to COVID-19 viral pneumonia. 2. COVID-19 viral pneumonia/early acute respiratory distress syndrome. 3. Abnormal chest x-ray with diffuse bilateral infiltrates consistent with viral pneumonia. 4. Mildly increased liver function test. Likely due to COVID. 5. Mild leukopenia. Secondary to COVID. 6. Markedly elevated CRP level of 197. Status post Actemra. He received on 09/30/2021 Plan . Updated 10/09 Continue current BiPAP Blood cultures negative Status post remdesivir, tocilizumab Nutritional support Up to chair update 10/08 Continue BiPAP, supplemental oxygen with Vapotherm Patient has elected to proceed with DO NOT INTUBATE DO NOT RESUSCITATE Completed course of remdesivir Steroids Status post tocilizumab updated 10/07 1. Discussed with RN and RT. continue with 100% FiO2 via BiPAP along with supplemental oxygen,/ 100% via Vapotherm.. Patient has so far tolerated hypoxia reasonably well without any obvious respiratory distress. We will continue present high flow oxygen 2. Patient remains DNR/DNI 3. Status post remdesivir course. 4. Continue with steroids for a total of 10 days. 5. Status post Actemra. 6. DVT prophylaxis. 7. Empiric antibiotics. Discussed with RN and RT.. Discussed with Dr. Loo. We will continue present aggressive care. KRAIG YADAV MD Oct 09, 2021 08:07
[2021-10-09] MEDS: PANTOPRAZOLE IV PUSH 40 MG VIAL. IVP SCH (08:39)
[2021-10-09] MEDS: DOXYCYCLINE HYCLATE 100 MG in IV DEXTROSE 5% 100ML 100 ML IV SCH ×2 (08:40→20:55)
[2021-10-09] MEDS: TIMOLOL 0.5% OPHTH SOLUTION 5ML BOTTLE. OD SCH ×2 (08:40→20:55)
[2021-10-09] MEDS: SENNOSIDES/DOCUSATE 8.6/50MG TABLET. PO SCH ×2 (08:40→20:56)
[2021-10-09] MEDS: ENOXAPARIN 40 MG/0.4 ML SYRINGE. SQ SCH (08:41)
--- NOTE | 2021-10-09 08:56 | PDOC ---
[facility] PROGRESS NOTE Date of Service DOS: DATE: 10/09/21 TIME: 08:53 Chief Complaint Chief Complaint acute Covid-19 Pneumonia status post remdesivir and Actemra Acute hypoxic respiratory failure requiring Vapotherm and bipap support SEPSIS malnutrition Hypertension Knee replacement Appreciate pulmonology recommendationscontinue Vapotherm and as needed BiPAP Continue with IV steroids for total 10 days Continue empiric IV antibiotics Lovenox for DVT prophylaxis Continue Protonix for GI prophylaxis while on steroids CODE - DNR/DNI History of Present Illness History of Present Illness 10/09., He has had hallucincations of angels overnight, calm and responsive this AM, on max oxygen support for DNR, vapotherm and BIpap, but sstill has Sa02 in mid 80 range he can drink a little through a straw still, can still talk 10/08: Afebrile. Seen in ICU on Vapotherm 1% FiO2 4 L/min with supplemental BiPAP 18/6 O2 saturations steady 80%. He is able to have a conversation. Notes he is having a little trouble seen in his nose hurts. Pretty weak. Tolerating TPN well. cc time 31 min 10/07: Afebrile. Seen in ICU Vapotherm 100% FiO2 40 L/min with supplemental BiPAP 18/6 with O2 saturations 80%. Anxiety and pain are controlled today. He still communicating well. He still reinforces he does not wish for intubation. Tolerating TPN and PICC well. 10/06: Afebrile. Seen in ICU on Vapotherm high percent FiO2 40 L/min with supplemental BiPAP 18/6. O2 saturations in the mid 80s high as 84. He was little more anxious and had Precedex increased. No pain complaints. Still communicating well. Updated family 10/05: Afebrile. Seen in ICU on Vapotherm 100% FiO2 40 L/min with supplemental BiPAP 18/6. O2 saturations 82 to 84% today. PICC placed and tolerating TPN. He is alert. 10/04: Seen in ICU on Vapotherm 100% FiO2 40 L/min supplemental BiPAP 18/6. O2 saturations are 76 to 82%. He is mentally clear he does not want to be intubated we will attempt to prone. Long discussion with patient and family 10/03 involving goals of care, he wants to be comfortable but still wants maximum treatment up to but not including mechanical ventilation. We will continue aggressive care. I discussed with pulmonology will initiate TPN today and PICC insertion 10/03: Had O2 desaturations overnight and ABG 7.4 / on Vapotherm 100% FiO2 40 L/min. He discussed with nursing staff and family he wishes not to be on a ventilator. Currently on BiPAP 26/04 100% FiO2 with saturations 76 to 89%. 10/02: Seen in ICU. On Vapotherm 40 L/min 100% FiO2 with supplemental facemask O2 saturations 94%. Chest radiograph from 10/01 consistent with severe COVID. CR 3.2 09/30: Patient seen and examined. He now has increasing oxygen requirements and is on a 100% nonrebreather plus nasal cannula oxygen. Only satting in the high 80s. Transfer to ICU 09/29: Patient seen and examined. He is currently on 15 L of oxygen per nasal cannula. O2 sat ranging from 88-92 09/28: Patient seen and examined. He seems a little down apparently his dad from Covid yesterday. The is Thursday he would like to get out of here soon. He is still on high flow oxygen at 15 L per nasal cannula. 09/27: Patient was seen and examined today, in NAD and doing well. Patient is on 12 L O2 via NC. Daughter was in room to comfort as patient's father was just put on hospice. 09/26: Patient was seen and examined today, Patient in good spirits and doing better. Patient is motivated to continue to improved and be discharged. Patient is on 5 L O2 via NC. Mr Lehman is a 60-year-old male with PMHx HTN brought into the hospital due to cough and trouble breathing for the last 10 days, notes his father was positive for COVID 19 and was hospitalized. He has not been vaccinated against COVID 19. 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 Notably hypoxic on initial examination. Chest x-ray on admission showed multifocal bilateral patchy infiltrates. Rapid COVID 19 positive, started on dexamethasone, Lovenox for DVT prophylaxis along with remdesivir and admitted for further care. Vitals/I&O Vitals/I&O: Vital Signs Date Time Temp Pulse Resp B/P (MAP) Pulse Ox O2 Delivery O2 Flow Rate FiO2 10/09/21 08:24 40.0 10/09/21 08:18 Bi-pap 10/09/21 08:10 86 10/09/21 07:34 98 31 150/101 10/09/21 04:00 97.8 97.8 I & O 10/08/21 10/08/21 10/09/21 15:00 23:00 07:00 Intake Total 150 ml 992 ml 1075 ml Output Total 650 ml 425 ml 275 ml Balance -500 ml 567 ml 800 ml Physical Exam General: Alert, Oriented X3, Cooperative, No acute distress Heart: Regular rate (SR), Other (tele stable, sinus) Lungs: Other Abdomen: Soft Extremities: No clubbing, No edema, Normal pulses Skin: No rashes, No significant lesion Labs Labs: Laboratory Tests Test 10/09/21 05:58 White Blood Count 13.9 x10^3/uL (4.0-11.0) Red Blood Count 4.98 x10^6/uL (4.30-5.70) Hemoglobin 13.7 g/dL (13.0-17.5) Hematocrit 42.1 % (39.0-53.0) Mean Corpuscular Volume 85 fL (79-100) Mean Corpuscular Hemoglobin 28 pg (25-35) Mean Corpuscular Hemoglobin Concent 33 g/dL (31-37) Red Cell Distribution Width 15.2 % (11.5-14.5) Platelet Count 192 x10^3/uL (140-400) Neutrophils (%) (Auto) 85 % (31-73) Lymphocytes (%) (Auto) 6 % (24-48) Monocytes (%) (Auto) 6 % (0-9) Eosinophils (%) (Auto) 3 % (0-3) Basophils (%) (Auto) 0 % (0-3) Neutrophils # (Auto) 11.8 x10^3/uL (1.8-7.7) Lymphocytes # (Auto) 0.8 x10^3/uL (1.0-4.8) Monocytes # (Auto) 0.8 x10^3/uL (0.0-1.1) Eosinophils # (Auto) 0.5 x10^3/uL (0.0-0.7) Basophils # (Auto) 0.1 x10^3/uL (0.0-0.2) Sodium Level 139 mmol/L (136-145) Potassium Level 4.3 mmol/L (3.5-5.1) Chloride Level 104 mmol/L (98-107) Carbon Dioxide Level 28 mmol/L (21-32) Anion Gap 7 (6-14) Blood Urea Nitrogen 22 mg/dL (8-26) Creatinine 0.6 mg/dL (0.7-1.3) Estimated GFR (Cockcroft-Gault) 136.5 Glucose Level 163 mg/dL (70-99) Calcium Level 8.0 mg/dL (8.5-10.1) Phosphorus Level 3.8 mg/dL (2.6-4.7) Magnesium Level 2.1 mg/dL (1.8-2.4) Assessment and Plan Assessmemt and Plan Problems Medical Problems: (1) Hypoxia Status: Acute (2) Pneumonia due to COVID-19 virus Status: Acute Comment Review of Relevant I have reviewed the following items dino (where applicable) has been applied. Medications: Current Medications Medications (Trade) Dose Ordered Sig/Jody Route PRN Reason Start Time Stop Time Status Last Admin Dose Admin Sodium Chloride 80 meq/Potassium Chloride 50 meq/ Potassium Phosphate 13.6 mmol/Calcium Gluconate 10 meq/ Multivitamins 10 ml/Zinc/Copper/ Manganese/ Selenium 1 ml/ Total Parenteral Nutrition/Amino Acids/Dextrose 1,512 ml @ 63 mls/hr TPN CONT IV 10/08/21 22:00 10/09/21 21:59 10/08/21 20:47 Justifications for Admission Other Justification NANCY MAN MD Oct 09, 2021 08:56
--- NOTE | 2021-10-09 12:32 | PDOC ---
MARCELO MIRELES NOC TECHNICIAN 10/09/21 1232: CARDIO Progress Notes Date and Time Date of Service 10/09/21 Time of Evaluation 1230 Subjective Subjective: Other (on BiPAP) Vitals Vitals Vital Signs Date Time Temp Pulse Resp B/P (MAP) Pulse Ox O2 Delivery O2 Flow Rate FiO2 10/09/21 12:10 Bi-pap 40.0 10/09/21 12:07 97.3 95 30 145/93 81 97.3 Weight Weight [ ] Input and Output Intake and Output Intake and Output 10/09/21 07:00 Intake Total 2217 ml Output Total 1350 ml Balance 867 ml IV Total 2217 ml Output Urine Total 1350 ml Laboratory Labs Laboratory Tests Test 10/09/21 05:58 White Blood Count 13.9 x10^3/uL (4.0-11.0) Red Blood Count 4.98 x10^6/uL (4.30-5.70) Hemoglobin 13.7 g/dL (13.0-17.5) Hematocrit 42.1 % (39.0-53.0) Mean Corpuscular Volume 85 fL (79-100) Mean Corpuscular Hemoglobin 28 pg (25-35) Mean Corpuscular Hemoglobin Concent 33 g/dL (31-37) Red Cell Distribution Width 15.2 % (11.5-14.5) Platelet Count 192 x10^3/uL (140-400) Neutrophils (%) (Auto) 85 % (31-73) Lymphocytes (%) (Auto) 6 % (24-48) Monocytes (%) (Auto) 6 % (0-9) Eosinophils (%) (Auto) 3 % (0-3) Basophils (%) (Auto) 0 % (0-3) Neutrophils # (Auto) 11.8 x10^3/uL (1.8-7.7) Lymphocytes # (Auto) 0.8 x10^3/uL (1.0-4.8) Monocytes # (Auto) 0.8 x10^3/uL (0.0-1.1) Eosinophils # (Auto) 0.5 x10^3/uL (0.0-0.7) Basophils # (Auto) 0.1 x10^3/uL (0.0-0.2) Sodium Level 139 mmol/L (136-145) Potassium Level 4.3 mmol/L (3.5-5.1) Chloride Level 104 mmol/L (98-107) Carbon Dioxide Level 28 mmol/L (21-32) Anion Gap 7 (6-14) Blood Urea Nitrogen 22 mg/dL (8-26) Creatinine 0.6 mg/dL (0.7-1.3) Estimated GFR (Cockcroft-Gault) 136.5 Glucose Level 163 mg/dL (70-99) Calcium Level 8.0 mg/dL (8.5-10.1) Phosphorus Level 3.8 mg/dL (2.6-4.7) Magnesium Level 2.1 mg/dL (1.8-2.4) Microbiology Micro Microbiology 09/25/21 Blood Culture - Final, Complete NO GROWTH AFTER 5 DAYS Physical Exam HEENT: Neck Supple W Full Motion Chest: Symmetric LUNGS: Other (BIPAP, vapotherm) Heart: RRR (SR) Abdomen: Other (obese ) Extremities: No Edema Neurology: alert, oriented, follow commands Assessment Assessment 1. Acute respiratory failure secondary to COVID: on NRB 2. Tachyarrhythmia; tele noted with periods of AT, bursts of SVT. improved with BB. Now SR/ST 3. Hypertension; controlled 4. Hyperthyroidism; as per IM 5. Leukocytosis Recommendations Continue metoprolol ASA therapy Ongoing lung optimization, treatment of COVID as per pulmonary team Supportive care Justicifation of Admission Dx: Justifications for Admission: Justification of Admission Dx: N/A CHANDLER CRUZ MD 10/09/212049: CARDIO Progress Notes Assessment Assessment Agree with SALON SUPERVISOR's assessment and plan. AT/SVT improved with beta-blockers Continue current treatment for Covid pneumonia Plan for outpatient 2D echocardiogram and possibly event monitor recording MARCELO MIRELES APRN Oct 09, 2021 12:32 CHANDLER CRUZ MD Oct 09, 2021 20:50
[2021-10-09] MEDS: TPN PER PHARMACY MC PRN (12:40)
--- NOTE | 2021-10-09 12:41 | NUR ---
Pharmacy TPN Dosing Note S: JACINTONIKOLASVANIA ENRIQUE is a 60 year old M Currently receiving Central Continuous TPN started 10/04/21 B:Pertinent PMH: NPO Height: 5 feet, 7 inches Weight: 87.8 kg Current diet: NPO LABS: Sodium: 139 Potassium: 4.3 Chloride: 104 Calcium: 8.0 Corrected Calcium: 9.44 Magnesium: 2.1 CO2: 28 SCr: 0.6 Glucose: 163 Albumin: 2.2 AST: 64 ALT: 34 TPN FORMULA: TPN TYPE: Central Continuous AMINO ACIDS: 80 gm DEXTROSE: 255 gm LIPIDS: 30 gm SODIUM CHLORIDE: 70 mEq POTASSIUM CHLORIDE: 50 mEq POTASSIUM PHOSPHATE: 13.6 mmol CALCIUM: 10 mEq MULTIPLE VITAMIN: 10 ml TRACE ELEMENTS: 1 ml(s) TPN PLAN: Labs stable, add lipids 30 gm. -No labs tomorrow d/t stability R: Change TPN as noted above. Will monitor electrolytes, glucose, and tolerance to TPN. ANGELA VILLAVICENCIO [facility], 10/09/21 [id number]
[2021-10-09] MEDS: STERILE WATER for RESP 1,000 ML BAG. INH PRN (16:12)
[2021-10-09] MEDS ORDERED: [UNRECOGNIZED DRUG - OTHER] IV SCH (22:00)
[2021-10-09] MEDS ORDERED: AMINO ACID IV SCH (22:00)
[2021-10-09] MEDS ORDERED: TOTAL PARENTERAL NUTRITION IV SCH (22:00)
[2021-10-09] MEDS ORDERED: DEXTROSE 70% IV SCH (22:00)
[2021-10-10] VITALS (24 sets, daily range): BP systolic 122–181; BP diastolic 75–104
[2021-10-10] MEDS: DEXMEDETOMIDINE 400 MCG in IV NORMAL SALINE 100ML 96 ML IV PRN ×5 (00:53→22:19)
[2021-10-10] MEDS: PIPERACILLIN/TAZOBACTAM 3.375 GM in IV NORMAL SALINE 50ML 50 ML IV SCH ×3 (06:00→17:01)
[2021-10-10] MEDS: ASPIRIN CHEWABLE 81 MG TABLET. PO SCH (08:00)
--- NOTE | 2021-10-10 08:12 | PDOC ---
PULMONARY PROGRESS NOTES DATE: 10/10/21 TIME: 08:11 Subjective Patient with low O2 sats, but feels ok. Patient currently on BiPAP 16/, 100% FiO2, Precedex. Vitals Vital Signs Date Time Temp Pulse Resp B/P (MAP) Pulse Ox O2 Delivery O2 Flow Rate FiO2 10/10/21 07:40 86 BiPAP/CPAP 10/10/21 06:00 78 32 177/94 40.0 10/10/21 04:00 98.1 98.1 ROS: No Nausea, No Chest Pain, No Abdominal Pain General: Alert Lungs: Other Cardiovascular: S1, S2 Abdomen: Soft Neuro Exam: Alert Extremities: No Edema Skin: Warm Labs Laboratory Tests Test 10/09/21 05:58 White Blood Count 13.9 x10^3/uL (4.0-11.0) Red Blood Count 4.98 x10^6/uL (4.30-5.70) Hemoglobin 13.7 g/dL (13.0-17.5) Hematocrit 42.1 % (39.0-53.0) Mean Corpuscular Volume 85 fL (79-100) Mean Corpuscular Hemoglobin 28 pg (25-35) Mean Corpuscular Hemoglobin Concent 33 g/dL (31-37) Red Cell Distribution Width 15.2 % (11.5-14.5) Platelet Count 192 x10^3/uL (140-400) Neutrophils (%) (Auto) 85 % (31-73) Lymphocytes (%) (Auto) 6 % (24-48) Monocytes (%) (Auto) 6 % (0-9) Eosinophils (%) (Auto) 3 % (0-3) Basophils (%) (Auto) 0 % (0-3) Neutrophils # (Auto) 11.8 x10^3/uL (1.8-7.7) Lymphocytes # (Auto) 0.8 x10^3/uL (1.0-4.8) Monocytes # (Auto) 0.8 x10^3/uL (0.0-1.1) Eosinophils # (Auto) 0.5 x10^3/uL (0.0-0.7) Basophils # (Auto) 0.1 x10^3/uL (0.0-0.2) Sodium Level 139 mmol/L (136-145) Potassium Level 4.3 mmol/L (3.5-5.1) Chloride Level 104 mmol/L (98-107) Carbon Dioxide Level 28 mmol/L (21-32) Anion Gap 7 (6-14) Blood Urea Nitrogen 22 mg/dL (8-26) Creatinine 0.6 mg/dL (0.7-1.3) Estimated GFR (Cockcroft-Gault) 136.5 Glucose Level 163 mg/dL (70-99) Calcium Level 8.0 mg/dL (8.5-10.1) Phosphorus Level 3.8 mg/dL (2.6-4.7) Magnesium Level 2.1 mg/dL (1.8-2.4) Medications Active Scripts Medications Dose Route/Sig Max Daily Dose Days Date Category Oxycodone Hcl 5 Mg Capsule 5 Mg PO PRN Q4HRS PRN 08/01/21 Rx Tramadol Hcl 50 Mg Tablet 50 Mg PO Q4HRS PRN 08/01/21 Rx Warfarin Sodium 4 Mg Tablet 4 Mg PO DAILY 28 08/01/21 Rx Timoptic 0.5% (Timolol Maleate) 10 Ml Drops 1 Drop OD BID 30 07/17/21 Reported Lisinopril 10 Mg Tablet 10 Mg PO DAILY 07/17/21 Reported Comments Chest x-ray reviewed dated 10/01/2021. Diffuse bilateral interstitial infiltrates. No significant pleural effusion. There is mild progression. No evidence of pneumothorax Impression . 1. Acute hypoxic respiratory failure secondary to COVID-19 viral pneumonia. 2. COVID-19 viral pneumonia/early acute respiratory distress syndrome. 3. Abnormal chest x-ray with diffuse bilateral infiltrates consistent with viral pneumonia. 4. Mildly increased liver function test. Likely due to COVID. 5. Mild leukopenia. Secondary to COVID. 6. Markedly elevated CRP level of 197. Status post Actemra. He received on 09/30/2021 Plan . Updated 10/10 Continue current support BiPAP Nutritional support Up to chair if possible updated 10/09 Continue current BiPAP Blood cultures negative Status post remdesivir, tocilizumab Nutritional support Up to chair update 10/08 Continue BiPAP, supplemental oxygen with Vapotherm Patient has elected to proceed with DO NOT INTUBATE DO NOT RESUSCITATE Completed course of remdesivir Steroids Status post tocilizumab KRAIG YADAV MD Oct 10, 2021 08:11
[2021-10-10] MEDS: STERILE WATER for RESP 1,000 ML BAG. INH PRN (08:17)
[2021-10-10] MEDS: SENNOSIDES/DOCUSATE 8.6/50MG TABLET. PO SCH ×2 (09:00→21:00)
[2021-10-10] MEDS: TIMOLOL 0.5% OPHTH SOLUTION 5ML BOTTLE. OD SCH ×2 (09:00→21:00)
[2021-10-10] MEDS: PANTOPRAZOLE IV PUSH 40 MG VIAL. IVP SCH (09:11)
[2021-10-10] MEDS: ENOXAPARIN 40 MG/0.4 ML SYRINGE. SQ SCH (09:11)
[2021-10-10] MEDS: DOXYCYCLINE HYCLATE 100 MG in IV DEXTROSE 5% 100ML 100 ML IV SCH ×2 (09:14→21:00)
[2021-10-10] MEDS: MORPHINE SULFATE 2 MG/ML INJ. IVP PRN ×2 (09:32→12:54)
[2021-10-10] MEDS: TPN PER PHARMACY MC PRN (10:53)
--- NOTE | 2021-10-10 10:55 | NUR ---
Pharmacy TPN Dosing Note S: VANIA THORPE is a 60 year old M Currently receiving Central Continuous TPN started 10/04/21 B:Pertinent PMH: NPO Height: 5 feet, 7 inches Weight: 87.4 kg Current diet: NPO LABS: Sodium: 139 Potassium: 4.3 Chloride: 104 Calcium: 8.0 Corrected Calcium: 9.44 Magnesium: 2.1 CO2: 28 SCr: 0.6 Glucose: 163 Albumin: 2.2 AST: 64 ALT: 34 TPN FORMULA: TPN TYPE: Central Continuous AMINO ACIDS: 80 gm DEXTROSE: 255 gm SODIUM CHLORIDE: 70 mEq POTASSIUM CHLORIDE: 50 mEq POTASSIUM PHOSPHATE: 13.6 mmol CALCIUM: 10 mEq MULTIPLE VITAMIN: 10 ml TRACE ELEMENTS: 1 ml(s) TPN PLAN: remove lipids - dosing MWF d/t national shortage. -BMP, Mag and Phos in AM. R: Change TPN as noted above. Will monitor electrolytes, glucose, and tolerance to TPN. ANGELA VILLAVICENCIO [facility], 10/10/21 [id number]
--- NOTE | 2021-10-10 11:10 | PDOC ---
MARCELO MIRELES APRN 10/10/21 1110: CARDIO Progress Notes Date and Time Date of Service 10/10/21 Time of Evaluation 1100 Subjective Subjective: Other (on BiPAP) Vitals Vitals Vital Signs Date Time Temp Pulse Resp B/P (MAP) Pulse Ox O2 Delivery O2 Flow Rate FiO2 10/10/21 09:32 45 86 BiPAP/CPAP 10/10/21 08:00 40.0 10/10/21 06:00 78 177/94 10/10/21 04:00 98.1 98.1 Weight Weight [ ] Input and Output Intake and Output Intake and Output 10/10/21 07:00 Intake Total 2621 ml Output Total 1800 ml Balance 821 ml Intake Oral 300 ml IV Total 2321 ml Output Urine Total 1800 ml Microbiology Micro Microbiology 09/25/21 Blood Culture - Final, Complete NO GROWTH AFTER 5 DAYS Physical Exam HEENT: Neck Supple W Full Motion Chest: Symmetric LUNGS: Other (BIPAP, vapotherm) Heart: RRR (SR) Abdomen: Other (obese ) Extremities: No Edema Neurology: alert, oriented, follow commands Assessment Assessment 1. Acute respiratory failure secondary to COVID 2. Tachyarrhythmia; noted with AT, bursts of SVT. improved with BB. Now SR 3. Hypertension; labile 4. Hyperthyroidism; as per IM 5. Leukocytosis Recommendations Continue metoprolol Add hydralazine for BP control ASA therapy Ongoing lung optimization, treatment of COVID as per pulmonary team Supportive care Justicifation of Admission Dx: Justifications for Admission: Justification of Admission Dx: N/A CHANDLER CRUZ MD 10/10/212028: CARDIO Progress Notes Assessment Assessment Agree with DISC PAD PLATE FILLER's assessment and plan. AT/SVT improved with beta-blockers Continue current treatment for Covid pneumonia Plan for outpatient 2D echocardiogram and possibly event monitor recording MARCELO MIRELES APRN Oct 10, 2021 11:10 CHANDLER CRUZ MD Oct 10, 2021 20:29
--- NOTE | 2021-10-10 13:25 | PDOC ---
[employer] PROGRESS NOTE Date of Service DOS: DATE: 10/10/21 TIME: 13:24 Chief Complaint Chief Complaint acute Covid-19 Pneumonia status post remdesivir and Actemra Acute hypoxic respiratory failure requiring Vapotherm and bipap support SEPSIS malnutrition Hypertension Knee replacement Appreciate pulmonology recommendationscontinue Vapotherm and as needed BiPAP Continue with IV steroids for total 10 days Continue empiric IV antibiotics Lovenox for DVT prophylaxis Continue Protonix for GI prophylaxis while on steroids CODE - DNR/DNI History of Present Illness History of Present Illness 10/10. doing about the same, more alert, calm and repsonsive no evnt 10/09., He has had hallucincations of angels overnight, calm and responsive this AM, on max oxygen support for DNR, vapotherm and BIpap, but sstill has Sa02 in mid 80 range he can drink a little through a straw still, can still talk 10/08: Afebrile. Seen in ICU on Vapotherm 1% FiO2 4 L/min with supplemental BiPAP 18/6 O2 saturations steady 80%. He is able to have a conversation. Notes he is having a little trouble seen in his nose hurts. Pretty weak. Tolerating TPN well. cc time 31 min 10/07: Afebrile. Seen in ICU Vapotherm 100% FiO2 40 L/min with supplemental BiPAP 18/6 with O2 saturations 80%. Anxiety and pain are controlled today. He still communicating well. He still reinforces he does not wish for intubation. Tolerating TPN and PICC well. 10/06: Afebrile. Seen in ICU on Vapotherm high percent FiO2 40 L/min with supplemental BiPAP 18/6. O2 saturations in the mid 80s high as 84. He was little more anxious and had Precedex increased. No pain complaints. Still communicating well. Updated family 10/05: Afebrile. Seen in ICU on Vapotherm 100% FiO2 40 L/min with supplemental BiPAP 18/6. O2 saturations 82 to 84% today. PICC placed and tolerating TPN. He is alert. 10/04: Seen in ICU on Vapotherm 100% FiO2 40 L/min supplemental BiPAP 18/6. O2 saturations are 76 to 82%. He is mentally clear he does not want to be intubated we will attempt to prone. Long discussion with patient and family 10/03 involving goals of care, he wants to be comfortable but still wants maximum treatment up to but not including mechanical ventilation. We will continue aggressive care. I discussed with pulmonology will initiate TPN today and PICC insertion 10/03: Had O2 desaturations overnight and ABG 7.4 8/45 on Vapotherm 100% FiO2 40 L/min. He discussed with nursing staff and family he wishes not to be on a ventilator. Currently on BiPAP 26/04 100% FiO2 with saturations 76 to 89%. 10/02: Seen in ICU. On Vapotherm 40 L/min 100% FiO2 with supplemental facemask O2 saturations 94%. Chest radiograph from 10/01 consistent with severe COVID. CR 3.2 09/30: Patient seen and examined. He now has increasing oxygen requirements and is on a 100% nonrebreather plus nasal cannula oxygen. Only satting in the high 80s. Transfer to ICU 09/29: Patient seen and examined. He is currently on 15 L of oxygen per nasal cannula. O2 sat ranging from 88-92 09/28: Patient seen and examined. He seems a little down apparently his dad from Covid yesterday. The is Thursday he would like to get out of here soon. He is still on high flow oxygen at 15 L per nasal cannula. 09/27: Patient was seen and examined today, in NAD and doing well. Patient is on 12 L O2 via NC. Daughter was in room to comfort as patient's father was just put on hospice. 09/26: Patient was seen and examined today, Patient in good spirits and doing better. Patient is motivated to continue to improved and be discharged. Patient is on 5 L O2 via NC. Mr Lehman is a 60-year-old male with PMHx HTN brought into the hospital due to cough and trouble breathing for the last 10 days, notes his father was positive for COVID 19 and was hospitalized. He has not been vaccinated against COVID 19. 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 Notably hypoxic on initial examination. Chest x-ray on admission showed multifocal bilateral patchy infiltrates. Rapid COVID 19 positive, started on dexamethasone, Lovenox f or DVT prophylaxis along with remdesivir and admitted for further care. Vitals/I&O Vitals/I&O: Vital Signs Date Time Temp Pulse Resp B/P (MAP) Pulse Ox O2 Delivery O2 Flow Rate FiO2 10/10/21 12:54 45 87 BiPAP/CPAP 40.0 10/10/21 06:00 78 177/94 10/10/21 04:00 98.1 98.1 I & O 10/09/21 10/09/21 10/10/21 15:00 23:00 07:00 Intake Total 450 ml 1055 ml 1116 ml Output Total 500 ml 300 ml 1000 ml Balance -50 ml 755 ml 116 ml Physical Exam General: Alert, Oriented X3, Cooperative, No acute distress Heart: Regular rate (SR), Other (tele stable, sinus) Lungs: Other Abdomen: Soft Extremities: No clubbing, No edema, Normal pulses Skin: No rashes, No significant lesion Labs Labs: Laboratory Tests Test 10/10/21 12:42 Glucose (Fingerstick) 174 mg/dL (70-99) Assessment and Plan Assessmemt and Plan Problems Medical Problems: (1) Hypoxia Status: Acute (2) Pneumonia due to COVID-19 virus Status: Acute Comment Review of Relevant I have reviewed the following items dino (where applicable) has been applied. Medications: Current Medications Medications (Trade) Dose Ordered Sig/Jody Route PRN Reason Start Time Stop Time Status Last Admin Dose Admin Sodium Chloride 80 meq/Potassium Chloride 50 meq/ Potassium Phosphate 13.6 mmol/Calcium Gluconate 10 meq/ Multivitamins 10 ml/Zinc/Copper/ Manganese/ Selenium 1 ml/ Total Parenteral Nutrition/Amino Acids/Dextrose/ Fat Emulsion Intravenous 1,512 ml @ 63 mls/hr TPN CONT IV 10/09/21 22:00 10/10/21 21:59 10/09/21 21:12 Justifications for Admission Other Justification NANCY MAN MD Oct 10, 2021 13:25
[2021-10-10] MEDS ORDERED: [UNRECOGNIZED DRUG - OTHER] IV SCH (22:00)
[2021-10-10] MEDS ORDERED: AMINO ACID IV SCH (22:00)
[2021-10-10] MEDS ORDERED: TOTAL PARENTERAL NUTRITION IV SCH (22:00)
[2021-10-10] MEDS ORDERED: DEXTROSE 70% IV SCH (22:00)
[2021-10-11] VITALS (23 sets, daily range): BP systolic 110–187; BP diastolic 67–96
[2021-10-11] MEDS: MORPHINE SULFATE 2 MG/ML INJ. IVP PRN ×5 (02:44→22:45)
[2021-10-11] MEDS: DEXMEDETOMIDINE 400 MCG in IV NORMAL SALINE 100ML 96 ML IV PRN ×4 (02:44→20:21)
[2021-10-11] MEDS: PIPERACILLIN/TAZOBACTAM 3.375 GM in IV NORMAL SALINE 50ML 50 ML IV SCH ×5 (05:53→22:46)
[2021-10-11] MEDS: ASPIRIN CHEWABLE 81 MG TABLET. PO SCH (08:00)
[2021-10-11] MEDS: PANTOPRAZOLE IV PUSH 40 MG VIAL. IVP SCH (08:39)
[2021-10-11] MEDS: DOXYCYCLINE HYCLATE 100 MG in IV DEXTROSE 5% 100ML 100 ML IV SCH ×2 (08:40→20:19)
[2021-10-11] MEDS: SENNOSIDES/DOCUSATE 8.6/50MG TABLET. PO SCH ×2 (08:41→20:14)
[2021-10-11] MEDS: ENOXAPARIN 40 MG/0.4 ML SYRINGE. SQ SCH (08:41)
--- NOTE | 2021-10-11 08:48 | PDOC ---
PULMONARY PROGRESS NOTES DATE: 10/11/21 TIME: 08:47 Subjective Patient with no new complaints Vapotherm, and BiPAP. Vitals Vital Signs Date Time Temp Pulse Resp B/P (MAP) Pulse Ox O2 Delivery O2 Flow Rate FiO2 10/11/21 07:00 89 35 165/95 87 BiPAP/CPAP 40.0 10/11/21 04:00 98.0 98.0 ROS: No Nausea, No Chest Pain, No Abdominal Pain General: Alert Lungs: Other Cardiovascular: S1, S2 Abdomen: Soft Neuro Exam: Alert Extremities: No Edema Skin: Warm Labs Laboratory Tests Test 10/10/21 12:42 10/10/21 18:10 Glucose (Fingerstick) 174 mg/dL (70-99) 143 mg/dL (70-99) Laboratory Tests Test 10/10/21 12:42 10/10/21 18:10 Glucose (Fingerstick) 174 mg/dL (70-99) 143 mg/dL (70-99) Medications Active Scripts Medications Dose Route/Sig Max Daily Dose Days Date Category Oxycodone Hcl 5 Mg Capsule 5 Mg PO PRN Q4HRS PRN 08/01/21 Rx Tramadol Hcl 50 Mg Tablet 50 Mg PO Q4HRS PRN 08/01/21 Rx Warfarin Sodium 4 Mg Tablet 4 Mg PO DAILY 28 08/01/21 Rx Timoptic 0.5% (Timolol Maleate) 10 Ml Drops 1 Drop OD BID 30 07/17/21 Reported Lisinopril 10 Mg Tablet 10 Mg PO DAILY 07/17/21 Reported Comments Chest x-ray reviewed dated 10/01/2021. Diffuse bilateral interstitial infiltrates. No significant pleural effusion. There is mild progression. No evidence of pneumothorax Impression . 1. Acute hypoxic respiratory failure secondary to COVID-19 viral pneumonia. 2. COVID-19 viral pneumonia/early acute respiratory distress syndrome. 3. Abnormal chest x-ray with diffuse bilateral infiltrates consistent with viral pneumonia. 4. Mildly increased liver function test. Likely due to COVID. 5. Mild leukopenia. Secondary to COVID. 6. Markedly elevated CRP level of 197. Status post Actemra. He received on 09/30/2021 Plan . Updated 10/11 Patient saturations today better Needs not utilizing accessory muscles We will continue current support Up to chair if possible Received remdesivir and tocilizumab Patient has elected to DO NOT INTUBATE DO NOT RESUSCITATE updated 10/10 Continue current support BiPAP Nutritional support Up to chair if possible KRAIG YADAV MD Oct 11, 2021 08:48
[2021-10-11] MEDS ORDERED: ALTEPLASE 1MG SYRINGE. INT CAT ONE ×2 (09:00→10:45)
[2021-10-11] MEDS: TIMOLOL 0.5% OPHTH SOLUTION 5ML BOTTLE. OD SCH ×2 (09:00→20:23)
[2021-10-11 13:32] LABS: CALCIUM 7.7 mg/dL (8.5-10.1); CREATININE 0.5 mg/dL (0.7-1.3); GFR 168.5; PHOSPHORUS 3.6 mg/dL (2.6-4.7); POTASSIUM 3.7 mmol/L (3.5-5.1)
--- NOTE | 2021-10-11 13:35 | PDOC ---
[facility] PROGRESS NOTE Date of Service DOS: DATE: 10/11/21 TIME: 13:34 Chief Complaint Chief Complaint acute Covid-19 Pneumonia status post remdesivir and Actemra Acute hypoxic respiratory failure requiring Vapotherm and bipap support SEPSIS malnutrition Hypertension Knee replacement Appreciate pulmonology recommendationscontinue Vapotherm and as needed BiPAP Continue with IV steroids for total 10 days Continue empiric IV antibiotics Lovenox for DVT prophylaxis Continue Protonix for GI prophylaxis while on steroids CODE - DNR/DNI History of Present Illness History of Present Illness 10/11. doing about the same, more alert, on BIPAP, getting better, is calm and repsonsive no evnt no further hallicinations like a couple nights ago he can drink a little through a straw still, can still talk Mr Lehman is a 60-year-old male with PMHx HTN brought into the hospital due to cough and trouble breathing for the last 10 days, notes his father was positive for COVID 19 and was hospitalized. He has not been vaccinated against COVID 19. 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 Notably hypoxic on initial examination. Chest x-ray on admission showed multifocal bilateral patchy infiltrates. Rapid COVID 19 positive, started on dexamethasone, Lovenox for DVT prophylaxis along with remdesivir and admitted for further care. Vitals/I&O Vitals/I&O: Vital Signs Date Time Temp Pulse Resp B/P (MAP) Pulse Ox O2 Delivery O2 Flow Rate FiO2 10/11/21 12:51 32 84 40.0 10/11/21 12:00 98.1 94 152/86 BiPAP/CPAP 98.1 I & O 10/10/21 10/10/21 10/11/21 15:00 23:00 07:00 Intake Total 1353.46 ml 1011 ml Output Total 625 ml 400 ml 250 ml Balance -625 ml 953.46 ml 761 ml Physical Exam General: Alert, Oriented X3, Cooperative, No acute distress Heart: Regular rate (SR), Other (tele stable, sinus) Lungs: Other Abdomen: Soft Extremities: No clubbing, No edema, Normal pulses Skin: No rashes, No significant lesion Labs Labs: Laboratory Tests Test 10/10/21 18:10 10/11/21 12:16 10/11/21 13:00 Glucose (Fingerstick) 143 mg/dL (70-99) 123 mg/dL (70-99) Sodium Level 139 mmol/L (136-145) Potassium Level 3.7 mmol/L (3.5-5.1) Chloride Level 102 mmol/L (98-107) Carbon Dioxide Level 30 mmol/L (21-32) Anion Gap 7 (6-14) Blood Urea Nitrogen 19 mg/dL (8-26) Creatinine 0.5 mg/dL (0.7-1.3) Estimated GFR (Cockcroft-Gault) 168.5 Glucose Level 150 mg/dL (70-99) Calcium Level 7.7 mg/dL (8.5-10.1) Phosphorus Level 3.6 mg/dL (2.6-4.7) Magnesium Level 2.0 mg/dL (1.8-2.4) Assessment and Plan Assessmemt and Plan Problems Medical Problems: (1) Hypoxia Status: Acute (2) Pneumonia due to COVID-19 virus Status: Acute Comment Review of Relevant I have reviewed the following items dion (where applicable) has been applied. Medications: Current Medications Medications (Trade) Dose Ordered Sig/Jody Route PRN Reason Start Time Stop Time Status Last Admin Dose Admin Sodium Chloride 80 meq/Potassium Chloride 50 meq/ Potassium Phosphate 13.6 mmol/Calcium Gluconate 10 meq/ Multivitamins 10 ml/Zinc/Copper/ Manganese/ Selenium 1 ml/ Total Parenteral Nutrition/Amino Acids/Dextrose 1,512 ml @ 63 mls/hr TPN CONT IV 10/10/21 22:00 10/11/21 21:59 10/10/21 22:18 Alteplase, Recombinant (Cathflo For Central Catheter Clearance) 1 mg 1X ONCE INT CAT 10/11/21 09:00 10/11/21 09:01 DC 10/11/21 09:35 Alteplase, Recombinant (Cathflo For Central Catheter Clearance) 1 mg 1X ONCE INT CAT 10/11/21 10:45 10/11/21 10:46 DC 10/11/21 11:12 Justifications for Admission Other Justification NANCY MAN MD Oct 11, 2021 13:35
[2021-10-11] MEDS: TPN PER PHARMACY MC PRN (13:56)
--- NOTE | 2021-10-11 13:56 | NUR ---
Pharmacy TPN Dosing Note S: VANIA THORPE is a 60 year old M Currently receiving Central Continuous TPN started 10/04/21 B:Pertinent PMH: NPO Height: 5 feet, 7 inches Weight: 87.938263 kg Current diet: NPO LABS: Sodium: 139 Potassium: 3.7 Chloride: 102 Calcium: 7.7 Corrected Calcium: 9.14 Magnesium: 2 CO2: 30 SCr: 0.5 Glucose: 150 Albumin: 2.2 AST: 64 ALT: 34 TPN FORMULA: TPN TYPE: Central Continuous AMINO ACIDS: 80 gm DEXTROSE: 255 gm LIPIDS: 30 gm SODIUM CHLORIDE: 70 mEq POTASSIUM CHLORIDE: 60 mEq POTASSIUM PHOSPHATE: 13.6 mmol CALCIUM: 10 mEq MULTIPLE VITAMIN: 10 ml TRACE ELEMENTS: 1 ml(s) TPN PLAN: K trending down, increase slightly in TPN. Added lipids today. No labs tomorrow d/t stability. R: Change TPN as noted above. Will monitor electrolytes, glucose, and tolerance to TPN. ANGELA VILLAVICENCIO [facility], 10/11/21 [id number]
--- NOTE | 2021-10-11 15:00 | PDOC ---
PROGRESS NOTES Date of Service: DATE: 10/11/21 TIME: 14:59 Subjective Subjective More alert, on BiPAP Objective Objective Vital Signs Date Time Temp Pulse Resp B/P (MAP) Pulse Ox O2 Delivery O2 Flow Rate FiO2 10/11/21 14:00 91 38 152/86 91 BiPAP/CPAP 40.0 10/11/21 12:00 98.1 98.1 Intake and Output 10/11/21 07:00 Intake Total 2364.46 ml Output Total 1275 ml Balance 1089.46 ml IV Total 2364.46 ml Output Urine Total 1275 ml Physical Exam Abdomen: Soft Heart: Regular rate (SR), Other (tele stable, sinus) Extremities: No clubbing, No edema, Normal pulses General: Alert, Oriented X3, Cooperative, No acute distress HEENT: Atraumatic Lungs: Other (on vapotherm ) MUSCULOSKELETAL: Osteoarthritic changes both hands Neuro: Normal speech, Sensation intact Psych/Mental Status: Mental status NL, Mood NL Skin: No rashes, No significant lesion Assessment Assessment 1. Acute respiratory failure secondary to COVID 2. Tachyarrhythmia; noted with AT, bursts of SVT. improved with BB. Now SR 3. Hypertension; labile 4. Hyperthyroidism; as per IM 5. Leukocytosis Recommendations Continue metoprolol and hydralazine ASA therapy Ongoing lung optimization, treatment of COVID as per pulmonary team Supportive care Plan Plan of Care Problems Medical Problems: (1) Hypoxia Status: Acute (2) Pneumonia due to COVID-19 virus Status: Acute Comment Review of Relevant I have reviewed the following items dino (where applicable) has been applied. Labs Laboratory Tests Test 10/10/21 18:10 10/11/21 12:16 10/11/21 13:00 Glucose (Fingerstick) 143 mg/dL (70-99) 123 mg/dL (70-99) Sodium Level 139 mmol/L (136-145) Potassium Level 3.7 mmol/L (3.5-5.1) Chloride Level 102 mmol/L (98-107) Carbon Dioxide Level 30 mmol/L (21-32) Anion Gap 7 (6-14) Blood Urea Nitrogen 19 mg/dL (8-26) Creatinine 0.5 mg/dL (0.7-1.3) Estimated GFR (Cockcroft-Gault) 168.5 Glucose Level 150 mg/dL (70-99) Calcium Level 7.7 mg/dL (8.5-10.1) Phosphorus Level 3.6 mg/dL (2.6-4.7) Magnesium Level 2.0 mg/dL (1.8-2.4) Microbiology 09/25/21 Blood Culture - Final, Complete NO GROWTH AFTER 5 DAYS Medications Current Medications Alteplase, Recombinant (Cathflo For Central Catheter Clearance) 1 mg 1X ONCE INT CAT Last administered on 10/11/21at 09:35; Start 10/11/21 at 09:00; Stop 10/11/21 at 09:01; Status DC Alteplase, Recombinant (Cathflo For Central Catheter Clearance) 1 mg 1X ONCE INT CAT Last administered on 10/11/21at 11:12; Start 10/11/21 at 10:45; Stop 10/11/21 at 10:46; Status DC Sodium Chloride 80 meq/Potassium Chloride 50 meq/ Potassium Phosphate 13.6 mmol/Calcium Gluconate 10 meq/ Multivitamins 10 ml/Zinc/Copper/ Manganese/ Selenium 1 ml/ Total Parenteral Nutrition/Amino Acids/Dextrose 1,512 ml @ 63 mls/hr TPN CONT IV Last administered on 10/10/21at 22:18; Start 10/10/21 at 22:00; Stop 10/11/21 at 21:59 Sodium Chloride 80 meq/Potassium Chloride 60 meq/ Potassium Phosphate 13.6 mmol/Calcium Gluconate 10 meq/ Multivitamins 10 ml/Zinc/Copper/ Manganese/ Selenium 1 ml/ Total Parenteral Nutrition/Amino Acids/Dextrose/ Fat Emulsion Intravenous 1,512 ml @ 63 mls/hr TPN CONT IV ; Start 10/11/21 at 22:00; Stop 10/12/21 at 21:59 Sterile Water (WATER for RESP) 2,000 ml CONT PRN INH VIA VAPOTHERM DEVICE; Start 10/10/21 at 15:45 Vitals/I & O Vital Sign - Last 24 Hours 10/10/21 10/10/21 10/10/21 10/10/21 15:00 15:26 16:00 16:00 Temp 98.0 98.0 Pulse 88 82 Resp 40 45 B/P (MAP) 150/93 123/89 Pulse Ox 87 86 87 O2 Delivery BiPAP/CPAP BiPAP/CPAP BiPAP/CPAP O2 Flow Rate 40.0 40.0 40.0 10/10/21 10/10/21 10/10/21 10/10/21 16:00 17:00 18:00 19:00 Pulse 82 72 77 Resp 40 40 35 B/P (MAP) 148/104 152/97 152/86 Pulse Ox 92 89 86 O2 Delivery Bi-pap BiPAP/CPAP BiPAP/CPAP BiPAP/CPAP O2 Flow Rate 40.0 40.0 40.0 40.0 10/10/21 10/10/21 10/10/21 10/10/21 19:00 20:00 20:00 20:00 Temp 97.9 97.9 Pulse 75 Resp 35 B/P (MAP) 158/97 Pulse Ox 86 86 O2 Delivery BiPAP/CPAP BiPAP/CPAP Bi-pap O2 Flow Rate 40.0 40.0 40.0 10/10/21 10/10/21 10/10/21 10/10/21 21:00 22:00 22:00 23:00 Pulse 75 86 73 Resp 29 34 28 B/P (MAP) 131/75 155/90 179/95 Pulse Ox 86 88 90 87 O2 Delivery BiPAP/CPAP BiPAP/CPAP BiPAP/CPAP BiPAP/CPAP O2 Flow Rate 40.0 40.0 40.0 10/10/21 10/10/21 10/10/21 10/11/21 23:59 23:59 23:59 01:00 Temp 98.2 98.2 Pulse 75 68 Resp 26 27 B/P (MAP) 161/85 139/92 Pulse Ox 91 92 O2 Delivery Bi-pap BiPAP/CPAP BiPAP/CPAP O2 Flow Rate 40.0 40.0 40.0 40.0 10/11/21 10/11/21 10/11/21 10/11/21 01:30 02:00 02:44 03:00 Pulse 75 88 Resp 31 25 B/P (MAP) 142/92 138/86 Pulse Ox 91 91 91 89 O2 Delivery BiPAP/CPAP BiPAP/CPAP BiPAP/CPAP O2 Flow Rate 40.0 40.0 40.0 10/11/21 10/11/21 10/11/21 10/11/21 03:54 04:00 04:00 04:00 Temp 98.0 98.0 Pulse 81 Resp 32 B/P (MAP) 125/75 Pulse Ox 91 90 O2 Delivery Bi-pap BiPAP/CPAP O2 Flow Rate 40.0 40.0 40.0 40.0 10/11/21 10/11/21 10/11/21 10/11/21 04:30 05:00 05:55 06:00 Pulse 77 78 Resp 23 28 B/P (MAP) 170/90 135/86 Pulse Ox 90 91 91 90 O2 Delivery BiPAP/CPAP BiPAP/CPAP BiPAP/CPAP O2 Flow Rate 40.0 40.0 40.0 10/11/21 10/11/21 10/11/21 10/11/21 06:25 07:00 08:00 08:00 Temp 98.0 98.0 Pulse 89 72 Resp 35 35 37 B/P (MAP) 165/95 169/81 Pulse Ox 82 87 90 O2 Delivery BiPAP/CPAP BiPAP/CPAP BiPAP/CPAP O2 Flow Rate 40.0 40.0 40.0 40.0 10/11/21 10/11/21 10/11/21 10/11/21 08:00 09:00 09:10 09:36 Pulse 86 Resp 35 45 B/P (MAP) 171/96 Pulse Ox 87 85 76 O2 Delivery Bi-pap BiPAP/CPAP BiPAP/CPAP O2 Flow Rate 40.0 40.0 40.0 10/11/21 10/11/21 10/11/21 10/11/21 10:00 10:06 11:00 11:22 Pulse 86 82 Resp 35 37 38 B/P (MAP) 159/92 153/92 Pulse Ox 87 89 87 89 O2 Delivery BiPAP/CPAP BiPAP/CPAP BiPAP/CPAP BiPAP/CPAP O2 Flow Rate 40.0 40.0 40.0 10/11/21 10/11/21 10/11/21 10/11/21 12:00 12:00 12:00 12:21 Temp 98.1 98.1 Pulse 94 Resp 35 35 B/P (MAP) 152/86 Pulse Ox 84 84 O2 Delivery Bi-pap BiPAP/CPAP O2 Flow Rate 40.0 40.0 40.0 40.0 10/11/21 10/11/21 10/11/21 10/11/21 12:51 13:00 13:32 14:00 Pulse 91 91 Resp 32 38 38 B/P (MAP) 110/67 152/86 Pulse Ox 84 87 91 91 O2 Delivery BiPAP/CPAP BiPAP/CPAP BiPAP/CPAP O2 Flow Rate 40.0 40.0 40.0 Intake and Output 10/10/21 10/10/21 10/11/21 15:00 23:00 07:00 Intake Total 1353.46 ml 1011 ml Output Total 625 ml 400 ml 250 ml Balance -625 ml 953.46 ml 761 ml CHANDLER CRUZ MD Oct 11, 2021 15:00
[2021-10-11] MEDS ORDERED: TOTAL PARENTERAL NUTRITION IV SCH (22:00)
[2021-10-11] MEDS ORDERED: AMINO ACID IV SCH (22:00)
[2021-10-11] MEDS ORDERED: [UNRECOGNIZED DRUG - OTHER] IV SCH (22:00)
[2021-10-11] MEDS ORDERED: DEXTROSE 70% IV SCH (22:00)
[2021-10-12] VITALS (23 sets, daily range): BP systolic 112–172; BP diastolic 66–93
[2021-10-12] MEDS: DEXMEDETOMIDINE 400 MCG in IV NORMAL SALINE 100ML 96 ML IV PRN ×5 (00:56→21:46)
[2021-10-12] MEDS: PIPERACILLIN/TAZOBACTAM 3.375 GM in IV NORMAL SALINE 50ML 50 ML IV SCH ×2 (04:58→11:43)
--- NOTE | 2021-10-12 05:29 | PDOC ---
PULMONARY PROGRESS NOTES DATE: 10/12/21 TIME: 05:27 Subjective Patient with no new complaints Vapotherm, and BiPAP. 16/8 fio2 100% Vitals Vital Signs Date Time Temp Pulse Resp B/P (MAP) Pulse Ox O2 Delivery O2 Flow Rate FiO2 10/12/21 04:10 Bi-pap 40.0 10/12/21 04:08 97.4 71 147/83 90 97.4 10/12/21 03:07 30 General: Alert, No acute distress Lungs: Other Cardiovascular: S1, S2 Abdomen: Soft Neuro Exam: Alert Extremities: No Edema Skin: Warm Labs Laboratory Tests Test 10/10/21 12:42 10/10/21 18:10 10/11/21 12:16 10/11/21 13:00 Glucose (Fingerstick) 174 mg/dL (70-99) 143 mg/dL (70-99) 123 mg/dL (70-99) Sodium Level 139 mmol/L (136-145) Potassium Level 3.7 mmol/L (3.5-5.1) Chloride Level 102 mmol/L (98-107) Carbon Dioxide Level 30 mmol/L (21-32) Anion Gap 7 (6-14) Blood Urea Nitrogen 19 mg/dL (8-26) Creatinine 0.5 mg/dL (0.7-1.3) Estimated GFR (Cockcroft-Gault) 168.5 Glucose Level 150 mg/dL (70-99) Calcium Level 7.7 mg/dL (8.5-10.1) Phosphorus Level 3.6 mg/dL (2.6-4.7) Magnesium Level 2.0 mg/dL (1.8-2.4) Test 10/11/21 17:02 10/11/21 23:24 10/12/21 05:22 Glucose (Fingerstick) 142 mg/dL (70-99) 167 mg/dL (70-99) 121 mg/dL (70-99) Laboratory Tests Test 10/11/21 12:16 10/11/21 13:00 10/11/21 17:02 10/11/21 23:24 Glucose (Fingerstick) 123 mg/dL (70-99) 142 mg/dL (70-99) 167 mg/dL (70-99) Sodium Level 139 mmol/L (136-145) Potassium Level 3.7 mmol/L (3.5-5.1) Chloride Level 102 mmol/L (98-107) Carbon Dioxide Level 30 mmol/L (21-32) Anion Gap 7 (6-14) Blood Urea Nitrogen 19 mg/dL (8-26) Creatinine 0.5 mg/dL (0.7-1.3) Estimated GFR (Cockcroft-Gault) 168.5 Glucose Level 150 mg/dL (70-99) Calcium Level 7.7 mg/dL (8.5-10.1) Phosphorus Level 3.6 mg/dL (2.6-4.7) Magnesium Level 2.0 mg/dL (1.8-2.4) Test 10/12/21 05:22 Glucose (Fingerstick) 121 mg/dL (70-99) Medications Active Scripts Medications Dose Route/Sig Max Daily Dose Days Date Category Oxycodone Hcl 5 Mg Capsule 5 Mg PO PRN Q4HRS PRN 08/01/21 Rx Tramadol Hcl 50 Mg Tablet 50 Mg PO Q4HRS PRN 08/01/21 Rx Warfarin Sodium 4 Mg Tablet 4 Mg PO DAILY 28 08/01/21 Rx Timoptic 0.5% (Timolol Maleate) 10 Ml Drops 1 Drop OD BID 30 07/17/21 Reported Lisinopril 10 Mg Tablet 10 Mg PO DAILY 07/17/21 Reported Comments Chest x-ray reviewed dated 10/01/2021. Diffuse bilateral interstitial infiltrates. No significant pleural effusion. There is mild progression. No evidence of pneumothorax Impression . 1. Acute hypoxic respiratory failure secondary to COVID-19 viral pneumonia. 2. COVID-19 viral pneumonia/early acute respiratory distress syndrome. 3. Abnormal chest x-ray with diffuse bilateral infiltrates consistent with viral pneumonia. 4. Mildly increased liver function test. Likely due to COVID. 5. Mild leukopenia. Secondary to COVID. 6. Markedly elevated CRP level of 197. Status post Actemra. He received on 09/30/2021 Plan . Updated 10/12 bipap setting reviewed 24/06 o2 sat 87% will increase epap to 10 and 12 if needed discussed w rt start steroid elevate hob We will continue current support Received remdesivir and tocilizumab Patient has elected to DO NOT INTUBATE DO NOT RESUSCITATE discussed w rn rt Updated 10/11 Patient saturations today better Needs not utilizing accessory muscles We will continue current support Up to chair if possible Received remdesivir and tocilizumab Patient has elected to DO NOT INTUBATE DO NOT RESUSCITATE updated 10/10 Continue current support BiPAP Nutritional support Up to chair if possible HELEN SILVA MD Oct 12, 2021 05:29
[2021-10-12] MEDS: PANTOPRAZOLE IV PUSH 40 MG VIAL. IVP SCH (06:08)
[2021-10-12] MEDS: ASPIRIN CHEWABLE 81 MG TABLET. PO SCH (08:00)
[2021-10-12] MEDS: SENNOSIDES/DOCUSATE 8.6/50MG TABLET. PO SCH ×2 (08:09→20:44)
[2021-10-12] MEDS: ENOXAPARIN 40 MG/0.4 ML SYRINGE. SQ SCH (08:10)
[2021-10-12] MEDS: DOXYCYCLINE HYCLATE 100 MG in IV DEXTROSE 5% 100ML 100 ML IV SCH (08:11)
[2021-10-12] MEDS: TIMOLOL 0.5% OPHTH SOLUTION 5ML BOTTLE. OD SCH ×2 (09:30→20:45)
[2021-10-12] MEDS: MORPHINE SULFATE 2 MG/ML INJ. IVP PRN ×3 (09:30→20:45)
--- NOTE | 2021-10-12 10:30 | NUR ---
Pt requested oral care, Bipap off for about 30 seconds and sats dropped to 60 and heart rate noted to drop to the 50's. Bipap reapplied and sats back up to the mid 80's with in 45 seconds. Pt states that he does not want any pain meds at this time. Pt resting in bed. Daughter jatinder haynes dn updated on patient condition.
[2021-10-12 10:48] LABS: BASO % 0 % (0-3); EOS # 0.9 x10^3/uL (0.0-0.7); EOS % 6 % (0-3); HEMATOCRIT 44.6 % (39.0-53.0); HEMOGLOBIN 14.1 g/dL (13.0-17.5); LYMPH # 0.6 x10^3/uL (1.0-4.8); LYMPH % 4 % (24-48); MEAN CORPUSCULAR HEMOGLOBIN 28 pg (25-35); MEAN CORPUSCULAR HGB CONC 32 g/dL (31-37); MEAN CORPUSCULAR VOLUME 87 fL (79-100); MONO # 0.6 x10^3/uL (0.0-1.1); MONO % 4 % (0-9); NEUT # 12.4 x10^3/uL (1.8-7.7); NEUT % 85 % (31-73); PLATELET COUNT 170 x10^3/uL (140-400); RED CELL DISTRIBUTION WIDTH 16.6 % (11.5-14.5); WHITE BLOOD COUNT 14.5 x10^3/uL (4.0-11.0)
[2021-10-12 10:53] LABS: ALBUMIN 2.5 g/dL (3.4-5.0); ALBUMIN/GLOBULIN RATIO 0.7 (1.0-1.7); CALCIUM 7.6 mg/dL (8.5-10.1); CREATININE 0.4 mg/dL (0.7-1.3); TOTAL BILIRUBIN 0.8 mg/dL (0.2-1.0); TOTAL PROTEIN 6.2 g/dL (6.4-8.2)
[2021-10-12] MEDS: methylPREDNISolone SOD SUCC PF 40 MG/ML VIAL. IV SCH ×2 (11:42→20:44)
[2021-10-12] MEDS ORDERED: SUCCINYLCHOLINE 200 MG/10 ML VIAL. IV ONE (12:15)
[2021-10-12] MEDS ORDERED: ETOMIDATE 20 MG/10 ML VIAL. IV ONE (12:15)
[2021-10-12] MEDS: TPN PER PHARMACY MC PRN (13:18)
--- NOTE | 2021-10-12 13:18 | NUR ---
Pharmacy TPN Dosing Note S: ILAVANIA is a 60 year old M Currently receiving Central Continuous TPN started 10/04/21 B:Pertinent PMH: NPO Height: 5 feet, 7 inches Weight: 87.4 kg Current diet: NPO LABS: Sodium: 138 Potassium: 4 Chloride: 100 Calcium: 7.6 Corrected Calcium: 8.80 Magnesium: 2 CO2: 31 SCr: 0.4 Glucose: 139 Albumin: 2.5 AST: 52 ALT: 105 TPN FORMULA: TPN TYPE: Central Continuous AMINO ACIDS: 80 gm DEXTROSE: 255 gm SODIUM CHLORIDE: 80 mEq POTASSIUM CHLORIDE: 60 mEq POTASSIUM PHOSPHATE: 13.6 mmol CALCIUM: 10 mEq MULTIPLE VITAMIN: 10 ml TRACE ELEMENTS: 1 ml TPN PLAN: -Electrolytes appear WNL and stable. -LFTs trending up, monitor with labs tomorrow. -CMP tomorrow. R: Continue TPN @ current rate and above formula. Will monitor electrolytes, glucose, and tolerance to TPN. TESSA LOYA [facility], 10/12/21 [id number]
[2021-10-12] MEDS: hydrALAZINE 20 MG/ML VIAL. IVP PRN ×2 (15:21→20:45)
--- NOTE | 2021-10-12 15:49 | PDOC ---
[employer] PROGRESS NOTE Date of Service DOS: DATE: 10/12/21 TIME: 15:48 Chief Complaint Chief Complaint acute Covid-19 Pneumonia status post remdesivir and Actemra Acute hypoxic respiratory failure requiring Vapotherm and bipap support SEPSIS malnutrition Hypertension Knee replacement Appreciate pulmonology recommendationscontinue Vapotherm and as needed BiPAP Continue with IV steroids for total 10 days Continue empiric IV antibiotics Lovenox for DVT prophylaxis Continue Protonix for GI prophylaxis while on steroids CODE - DNR/DNI History of Present Illness History of Present Illness 10/12. doing about the same, more alert, on BIPAP, is still calm and responsive n has gotten over 2 weeks abx, will stop , cont current, doing OK still Mr Lehman is a 60-year-old male with PMHx HTN brought into the hospital due to cough and trouble breathing for the last 10 days, notes his father was positive for COVID 19 and was hospitalized. He has not been vaccinated against COVID 19. 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 Notably hypoxic on initial examination. Chest x-ray on admission showed multifocal bilateral patchy infiltrates. Rapid COVID 19 positive, started on dexamethasone, Lovenox for DVT prophylaxis along with remdesivir and admitted for further care. Vitals/I&O Vitals/I&O: Vital Signs Date Time Temp Pulse Resp B/P (MAP) Pulse Ox O2 Delivery O2 Flow Rate FiO2 10/12/21 15:21 92 180/91 10/12/21 15:20 30 90 BiPAP/CPAP 40.0 10/12/21 13:00 98.1 98.1 I & O 10/11/21 10/11/21 10/12/21 15:00 23:00 07:00 Intake Total 100 ml 1190.68 ml 50 ml Output Total 325 ml 75 ml 1100 ml Balance -225 ml 1115.68 ml -1050 ml Physical Exam General: Alert, Oriented X3, Cooperative, No acute distress Heart: Regular rate (SR), Other (tele stable, sinus) Lungs: Other Abdomen: Soft Extremities: No clubbing, No edema, Normal pulses Skin: No rashes, No significant lesion Labs Labs: Laboratory Tests Test 10/11/21 17:02 10/11/21 23:24 10/12/21 05:22 10/12/21 10:30 Glucose (Fingerstick) 142 mg/dL (70-99) 167 mg/dL (70-99) 121 mg/dL (70-99) White Blood Count 14.5 x10^3/uL (4.0-11.0) Red Blood Count 5.10 x10^6/uL (4.30-5.70) Hemoglobin 14.1 g/dL (13.0-17.5) Hematocrit 44.6 % (39.0-53.0) Mean Corpuscular Volume 87 fL (79-100) Mean Corpuscular Hemoglobin 28 pg (25-35) Mean Corpuscular Hemoglobin Concent 32 g/dL (31-37) Red Cell Distribution Width 16.6 % (11.5-14.5) Platelet Count 170 x10^3/uL (140-400) Neutrophils (%) (Auto) 85 % (31-73) Lymphocytes (%) (Auto) 4 % (24-48) Monocytes (%) (Auto) 4 % (0-9) Eosinophils (%) (Auto) 6 % (0-3) Basophils (%) (Auto) 0 % (0-3) Neutrophils # (Auto) 12.4 x10^3/uL (1.8-7.7) Lymphocytes # (Auto) 0.6 x10^3/uL (1.0-4.8) Monocytes # (Auto) 0.6 x10^3/uL (0.0-1.1) Eosinophils # (Auto) 0.9 x10^3/uL (0.0-0.7) Basophils # (Auto) 0.0 x10^3/uL (0.0-0.2) Sodium Level 138 mmol/L (136-145) Potassium Level 4.0 mmol/L (3.5-5.1) Chloride Level 100 mmol/L (98-107) Carbon Dioxide Level 31 mmol/L (21-32) Anion Gap 7 (6-14) Blood Urea Nitrogen 17 mg/dL (8-26) Creatinine 0.4 mg/dL (0.7-1.3) Estimated GFR (Cockcroft-Gault) 218.0 BUN/Creatinine Ratio 43 (6-20) Glucose Level 139 mg/dL (70-99) Calcium Level 7.6 mg/dL (8.5-10.1) Total Bilirubin 0.8 mg/dL (0.2-1.0) Aspartate Amino Transf (AST/SGOT) 52 U/L (15-37) Alanine Aminotransferase (ALT/SGPT) 105 U/L (16-63) Alkaline Phosphatase 133 U/L (46-116) Total Protein 6.2 g/dL (6.4-8.2) Albumin 2.5 g/dL (3.4-5.0) Albumin/Globulin Ratio 0.7 (1.0-1.7) Assessment and Plan Assessmemt and Plan Problems Medical Problems: (1) Hypoxia Status: Acute (2) Pneumonia due to COVID-19 virus Status: Acute Comment Review of Relevant I have reviewed the following items dino (where applicable) has been applied. Medications: Current Medications Medications (Trade) Dose Ordered Sig/Jody Route PRN Reason Start Time Stop Time Status Last Admin Dose Admin Sodium Chloride 80 meq/Potassium Chloride 60 meq/ Potassium Phosphate 13.6 mmol/Calcium Gluconate 10 meq/ Multivitamins 10 ml/Zinc/Copper/ Manganese/ Selenium 1 ml/ Total Parenteral Nutrition/Amino Acids/Dextrose/ Fat Emulsion Intravenous 1,512 ml @ 63 mls/hr TPN CONT IV 10/11/21 22:00 10/12/21 21:59 10/11/21 20:20 Methylprednisolone Sodium Succinate (SOLU-Medrol 40MG VIAL) 40 mg Q12HR IV 10/12/21 11:30 10/12/21 11:42 Justifications for Admission Other Justification NANCY MAN MD Oct 12, 2021 15:49
[2021-10-12] MEDS ORDERED: TOTAL PARENTERAL NUTRITION IV SCH (22:00)
[2021-10-12] MEDS ORDERED: AMINO ACID IV SCH (22:00)
[2021-10-12] MEDS ORDERED: [UNRECOGNIZED DRUG - OTHER] IV SCH (22:00)
[2021-10-12] MEDS ORDERED: DEXTROSE 70% IV SCH (22:00)
[2021-10-12] MEDS: STERILE WATER for RESP 2,000 ML BAG. INH PRN (23:31)
[2021-10-13] VITALS (22 sets, daily range): BP systolic 101–171; BP diastolic 62–90
[2021-10-13] MEDS: DEXMEDETOMIDINE 400 MCG in IV NORMAL SALINE 100ML 96 ML IV PRN ×5 (02:07→21:56)
--- NOTE | 2021-10-13 05:30 | PDOC ---
PULMONARY PROGRESS NOTES DATE: 10/13/21 TIME: 05:28 Subjective on precedex on Vapotherm, and BiPAP. 16 fio2 100% o2 sat 97% Vitals Vital Signs Date Time Temp Pulse Resp B/P (MAP) Pulse Ox O2 Delivery O2 Flow Rate FiO2 10/13/21 04:00 40.0 10/13/21 04:00 96.7 75 35 138/75 90 VAPO THERM 96.7 General: No acute distress Lungs: Other Cardiovascular: S1, S2 Abdomen: Other (obese) Extremities: No Edema Skin: No Rashes Labs Laboratory Tests Test 10/11/21 12:16 10/11/21 13:00 10/11/21 17:02 10/11/21 23:24 Glucose (Fingerstick) 123 mg/dL (70-99) 142 mg/dL (70-99) 167 mg/dL (70-99) Sodium Level 139 mmol/L (136-145) Potassium Level 3.7 mmol/L (3.5-5.1) Chloride Level 102 mmol/L (98-107) Carbon Dioxide Level 30 mmol/L (21-32) Anion Gap 7 (6-14) Blood Urea Nitrogen 19 mg/dL (8-26) Creatinine 0.5 mg/dL (0.7-1.3) Estimated GFR (Cockcroft-Gault) 168.5 Glucose Level 150 mg/dL (70-99) Calcium Level 7.7 mg/dL (8.5-10.1) Phosphorus Level 3.6 mg/dL (2.6-4.7) Magnesium Level 2.0 mg/dL (1.8-2.4) Test 10/12/21 05:22 10/12/21 10:30 Glucose (Fingerstick) 121 mg/dL (70-99) White Blood Count 14.5 x10^3/uL (4.0-11.0) Red Blood Count 5.10 x10^6/uL (4.30-5.70) Hemoglobin 14.1 g/dL (13.0-17.5) Hematocrit 44.6 % (39.0-53.0) Mean Corpuscular Volume 87 fL (79-100) Mean Corpuscular Hemoglobin 28 pg (25-35) Mean Corpuscular Hemoglobin Concent 32 g/dL (31-37) Red Cell Distribution Width 16.6 % (11.5-14.5) Platelet Count 170 x10^3/uL (140-400) Neutrophils (%) (Auto) 85 % (31-73) Lymphocytes (%) (Auto) 4 % (24-48) Monocytes (%) (Auto) 4 % (0-9) Eosinophils (%) (Auto) 6 % (0-3) Basophils (%) (Auto) 0 % (0-3) Neutrophils # (Auto) 12.4 x10^3/uL (1.8-7.7) Lymphocytes # (Auto) 0.6 x10^3/uL (1.0-4.8) Monocytes # (Auto) 0.6 x10^3/uL (0.0-1.1) Eosinophils # (Auto) 0.9 x10^3/uL (0.0-0.7) Basophils # (Auto) 0.0 x10^3/uL (0.0-0.2) Sodium Level 138 mmol/L (136-145) Potassium Level 4.0 mmol/L (3.5-5.1) Chloride Level 100 mmol/L (98-107) Carbon Dioxide Level 31 mmol/L (21-32) Anion Gap 7 (6-14) Blood Urea Nitrogen 17 mg/dL (8-26) Creatinine 0.4 mg/dL (0.7-1.3) Estimated GFR (Cockcroft-Gault) 218.0 BUN/Creatinine Ratio 43 (6-20) Glucose Level 139 mg/dL (70-99) Calcium Level 7.6 mg/dL (8.5-10.1) Total Bilirubin 0.8 mg/dL (0.2-1.0) Aspartate Amino Transf (AST/SGOT) 52 U/L (15-37) Alanine Aminotransferase (ALT/SGPT) 105 U/L (16-63) Alkaline Phosphatase 133 U/L (46-116) Total Protein 6.2 g/dL (6.4-8.2) Albumin 2.5 g/dL (3.4-5.0) Albumin/Globulin Ratio 0.7 (1.0-1.7) Laboratory Tests Test 10/12/21 10:30 White Blood Count 14.5 x10^3/uL (4.0-11.0) Red Blood Count 5.10 x10^6/uL (4.30-5.70) Hemoglobin 14.1 g/dL (13.0-17.5) Hematocrit 44.6 % (39.0-53.0) Mean Corpuscular Volume 87 fL (79-100) Mean Corpuscular Hemoglobin 28 pg (25-35) Mean Corpuscular Hemoglobin Concent 32 g/dL (31-37) Red Cell Distribution Width 16.6 % (11.5-14.5) Platelet Count 170 x10^3/uL (140-400) Neutrophils (%) (Auto) 85 % (31-73) Lymphocytes (%) (Auto) 4 % (24-48) Monocytes (%) (Auto) 4 % (0-9) Eosinophils (%) (Auto) 6 % (0-3) Basophils (%) (Auto) 0 % (0-3) Neutrophils # (Auto) 12.4 x10^3/uL (1.8-7.7) Lymphocytes # (Auto) 0.6 x10^3/uL (1.0-4.8) Monocytes # (Auto) 0.6 x10^3/uL (0.0-1.1) Eosinophils # (Auto) 0.9 x10^3/uL (0.0-0.7) Basophils # (Auto) 0.0 x10^3/uL (0.0-0.2) Sodium Level 138 mmol/L (136-145) Potassium Level 4.0 mmol/L (3.5-5.1) Chloride Level 100 mmol/L (98-107) Carbon Dioxide Level 31 mmol/L (21-32) Anion Gap 7 (6-14) Blood Urea Nitrogen 17 mg/dL (8-26) Creatinine 0.4 mg/dL (0.7-1.3) Estimated GFR (Cockcroft-Gault) 218.0 BUN/Creatinine Ratio 43 (6-20) Glucose Level 139 mg/dL (70-99) Calcium Level 7.6 mg/dL (8.5-10.1) Total Bilirubin 0.8 mg/dL (0.2-1.0) Aspartate Amino Transf (AST/SGOT) 52 U/L (15-37) Alanine Aminotransferase (ALT/SGPT) 105 U/L (16-63) Alkaline Phosphatase 133 U/L (46-116) Total Protein 6.2 g/dL (6.4-8.2) Albumin 2.5 g/dL (3.4-5.0) Albumin/Globulin Ratio 0.7 (1.0-1.7) Medications Active Scripts Medications Dose Route/Sig Max Daily Dose Days Date Category Oxycodone Hcl 5 Mg Capsule 5 Mg PO PRN Q4HRS PRN 08/01/21 Rx Tramadol Hcl 50 Mg Tablet 50 Mg PO Q4HRS PRN 08/01/21 Rx Warfarin Sodium 4 Mg Tablet 4 Mg PO DAILY 28 08/01/21 Rx Timoptic 0.5% (Timolol Maleate) 10 Ml Drops 1 Drop OD BID 30 07/17/21 Reported Lisinopril 10 Mg Tablet 10 Mg PO DAILY 07/17/21 Reported Comments Chest x-ray reviewed dated 10/01/2021. Diffuse bilateral interstitial infiltrates. No significant pleural effusion. There is mild progression. No evidence of pneumothorax Impression . 1. Acute hypoxic respiratory failure secondary to COVID-19 viral pneumonia. 2. COVID-19 viral pneumonia/early acute respiratory distress syndrome. 3. Abnormal chest x-ray with diffuse bilateral infiltrates consistent with viral pneumonia. 4. Mildly increased liver function test. Likely due to COVID. 5. Mild leukopenia. Secondary to COVID. 6. Markedly elevated CRP level of 197. Status post Actemra. He received on 09/30/2021 Plan . Updated 10/13 bipap setting reviewed titrate fio2 to keep sat 90% on precedex cont steroid elevate hob continue current support s/p remdesivir and tocilizumab Patient has elected to DO NOT INTUBATE DO NOT RESUSCITATE discussed w rn rt Updated 10/12 bipap setting reviewed 24/06 o2 sat 87% will increase epap to 10 and 12 if needed discussed w rt start steroid elevate hob We will continue current support Received remdesivir and tocilizumab Patient has elected to DO NOT INTUBATE DO NOT RESUSCITATE discussed w rn rt Updated 10/11 Patient saturations today better Needs not utilizing accessory muscles We will continue current support Up to chair if possible Received remdesivir and tocilizumab Patient has elected to DO NOT INTUBATE DO NOT RESUSCITATE updated 10/10 Continue current support BiPAP Nutritional support Up to chair if possible HELEN SILVA MD Oct 13, 2021 05:30
[2021-10-13 05:52] LABS: ALBUMIN 2.8 g/dL (3.4-5.0); ALBUMIN/GLOBULIN RATIO 0.8 (1.0-1.7); CALCIUM 8.2 mg/dL (8.5-10.1); CREATININE 0.5 mg/dL (0.7-1.3); GFR 168.5; POTASSIUM 4.8 mmol/L (3.5-5.1); TOTAL BILIRUBIN 0.8 mg/dL (0.2-1.0); TOTAL PROTEIN 6.3 g/dL (6.4-8.2)
[2021-10-13] MEDS: ASPIRIN CHEWABLE 81 MG TABLET. PO SCH (07:37)
[2021-10-13] MEDS: SENNOSIDES/DOCUSATE 8.6/50MG TABLET. PO SCH ×2 (07:37→21:20)
[2021-10-13] MEDS: methylPREDNISolone SOD SUCC PF 40 MG/ML VIAL. IV SCH ×2 (08:42→21:20)
[2021-10-13] MEDS: TIMOLOL 0.5% OPHTH SOLUTION 5ML BOTTLE. OD SCH ×2 (08:42→21:21)
[2021-10-13] MEDS: ENOXAPARIN 40 MG/0.4 ML SYRINGE. SQ SCH (08:42)
[2021-10-13] MEDS: PANTOPRAZOLE IV PUSH 40 MG VIAL. IVP SCH (08:42)
[2021-10-13] MEDS: STERILE WATER for RESP 2,000 ML BAG. INH PRN (08:47)
[2021-10-13] MEDS: TPN PER PHARMACY MC PRN (12:16)
--- NOTE | 2021-10-13 12:16 | NUR ---
Pharmacy TPN Dosing Note S: ILAVANIA is a 60 year old M Currently receiving Central Continuous TPN started 10/04/21 B:Pertinent PMH:NPO Height: 5 feet, 7 inches Weight: 87.6 kg Current diet: NPO LABS: Sodium: 135 Potassium: 4.8 Chloride: 96 Calcium: 8.2 Corrected Calcium: 9.16 Magnesium: 2 CO2: 32 SCr: 0.5 Glucose: 163 Albumin: 2.8 AST: 40 ALT: 122 TPN FORMULA: TPN TYPE: Central Continuous AMINO ACIDS: 80 gm DEXTROSE: 255 gm LIPIDS: 0 gm SODIUM CHLORIDE: 80 mEq POTASSIUM CHLORIDE: 30 mEq POTASSIUM PHOSPHATE: 13.6 mmol CALCIUM: 10 mEq MULTIPLE VITAMIN: 10 ml TRACE ELEMENTS: 1 ml TPN PLAN: -Serum potassium with large jump, reduce KCl to 30 mEq/day. -LFTs elevated, but appear stable. -CMP, mag, phos, TG tomorrow per protocol. R: Continue TPN @ current rate and above formula. Will monitor electrolytes, glucose, and tolerance to TPN. TESSA LOYA [facility] [place], 10/13/21 [id number]
--- NOTE | 2021-10-13 15:12 | PDOC ---
PROGRESS NOTES Date of Service DATE: 10/13/21 TIME: 15:10 Subjective Subjective Patient seen and examined Objective Objective Vital Signs Date Time Temp Pulse Resp B/P (MAP) Pulse Ox O2 Delivery O2 Flow Rate FiO2 10/13/21 12:55 97 BiPAP/CPAP 10/13/21 12:00 40.0 10/13/21 11:58 98.1 70 122/66 98.1 10/13/21 06:00 18 Intake and Output 10/13/21 07:00 Intake Total 3332 ml Output Total 2501 ml Balance 831 ml Intake Oral 240 ml IV Total 3092 ml Output Urine Total 2500 ml Stool Total 1 ml Physical Exam Abdomen: Normal bowel sounds Heart: Regular rate General: mild distress Lungs: Other (Decreased breath sounds) Assessment Assessment Problems Medical Problems: (1) Hypoxia Status: Acute (2) Pneumonia due to COVID-19 virus Status: Acute 1. Acute respiratory failure secondary to COVID. Gradually improving. 2. Tachyarrhythmia; initial episodes of AT and bursts of SVT. Improved with beta-henry treatment. Continues in sinus rhythm. Improved with BB. Now SR 3. Hypertension; labile. Continuing hydralazine. 4. Hyperthyroidism; as per IM 5. Leukocytosis Comment Review of Relevant I have reviewed the following items dino (where applicable) has been applied. Labs Laboratory Tests Test 10/11/21 17:02 10/11/21 23:24 10/12/21 05:22 10/12/21 10:30 Glucose (Fingerstick) 142 mg/dL (70-99) 167 mg/dL (70-99) 121 mg/dL (70-99) White Blood Count 14.5 x10^3/uL (4.0-11.0) Red Blood Count 5.10 x10^6/uL (4.30-5.70) Hemoglobin 14.1 g/dL (13.0-17.5) Hematocrit 44.6 % (39.0-53.0) Mean Corpuscular Volume 87 fL (79-100) Mean Corpuscular Hemoglobin 28 pg (25-35) Mean Corpuscular Hemoglobin Concent 32 g/dL (31-37) Red Cell Distribution Width 16.6 % (11.5-14.5) Platelet Count 170 x10^3/uL (140-400) Neutrophils (%) (Auto) 85 % (31-73) Lymphocytes (%) (Auto) 4 % (24-48) Monocytes (%) (Auto) 4 % (0-9) Eosinophils (%) (Auto) 6 % (0-3) Basophils (%) (Auto) 0 % (0-3) Neutrophils # (Auto) 12.4 x10^3/uL (1.8-7.7) Lymphocytes # (Auto) 0.6 x10^3/uL (1.0-4.8) Monocytes # (Auto) 0.6 x10^3/uL (0.0-1.1) Eosinophils # (Auto) 0.9 x10^3/uL (0.0-0.7) Basophils # (Auto) 0.0 x10^3/uL (0.0-0.2) Sodium Level 138 mmol/L (136-145) Potassium Level 4.0 mmol/L (3.5-5.1) Chloride Level 100 mmol/L (98-107) Carbon Dioxide Level 31 mmol/L (21-32) Anion Gap 7 (6-14) Blood Urea Nitrogen 17 mg/dL (8-26) Creatinine 0.4 mg/dL (0.7-1.3) Estimated GFR (Cockcroft-Gault) 218.0 BUN/Creatinine Ratio 43 (6-20) Glucose Level 139 mg/dL (70-99) Calcium Level 7.6 mg/dL (8.5-10.1) Total Bilirubin 0.8 mg/dL (0.2-1.0) Aspartate Amino Transf (AST/SGOT) 52 U/L (15-37) Alanine Aminotransferase (ALT/SGPT) 105 U/L (16-63) Alkaline Phosphatase 133 U/L (46-116) Total Protein 6.2 g/dL (6.4-8.2) Albumin 2.5 g/dL (3.4-5.0) Albumin/Globulin Ratio 0.7 (1.0-1.7) Test 10/13/21 04:30 Sodium Level 135 mmol/L (136-145) Potassium Level 4.8 mmol/L (3.5-5.1) Chloride Level 96 mmol/L (98-107) Carbon Dioxide Level 32 mmol/L (21-32) Anion Gap 7 (6-14) Blood Urea Nitrogen 19 mg/dL (8-26) Creatinine 0.5 mg/dL (0.7-1.3) Estimated GFR (Cockcroft-Gault) 168.5 BUN/Creatinine Ratio 38 (6-20) Glucose Level 163 mg/dL (70-99) Calcium Level 8.2 mg/dL (8.5-10.1) Total Bilirubin 0.8 mg/dL (0.2-1.0) Aspartate Amino Transf (AST/SGOT) 40 U/L (15-37) Alanine Aminotransferase (ALT/SGPT) 122 U/L (16-63) Alkaline Phosphatase 142 U/L (46-116) Total Protein 6.3 g/dL (6.4-8.2) Albumin 2.8 g/dL (3.4-5.0) Albumin/Globulin Ratio 0.8 (1.0-1.7) Laboratory Tests Test 10/13/21 04:30 Sodium Level 135 mmol/L (136-145) Potassium Level 4.8 mmol/L (3.5-5.1) Chloride Level 96 mmol/L (98-107) Carbon Dioxide Level 32 mmol/L (21-32) Anion Gap 7 (6-14) Blood Urea Nitrogen 19 mg/dL (8-26) Creatinine 0.5 mg/dL (0.7-1.3) Estimated GFR (Cockcroft-Gault) 168.5 BUN/Creatinine Ratio 38 (6-20) Glucose Level 163 mg/dL (70-99) Calcium Level 8.2 mg/dL (8.5-10.1) Total Bilirubin 0.8 mg/dL (0.2-1.0) Aspartate Amino Transf (AST/SGOT) 40 U/L (15-37) Alanine Aminotransferase (ALT/SGPT) 122 U/L (16-63) Alkaline Phosphatase 142 U/L (46-116) Total Protein 6.3 g/dL (6.4-8.2) Albumin 2.8 g/dL (3.4-5.0) Albumin/Globulin Ratio 0.8 (1.0-1.7) Microbiology 09/25/21 Blood Culture - Final, Complete NO GROWTH AFTER 5 DAYS Medications Current Medications Methylprednisolone Sodium Succinate (SOLU-Medrol 125MG VIAL) 125 mg 1X ONCE IV Last administered on 09/25/21at 09:34; Start 09/25/21 at 09:15; Stop 09/25/21 at 09:16; Status DC Ceftriaxone Sodium (Rocephin) 1 gm 1X ONCE IVP Last administered on 09/25/21at 09:35; Start 09/25/21 at 09:45; Stop 09/25/21 at 09:46; Status DC Azithromycin 250 ml @ 250 mls/hr 1X ONCE IV Last administered on 09/25/21at 09:40; Start 09/25/21 at 09:45; Stop 09/25/21 at 10:44; Status DC Ondansetron HCl (Zofran) 4 mg PRN Q8HRS PRN IVP NAUSEA/VOMITING; Start 09/25/21 at 09:30; Stop 09/26/21 at 09:07; Status DC Sodium Chloride 1,000 ml @ 75 mls/hr [id number] IV Last administered on 09/25/21at 09:40; Start 09/25/21 at 09:30; Stop 09/26/21 at 09:29; Status DC Acetaminophen (Tylenol) 650 mg PRN Q4HRS PRN PO FEVER > 100.3'F; Start 09/25/21 at 09:30; Stop 09/26/21 at 09:07; Status DC Dexamethasone Sodium Phosphate (Decadron) 6 mg DAILY IVP Last administered on 10/05/21at 08:15; Start 09/26/21 at 09:00; Stop 10/05/21 at 21:00; Status DC Multivitamins (Thera M Plus) 1 tab DAILY PO Last administered on 10/02/21at 08:30; Start 09/25/21 at 11:30; Stop 10/05/21 at 10:02; Status DC Guaifenesin/ Codeine Phosphate (Robitussin Ac) 5 ml PRN Q6HRS PRN PO COUGH Last administered on 10/02/21at 11:53; Start 09/25/21 at 11:30 Piperacillin Sod/ Tazobactam Sod (Zosyn Per Pharmacy) 1 each PRN DAILY PRN MC SEE COMMENTS; Start 09/25/21 at 11:30; Stop 10/13/21 at 12:13; Status DC Lisinopril (Prinivil) 10 mg DAILY PO Last administered on 10/02/21at 08:31; Start 09/26/21 at 09:00; Stop 10/04/21 at 09:47; Status DC Timolol Maleate (Timoptic 0.5% [facility]) 1 drop BID OD Last administered on 10/13/21at 08:42; Start 09/25/21 at 21:00 Tramadol HCl (Ultram) 50 mg PRN Q4HRS PRN PO MILD PAIN 1-3; Start 09/25/21 at 11:30 Ondansetron HCl (Zofran) 4 mg PRN Q6HRS PRN IVP NAUSEA/VOMITING; Start at 11:30 Calcium Carbonate/ Glycine (Tums) 500 mg PRN Q3HRS PRN PO UPSET STOMACH; Start 09/25/21 at 11:30 Zolpidem Tartrate (Ambien) 5 mg PRN QHS PRN PO INSOMNIA, MAY REPEAT IN 1HR Last administered on 09/27/21at 00:38; Start 09/25/21 at 11:30 Info (Non-Icu Electrolyte Protocol) 1 ea PRN DAILY PRN MC SEE COMMENTS; Start 09/25/21 at 11:30 Oxycodone HCl (Roxicodone) 5 mg PRN Q3HRS PRN PO BREAKTHROUGH PAIN; Start 09/25/21 at 11:30 Oxycodone/ Acetaminophen (Percocet 5/325) 1 tab PRN Q4HRS PRN PO MILD PAIN, 2ND CHOICE; Start 09/25/21 at 11:30 Oxycodone/ Acetaminophen (Percocet 5/325) 2 tab PRN Q4HRS PRN PO MODERATE PAIN, SEVERE PAIN; Start 09/25/21 at 11:30 Acetaminophen (Tylenol) 650 mg PRN Q6HRS PRN PO Headaches, Temp > 101.5F; Start 09/25/21 at 11:30; Stop 10/04/21 at 09:47; Status DC Senna/Docusate Sodium (Senna Plus) 1 tab BID PO Last administered on 10/12/21at 20:44; Start 09/25/21 at 12:00 Enoxaparin Sodium (Lovenox 40mg Syringe) 40 mg Q12HR SQ Last administered on 09/25/21at 12:36; Start 09/25/21 at 12:00; Stop 09/25/21 at 13:11; Status DC Piperacillin Sod/ Tazobactam Sod 3.375 gm/Sodium Chloride 50 ml @ 100 mls/hr Q6HRS IV Last administered on 10/12/21at 11:43; Start 09/25/21 at 12:00; Stop 10/12/21 at 15:26; Status DC Doxycycline Hyclate (Vibra-Tab) 100 mg BID PO Last administered on 10/02/21at 21:11; Start 09/25/21 at 13:15; Stop 10/04/21 at 09:47; Status DC Enoxaparin Sodium (Lovenox 40mg Syringe) 40 mg DAILY SQ Last administered on 10/13/21at 08:42; Start 09/26/21 at 13:00 Remdesivir 200 mg/ Sodium Chloride 210 ml @ 210 mls/hr 1X ONCE IV Last administered on 09/26/21at 12:02; Start 09/26/21 at 11:30; Stop 09/26/21 at 12:29; Status DC Remdesivir 100 mg/ Sodium Chloride 230 ml @ 460 mls/hr Q24H IV Last administered on 09/30/21at 10:35; Start 09/27/21 at 11:30; Stop 09/30/21 at 11:59; Status DC Aspirin (Aspirin Chewable) 81 mg [id number] PO Last administered on 10/02/21at 08:31; Start 09/26/21 at 12:30 Lactobacillus Rhamnosus (Culturelle) 1 cap BID PO Last administered on 10/02/21at 21:10; Start 09/26/21 at 21:00; Stop 10/05/21 at 07:34; Status DC Metoprolol Tartrate (Lopressor Vial) 5 mg 1X ONCE IVP Last administered on 09/30/21at 13:38; Start 09/30/21 at 13:30; Stop 09/30/21 at 13:31; Status DC Metoprolol Tartrate (Lopressor Vial) 5 mg Q6HRS IVP Last administered on 10/01/21at 11:38; Start 09/30/21 at 18:00; Stop 10/01/21 at 13:25; Status DC Tocilizumab 800 mg/Sodium Chloride 100 ml @ 100 mls/hr 1X ONCE IV Last administered on 09/30/21at 17:35; Start 09/30/21 at 18:30; Stop 09/30/21 at 19:29; Status DC Guaifenesin (Robitussin) 200 mg PRN Q4HRS PRN PO COUGH; Start 10/01/21 at 01:00; Status Cancel Sterile Water (WATER for RESP) 1,000 ml CONT PRN INH VIA VAPOTHERM DEVICE; Start 10/01/21 at 03:30; Status Cancel Pantoprazole Sodium (Protonix) 40 mg DAILYAC PO Last administered on 10/02/21at 08:31; Start 10/01/21 at 11:30; Stop 10/04/21 at 08:13; Status DC Metoprolol Tartrate (Lopressor) 25 mg BID PO Last administered on 10/02/21at 21:11; Start 10/01/21 at 21:00; Stop 10/04/21 at 09:47; Status DC Potassium Chloride (Klor-Con) 40 meq 1X ONCE PO Last administered on 10/01/21at 13:30; Start 10/01/21 at 13:30; Stop 10/01/21 at 13:31; Status DC Sterile Water (WATER for RESP) 2,000 ml CONT PRN INH VIA VAPOTHERM DEVICE Last administered on 10/06/21at 16:22; Start 10/01/21 at 16:30; Stop 10/06/21 at 15:59; Status DC Potassium Chloride (Klor-Con) 40 meq 1X ONCE PO Last administered on 10/02/21at 10:16; Start 10/02/21 at 10:30; Stop 10/02/21 at 10:31; Status DC Dexmedetomidine HCl 400 mcg/ Sodium Chloride 100 ml @ 0 mls/hr CONT PRN IV PER PROTOCOL Last administered on 10/13/21at 12:45; Start 10/02/21 at 18:00 Sodium Chloride 500 ml @ 500 mls/hr 1X PRN PRN IV SEE COMMENTS; Start at 18:00 Atropine Sulfate (ATROPINE 0.5mg SYRINGE) 0.5 mg PRN Q5MIN PRN IV SEE COMMENTS; Start 10/02/21 at 18:00 Morphine Sulfate (Morphine Sulfate) 2 mg PRN Q1HR PRN IVP UNRESOLVED PAIN, 1st CHOICE Last administered on 10/12/21at 20:45; Start 10/03/21 at 09:00 Fentanyl Citrate (Fentanyl 2ml Vial) 25 mcg PRN Q1HR PRN IVP UNRESOLVED PAIN, 2nd CHOICE Last administered on 10/08/21at 02:05; Start 10/03/21 at 09:00 Bisacodyl (Dulcolax Supp) 10 mg PRN DAILY PRN [place] CONSTIPATION; Start 10/03/21 at 09:00 Amino Acids/ Electrolytes/ Dextrose 1,000 ml @ 80 mls/hr [id number] IV Last administered on 10/04/21at 12:19; Start 10/03/21 at 09:30; Stop 10/04/21 at 21:59; Status DC Metoprolol Tartrate (Lopressor Vial) 5 mg PRN Q6HRS PRN IVP FOR SBP > 160 Last administered on 10/07/21at 08:54; Start 10/03/21 at 19:15 Pantoprazole Sodium (PROTONIX VIAL for IV PUSH) 40 mg DAILYAC IVP Last administered on 10/13/21at 08:42; Start 10/04/21 at 08:15 Furosemide (Lasix) 40 mg 1X ONCE IVP Last administered on 10/04/21at 09:32; Start 10/04/21 at 09:00; Stop 10/04/21 at 09:01; Status DC Enalaprilat (Vasotec Inj) 1.25 mg PRN Q6HRS PRN IVP HYPERTENSION; Start 10/04/21 at 09:45 Doxycycline Hyclate 100 mg/ Dextrose 100 ml @ 50 mls/hr Q12HR IV Last administered on 10/12/21at 08:11; Start 10/04/21 at 10:30; Stop 10/12/21 at 15:27; Status DC Acetaminophen (Tylenol Supp) 650 mg PRN Q6HRS PRN [place] MILD PAIN / TEMP > 100.3'F; Start 10/04/21 at 09:45 Aspirin (Aspirin Rectal Supp) 300 mg PRN DAILY PRN [place] MILD PAIN/TEMP>100.3'F, 2ND CH; Start 10/04/21 at 09:45 Sodium Chloride 90 meq/Potassium Chloride 50 meq/ Potassium Phosphate 13.6 mmol/Magnesium Sulfate 10 meq/ Calcium Gluconate 10 meq/ Multivitamins 10 ml/Zinc/Copper/ Manganese/ Selenium 1 ml/ Total Parenteral Nutrition/Amino Acids/Dextrose/ Fat Emulsion Intravenous 1,512 ml @ 63 mls/hr TPN CONT IV Last administered on 10/04/21at 21:59; Start 10/04/21 at 22:00; Stop 10/05/21 at 21:59; Status DC Info (Tpn Per Pharmacy) 1 each PRN DAILY PRN MC SEE COMMENTS Last administered on 10/13/21at 12:16; Start 10/04/21 at 12:15 Sodium Chloride 90 meq/Potassium Chloride 50 meq/ Potassium Phosphate 13.6 mmo l/Calcium Gluconate 10 meq/ Multivitamins 10 ml/Zinc/Copper/ Manganese/ Selenium 1 ml/ Total Parenteral Nutrition/Amino Acids/Dextrose/ Fat Emulsion Intravenous 1,512 ml @ 63 mls/hr TPN CONT IV Last administered on 10/05/21at 21:46; Start 10/05/21 at 22:00; Stop 10/06/21 at 21:59; Status DC Sterile Water (WATER for RESP) 1,000 ml CONT PRN INH VIA VAPOTHERM DEVICE Last administered on 10/10/21at 08:17; Start 10/06/21 at 16:00; Stop 10/10/21 at 15:33; Status DC Sodium Chloride 90 meq/Potassium Chloride 50 meq/ Potassium Phosphate 13.6 mmol/Calcium Gluconate 10 meq/ Multivitamins 10 ml/Zinc/Copper/ Manganese/ Selenium 1 ml/ Total Parenteral Nutrition/Amino Acids/Dextrose/ Fat Emulsion Intravenous 1,512 ml @ 63 mls/hr TPN CONT IV Last administered on 10/06/21at 21:09; Start 10/06/21 at 22:00; Stop 10/07/21 at 21:59; Status DC Sodium Chloride 80 meq/Potassium Chloride 50 meq/ Potassium Phosphate 13.6 mmol/Calcium Gluconate 10 meq/ Multivitamins 10 ml/Zinc/Copper/ Manganese/ Selenium 1 ml/ Total Parenteral Nutrition/Amino Acids/Dextrose/ Fat Emulsion Intravenous 1,512 ml @ 63 mls/hr TPN CONT IV Last administered on 10/07/21at 21:54; Start 10/07/21 at 22:00; Stop 10/08/21 at 21:59; Status DC Sodium Chloride 80 meq/Potassium Chloride 50 meq/ Potassium Phosphate 13.6 mmol/Calcium Gluconate 10 meq/ Multivitamins 10 ml/Zinc/Copper/ Manganese/ Selenium 1 ml/ Total Parenteral Nutrition/Amino Acids/Dextrose 1,512 ml @ 63 mls/hr TPN CONT IV Last administered on 10/08/21at 20:47; Start 10/08/21 at 22:00; Stop 10/09/21 at 21:59; Status DC Sterile Water (WATER for RESP) 2,000 ml CONT PRN INH VIA VAPOTHERM DEVICE; Start 10/08/21 at 18:45; Status Cancel Sodium Chloride 80 meq/Potassium Chloride 50 meq/ Potassium Phosphate 13.6 mmol/Calcium Gluconate 10 meq/ Multivitamins 10 ml/Zinc/Copper/ Manganese/ Selenium 1 ml/ Total Parenteral Nutrition/Amino Acids/Dextrose/ Fat Emulsion Int ravenous 1,512 ml @ 63 mls/hr TPN CONT IV Last administered on 10/09/21at 21:12; Start 10/09/21 at 22:00; Stop 10/10/21 at 21:59; Status DC Sodium Chloride 80 meq/Potassium Chloride 50 meq/ Potassium Phosphate 13.6 mmol/Calcium Gluconate 10 meq/ Multivitamins 10 ml/Zinc/Copper/ Manganese/ Selenium 1 ml/ Total Parenteral Nutrition/Amino Acids/Dextrose 1,512 ml @ 63 mls/hr TPN CONT IV Last administered on 10/10/21at 22:18; Start 10/10/21 at 22:00; Stop 10/11/21 at 21:59; Status DC Hydralazine HCl (Apresoline Inj) 10 mg PRN Q4HRS PRN IVP ELEVATED BP, SEE COMMENTS Last administered on 10/12/21at 20:45; Start 10/10/21 at 13:15 Sterile Water (WATER for RESP) 2,000 ml CONT PRN INH VIA VAPOTHERM DEVICE Last administered on 10/13/21at 08:47; Start 10/10/21 at 15:45 Alteplase, Recombinant (Cathflo For Central Catheter Clearance) 1 mg 1X ONCE INT CAT Last administered on 10/11/21at 09:35; Start 10/11/21 at 09:00; Stop 10/11/21 at 09:01; Status DC Alteplase, Recombinant (Cathflo For Central Catheter Clearance) 1 mg 1X ONCE INT CAT Last administered on 10/11/21at 11:12; Start 10/11/21 at 10:45; Stop 10/11/21 at 10:46; Status DC Sodium Chloride 80 meq/Potassium Chloride 60 meq/ Potassium Phosphate 13.6 mmol/Calcium Gluconate 10 meq/ Multivitamins 10 ml/Zinc/Copper/ Manganese/ Selenium 1 ml/ Total Parenteral Nutrition/Amino Acids/Dextrose/ Fat Emulsion Intravenous 1,512 ml @ 63 mls/hr TPN CONT IV Last administered on 10/11/21at 20:20; Start 10/11/21 at 22:00; Stop 10/12/21 at 21:59; Status DC Methylprednisolone Sodium Succinate (SOLU-Medrol 40MG VIAL) 40 mg Q12HR IV Last administered on 10/13/21at 08:42; Start 10/12/21 at 11:30 Sodium Chloride 80 meq/Potassium Chloride 60 meq/ Potassium Phosphate 13.6 mmol/Calcium Gluconate 10 meq/ Multivitamins 10 ml/Zinc/Copper/ Manganese/ Selenium 1 ml/ Total Parenteral Nutrition/Amino Acids/Dextrose 1,512 ml @ 63 mls/hr TPN CONT IV Last administered on 10/12/21at 21:45; Start 10/12/21 at 22:00; Stop 10/13/21 at 21:59 Etomidate (Amidate) 10 mg 1X ONCE IV ; Start 10/12/21 at 12:15; Stop 10/12/21 at 12:16; Status Cancel Succinylcholine Chloride (Anectine) 100 mg 1X ONCE IV ; Start 10/12/21 at 12:15; Stop 10/12/21 at 12:16; Status Cancel Sodium Chloride 80 meq/Potassium Chloride 30 meq/ Potassium Phosphate 13.6 mmol/Calcium Gluconate 10 meq/ Multivitamins 10 ml/Zinc/Copper/ Manganese/ Selenium 1 ml/ Total Parenteral Nutrition/Amino Acids/Dextrose 1,512 ml @ 63 mls/hr TPN CONT IV ; Start 10/13/21 at 22:00; Stop 10/14/21 at 21:59 Active Scripts Active Oxycodone Hcl 5 Mg Capsule 5 Mg PO PRN Q4HRS PRN Tramadol Hcl 50 Mg Tablet 50 Mg PO Q4HRS PRN Warfarin Sodium 4 Mg Tablet 4 Mg PO DAILY 28 Days Reported Timoptic 0.5% (Timolol Maleate) 10 Ml Drops 1 Drop OD BID 30 Days Lisinopril 10 Mg Tablet 10 Mg PO DAILY Vitals/I & O Vital Sign - Last 24 Hours 10/12/21 10/12/21 10/12/21 10/12/21 15:15 15:20 15:21 16:04 Pulse 92 Resp 30 B/P (MAP) 180/91 Pulse Ox 89 90 O2 Delivery BiPAP/CPAP BiPAP/CPAP Bi-pap O2 Flow Rate 40.0 40.0 10/12/21 10/12/21 10/12/21 10/12/21 16:04 16:06 17:29 18:11 Temp 98.0 98.0 Pulse 78 76 65 B/P (MAP) 165/85 160/85 127/71 Pulse Ox 90 96 94 O2 Delivery VAPO THERM VAPO THERM VAPO THERM O2 Flow Rate 40.0 40.0 40.0 40.0 10/12/21 10/12/21 10/12/21 10/12/21 18:41 19:00 20:00 20:00 Pulse 68 73 B/P (MAP) 140/66 165/87 Pulse Ox 94 94 92 O2 Delivery VAPO THERM VAPO THERM BiPAP/CPAP O2 Flow Rate 40.0 40.0 40.0 10/12/21 10/12/21 10/12/21 10/12/21 20:00 20:00 20:45 20:45 Pulse 80 73 Resp 31 28 B/P (MAP) 150/70 166/81 Pulse Ox 93 94 O2 Delivery VAPO THERM Bi-pap O2 Flow Rate 40.0 40.0 40.0 10/12/21 10/12/21 10/12/21 10/12/21 21:00 21:15 22:00 23:00 Temp 97.4 97.4 Pulse 92 77 90 Resp 32 33 22 B/P (MAP) 166/81 147/79 140/73 Pulse Ox 94 96 96 93 O2 Delivery VAPO THERM VAPO THERM VAPO THERM O2 Flow Rate 40.0 40.0 40.0 40.0 10/12/21 10/13/21 10/13/21 10/13/21 23:32 00:00 00:00 00:00 Temp 98.0 98.0 Pulse 80 Resp 22 B/P (MAP) 119/62 Pulse Ox 94 95 O2 Delivery BiPAP/CPAP Bi-pap VAPO THERM O2 Flow Rate 40.0 40.0 40.0 40.0 10/13/21 10/13/21 10/13/21 10/13/21 01:00 02:00 02:35 03:00 Pulse 73 77 71 Resp 22 21 22 B/P (MAP) 140/86 111/65 106/64 Pulse Ox 95 96 94 95 O2 Delivery VAPO THERM VAPO THERM BiPAP/CPAP VAPO THERM O2 Flow Rate 40.0 40.0 40.0 40.0 10/13/21 10/13/21 10/13/21 10/13/21 04:00 04:00 04:00 05:00 Temp 96.7 96.7 Pulse 75 74 Resp 35 20 B/P (MAP) 138/75 140/71 Pulse Ox 90 97 O2 Delivery Bi-pap VAPO THERM VAPO THERM O2 Flow Rate 40.0 40.0 40.0 40.0 10/13/21 10/13/21 10/13/21 10/13/21 05:34 06:00 07:00 07:35 Pulse 78 72 Resp 18 B/P (MAP) 108/62 146/72 Pulse Ox 97 97 94 O2 Delivery BiPAP/CPAP VAPO THERM VAPO THERM O2 Flow Rate 40.0 40.0 40.0 40.0 10/13/21 10/13/21 10/13/21 10/13/21 08:00 08:43 09:00 10:00 Temp 97.6 97.6 Pulse 66 70 70 B/P (MAP) 117/77 135/73 122/70 Pulse Ox 97 95 96 O2 Delivery VAPO THERM BiPAP/CPAP VAPO THERM VAPO THERM O2 Flow Rate 40.0 40.0 40.0 10/13/21 10/13/21 10/13/21 10/13/21 10:15 10:16 11:58 11:58 Temp 98.1 98.1 Pulse 70 B/P (MAP) 122/66 Pulse Ox 97 96 O2 Delivery Bi-pap BiPAP/CPAP Bi-pap VAPO THERM O2 Flow Rate 40.0 40.0 40.0 10/13/21 10/13/21 12:00 12:55 Pulse Ox 97 O2 Delivery BiPAP/CPAP O2 Flow Rate 40.0 Intake and Output 10/12/21 10/12/21 10/13/21 15:00 23:00 07:00 Intake Total 2029 ml 1303 ml Output Total 51 ml 1850 ml 600 ml Balance -51 ml 179 ml 703 ml Justifications for Admission Other Justification LORENA MCGOVERN MD Oct 13, 2021 15:12
--- NOTE | 2021-10-13 15:33 | PDOC ---
[facility] PROGRESS NOTE Date of Service DOS: DATE: 10/13/21 TIME: 15:33 Chief Complaint Chief Complaint acute Covid-19 Pneumonia status post remdesivir and Actemra Acute hypoxic respiratory failure requiring Vapotherm and bipap support SEPSIS malnutrition Hypertension Knee replacement Appreciate pulmonology recommendationscontinue Vapotherm and as needed BiPAP Continue with IV steroids for total 10 days Continue empiric IV antibiotics Lovenox for DVT prophylaxis Continue Protonix for GI prophylaxis while on steroids CODE - DNR/DNI History of Present Illness History of Present Illness 10/13. still doing about the same, more alert, follows commands well on BIPAP, is still calm and responsive n abx stopped yesterday,l no fever, d Mr Lehman is a 60-year-old male with PMHx HTN brought into the hospital due to cough and trouble breathing for the last 10 days, notes his father was positive for COVID 19 and was hospitalized. He has not been vaccinated against COVID 19. 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 Notably hypoxic on initial examination. Chest x-ray on admission showed multifocal bilateral patchy infiltrates. Rapid COVID 19 positive, started on dexamethasone, Lovenox for DVT prophylaxis along with remdesivir and admitted for further care. Vitals/I&O Vitals/I&O: Vital Signs Date Time Temp Pulse Resp B/P (MAP) Pulse Ox O2 Delivery O2 Flow Rate FiO2 10/13/21 15:05 97 BiPAP/CPAP 10/13/21 12:00 40.0 10/13/21 11:58 98.1 70 122/66 98.1 10/13/21 06:00 18 I & O 10/12/21 10/12/21 10/13/21 15:00 23:00 07:00 Intake Total 2029 ml 1303 ml Output Total 51 ml 1850 ml 600 ml Balance -51 ml 179 ml 703 ml Physical Exam General: mild distress Heart: Regular rate Lungs: Other Abdomen: Normal bowel sounds Extremities: No clubbing, No edema, Normal pulses Skin: No rashes, No significant lesion Labs Labs: Laboratory Tests Test 10/13/21 04:30 Sodium Level 135 mmol/L (136-145) Potassium Level 4.8 mmol/L (3.5-5.1) Chloride Level 96 mmol/L (98-107) Carbon Dioxide Level 32 mmol/L (21-32) Anion Gap 7 (6-14) Blood Urea Nitrogen 19 mg/dL (8-26) Creatinine 0.5 mg/dL (0.7-1.3) Estimated GFR (Cockcroft-Gault) 168.5 BUN/Creatinine Ratio 38 (6-20) Glucose Level 163 mg/dL (70-99) Calcium Level 8.2 mg/dL (8.5-10.1) Total Bilirubin 0.8 mg/dL (0.2-1.0) Aspartate Amino Transf (AST/SGOT) 40 U/L (15-37) Alanine Aminotransferase (ALT/SGPT) 122 U/L (16-63) Alkaline Phosphatase 142 U/L (46-116) Total Protein 6.3 g/dL (6.4-8.2) Albumin 2.8 g/dL (3.4-5.0) Albumin/Globulin Ratio 0.8 (1.0-1.7) Assessment and Plan Assessmemt and Plan Problems Medical Problems: (1) Hypoxia Status: Acute (2) Pneumonia due to COVID-19 virus Status: Acute Comment Review of Relevant I have reviewed the following items dino (where applicable) has been applied. Medications: Current Medications Medications (Trade) Dose Ordered Sig/Jody Route PRN Reason Start Time Stop Time Status Last Admin Dose Admin Sodium Chloride 80 meq/Potassium Chloride 60 meq/ Potassium Phosphate 13.6 mmol/Calcium Gluconate 10 meq/ Multivitamins 10 ml/Zinc/Copper/ Manganese/ Selenium 1 ml/ Total Parenteral Nutrition/Amino Acids/Dextrose 1,512 ml @ 63 mls/hr TPN CONT IV 10/12/21 22:00 10/13/21 21:59 10/12/21 21:45 Justifications for Admission Other Justification NANCY MAN MD Oct 13, 2021 15:33
[2021-10-13] MEDS: MORPHINE SULFATE 2 MG/ML INJ. IVP PRN ×2 (17:46→21:21)
--- NOTE | 2021-10-13 18:10 | NUR ---
Pt having bloody nose out of both nostrils. After getting clean up he requested to see if we could just try the bipap for a while. Vapotherm taken off and using just bipap and sats 90-92%.
--- NOTE | 2021-10-13 18:48 | NUR ---
Pt called out stating that the bipap was drying his out too much requesting the vapotherm be put back on. Vapotherm 40L and 100% and bipap both on at this time.
[2021-10-13] MEDS ORDERED: AMINO ACID IV SCH (22:00)
[2021-10-13] MEDS ORDERED: TOTAL PARENTERAL NUTRITION IV SCH (22:00)
[2021-10-13] MEDS ORDERED: DEXTROSE 70% IV SCH (22:00)
[2021-10-13] MEDS ORDERED: [UNRECOGNIZED DRUG - OTHER] IV SCH (22:00)
[2021-10-14] VITALS (21 sets, daily range): BP systolic 117–194; BP diastolic 64–92
[2021-10-14] MEDS: DEXMEDETOMIDINE 400 MCG in IV NORMAL SALINE 100ML 96 ML IV PRN ×5 (01:50→20:18)
[2021-10-14 07:26] LABS: ALBUMIN 2.7 g/dL (3.4-5.0); ALBUMIN/GLOBULIN RATIO 0.8 (1.0-1.7); CALCIUM 8.1 mg/dL (8.5-10.1); CREATININE 0.5 mg/dL (0.7-1.3); GFR 168.5; MAGNESIUM 2.1 mg/dL (1.8-2.4); PHOSPHORUS 4.4 mg/dL (2.6-4.7); POTASSIUM 5.2 mmol/L (3.5-5.1); TOTAL BILIRUBIN 0.7 mg/dL (0.2-1.0); TOTAL PROTEIN 6.2 g/dL (6.4-8.2)
[2021-10-14 07:27] LABS: HEMATOCRIT 42.2 % (39.0-53.0); HEMOGLOBIN 13.8 g/dL (13.0-17.5); RED BLOOD COUNT 4.95 x10^6/uL (4.30-5.70); RED CELL DISTRIBUTION WIDTH 16.2 % (11.5-14.5)
[2021-10-14] MEDS: SENNOSIDES/DOCUSATE 8.6/50MG TABLET. PO SCH ×2 (07:50→21:00)
[2021-10-14] MEDS: ASPIRIN CHEWABLE 81 MG TABLET. PO SCH (07:50)
[2021-10-14] MEDS: TIMOLOL 0.5% OPHTH SOLUTION 5ML BOTTLE. OD SCH ×2 (07:59→21:03)
[2021-10-14] MEDS: ENOXAPARIN 40 MG/0.4 ML SYRINGE. SQ SCH (08:00)
[2021-10-14] MEDS: methylPREDNISolone SOD SUCC PF 40 MG/ML VIAL. IV SCH ×2 (08:00→20:21)
[2021-10-14] MEDS: PANTOPRAZOLE IV PUSH 40 MG VIAL. IVP SCH (08:00)
--- NOTE | 2021-10-14 09:18 | PDOC ---
[employer] PROGRESS NOTE Date of Service DOS: DATE: 10/14/21 TIME: 09:12 Chief Complaint Chief Complaint acute Covid-19 Pneumonia status post remdesivir and Actemra Acute hypoxic respiratory failure requiring Vapotherm and bipap support SEPSIS malnutrition Hypertension Knee replacement Appreciate pulmonology recommendationscontinue Vapotherm and as needed BiPAP Continue with IV steroids for total 10 days Continue empiric IV antibiotics Lovenox for DVT prophylaxis Continue Protonix for GI prophylaxis while on steroids CODE - DNR/DNI History of Present Illness History of Present Illness Mr Lehman is a 60-year-old male with PMHx HTN brought into the hospital due to cough and trouble breathing for the last 10 days, notes his father was positive for COVID 19 and was hospitalized. He has not been vaccinated against COVID 19. 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 Notably hypoxic on initial examination. Chest x-ray on admission showed multifocal bilateral patchy infiltrates. Rapid COVID 19 positive, started on dexamethasone, Lovenox for DVT prophylaxis along with remdesivir and admitted for further care. On hospital stay with complaint Vapotherm and BiPAP transition TPN as he was unable to take p.o. 10/06/2021. 10/13: Still doing about the same, more alert, follows commands well on BIPAP, is still calm and responsive. abx stopped yesterday, l no fever 10/14: Seen in ICU on Vapotherm 35 L/min 100 percent FiO2 plus BIPAP. In good spirits. Slight cough. No longer with epistaxis. cc time 32 min Vitals/I&O Vitals/I&O: Vital Signs Date Time Temp Pulse Resp B/P (MAP) Pulse Ox O2 Delivery O2 Flow Rate FiO2 10/14/21 08:31 97 BiPAP/CPAP 10/14/21 07:40 40.0 10/14/21 06:00 66 24 120/72 10/14/21 05:00 97.8 97.8 I & O 10/13/21 10/13/21 10/14/21 15:00 23:00 07:00 Intake Total 1184 ml 2430 ml Output Total 520 ml 430 ml 1800 ml Balance -520 ml 754 ml 630 ml Physical Exam General: mild distress Heart: Regular rate Lungs: Other Abdomen: Normal bowel sounds Extremities: No clubbing, No edema, Normal pulses Skin: No rashes, No significant lesion Labs Labs: Laboratory Tests Test 10/14/21 06:30 White Blood Count 13.0 x10^3/uL (4.0-11.0) Red Blood Count 4.95 x10^6/uL (4.30-5.70) Hemoglobin 13.8 g/dL (13.0-17.5) Hematocrit 42.2 % (39.0-53.0) Mean Corpuscular Volume 85 fL (79-100) Mean Corpuscular Hemoglobin 28 pg (25-35) Mean Corpuscular Hemoglobin Concent 33 g/dL (31-37) Red Cell Distribution Width 16.2 % (11.5-14.5) Platelet Count 194 x10^3/uL (140-400) Sodium Level 133 mmol/L (136-145) Potassium Level 5.2 mmol/L (3.5-5.1) Chloride Level 95 mmol/L (98-107) Carbon Dioxide Level 32 mmol/L (21-32) Anion Gap 6 (6-14) Blood Urea Nitrogen 17 mg/dL (8-26) Creatinine 0.5 mg/dL (0.7-1.3) Estimated GFR (Cockcroft-Gault) 168.5 BUN/Creatinine Ratio 34 (6-20) Glucose Level 211 mg/dL (70-99) Calcium Level 8.1 mg/dL (8.5-10.1) Phosphorus Level 4.4 mg/dL (2.6-4.7) Magnesium Level 2.1 mg/dL (1.8-2.4) Total Bilirubin 0.7 mg/dL (0.2-1.0) Aspartate Amino Transf (AST/SGOT) 44 U/L (15-37) Alanine Aminotransferase (ALT/SGPT) 122 U/L (16-63) Alkaline Phosphatase 139 U/L (46-116) Total Protein 6.2 g/dL (6.4-8.2) Albumin 2.7 g/dL (3.4-5.0) Albumin/Globulin Ratio 0.8 (1.0-1.7) Triglycerides Level 110 mg/dL (0-150) Assessment and Plan Assessmemt and Plan Problems Medical Problems: (1) Hypoxia Status: Acute (2) Pneumonia due to COVID-19 virus Status: Acute Comment Review of Relevant I have reviewed the following items dino (where applicable) has been applied. Medications: Current Medications Medications (Trade) Dose Ordered Sig/Jody Route PRN Reason Start Time Stop Time Status Last Admin Dose Admin Sodium Chloride 80 meq/Potassium Chloride 30 meq/ Potassium Phosphate 13.6 mmol/Calcium Gluconate 10 meq/ Multivitamins 10 ml/Zinc/Copper/ Manganese/ Selenium 1 ml/ Total Parenteral Nutrition/Amino Acids/Dextrose 1,512 ml @ 63 mls/hr TPN CONT IV 10/13/21 22:00 10/14/21 21:59 10/13/21 21:58 Justifications for Admission Other Justification ERIKA GONZALEZ MD Oct 14, 2021 09:18
[2021-10-14] MEDS: MORPHINE SULFATE 2 MG/ML INJ. IVP PRN ×2 (09:23→20:21)
[2021-10-14] MEDS: TPN PER PHARMACY MC PRN (09:46)
--- NOTE | 2021-10-14 09:52 | NUR ---
Pharmacy TPN Dosing Note S: SALOMEVANIA Yarbrough is a 60 year old M Currently receiving Central Continuous TPN started 10/04/21 B:Pertinent PMH: NPO Height: 5 feet, 7 inches Weight: 87.8 kg Current diet: NPO LABS: Sodium: 133 Potassium: 5.2 Chloride: 95 Calcium: 8.1 Corrected Calcium: 9.14 Magnesium: 2.1 CO2: 32 SCr: 0.5 Glucose: 211 Albumin: 2.7 AST: 44 ALT: 122 TPN FORMULA: TPN TYPE: Central Continuous AMINO ACIDS: 80 gm DEXTROSE: 255 gm LIPIDS: 30 gm SODIUM CHLORIDE: 110 mEq CALCIUM: 10 mEq MULTIPLE VITAMIN: 10 ml TRACE ELEMENTS: 1 ml(s) TPN PLAN: Potassium removed from tonight's TPN Lipids added per MWF schedule Sodium chloride increased in TPN R: Change TPN per plan and ordered formula Will monitor electrolytes, glucose, and tolerance to TPN. Mariana Mcfarlane [facility], 10/14/21 0952
[2021-10-14] MEDS: fentaNYL PF VIAL 100 MCG/2 ML VIAL IVP PRN (10:06)
--- NOTE | 2021-10-14 10:10 | NUR ---
Pt complaining of upper back and neck pain this morning. Heating pad placed on upper back, should, neck area. Pain medication Morphine given as per order with no relief of the discomfort. Foam neck pillow gotten for patient. 1010 Pt requesting something else for his neck pain sting got no relief for the earlier medication. Fentanyl given as per order
--- NOTE | 2021-10-14 10:35 | PDOC ---
PULMONARY PROGRESS NOTES DATE: 10/14/21 TIME: 10:34 Subjective on precedex on Vapotherm, and BiPAP. 16/10 fio2 100% o2 sat 97% Vitals Vital Signs Date Time Temp Pulse Resp B/P (MAP) Pulse Ox O2 Delivery O2 Flow Rate FiO2 10/14/21 10:06 33 92 BiPAP/CPAP 10/14/21 08:00 40.0 10/14/21 06:00 66 120/72 10/14/21 05:00 97.8 97.8 General: No acute distress Lungs: Other Cardiovascular: S1, S2 Abdomen: Other (obese) Extremities: No Edema Skin: No Rashes Labs Laboratory Tests Test 10/13/21 04:30 10/14/21 06:30 Sodium Level 135 mmol/L (136-145) 133 mmol/L (136-145) Potassium Level 4.8 mmol/L (3.5-5.1) 5.2 mmol/L (3.5-5.1) Chloride Level 96 mmol/L (98-107) 95 mmol/L (98-107) Carbon Dioxide Level 32 mmol/L (21-32) 32 mmol/L (21-32) Anion Gap 7 (6-14) 6 (6-14) Blood Urea Nitrogen 19 mg/dL (8-26) 17 mg/dL (8-26) Creatinine 0.5 mg/dL (0.7-1.3) 0.5 mg/dL (0.7-1.3) Estimated GFR (Cockcroft-Gault) 168.5 168.5 BUN/Creatinine Ratio 38 (6-20) 34 (6-20) Glucose Level 163 mg/dL (70-99) 211 mg/dL (70-99) Calcium Level 8.2 mg/dL (8.5-10.1) 8.1 mg/dL (8.5-10.1) Total Bilirubin 0.8 mg/dL (0.2-1.0) 0.7 mg/dL (0.2-1.0) Aspartate Amino Transf (AST/SGOT) 40 U/L (15-37) 44 U/L (15-37) Alanine Aminotransferase (ALT/SGPT) 122 U/L (16-63) 122 U/L (16-63) Alkaline Phosphatase 142 U/L (46-116) 139 U/L (46-116) Total Protein 6.3 g/dL (6.4-8.2) 6.2 g/dL (6.4-8.2) Albumin 2.8 g/dL (3.4-5.0) 2.7 g/dL (3.4-5.0) Albumin/Globulin Ratio 0.8 (1.0-1.7) 0.8 (1.0-1.7) White Blood Count 13.0 x10^3/uL (4.0-11.0) Red Blood Count 4.95 x10^6/uL (4.30-5.70) Hemoglobin 13.8 g/dL (13.0-17.5) Hematocrit 42.2 % (39.0-53.0) Mean Corpuscular Volume 85 fL (79-100) Mean Corpuscular Hemoglobin 28 pg (25-35) Mean Corpuscular Hemoglobin Concent 33 g/dL (31-37) Red Cell Distribution Width 16.2 % (11.5-14.5) Platelet Count 194 x10^3/uL (140-400) Phosphorus Level 4.4 mg/dL (2.6-4.7) Magnesium Level 2.1 mg/dL (1.8-2.4) Triglycerides Level 110 mg/dL (0-150) Laboratory Tests Test 10/14/21 06:30 White Blood Count 13.0 x10^3/uL (4.0-11.0) Red Blood Count 4.95 x10^6/uL (4.30-5.70) Hemoglobin 13.8 g/dL (13.0-17.5) Hematocrit 42.2 % (39.0-53.0) Mean Corpuscular Volume 85 fL (79-100) Mean Corpuscular Hemoglobin 28 pg (25-35) Mean Corpuscular Hemoglobin Concent 33 g/dL (31-37) Red Cell Distribution Width 16.2 % (11.5-14.5) Platelet Count 194 x10^3/uL (140-400) Sodium Level 133 mmol/L (136-145) Potassium Level 5.2 mmol/L (3.5-5.1) Chloride Level 95 mmol/L (98-107) Carbon Dioxide Level 32 mmol/L (21-32) Anion Gap 6 (6-14) Blood Urea Nitrogen 17 mg/dL (8-26) Creatinine 0.5 mg/dL (0.7-1.3) Estimated GFR (Cockcroft-Gault) 168.5 BUN/Creatinine Ratio 34 (6-20) Glucose Level 211 mg/dL (70-99) Calcium Level 8.1 mg/dL (8.5-10.1) Phosphorus Level 4.4 mg/dL (2.6-4.7) Magnesium Level 2.1 mg/dL (1.8-2.4) Total Bilirubin 0.7 mg/dL (0.2-1.0) Aspartate Amino Transf (AST/SGOT) 44 U/L (15-37) Alanine Aminotransferase (ALT/SGPT) 122 U/L (16-63) Alkaline Phosphatase 139 U/L (46-116) Total Protein 6.2 g/dL (6.4-8.2) Albumin 2.7 g/dL (3.4-5.0) Albumin/Globulin Ratio 0.8 (1.0-1.7) Triglycerides Level 110 mg/dL (0-150) Medications Active Scripts Medications Dose Route/Sig Max Daily Dose Days Date Category Oxycodone Hcl 5 Mg Capsule 5 Mg PO PRN Q4HRS PRN 08/01/21 Rx Tramadol Hcl 50 Mg Tablet 50 Mg PO Q4HRS PRN 08/01/21 Rx Warfarin Sodium 4 Mg Tablet 4 Mg PO DAILY 28 08/01/21 Rx Timoptic 0.5% (Timolol Maleate) 10 Ml Drops 1 Drop OD BID 30 07/17/21 Reported Lisinopril 10 Mg Tablet 10 Mg PO DAILY 07/17/21 Reported Comments Chest x-ray reviewed dated 10/01/2021. Diffuse bilateral interstitial infiltrates. No significant pleural effusion. There is mild progression. No evidence of pneumothorax Impression . 1. Acute hypoxic respiratory failure secondary to COVID-19 viral pneumonia. 2. COVID-19 viral pneumonia/early acute respiratory distress syndrome. 3. Abnormal chest x-ray with diffuse bilateral infiltrates consistent with viral pneumonia. 4. Mildly increased liver function test. Likely due to COVID. 5. Mild leukopenia. Secondary to COVID. 6. Markedly elevated CRP level of 197. Status post Actemra. He received on 09/30/2021 Plan . Updated 12/6 bipap setting reviewed titrate fio2 to keep sat 90% So for tolerating current high flow oxygen well. on precedex cont steroid elevate hob continue current support s/p remdesivir and tocilizumab Patient has elected to DO NOT INTUBATE DO NOT RESUSCITATE discussed w rn rt Updated 10/13 bipap setting reviewed titrate fio2 to keep sat 90% on precedex cont steroid elevate hob continue current support s/p remdesivir and tocilizumab Patient has elected to DO NOT INTUBATE DO NOT RESUSCITATE discussed w rn rt Updated 10/12 bipap setting reviewed 16/8 o2 sat 87% will increase epap to 10 and 12 if needed discussed w rt start steroid elevate hob We will continue current support Received remdesivir and tocilizumab Patient has elected to DO NOT INTUBATE DO NOT RESUSCITATE discussed w rn rt Updated 10/11 Patient saturations today better Needs not utilizing accessory muscles We will continue current support Up to chair if possible Received remdesivir and tocilizumab Patient has elected to DO NOT INTUBATE DO NOT RESUSCITATE updated 10/10 Continue current support BiPAP Nutritional support Up to chair if possible ORQUIDEA JENNINGS MD Oct 14, 2021 10:35
--- NOTE | 2021-10-14 10:55 | PDOC ---
MARCELO MIRELES [employer] 10/14/21 1055: CARDIO Progress Notes Date and Time Date of Service 10/14/21 Time of Evaluation 1050 Subjective Subjective: Other (on BiPAP, vapotherm) Vitals Vitals Vital Signs Date Time Temp Pulse Resp B/P (MAP) Pulse Ox O2 Delivery O2 Flow Rate FiO2 10/14/21 10:06 33 92 BiPAP/CPAP 10/14/21 10:00 64 170/82 10/14/21 09:00 97.0 97.0 10/14/21 08:00 40.0 Weight Weight [ ] Input and Output Intake and Output Intake and Output 10/14/21 07:00 Intake Total 3614 ml Output Total 2750 ml Balance 864 ml IV Total 3614 ml Output Urine Total 2750 ml Laboratory Labs Laboratory Tests Test 10/14/21 06:30 White Blood Count 13.0 x10^3/uL (4.0-11.0) Red Blood Count 4.95 x10^6/uL (4.30-5.70) Hemoglobin 13.8 g/dL (13.0-17.5) Hematocrit 42.2 % (39.0-53.0) Mean Corpuscular Volume 85 fL (79-100) Mean Corpuscular Hemoglobin 28 pg (25-35) Mean Corpuscular Hemoglobin Concent 33 g/dL (31-37) Red Cell Distribution Width 16.2 % (11.5-14.5) Platelet Count 194 x10^3/uL (140-400) Sodium Level 133 mmol/L (136-145) Potassium Level 5.2 mmol/L (3.5-5.1) Chloride Level 95 mmol/L (98-107) Carbon Dioxide Level 32 mmol/L (21-32) Anion Gap 6 (6-14) Blood Urea Nitrogen 17 mg/dL (8-26) Creatinine 0.5 mg/dL (0.7-1.3) Estimated GFR (Cockcroft-Gault) 168.5 BUN/Creatinine Ratio 34 (6-20) Glucose Level 211 mg/dL (70-99) Calcium Level 8.1 mg/dL (8.5-10.1) Phosphorus Level 4.4 mg/dL (2.6-4.7) Magnesium Level 2.1 mg/dL (1.8-2.4) Total Bilirubin 0.7 mg/dL (0.2-1.0) Aspartate Amino Transf (AST/SGOT) 44 U/L (15-37) Alanine Aminotransferase (ALT/SGPT) 122 U/L (16-63) Alkaline Phosphatase 139 U/L (46-116) Total Protein 6.2 g/dL (6.4-8.2) Albumin 2.7 g/dL (3.4-5.0) Albumin/Globulin Ratio 0.8 (1.0-1.7) Triglycerides Level 110 mg/dL (0-150) Microbiology Micro Microbiology 09/25/21 Blood Culture - Final, Complete NO GROWTH AFTER 5 DAYS Physical Exam HEENT: Neck Supple W Full Motion Chest: Symmetric LUNGS: Other (BIPAP, vapotherm) Heart: RRR (SR) Abdomen: Other (obese ) Extremities: No Edema Neurology: alert, oriented, follow commands Assessment Assessment 1. Acute respiratory failure secondary to COVID PNA, ARDS 2. Tachyarrhythmia; noted with AT, bursts of SVT. improved with BB. Now SR 3. Hypertension; better controlled 4. Hyperthyroidism; as per IM 5. Leukocytosis 6. Hyperkalemia Recommendations Continue metoprolol Hydralazine IV PRN for BP control Ongoing lung optimization, treatment of COVID as per pulmonary team Supportive care Justicifation of Admission Dx: Justifications for Admission: Justification of Admission Dx: N/A CHANDLER CRUZ MD 10/14/21 1703: CARDIO Progress Notes Assessment Assessment Agree with [employer]'s assessment and plan. AT/SVT improved with beta-blockers Continue current treatment for Covid pneumonia Plan for outpatient 2D echocardiogram and possibly event monitor recording MARCELO MIRELES APRN Oct 14, 2021 10:55 CHANDLER CRUZ MD Oct 14, 2021 17:03
[2021-10-14] MEDS: hydrALAZINE 20 MG/ML VIAL. IVP PRN (14:41)
[2021-10-14] MEDS: STERILE WATER for RESP 2,000 ML BAG. INH PRN (21:57)
[2021-10-14] MEDS ORDERED: AMINO ACID IV SCH (22:00)
[2021-10-14] MEDS ORDERED: DEXTROSE 70% IV SCH (22:00)
[2021-10-14] MEDS ORDERED: TOTAL PARENTERAL NUTRITION IV SCH (22:00)
[2021-10-14] MEDS ORDERED: [UNRECOGNIZED DRUG - OTHER] IV SCH (22:00)
[2021-10-15] VITALS (24 sets, daily range): BP systolic 96–192; BP diastolic 51–95
[2021-10-15] MEDS: DEXMEDETOMIDINE 400 MCG in IV NORMAL SALINE 100ML 96 ML IV PRN ×5 (00:04→19:59)
[2021-10-15] MEDS: MORPHINE SULFATE 2 MG/ML INJ. IVP PRN (02:57)
[2021-10-15] MEDS: hydrALAZINE 20 MG/ML VIAL. IVP PRN (02:58)
[2021-10-15] MEDS: fentaNYL PF VIAL 100 MCG/2 ML VIAL IVP PRN (04:03)
[2021-10-15 06:47] LABS: CALCIUM 8.2 mg/dL (8.5-10.1); CREATININE 0.4 mg/dL (0.7-1.3); MAGNESIUM 2.1 mg/dL (1.8-2.4); PHOSPHORUS 3.8 mg/dL (2.6-4.7); POTASSIUM 4.5 mmol/L (3.5-5.1)
[2021-10-15] MEDS: methylPREDNISolone SOD SUCC PF 40 MG/ML VIAL. IV SCH ×2 (07:57→15:25)
[2021-10-15] MEDS: SENNOSIDES/DOCUSATE 8.6/50MG TABLET. PO SCH ×2 (07:57→20:49)
[2021-10-15] MEDS: ENOXAPARIN 40 MG/0.4 ML SYRINGE. SQ SCH (07:57)
[2021-10-15] MEDS: PANTOPRAZOLE IV PUSH 40 MG VIAL. IVP SCH (07:57)
[2021-10-15] MEDS: TIMOLOL 0.5% OPHTH SOLUTION 5ML BOTTLE. OD SCH ×2 (07:58→20:49)
[2021-10-15] MEDS: ASPIRIN CHEWABLE 81 MG TABLET. PO SCH (07:59)
--- NOTE | 2021-10-15 08:52 | PDOC ---
[employer] PROGRESS NOTE Date of Service DOS: DATE: 10/15/21 TIME: 08:42 Chief Complaint Chief Complaint acute Covid-19 Pneumonia status post remdesivir and Actemra Acute hypoxic respiratory failure requiring Vapotherm and bipap support SEPSIS malnutrition Hypertension Knee replacement Appreciate pulmonology recommendationscontinue Vapotherm and as needed BiPAP Continue with IV steroids for total 10 days Continue empiric IV antibiotics Lovenox for DVT prophylaxis Continue Protonix for GI prophylaxis while on steroids CODE - DNR/DNI History of Present Illness History of Present Illness Mr Lehman is a 60-year-old male with PMHx HTN brought into the hospital due to cough and trouble breathing for the last 10 days, notes his father was positive for COVID 19 and was hospitalized. He has not been vaccinated against COVID 19. 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 Notably hypoxic on initial examination. Chest x-ray on admission showed multifocal bilateral patchy infiltrates. Rapid COVID 19 positive, started on dexamethasone, Lovenox for DVT prophylaxis along with remdesivir and admitted for further care. On hospital stay with complaint Vapotherm and BiPAP transition TPN as he was unable to take p.o. 10/06/2021. 10/13: Still doing about the same, more alert, follows commands well on BIPAP, is still calm and responsive. abx stopped yesterday, l no fever 10/14: Seen in ICU on Vapotherm 35 L/min 100 percent FiO2 plus BIPAP. In good spirits. Slight cough. No longer with epistaxis. 10/15: Seen in ICU on Vapotherm 30 L/min 30% FiO2 and BiPAP with O2 saturations 96%. He was complaining of some neck and back pain but now has a pillow from home feels that this is helping somewhat. cc time 32 min Vitals/I&O Vitals/I&O: Vital Signs Date Time Temp Pulse Resp B/P (MAP) Pulse Ox O2 Delivery O2 Flow Rate FiO2 10/15/21 07:53 97 BiPAP/CPAP 10/15/21 07:00 70 22 113/58 10/15/21 04:33 40.0 10/15/21 04:00 97.7 97.7 I & O 10/14/21 10/14/21 10/15/21 15:00 23:00 07:00 Intake Total 1174 ml Output Total 600 ml 2350 ml 600 ml Balance -600 ml -1176 ml -600 ml Physical Exam General: Alert, Oriented X3, Cooperative, mild distress Heart: Regular rate Lungs: Other Abdomen: Normal bowel sounds Extremities: No clubbing, No edema, Normal pulses Skin: No rashes, No significant lesion Labs Labs: Laboratory Tests Test 10/15/21 06:15 Sodium Level 132 mmol/L (136-145) Potassium Level 4.5 mmol/L (3.5-5.1) Chloride Level 95 mmol/L (98-107) Carbon Dioxide Level 34 mmol/L (21-32) Anion Gap 3 (6-14) Blood Urea Nitrogen 20 mg/dL (8-26) Creatinine 0.4 mg/dL (0.7-1.3) Estimated GFR (Cockcroft-Gault) 218.0 Glucose Level 161 mg/dL (70-99) Calcium Level 8.2 mg/dL (8.5-10.1) Phosphorus Level 3.8 mg/dL (2.6-4.7) Magnesium Level 2.1 mg/dL (1.8-2.4) Assessment and Plan Assessmemt and Plan Problems Medical Problems: (1) Hypoxia Status: Acute (2) Pneumonia due to COVID-19 virus Status: Acute Comment Review of Relevant I have reviewed the following items dino (where applicable) has been applied. Medications: Current Medications Medications (Trade) Dose Ordered Sig/Jody Route PRN Reason Start Time Stop Time Status Last Admin Dose Admin Sodium Chloride 110 meq/Calcium Gluconate 10 meq/ Multivitamins 10 ml/Zinc/Copper/ Manganese/ Selenium 1 ml/ Total Parenteral Nutrition/Amino Acids/Dextrose/ Fat Emulsion Intravenous 1,512 ml @ 63 mls/hr TPN CONT IV 10/14/21 22:00 10/15/21 21:59 10/14/21 22:24 Justifications for Admission Other Justification ERIKA GONZALEZ MD Oct 15, 2021 08:52
[2021-10-15] MEDS: TPN PER PHARMACY MC PRN (10:07)
--- NOTE | 2021-10-15 10:13 | NUR ---
Pharmacy TPN Dosing Note S: JACINTOAILYNVANIA Yarbrough is a 60 year old M Currently receiving Central Continuous TPN started 10/04/21 B:Pertinent PMH: NPO Height: 5 feet, 7 inches Weight: 87.0 kg Current diet: NPO LABS: Sodium: 132 Potassium: 4.5 Chloride: 95 Calcium: 8.2 Corrected Calcium: 9.24 Magnesium: 2.1 CO2: 34 SCr: 0.4 Glucose: 161 Albumin: 2.7 AST: 44 ALT: 122 TPN FORMULA: TPN TYPE: Central Continuous AMINO ACIDS: 80 gm DEXTROSE: 255 gm SODIUM CHLORIDE: 110 mEq POTASSIUM PHOSPHATE: 13.6 mmol CALCIUM: 10 mEq MULTIPLE VITAMIN: 10 ml TRACE ELEMENTS: 1 ml(s) TPN PLAN: Lipids removed per schedule. Potassium phosphate added back to TPN Volume reduced to help with low sodium R: Change TPN per plan and ordered formula Will monitor electrolytes, glucose, and tolerance to TPN. Mariana Mcfarlane [facility], 10/15/21 1017
[2021-10-15] MEDS: LIDOCAINE (700MG/PATCH) PATCH. TD SCH (10:14)
--- NOTE | 2021-10-15 10:24 | PDOC ---
PULMONARY PROGRESS NOTES DATE: 10/15/21 TIME: 10:23 Subjective on precedex on Vapotherm, and BiPAP. 16/10 fio2 100% o2 sat 97% Vitals Vital Signs Date Time Temp Pulse Resp B/P (MAP) Pulse Ox O2 Delivery O2 Flow Rate FiO2 10/15/21 08:00 Bi-pap 30.0 10/15/21 07:53 97 10/15/21 07:00 70 22 113/58 10/15/21 04:00 97.7 97.7 General: No acute distress Lungs: Other Cardiovascular: S1, S2 Abdomen: Other (obese) Extremities: No Edema Skin: No Rashes Labs Laboratory Tests Test 10/14/21 06:30 10/15/21 06:15 White Blood Count 13.0 x10^3/uL (4.0-11.0) Red Blood Count 4.95 x10^6/uL (4.30-5.70) Hemoglobin 13.8 g/dL (13.0-17.5) Hematocrit 42.2 % (39.0-53.0) Mean Corpuscular Volume 85 fL (79-100) Mean Corpuscular Hemoglobin 28 pg (25-35) Mean Corpuscular Hemoglobin Concent 33 g/dL (31-37) Red Cell Distribution Width 16.2 % (11.5-14.5) Platelet Count 194 x10^3/uL (140-400) Sodium Level 133 mmol/L (136-145) 132 mmol/L (136-145) Potassium Level 5.2 mmol/L (3.5-5.1) 4.5 mmol/L (3.5-5.1) Chloride Level 95 mmol/L (98-107) 95 mmol/L (98-107) Carbon Dioxide Level 32 mmol/L (21-32) 34 mmol/L (21-32) Anion Gap 6 (6-14) 3 (6-14) Blood Urea Nitrogen 17 mg/dL (8-26) 20 mg/dL (8-26) Creatinine 0.5 mg/dL (0.7-1.3) 0.4 mg/dL (0.7-1.3) Estimated GFR (Cockcroft-Gault) 168.5 218.0 BUN/Creatinine Ratio 34 (6-20) Glucose Level 211 mg/dL (70-99) 161 mg/dL (70-99) Calcium Level 8.1 mg/dL (8.5-10.1) 8.2 mg/dL (8.5-10.1) Phosphorus Level 4.4 mg/dL (2.6-4.7) 3.8 mg/dL (2.6-4.7) Magnesium Level 2.1 mg/dL (1.8-2.4) 2.1 mg/dL (1.8-2.4) Total Bilirubin 0.7 mg/dL (0.2-1.0) Aspartate Amino Transf (AST/SGOT) 44 U/L (15-37) Alanine Aminotransferase (ALT/SGPT) 122 U/L (16-63) Alkaline Phosphatase 139 U/L (46-116) Total Protein 6.2 g/dL (6.4-8.2) Albumin 2.7 g/dL (3.4-5.0) Albumin/Globulin Ratio 0.8 (1.0-1.7) Triglycerides Level 110 mg/dL (0-150) Laboratory Tests Test 10/15/21 06:15 Sodium Level 132 mmol/L (136-145) Potassium Level 4.5 mmol/L (3.5-5.1) Chloride Level 95 mmol/L (98-107) Carbon Dioxide Level 34 mmol/L (21-32) Anion Gap 3 (6-14) Blood Urea Nitrogen 20 mg/dL (8-26) Creatinine 0.4 mg/dL (0.7-1.3) Estimated GFR (Cockcroft-Gault) 218.0 Glucose Level 161 mg/dL (70-99) Calcium Level 8.2 mg/dL (8.5-10.1) Phosphorus Level 3.8 mg/dL (2.6-4.7) Magnesium Level 2.1 mg/dL (1.8-2.4) Medications Active Scripts Medications Dose Route/Sig Max Daily Dose Days Date Category Oxycodone Hcl 5 Mg Capsule 5 Mg PO PRN Q4HRS PRN 08/01/21 Rx Tramadol Hcl 50 Mg Tablet 50 Mg PO Q4HRS PRN 08/01/21 Rx Warfarin Sodium 4 Mg Tablet 4 Mg PO DAILY 28 08/01/21 Rx Timoptic 0.5% (Timolol Maleate) 10 Ml Drops 1 Drop OD BID 30 07/17/21 Reported Lisinopril 10 Mg Tablet 10 Mg PO DAILY 07/17/21 Reported Comments Chest x-ray reviewed dated 10/01/2021. Diffuse bilateral interstitial infiltrates. No significant pleural effusion. There is mild progression. No evidence of pneumothorax Impression . 1. Acute hypoxic respiratory failure secondary to COVID-19 viral pneumonia. 2. COVID-19 viral pneumonia/early acute respiratory distress syndrome. 3. Abnormal chest x-ray with diffuse bilateral infiltrates consistent with viral pneumonia. 4. Mildly increased liver function test. Likely due to COVID. 5. Mild leukopenia. Secondary to COVID. 6. Markedly elevated CRP level of 197. Status post Actemra. He received on 09/30/2021 Plan . Updated 10/15 bipap setting reviewed titrate fio2 to keep sat 90%. Continue BiPAP with Vapotherm as tolerated. So for tolerating current high flow oxygen well. on precedex cont steroid. Taper the dose elevate hob continue current support s/p remdesivir and tocilizumab Patient has elected to DO NOT INTUBATE DO NOT RESUSCITATE TPN for nutrition. Cannot tolerate off the BiPAP for oral intake. discussed w rn rt Updated 10/14 bipap setting reviewed titrate fio2 to keep sat 90% So for tolerating current high flow oxygen well. on precedex cont steroid elevate hob continue current support s/p remdesivir and tocilizumab Patient has elected to DO NOT INTUBATE DO NOT RESUSCITATE discussed w rn rt Updated 10/13 bipap setting reviewed titrate fio2 to keep sat 90% on precedex cont steroid elevate hob continue current support s/p remdesivir and tocilizumab Patient has elected to DO NOT INTUBATE DO NOT RESUSCITATE discussed w rn rt Updated 10/12 bipap setting reviewed 16/ o2 sat 87% will increase epap to 10 and 12 if needed discussed w rt start steroid elevate hob We will continue current support Received remdesivir and tocilizumab Patient has elected to DO NOT INTUBATE DO NOT RESUSCITATE discussed w rn rt Updated 10/11 Patient saturations today better Needs not utilizing accessory muscles We will continue current support Up to chair if possible Received remdesivir and tocilizumab Patient has elected to DO NOT INTUBATE DO NOT RESUSCITATE updated 10/10 Continue current support BiPAP Nutritional support Up to chair if possible ORQUIDEA JENNINGS MD Oct 15, 2021 10:24
--- NOTE | 2021-10-15 11:51 | PDOC ---
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 10/15/21 1151: CARDIO Progress Notes Date and Time Date of Service 10/15/2021 Time of Evaluation 1120 Subjective Subjective: No Chest Pain, No Palpitations, Other (SOA better) Vitals Vitals Vital Signs Date Time Temp Pulse Resp B/P (MAP) Pulse Ox O2 Delivery O2 Flow Rate FiO2 10/15/21 10:00 70 24 115/63 94 BiPAP/CPAP 10/15/21 08:00 30.0 10/15/21 08:00 97.9 97.9 Weight Weight [ ] Input and Output Intake and Output Intake and Output 10/15/21 07:00 Intake Total 1174 ml Output Total 3550 ml Balance -2376 ml IV Total 1174 ml Output Urine Total 3550 ml Laboratory Labs Laboratory Tests Test 10/15/21 06:15 Sodium Level 132 mmol/L (136-145) Potassium Level 4.5 mmol/L (3.5-5.1) Chloride Level 95 mmol/L (98-107) Carbon Dioxide Level 34 mmol/L (21-32) Anion Gap 3 (6-14) Blood Urea Nitrogen 20 mg/dL (8-26) Creatinine 0.4 mg/dL (0.7-1.3) Estimated GFR (Cockcroft-Gault) 218.0 Glucose Level 161 mg/dL (70-99) Calcium Level 8.2 mg/dL (8.5-10.1) Phosphorus Level 3.8 mg/dL (2.6-4.7) Magnesium Level 2.1 mg/dL (1.8-2.4) Microbiology Micro Microbiology 09/25/21 Blood Culture - Final, Complete NO GROWTH AFTER 5 DAYS Physical Exam HEENT: Neck Supple W Full Motion Chest: Symmetric LUNGS: Other (bipap) Heart: RRR (SR) Abdomen: Other (obese ) Extremities: No Edema Neurology: alert, oriented, follow commands Assessment Assessment 1. Acute respiratory failure secondary to COVID: on NRB 2. PSVT better with BB, none further 3. Hypertension; well controlled 4. Hypokalemia: resolved 5. Hyperthyroidism; as per IM Recommendations Start on low dose PO metoprolol if BP is able to tolerate ASA therapy. Replace K Ongoing lung optimization, treatment of COVID as per pulmonary team Consider outpatient echo when recovered from COVID Supportive care Justicifation of Admission Dx: Justifications for Admission: Justification of Admission Dx: N/A CHADNLER CRUZ MD 10/15/21 1246: CARDIO Progress Notes Assessment Assessment Agree with KENNEL OPERATOR's assessment and plan. AT/SVT improved -agree with low-dose beta-henry orally Continue current treatment for Covid pneumonia Plan for outpatient 2D echocardiogram and possibly event monitor recording MARY BANG APRN Oct 15, 2021 11:51 CHANDLER CRUZ MD Oct 15, 2021 12:46
[2021-10-15] MEDS: METOPROLOL TART IMMED RELEASE 25 MG TABLET. PO SCH ×2 (15:26→21:04)
[2021-10-15] MEDS: PATCH REMOVAL. MC SCH (20:48)
[2021-10-15] MEDS ORDERED: TOTAL PARENTERAL NUTRITION IV SCH (22:00)
[2021-10-15] MEDS ORDERED: AMINO ACID IV SCH (22:00)
[2021-10-15] MEDS ORDERED: [UNRECOGNIZED DRUG - OTHER] IV SCH (22:00)
[2021-10-15] MEDS ORDERED: DEXTROSE 70% IV SCH (22:00)
[2021-10-15] MEDS: guaiFENesin/CODEINE 100mg/10mg 5 ML LIQUID PO PRN (23:22)
[2021-10-16] VITALS (24 sets, daily range): BP systolic 82–176; BP diastolic 50–87
[2021-10-16] MEDS ORDERED: PROPOFOL 100 ML IV ONE (00:48)
[2021-10-16] MEDS: DEXMEDETOMIDINE 400 MCG in IV NORMAL SALINE 100ML 96 ML IV PRN ×6 (00:55→23:17)
[2021-10-16] MEDS ORDERED: PROPOFOL 10 MG/ML (100ML) VIAL. IV ONE (01:00)
[2021-10-16] MEDS: PANTOPRAZOLE IV PUSH 40 MG VIAL. IVP SCH (08:30)
[2021-10-16] MEDS: SENNOSIDES/DOCUSATE 8.6/50MG TABLET. PO SCH ×2 (08:30→21:00)
[2021-10-16] MEDS: ASPIRIN CHEWABLE 81 MG TABLET. PO SCH (08:30)
[2021-10-16] MEDS: ENOXAPARIN 40 MG/0.4 ML SYRINGE. SQ SCH (08:30)
[2021-10-16] MEDS: LIDOCAINE (700MG/PATCH) PATCH. TD SCH (08:31)
[2021-10-16] MEDS: TIMOLOL 0.5% OPHTH SOLUTION 5ML BOTTLE. OD SCH ×2 (08:31→20:54)
[2021-10-16 08:56] LABS: CALCIUM 8.2 mg/dL (8.5-10.1); CREATININE 0.4 mg/dL (0.7-1.3); PHOSPHORUS 3.1 mg/dL (2.6-4.7); POTASSIUM 4.1 mmol/L (3.5-5.1)
[2021-10-16] MEDS: METOPROLOL TART IMMED RELEASE 25 MG TABLET. PO SCH ×2 (09:00→16:45)
--- NOTE | 2021-10-16 09:15 | PDOC ---
[facility] PROGRESS NOTE Date of Service DOS: DATE: 10/16/21 TIME: 09:14 Chief Complaint Chief Complaint acute Covid-19 Pneumonia status post remdesivir and Actemra Acute hypoxic respiratory failure requiring Vapotherm and bipap support SEPSIS malnutrition Hypertension Knee replacement Appreciate pulmonology recommendationscontinue Vapotherm and as needed BiPAP Continue with IV steroids for total 10 days Continue empiric IV antibiotics Lovenox for DVT prophylaxis Continue Protonix for GI prophylaxis while on steroids CODE - DNR/DNI History of Present Illness History of Present Illness Mr Lehman is a 60-year-old male with PMHx HTN brought into the hospital due to cough and trouble breathing for the last 10 days, notes his father was positive for COVID 19 and was hospitalized. He has not been vaccinated against COVID 19. 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 Notably hypoxic on initial examination. Chest x-ray on admission showed multifocal bilateral patchy infiltrates. Rapid COVID 19 positive, started on dexamethasone, Lovenox for DVT prophylaxis along with remdesivir and admitted for further care. On hospital stay with complaint Vapotherm and BiPAP transition TPN as he was unable to take p.o. 10/06/2021. 10/13: Still doing about the same, more alert, follows commands well on BIPAP, is still calm and responsive. abx stopped yesterday, l no fever 10/14: Seen in ICU on Vapotherm 35 L/min 100 percent FiO2 plus BIPAP. In good spirits. Slight cough. No longer with epistaxis. 10/15: Seen in ICU on Vapotherm 30 L/min 80% FiO2 and BiPAP with O2 saturations 96%. He was complaining of some neck and back pain but now has a pillow from home feels that this is helping somewhat. 10/16: Seen in ICU Vapotherm 30l/min 80% FiO2 with support of BiPAP O2 satur ations 97%. He has no significant complaints today except that he is hungry. Discussed with RT, increase Vapotherm settings and try to wean off BiPAP cc time 32 min Vitals/I&O Vitals/I&O: Vital Signs Date Time Temp Pulse Resp B/P (MAP) Pulse Ox O2 Delivery O2 Flow Rate FiO2 10/16/21 08:17 96 BiPAP/CPAP 10/16/21 06:00 71 21 82/56 10/16/21 04:00 97.9 97.9 10/16/21 04:00 30.0 I & O 10/15/21 10/15/21 10/16/21 15:00 23:00 07:00 Intake Total 120 ml 1931 ml 1279.8 ml Output Total 850 ml 700 ml 1200 ml Balance -730 ml 1231 ml 79.8 ml Physical Exam General: Alert, Oriented X3, Cooperative, mild distress Heart: Regular rate Lungs: Other Abdomen: Normal bowel sounds Extremities: No clubbing, No edema, Normal pulses Skin: No rashes, No significant lesion Labs Labs: Laboratory Tests Test 10/16/21 08:15 Sodium Level 136 mmol/L (136-145) Potassium Level 4.1 mmol/L (3.5-5.1) Chloride Level 95 mmol/L (98-107) Carbon Dioxide Level 37 mmol/L (21-32) Anion Gap 4 (6-14) Blood Urea Nitrogen 20 mg/dL (8-26) Creatinine 0.4 mg/dL (0.7-1.3) Estimated GFR (Cockcroft-Gault) 218.0 Glucose Level 137 mg/dL (70-99) Calcium Level 8.2 mg/dL (8.5-10.1) Phosphorus Level 3.1 mg/dL (2.6-4.7) Magnesium Level 2.0 mg/dL (1.8-2.4) Assessment and Plan Assessmemt and Plan Problems Medical Problems: (1) Hypoxia Status: Acute (2) Pneumonia due to COVID-19 virus Status: Acute Comment Review of Relevant I have reviewed the following items dino (where applicable) has been applied. Medications: Current Medications Medications (Trade) Dose Ordered Sig/Jody Route PRN Reason Start Time Stop Time Status Last Admin Dose Admin Miscellaneous (Lidoderm Patch Removal) 1 ea QHS MC 10/15/21 21:00 10/15/21 20:48 Sodium Chloride 110 meq/Potassium Phosphate 13.6 mmol/Calcium Gluconate 10 meq/ Multivitamins 10 ml/Zinc/Copper/ Manganese/ Selenium 1 ml/ Total Parenteral Nutrition/Amino Acids/Dextrose 1,320 ml @ 55 mls/hr TPN CONT IV 10/15/21 22:00 10/16/21 21:59 10/16/21 00:56 Methylprednisolone Sodium Succinate (SOLU-Medrol 40MG VIAL) 40 mg AFTRNOON IV 10/15/21 13:00 10/15/21 15:25 Metoprolol Tartrate (Lopressor) 12.5 mg BID PO 10/15/21 12:00 10/15/21 21:04 Justifications for Admission Other Justification ERIKA GONZALEZ MD Oct 16, 2021 09:15
[2021-10-16] MEDS: TPN PER PHARMACY MC PRN (10:04)
--- NOTE | 2021-10-16 10:05 | NUR ---
Pharmacy TPN Dosing Note S: JACINTONIKOLASVANIA ENRIQUE is a 60 year old M Currently receiving Central Continuous TPN started 10/04/21 B:Pertinent PMH: NPO Height: 5 feet, 7 inches Weight: 89.0 kg Current diet: NPO LABS: Sodium: 136 Potassium: 4.1 Chloride: 95 Calcium: 8.2 Corrected Calcium: 9.24 Magnesium: 2 CO2: 37 SCr: 0.4 Glucose: 137 Albumin: 2.7 AST: 44 ALT: 122 TPN FORMULA: TPN TYPE: Central Continuous AMINO ACIDS: 80 gm DEXTROSE: 255 gm LIPIDS: 30 gm SODIUM CHLORIDE: 110 mEq POTASSIUM PHOSPHATE: 13.6 mmol CALCIUM: 10 mEq MULTIPLE VITAMIN: 10 ml TRACE ELEMENTS: 1 ml(s) TPN PLAN: Added lipids (dosing MWF), Na noramlized. Cont electrolytes the same. -BMP, Mag and Phos in AM. R: Change TPN as noted above. Will monitor electrolytes, glucose, and tolerance to TPN. ANGELA VILLAVICENCIO [facility], 10/16/21 0848
--- NOTE | 2021-10-16 10:23 | PDOC ---
PULMONARY PROGRESS NOTES DATE: 10/16/21 TIME: 10:21 Subjective on precedex on Vapotherm, and BiPAP. 16/10 fio2 95% o2 sat 97% Vitals Vital Signs Date Time Temp Pulse Resp B/P (MAP) Pulse Ox O2 Delivery O2 Flow Rate FiO2 10/16/21 10:01 94 BiPAP/CPAP 10/16/21 06:00 71 21 82/56 10/16/21 04:00 97.9 97.9 10/16/21 04:00 30.0 General: Alert, No acute distress Lungs: Other Cardiovascular: S1, S2 Abdomen: Other (obese) Extremities: No Edema Skin: No Rashes Labs Laboratory Tests Test 10/15/21 06:15 10/16/21 08:15 Sodium Level 132 mmol/L (136-145) 136 mmol/L (136-145) Potassium Level 4.5 mmol/L (3.5-5.1) 4.1 mmol/L (3.5-5.1) Chloride Level 95 mmol/L (98-107) 95 mmol/L (98-107) Carbon Dioxide Level 34 mmol/L (21-32) 37 mmol/L (21-32) Anion Gap 3 (6-14) 4 (6-14) Blood Urea Nitrogen 20 mg/dL (8-26) 20 mg/dL (8-26) Creatinine 0.4 mg/dL (0.7-1.3) 0.4 mg/dL (0.7-1.3) Estimated GFR (Cockcroft-Gault) 218.0 218.0 Glucose Level 161 mg/dL (70-99) 137 mg/dL (70-99) Calcium Level 8.2 mg/dL (8.5-10.1) 8.2 mg/dL (8.5-10.1) Phosphorus Level 3.8 mg/dL (2.6-4.7) 3.1 mg/dL (2.6-4.7) Magnesium Level 2.1 mg/dL (1.8-2.4) 2.0 mg/dL (1.8-2.4) Laboratory Tests Test 10/16/21 08:15 Sodium Level 136 mmol/L (136-145) Potassium Level 4.1 mmol/L (3.5-5.1) Chloride Level 95 mmol/L (98-107) Carbon Dioxide Level 37 mmol/L (21-32) Anion Gap 4 (6-14) Blood Urea Nitrogen 20 mg/dL (8-26) Creatinine 0.4 mg/dL (0.7-1.3) Estimated GFR (Cockcroft-Gault) 218.0 Glucose Level 137 mg/dL (70-99) Calcium Level 8.2 mg/dL (8.5-10.1) Phosphorus Level 3.1 mg/dL (2.6-4.7) Magnesium Level 2.0 mg/dL (1.8-2.4) Medications Active Scripts Medications Dose Route/Sig Max Daily Dose Days Date Category Oxycodone Hcl 5 Mg Capsule 5 Mg PO PRN Q4HRS PRN 08/01/21 Rx Tramadol Hcl 50 Mg Tablet 50 Mg PO Q4HRS PRN 08/01/21 Rx Warfarin Sodium 4 Mg Tablet 4 Mg PO DAILY 28 08/01/21 Rx Timoptic 0.5% (Timolol Maleate) 10 Ml Drops 1 Drop OD BID 30 07/17/21 Reported Lisinopril 10 Mg Tablet 10 Mg PO DAILY 07/17/21 Reported Comments Chest x-ray reviewed dated 10/01/2021. Diffuse bilateral interstitial infiltrates. No significant pleural effusion. There is mild progression. No evidence of pneumothorax Impression . 1. Acute hypoxic respiratory failure secondary to COVID-19 viral pneumonia. 2. COVID-19 viral pneumonia/early acute respiratory distress syndrome. 3. Abnormal chest x-ray with diffuse bilateral infiltrates consistent with viral pneumonia. 4. Mildly increased liver function test. Likely due to COVID. 5. Mild leukopenia. Secondary to COVID. 6. Markedly elevated CRP level of 197. Status post Actemra. He received on 09/30/2021 Plan . Updated 10/16 Discussed with respiratory therapist. We will keep the patient on 100% Vapotherm and try weaning off the BiPAP if possible. on precedex cont steroid. Taper the dose elevate hob continue current support s/p remdesivir and tocilizumab Patient has elected to DO NOT INTUBATE DO NOT RESUSCITATE TPN for nutrition. Cannot tolerate off the BiPAP for oral intake. discussed w rn rt Updated 10/15 bipap setting reviewed titrate fio2 to keep sat 90%. Continue BiPAP with Vapotherm as tolerated. So for tolerating current high flow oxygen well. on precedex cont steroid. Taper the dose elevate hob continue current support s/p remdesivir and tocilizumab Patient has elected to DO NOT INTUBATE DO NOT RESUSCITATE TPN for nutrition. Cannot tolerate off the BiPAP for oral intake. discussed w rn rt Updated 10/14 bipap setting reviewed titrate fio2 to keep sat 90% So for tolerating current high flow oxygen well. on precedex cont steroid elevate hob continue current support s/p remdesivir and tocilizumab Patient has elected to DO NOT INTUBATE DO NOT RESUSCITATE discussed w rn rt Updated 10/13 bipap setting reviewed titrate fio2 to keep sat 90% on precedex cont steroid elevate hob continue current support s/p remdesivir and tocilizumab Patient has elected to DO NOT INTUBATE DO NOT RESUSCITATE discussed w rn rt Updated 10/12 bipap setting reviewed 16/8 o2 sat 87% will increase epap to 10 and 12 if needed discussed w rt start steroid elevate hob We will continue current support Received remdesivir and tocilizumab Patient has elected to DO NOT INTUBATE DO NOT RESUSCITATE discussed w rn rt Updated 10/11 Patient saturations today better Needs not utilizing accessory muscles We will continue current support Up to chair if possible Received remdesivir and tocilizumab Patient has elected to DO NOT INTUBATE DO NOT RESUSCITATE updated 10/10 Continue current support BiPAP Nutritional support Up to chair if possible ORQUIDEA JENNINGS MD Oct 16, 2021 10:23
[2021-10-16] MEDS: MORPHINE SULFATE 2 MG/ML INJ. IVP PRN ×3 (13:06→23:47)
[2021-10-16] MEDS: methylPREDNISolone SOD SUCC PF 40 MG/ML VIAL. IV SCH (13:06)
[2021-10-16] MEDS: fentaNYL PF VIAL 100 MCG/2 ML VIAL IVP PRN ×2 (14:51→21:40)
--- NOTE | 2021-10-16 15:51 | NUR ---
SS following up with discharge planning. SS reviewed pt chart and discussed with pt RN. Pt is currently on BIPAP and Vapotherm at 85%. COVID19 positive. Pt on Precedex. Pt on TPN and IV Solu-Medrol. SS will continue to follow for discharge planning.
[2021-10-16] MEDS: PATCH REMOVAL. MC SCH (20:54)
[2021-10-16] MEDS: guaiFENesin/CODEINE 100mg/10mg 5 ML LIQUID PO PRN (21:39)
[2021-10-16] MEDS ORDERED: DEXTROSE 70% IV SCH (22:00)
[2021-10-16] MEDS ORDERED: TOTAL PARENTERAL NUTRITION IV SCH (22:00)
[2021-10-16] MEDS ORDERED: [UNRECOGNIZED DRUG - OTHER] IV SCH (22:00)
[2021-10-16] MEDS ORDERED: AMINO ACID IV SCH (22:00)
[2021-10-17] VITALS (23 sets, daily range): BP systolic 83–168; BP diastolic 51–84
[2021-10-17] MEDS: DEXMEDETOMIDINE 400 MCG in IV NORMAL SALINE 100ML 96 ML IV PRN ×7 (03:02→23:42)
[2021-10-17] MEDS: fentaNYL PF VIAL 100 MCG/2 ML VIAL IVP PRN ×3 (03:18→15:07)
[2021-10-17] MEDS: STERILE WATER for RESP 2,000 ML BAG. INH PRN (04:00)
[2021-10-17] MEDS: MORPHINE SULFATE 2 MG/ML INJ. IVP PRN (04:34)
[2021-10-17] MEDS: TIMOLOL 0.5% OPHTH SOLUTION 5ML BOTTLE. OD SCH ×2 (08:17→20:55)
[2021-10-17] MEDS: ASPIRIN CHEWABLE 81 MG TABLET. PO SCH (08:17)
[2021-10-17] MEDS: PANTOPRAZOLE IV PUSH 40 MG VIAL. IVP SCH (08:17)
[2021-10-17] MEDS: METOPROLOL TART IMMED RELEASE 25 MG TABLET. PO SCH ×2 (08:18→20:55)
[2021-10-17] MEDS: SENNOSIDES/DOCUSATE 8.6/50MG TABLET. PO SCH ×2 (08:18→20:55)
[2021-10-17] MEDS: LIDOCAINE (700MG/PATCH) PATCH. TD SCH (08:19)
[2021-10-17] MEDS: ENOXAPARIN 40 MG/0.4 ML SYRINGE. SQ SCH (08:19)
--- NOTE | 2021-10-17 08:32 | RAD ---
EXAM: XR CHEST 1V 10/17/2021 7:40 AM CLINICAL INDICATION: BiPAP/Covid COMPARISON: Chest radiograph 10/04/2021 TECHNIQUE: AP upright view of the chest FINDINGS: There is a left PICC with tip projecting over the upper superior vena cava. The heart is no rmal in size. Lungs are hypoexpanded. Extensive bilateral airspace opacities are redemonstrated, slig htly improved in the lung bases. No pleural effusion or pneumothorax. IMPRESSION: Slightly improved diffuse bilateral airspace opacities. Electronically signed by: Ashlyn Pace MD (10/17/2021 8:30 AM) [id number]
--- NOTE | 2021-10-17 08:41 | PDOC ---
[employer] [facility] PROGRESS NOTE Date of Service DOS: DATE: 10/17/21 TIME: 08:40 Chief Complaint Chief Complaint acute Covid-19 Pneumonia status post remdesivir and Actemra Acute hypoxic respiratory failure requiring Vapotherm and bipap support SEPSIS malnutrition Hypertension Knee replacement Appreciate pulmonology recommendationscontinue Vapotherm and as needed BiPAP Continue with IV steroids for total 10 days Continue empiric IV antibiotics Lovenox for DVT prophylaxis Continue Protonix for GI prophylaxis while on steroids CODE - DNR/DNI History of Present Illness History of Present Illness Mr Lehman is a 60-year-old male with PMHx HTN brought into the hospital due to cough and trouble breathing for the last 10 days, notes his father was positive for COVID 19 and was hospitalized. He has not been vaccinated against COVID 19. 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 Notably hypoxic on initial examination. Chest x-ray on admission showed multifocal bilateral patchy infiltrates. Rapid COVID 19 positive, started on dexamethasone, Lovenox for DVT prophylaxis along with remdesivir and admitted for further care. On hospital stay with complaint Vapotherm and BiPAP transition TPN as he was unable to take p.o. 10/06/2021. 10/13: Still doing about the same, more alert, follows commands well on BIPAP, is still calm and responsive. abx stopped yesterday, l no fever 10/14: Seen in ICU on Vapotherm 35 L/min 100 percent FiO2 plus BIPAP. In good spirits. Slight cough. No longer with epistaxis. 10/15: Seen in ICU on Vapotherm 30 L/min 80% FiO2 and BiPAP with O2 saturations 96%. He was complaining of some neck and back pain but now has a pillow from home feels that this is helping somewhat. 10/16: Seen in ICU Vapotherm 30l/min 80% FiO2 with support of BiPAP O2 satura tions 97%. He has no significant complaints today except that he is hungry. Discussed with RT, increase Vapotherm settings and try to wean off BiPAP 10/17: Trialed on Vapotherm off BiPAP yesterday afternoon did well. 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 Still some discomfort today. Required some morphine and fentanyl. Back on Vapotherm. Currently at 100% FiO2 BiPAP support cc time 32 min Vitals/I&O Vitals/I&O: Vital Signs Date Time Temp Pulse Resp B/P (MAP) Pulse Ox O2 Delivery O2 Flow Rate FiO2 10/17/21 08:18 110 155/81 10/17/21 06:00 32 85 BIPAP/Vapotherm 40.0 10/17/21 04:00 98.9 98.9 I & O 0 10/16/21 10/16/21 10/17/21 15:00 23:00 07:00 Intake Total 1379 ml 915 ml Output Total 420 ml 200 ml 630 ml Balance -420 ml 1179 ml 285 ml Physical Exam General: Alert, Oriented X3, Cooperative, mild distress Heart: Regular rate Lungs: Other Abdomen: Normal bowel sounds Extremities: No clubbing, No edema, Normal pulses Skin: No rashes, No significant lesion Assessment and Plan Assessmemt and Plan Problems Medical Problems: (1) Hypoxia Status: Acute (2) Pneumonia due to COVID-19 virus Status: Acute Comment Review of Relevant I have reviewed the following items dino (where applicable) has been applied. Medications: Current Medications Medications (Trade) Dose Ordered Sig/Jody Route PRN Reason Start Time Stop Time Status Last Admin Dose Admin Sodium Chloride 110 meq/Potassium Phosphate 13.6 mmol/Calcium Gluconate 10 meq/ Multivitamins 10 ml/Zinc/Copper/ Manganese/ Selenium 1 ml/ Total Parenteral Nutrition/Amino Acids/Dextrose/ Fat Emulsion Intravenous 1,320 ml @ 55 mls/hr TPN CONT IV 10/16/21 22:00 10/17/21 21:59 10/16/21 23:18 Justifications for Admission Other Justification ERIKA GONZALEZ MD Oct 17, 2021 08:41
[2021-10-17] MEDS: oxyCODONE IR 5 MG TABLET PO PRN ×2 (09:27→15:08)
[2021-10-17] MEDS ORDERED: SMZ/TMP 800/160MG TABLET. PO SCH (10:00)
[2021-10-17] MEDS ORDERED: ALTEPLASE 1MG SYRINGE. INT CAT ONE (10:00)
--- NOTE | 2021-10-17 11:04 | PDOC ---
PULMONARY PROGRESS NOTES DATE: 10/17/21 TIME: 11:01 Subjective Patient had some chest pain last night. Developed fever of 100.1 F today. Oxygen requirement has increased. Now 100% FiO2 via BiPAP 100% Vapotherm. Appears a bit lethargic. Vitals Vital Signs Date Time Temp Pulse Resp B/P (MAP) Pulse Ox O2 Delivery O2 Flow Rate FiO2 10/17/21 10:00 90 33 112/64 91 BIPAP/Vapotherm 40.0 10/17/21 08:00 100.1 100.1 General: No acute distress Lungs: Other Cardiovascular: S1, S2 Abdomen: Other (obese) Extremities: No Edema Skin: No Rashes Labs Laboratory Tests Test 10/16/21 08:15 Sodium Level 136 mmol/L (136-145) Potassium Level 4.1 mmol/L (3.5-5.1) Chloride Level 95 mmol/L (98-107) Carbon Dioxide Level 37 mmol/L (21-32) Anion Gap 4 (6-14) Blood Urea Nitrogen 20 mg/dL (8-26) Creatinine 0.4 mg/dL (0.7-1.3) Estimated GFR (Cockcroft-Gault) 218.0 Glucose Level 137 mg/dL (70-99) Calcium Level 8.2 mg/dL (8.5-10.1) Phosphorus Level 3.1 mg/dL (2.6-4.7) Magnesium Level 2.0 mg/dL (1.8-2.4) Medications Active Scripts Medications Dose Route/Sig Max Daily Dose Days Date Category Oxycodone Hcl 5 Mg Capsule 5 Mg PO PRN Q4HRS PRN 08/01/21 Rx Tramadol Hcl 50 Mg Tablet 50 Mg PO Q4HRS PRN 08/01/21 Rx Warfarin Sodium 4 Mg Tablet 4 Mg PO DAILY 28 08/01/21 Rx Timoptic 0.5% (Timolol Maleate) 10 Ml Drops 1 Drop OD BID 30 07/17/21 Reported Lisinopril 10 Mg Tablet 10 Mg PO DAILY 07/17/21 Reported Comments Chest x-ray reviewed 10/17/2021. Bilateral interstitial infiltrates. These are diffuse but mildly improved in the right lung Chest x-ray reviewed dated 10/01/2021. Diffuse bilateral interstitial infiltrates. No significant pleural effusion. There is mild progression. No evidence of pneumothorax Impression . 1. Acute hypoxic respiratory failure secondary to COVID-19 viral pneumonia/ARDS.. 2. Development of new fever, chest pain and increasing oxygen requirement. Likely new infection. Patient has been on steroids for 3 weeks. PCP pneumonia would be in the differential diagnosis. 3. Abnormal chest x-ray with diffuse bilateral infiltrates consistent with viral pneumonia. 4. Mildly increased liver function test. Likely due to COVID. 5. Mild leukopenia. Secondary to COVID. 6. Markedly elevated CRP level of 197. Status post Actemra. He received on 09/30/2021 Plan . Updated 10/[address] Verduzco. Recommend infectious disease consult to reinitiate antibiotic and especially to cover PCP pneumonia. Will obtain all cultures including blood cultures and urine cultures. We will obtain D-dimers and venous Dopplers of the lower extremities. Clinically too unstable to undergo CT angiogram. We will also obtain procalcitonin level./Troponin level. Discussed with respiratory therapist. Continue present 100% oxygen via BiPAP and via Vapotherm. on precedex cont steroid. Taper the dose elevate hob continue current support s/p remdesivir and tocilizumab Patient has elected to DO NOT INTUBATE DO NOT RESUSCITATE TPN for nutrition. Cannot tolerate off the BiPAP for oral intake. discussed w rn rt Discussed with Dr. Brooks Servin and Dr. Loo. Critical care time 30 minutes Updated 10/16 Discussed with respiratory therapist. We will keep the patient on 100% Vapotherm and try weaning off the BiPAP if possible. on precedex cont steroid. Taper the dose elevate hob continue current support s/p remdesivir and tocilizumab Patient has elected to DO NOT INTUBATE DO NOT RESUSCITATE TPN for nutrition. Cannot tolerate off the BiPAP for oral intake. discussed w rn rt Updated 10/15 bipap setting reviewed titrate fio2 to keep sat 90%. Continue BiPAP with Vapotherm as tolerated. So for tolerating current high flow oxygen well. on precedex cont steroid. Taper the dose elevate hob continue current support s/p remdesivir and tocilizumab Patient has elected to DO NOT INTUBATE DO NOT RESUSCITATE TPN for nutrition. Cannot tolerate off the BiPAP for oral intake. discussed w rn rt Updated 10/14 bipap setting reviewed titrate fio2 to keep sat 90% So for tolerating current high flow oxygen well. on precedex cont steroid elevate hob continue current support s/p remdesivir and tocilizumab Patient has elected to DO NOT INTUBATE DO NOT RESUSCITATE discussed w rn rt Updated 10/13 bipap setting reviewed titrate fio2 to keep sat 90% on precedex cont steroid elevate hob continue current support s/p remdesivir and tocilizumab Patient has elected to DO NOT INTUBATE DO NOT RESUSCITATE discussed w rn rt Updated 10/12 bipap setting reviewed 16/8 o2 sat 87% will increase epap to 10 and 12 if needed discussed w rt start steroid elevate hob We will continue current support Received remdesivir and tocilizumab Patient has elected to DO NOT INTUBATE DO NOT RESUSCITATE discussed w rn rt Updated 10/11 Patient saturations today better Needs not utilizing accessory muscles We will continue current support Up to chair if possible Received remdesivir and tocilizumab Patient has elected to DO NOT INTUBATE DO NOT RESUSCITATE updated 10/10 Continue current support BiPAP Nutritional support Up to chair if possible ORQUIDEA JENNINGS MD Oct 17, 2021 11:04
[2021-10-17 11:22] LABS: CALCIUM 7.8 mg/dL (8.5-10.1); CREATININE 0.4 mg/dL (0.7-1.3); MAGNESIUM 1.8 mg/dL (1.8-2.4); PHOSPHORUS 2.3 mg/dL (2.6-4.7); POTASSIUM 3.6 mmol/L (3.5-5.1)
[2021-10-17] MEDS: PIPERACILLIN/TAZOBACTAM 3.375 GM in IV NORMAL SALINE 50ML 50 ML IV SCH ×2 (11:55→17:52)
[2021-10-17] MEDS: TPN PER PHARMACY MC PRN (12:10)
--- NOTE | 2021-10-17 12:24 | NUR ---
Pharmacy TPN Dosing Note S: JACINTOAILYNVANIA Yarbrough is a 60 year old M Currently receiving Central Continuous TPN started 10/04/21 B:Pertinent PMH: NPO Height: 5 feet, 7 inches Weight: 89.0 kg Current diet: NPO LABS: Sodium: 132 Potassium: 3.6 Chloride: 92 Calcium: 7.8 Corrected Calcium: 8.84 Magnesium: 1.8 CO2: 37 SCr: 0.4 Glucose: 153 Albumin: 2.7 AST: 44 ALT: 122 TPN FORMULA: TPN TYPE: Central Continuous AMINO ACIDS: 80 gm DEXTROSE: 255 gm SODIUM CHLORIDE: 110 mEq POTASSIUM PHOSPHATE: 15 mmol CALCIUM: 10 mEq MULTIPLE VITAMIN: 10 ml TRACE ELEMENTS: 1 ml(s) TPN PLAN: Lipids removed per schedule Kphos 15mmol IVPB x1 and increased in TPN to 15mmol per labs R: Change TPN per plan and ordered formula Will monitor electrolytes, glucose, and tolerance to TPN. Mariana Mcfarlane [facility], 10/17/21 0430
--- NOTE | 2021-10-17 12:46 | EKG ---
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1960 Requested By: ERIKA GONZALEZ Order Number: [id number] Reading MD: Measurements Intervals Tyler Rate: 85 P: 42 MO: 122 QRS: 12 QRSD: 140 T: -1 QT: 370 QTc: 440 Interpretive Statements SINUS RHYTHM COMPLEX(ES) WITH ABERRANT INTRAVENTRICULAR CONDUCTION NON SPECIFIC INTRAVENTRICULAR BLOCK RVH WITH REPOLARIZATION ABNORMALITY QRS(T) CONTOUR ABNORMALITY CONSISTENT WITH INFERIOR INFARCT AGE UNDETERMINED ABNORMAL ECG RI6.01 Compared to ECG 09/30/2021 15:15:25 Right ventricular hypertrophy now present Early repolarization now present Myocardial infarct finding now present ST (T wave) deviation no longer present Possible ischemia no longer present Prolonged QT interval no longer present
[2021-10-17] MEDS ORDERED: POTASSIUM PHOSPHATE DIBASIC 15 MMOL in IV NS 100 ML IV ONE (13:00)
--- NOTE | 2021-10-17 14:58 | RAD ---
EXAMINATION: US BILATERAL LOWEREXTREMITY VENOUS DOPPLER INDICATION: Reason: Concern for DVT; COVID + / Spl. Instructions: / History: COMPARISONS: None TECHNIQUE: Grayscale, color and spectral Doppler evaluation of the bilateral lower extremity deep kvng ous system(s) was performed. FINDINGS: bilateral common femoral, femoral and popliteal veins are normally compressible and demonstrate preethi lly directed and appropriately phasic flow with augmentation. Right: Partially occlusive thrombus is seen in the distal posterior tibial vein. Right peroneal vein is occluded. Normal flow is present within the saphenofemoral junctions and deep femoral veins in the proximal thighs. Left: There is occlusive thrombus within the peroneal vein. Normal flow is present within the sapheno femoral junctions and deep femoral veins in the proximal thighs and the posterior tibial veins in the proximal calves. IMPRESSION: 1. Deep venous thrombosis involving the right distal posterior tibial and peroneal veins. 2. Deep venous thrombus involving the left peroneal vein These findings were discussed with Dr. Tucker at 10/17/2021 2:[address] Bates Electronically signed by: Sage Bates DO (10/17/2021 2:56 PM) [facility]
[2021-10-17] MEDS: methylPREDNISolone SOD SUCC PF 40 MG/ML VIAL. IV SCH (15:07)
[2021-10-17] MEDS: SMZ/TMP 800/160MG TABLET. PO SCH ×2 (15:08→20:54)
[2021-10-17] MEDS ORDERED: ENOXAPARIN 40 MG/0.4 ML SYRINGE. SQ ONE (15:15)
[2021-10-17] MEDS: PATCH REMOVAL. MC SCH (20:55)
[2021-10-17] MEDS ORDERED: TOTAL PARENTERAL NUTRITION IV SCH (22:00)
[2021-10-17] MEDS ORDERED: AMINO ACID IV SCH (22:00)
[2021-10-17] MEDS ORDERED: [UNRECOGNIZED DRUG - OTHER] IV SCH (22:00)
[2021-10-17] MEDS ORDERED: DEXTROSE 70% IV SCH (22:00)
[2021-10-18] VITALS (23 sets, daily range): BP systolic 84–161; BP diastolic 52–86
[2021-10-18] MEDS: PIPERACILLIN/TAZOBACTAM 3.375 GM in IV NORMAL SALINE 50ML 50 ML IV SCH ×4 (00:12→17:43)
[2021-10-18] MEDS: DEXMEDETOMIDINE 400 MCG in IV NORMAL SALINE 100ML 96 ML IV PRN ×7 (03:17→20:29)
[2021-10-18] MEDS: STERILE WATER for RESP 2,000 ML BAG. INH PRN (04:00)
--- NOTE | 2021-10-18 07:54 | PDOC ---
Infectious Disease Note Subjective Subjective Patient is still on BiPAP says feeling okay ROS ROS No nausea vomiting diarrhea or fever Vital Sign Vital Signs Vital Signs Date Time Temp Pulse Resp B/P (MAP) Pulse Ox O2 Delivery O2 Flow Rate FiO2 10/18/21 06:00 68 22 90/59 90 BIPAP/Vapotherm 40.0 10/18/21 04:00 98.3 98.3 Physical Exam PHYSICAL EXAM GENERAL: Alert, oriented gentleman who is on 40 liters of oxygen. VITAL SIGNS: Stable HEENT: Both pupils are round and reacting. No conjunctival lesion, no lesion in the mouth. NECK: Supple, no JVP, no lymphadenopathy. LUNGS: Decreased breath sounds. HEART: S1, S2 regular, tachycardic. ABDOMEN: Soft, nontender, no organomegaly. EXTREMITIES: No edema, cyanosis. SKIN: Unremarkable. NEUROLOGIC: The patient is alert, awake, and appropriate. No focal neurologic deficit. Labs Lab Laboratory Tests Test 10/17/21 10:35 D-Dimer (Mercedez) 2.14 ug/mlFEU (0.00-0.50) Sodium Level 129 mmol/L (136-145) Potassium Level 3.6 mmol/L (3.5-5.1) Chloride Level 92 mmol/L (98-107) Carbon Dioxide Level 37 mmol/L (21-32) Anion Gap 0 (6-14) Blood Urea Nitrogen 15 mg/dL (8-26) Creatinine 0.4 mg/dL (0.7-1.3) Estimated GFR (Cockcroft-Gault) 218.0 Glucose Level 153 mg/dL (70-99) Calcium Level 7.8 mg/dL (8.5-10.1) Phosphorus Level 2.3 mg/dL (2.6-4.7) Magnesium Level 1.8 mg/dL (1.8-2.4) Troponin I High Sensitivity 15 ng/L (4-75) Procalcitonin 0.16 ng/mL (0.00-0.10) Micro Microbiology 09/25/21 Blood Culture - Final, Complete NO GROWTH AFTER 5 DAYS Objective Assessment IMPRESSION: 1. COVID-19 positive. 2. Pneumonia, bilateral pulmonary infiltrate. 3. New fever and leukocytosis, secondary infection needs to be ruled out. 4. Hypertension. 5. Arthritis. Plan Plan of Care Continue antibiotics. Continue supportive care. MINOR TONY MD Oct 18, 2021 07:54
[2021-10-18] MEDS: SENNOSIDES/DOCUSATE 8.6/50MG TABLET. PO SCH ×2 (09:00→20:28)
--- NOTE | 2021-10-18 09:06 | PDOC ---
[facility] PROGRESS NOTE Date of Service DOS: DATE: 10/18/21 TIME: 09:04 Chief Complaint Chief Complaint acute Covid-19 Pneumonia status post remdesivir and Actemra Acute hypoxic respiratory failure requiring Vapotherm and bipap support SEPSIS malnutrition Hypertension OA - s/p Knee replacement DVT - 10/17/2021 Chest pain - 10/16/2021, non cardiac, likely due to PE, not stable enough to go for CTPA. On therapeutic Lovenox FEN - TPN PPX - lovenox, Protonix for GI prophylaxis while on steroids CODE - DNR/DNI Dispo - ICU History of Present Illness History of Present Illness Mr Lehman is a 60-year-old male with PMHx HTN brought into the hospital due to cough and trouble breathing for the last 10 days, notes his father was positive for COVID 19 and was hospitalized. He has not been vaccinated against COVID 19. 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 Notably hypoxic on initial examination. Chest x-ray on admission showed multifocal bilateral patchy infiltrates. Rapid COVID 19 positive, started on dexamethasone, Lovenox for DVT prophylaxis along with remdesivir and admitted for further care. On hospital stay with complaint Vapotherm and BiPAP transition TPN as he was unable to take p.o. 10/06/2021. 10/13: Still doing about the same, more alert, follows commands well on BIPAP, is still calm and responsive. abx stopped yesterday, l no fever 10/14: Seen in ICU on Vapotherm 35 L/min 100 percent FiO2 plus BIPAP. In good spirits. Slight cough. No longer with epistaxis. 10/15: Seen in ICU on Vapotherm 30 L/min 80% FiO2 and BiPAP with O2 saturations 96%. He was complaining of some neck and back pain but now has a pillow from home feels that this is helping somewhat. 10/16: Seen in ICU Vapotherm 30l/min 80% FiO2 with support of BiPAP O2 saturations 97%. He has no significant complaints today except that he is hungry. Discussed with RT, increase Vapotherm settings and try to wean off BiPAP 10/17: Trialed on Vapotherm off BiPAP yesterday afternoon. Overnight chest discomfort he was placed back on BiPAP with O2 saturations were below 88%. Still some discomfort today. Required some morphine and fentanyl. Back on Vapotherm. Currently at 100% FiO2 BiPAP support 10/18: US with DVT with right distal posterior tibial peroneal veins and left peroneal vein. Afebrile. Back on Vapotherm 40 L/min with 100% FiO2 supplemental BiPAP with O2 saturations 92%. His chest pain is improving now is on therapeutic Lovenox cc time 37 min Vitals/I&O Vitals/I&O: Vital Signs Date Time Temp Pulse Resp B/P (MAP) Pulse Ox O2 Delivery O2 Flow Rate FiO2 10/18/21 08:02 92 BiPAP/CPAP 10/18/21 07:00 77 24 101/70 40.0 10/18/21 04:00 98.3 98.3 I & O 10/17/21 10/17/21 10/18/21 15:00 23:00 07:00 Intake Total 1044 ml Output Total 400 ml 300 ml 475 ml Balance -400 ml 744 ml -475 ml Physical Exam General: Alert, Oriented X3, Cooperative, mild distress Heart: Regular rate Lungs: Other Abdomen: Normal bowel sounds Extremities: No clubbing, No edema, Normal pulses Skin: No rashes, No significant lesion Labs Labs: Laboratory Tests Test 10/17/21 10:35 D-Dimer (Mercedez) 2.14 ug/mlFEU (0.00-0.50) Sodium Level 129 mmol/L (136-145) Potassium Level 3.6 mmol/L (3.5-5.1) Chloride Level 92 mmol/L (98-107) Carbon Dioxide Level 37 mmol/L (21-32) Anion Gap 0 (6-14) Blood Urea Nitrogen 15 mg/dL (8-26) Creatinine 0.4 mg/dL (0.7-1.3) Estimated GFR (Cockcroft-Gault) 218.0 Glucose Level 153 mg/dL (70-99) Calcium Level 7.8 mg/dL (8.5-10.1) Phosphorus Level 2.3 mg/dL (2.6-4.7) Magnesium Level 1.8 mg/dL (1.8-2.4) Troponin I High Sensitivity 15 ng/L (4-75) Procalcitonin 0.16 ng/mL (0.00-0.10) Assessment and Plan Assessmemt and Plan Problems Medical Problems: (1) Hypoxia Status: Acute (2) Pneumonia due to COVID-19 virus Status: Acute Comment Review of Relevant I have reviewed the following items dino (where applicable) has been applied. Medications: Current Medications Medications (Trade) Dose Ordered Sig/Jody Route PRN Reason Start Time Stop Time Status Last Admin Dose Admin Alteplase, Recombinant (Cathflo For Central Catheter Clearance) 1 mg 1X ONCE INT CAT 10/17/21 10:00 10/17/21 10:01 DC 10/17/21 15:23 Trimethoprim/ Sulfamethoxazole (Bactrim Ds) 2 tab TID PO 10/17/21 12:00 10/17/21 20:54 Piperacillin Sod/ Tazobactam Sod 3.375 gm/Sodium Chloride 50 ml @ 100 mls/hr Q6HRS IV 10/17/21 12:00 10/18/21 05:42 Potassium Phosphate 15 mmol/ Sodium Chloride 105 ml @ 52.5 mls/hr 1X ONCE IV 10/17/21 13:00 10/17/21 14:59 DC 10/17/21 15:08 Sodium Chloride 110 meq/Potassium Phosphate 15 mmol/ Calcium Gluconate 10 meq/ Multivitamins 10 ml/Zinc/Copper/ Manganese/ Selenium 1 ml/ Total Parenteral Nutrition/Amino Acids/Dextrose 1,320 ml @ 55 mls/hr TPN CONT IV 10/17/21 22:00 10/18/21 21:59 10/17/21 21:49 Enoxaparin Sodium (Lovenox 100mg Syringe) 90 mg BID SQ 10/17/21 21:00 10/17/21 20:56 Enoxaparin Sodium (Lovenox 40mg Syringe) 40 mg 1X ONCE SQ 10/17/21 15:15 10/17/21 15:16 DC 10/17/21 15:16 Justifications for Admission Other Justification ERIKA GONZALEZ MD Oct 18, 2021 09:06
[2021-10-18] MEDS: ASPIRIN CHEWABLE 81 MG TABLET. PO SCH (09:15)
[2021-10-18] MEDS: SMZ/TMP 800/160MG TABLET. PO SCH ×3 (09:17→20:28)
[2021-10-18] MEDS: LIDOCAINE (700MG/PATCH) PATCH. TD SCH (09:18)
[2021-10-18] MEDS: METOPROLOL TART IMMED RELEASE 25 MG TABLET. PO SCH ×2 (09:18→20:28)
[2021-10-18] MEDS: PANTOPRAZOLE IV PUSH 40 MG VIAL. IVP SCH (09:19)
[2021-10-18] MEDS: TIMOLOL 0.5% OPHTH SOLUTION 5ML BOTTLE. OD SCH ×2 (09:23→20:28)
[2021-10-18 09:54] LABS: CALCIUM 7.2 mg/dL (8.5-10.1); CREATININE 0.4 mg/dL (0.7-1.3); MAGNESIUM 1.7 mg/dL (1.8-2.4); PHOSPHORUS 2.1 mg/dL (2.6-4.7); POTASSIUM 3.4 mmol/L (3.5-5.1)
[2021-10-18] MEDS: fentaNYL PF VIAL 100 MCG/2 ML VIAL IVP PRN ×2 (10:16→15:05)
--- NOTE | 2021-10-18 10:19 | CONS ---
DATE OF CONSULTATION: 10/17/2021 REQUESTING PHYSICIANS: Dr. Loo and Dr. Kowalski. REASON FOR CONSULTATION: Fever and leukocytosis. HISTORY OF PRESENT ILLNESS: This is a 61-year-old gentleman who was originally admitted with shortness of breath. The patient was diagnosed with COVID. The patient did not want to get intubated. He had been doing okay and required BiPAP support, but he was doing reasonably well until yesterday, he started having chest pain, oxygen dropped, white count went up. Hence concern for secondary infection, hence consultation. The patient has been on high-dose steroids for all along, hence PJP also has been in consideration. The patient was started on Bactrim and consult has been requested. The patient is alert, awake, complaining of shortness of breath, but otherwise denies any nausea, vomiting, diarrhea, abdominal pain, urinary symptoms, bowel symptoms or fever. The patient does have a PICC line in the left upper arm and a Urena catheter. PAST MEDICAL HISTORY: Before this, has had left knee replacement done, arthritis, obesity, hypertension, history of right bundle branch block. SOCIAL HISTORY: Negative for smoking, alcohol use or drug use. ALLERGIES: No known drug allergies. CURRENT MEDICATIONS: Reviewed. REVIEW OF SYSTEMS: As in HPI. All other systems reviewed are negative. PHYSICAL EXAMINATION: GENERAL: Alert, oriented gentleman who is on 40 liters of oxygen. VITAL SIGNS: Temperature 100.1, pulse 108, respirations 37, blood pressure 155/81. HEENT: Both pupils are round and reacting. No conjunctival lesion, no lesion in the mouth. NECK: Supple, no JVP, no lymphadenopathy. LUNGS: Decreased breath sounds. HEART: S1, S2 regular, tachycardic. ABDOMEN: Soft, nontender, no organomegaly. EXTREMITIES: No edema, cyanosis. SKIN: Unremarkable. NEUROLOGIC: The patient is alert, awake, and appropriate. No focal neurologic deficit. LABORATORY DATA: White count is 13,000. BUN and creatinine is normal. COVID is positive. Blood culture on admission on of last month is negative. Repeat blood cultures are supposed to be done today. Chest x-ray showed diffuse bilateral airspace opacity. IMPRESSION: 1. COVID-19 positive. 2. Pneumonia, bilateral pulmonary infiltrate. 3. New fever and leukocytosis, secondary infection needs to be ruled out. 4. Hypertension. 5. Arthritis. RECOMMENDATIONS: 1. Adjust the Bactrim dose to the two Ds tid dose to double strength 3 times a day. 2. Start Zosyn, panculture, supportive care and discussion with Dr. Kowalski done. Thank you very much, Dr. Kowalski and Dr. Loo, for giving me opportunity to participate in this gentleman's care. LYNETTE/ALLISON/YOLA DR: LYNETTE/joanie TID: [id number]
--- NOTE | 2021-10-18 11:24 | PDOC ---
PULMONARY PROGRESS NOTES DATE: 10/18/21 TIME: 11:19 Subjective Appears slightly better. remains on BiPAP at 100% FiO2 Venous Dopplers done 12 9 consistent with bilateral DVT. Vitals Vital Signs Date Time Temp Pulse Resp B/P (MAP) Pulse Ox O2 Delivery O2 Flow Rate FiO2 10/18/21 11:00 83 18 135/64 85 BIPAP/Vapotherm 40.0 10/18/21 08:00 98.5 98.5 General: Alert, No acute distress Lungs: Other Cardiovascular: S1, S2 Abdomen: Other (obese) Extremities: No Edema Skin: No Rashes Labs Laboratory Tests Test 10/17/21 10:35 10/18/21 09:35 D-Dimer (Mercedez) 2.14 ug/mlFEU (0.00-0.50) Sodium Level 129 mmol/L (136-145) 135 mmol/L (136-145) Potassium Level 3.6 mmol/L (3.5-5.1) 3.4 mmol/L (3.5-5.1) Chloride Level 92 mmol/L (98-107) 98 mmol/L (98-107) Carbon Dioxide Level 37 mmol/L (21-32) 33 mmol/L (21-32) Anion Gap 0 (6-14) 4 (6-14) Blood Urea Nitrogen 15 mg/dL (8-26) 18 mg/dL (8-26) Creatinine 0.4 mg/dL (0.7-1.3) 0.4 mg/dL (0.7-1.3) Estimated GFR (Cockcroft-Gault) 218.0 218.0 Glucose Level 153 mg/dL (70-99) 117 mg/dL (70-99) Calcium Level 7.8 mg/dL (8.5-10.1) 7.2 mg/dL (8.5-10.1) Phosphorus Level 2.3 mg/dL (2.6-4.7) 2.1 mg/dL (2.6-4.7) Magnesium Level 1.8 mg/dL (1.8-2.4) 1.7 mg/dL (1.8-2.4) Troponin I High Sensitivity 15 ng/L (4-75) Procalcitonin 0.16 ng/mL (0.00-0.10) Laboratory Tests Test 10/18/21 09:35 Sodium Level 135 mmol/L (136-145) Potassium Level 3.4 mmol/L (3.5-5.1) Chloride Level 98 mmol/L (98-107) Carbon Dioxide Level 33 mmol/L (21-32) Anion Gap 4 (6-14) Blood Urea Nitrogen 18 mg/dL (8-26) Creatinine 0.4 mg/dL (0.7-1.3) Estimated GFR (Cockcroft-Gault) 218.0 Glucose Level 117 mg/dL (70-99) Calcium Level 7.2 mg/dL (8.5-10.1) Phosphorus Level 2.1 mg/dL (2.6-4.7) Magnesium Level 1.7 mg/dL (1.8-2.4) Medications Active Scripts Medications Dose Route/Sig Max Daily Dose Days Date Category Oxycodone Hcl 5 Mg Capsule 5 Mg PO PRN Q4HRS PRN 08/01/21 Rx Tramadol Hcl 50 Mg Tablet 50 Mg PO Q4HRS PRN 08/01/21 Rx Warfarin Sodium 4 Mg Tablet 4 Mg PO DAILY 28 08/01/21 Rx Timoptic 0.5% (Timolol Maleate) 10 Ml Drops 1 Drop OD BID 30 07/17/21 Reported Lisinopril 10 Mg Tablet 10 Mg PO DAILY 07/17/21 Reported Comments Venous Dopplers of lower extremity 10/17/2021 1. Deep venous thrombosis involving the right distal posterior tibial and peroneal veins. 2. Deep venous thrombus involving the left peroneal vein Chest x-ray reviewed 10/17/2021. Bilateral interstitial infiltrates. These are diffuse but mildly improved in the right lung Chest x-ray reviewed dated 10/01/2021. Diffuse bilateral interstitial infiltrates. No significant pleural effusion. There is mild progression. No evidence of pneumothorax Impression . 1. Acute hypoxic respiratory failure secondary to COVID-19 viral pneumonia/ARDS.. 2. Development of new fever, chest pain and increasing oxygen requirement 10/17/2021.. Likely related to new acute deep vein thrombosis of the lower extremities and suspected pulmonary embolism . Patient was restarted on antibi otics per infectious disease yesterday. 3. Abnormal chest x-ray with diffuse bilateral infiltrates consistent with viral pneumonia. 4. Mildly increased liver function test. Likely due to COVID. 5. Mild leukopenia. Secondary to COVID. 6. Markedly elevated CRP level of 197. Status post Actemra. He received on 09/30/2021 7. New diagnosis of bilateral lower extremity DVT 10/17/2021 8. Clinically suspected pulmonary embolism 10/17/2021. Patient too unstable to undergo CT angiogram. Plan . Updated 10/[address] Verduzco. Continue with full dose Lovenox. Will eventually change to Eliquis. Antibiotic per infectious disease. All cultures including blood cultures and urine cultures pending. Discussed with respiratory therapist. Continue present 100% oxygen via BiPAP. Try Vapotherm 100% FiO2 later today if tolerates. on precedex cont steroid. Taper the dose elevate hob continue current support s/p remdesivir and tocilizumab Patient remains DNR. TPN for nutrition. Cannot tolerate off the BiPAP for oral intake. discussed w rn rt Discussed with Dr. Brooks Servin and Dr. Loo. Updated 10/[address] Verduzco. Recommend infectious disease consult to reinitiate antibiotic and especially to cover PCP pneumonia. Will obtain all cultures including blood cultures and urine cultures. We will obtain D-dimers and venous Dopplers of the lower extremities. Clinically too unstable to undergo CT angiogram. We will also obtain procalcitonin level./Troponin level. Discussed with respiratory therapist. Continue present 100% oxygen via BiPAP and via Vapotherm. on precedex cont steroid. Taper the dose elevate hob continue current support s/p remdesivir and tocilizumab Patient has elected to DO NOT INTUBATE DO NOT RESUSCITATE TPN for nutrition. Cannot tolerate off the BiPAP for oral intake. discussed w rn rt Discussed with Dr. Brooks Servin and Dr. Loo. Critical care time 30 minutes ORQUIDEA JENNINGS MD Oct 18, 2021 11:24
[2021-10-18] MEDS: methylPREDNISolone SOD SUCC PF 40 MG/ML VIAL. IV SCH (12:29)
[2021-10-18] MEDS ORDERED: MAGNESIUM SULFATE 2GM 50 ML IV ONE (13:00)
[2021-10-18] MEDS: TPN PER PHARMACY MC PRN (13:10)
--- NOTE | 2021-10-18 13:10 | NUR ---
Pharmacy TPN Dosing Note S: SALOMEVANIA Yarbrough is a 60 year old M Currently receiving Central Continuous TPN started 10/04/21 B:Pertinent PMH: NPO Height: 5 feet, 7 inches Weight: 89.503414 kg Current diet: NPO LABS: Sodium: 135 Potassium: 3.4 Chloride: 98 Calcium: 7.2 Corrected Calcium: 8.24 Magnesium: 1.7 CO2: 33 SCr: 0.4 Glucose: 117 Albumin: 2.7 AST: 44 ALT: 122 TPN FORMULA: TPN TYPE: Central Continuous AMINO ACIDS: 80 gm DEXTROSE: 255 gm LIPIDS: 30 gm SODIUM CHLORIDE: 110 mEq SODIUM ACETATE: mEq SODIUM PHOSPHATE: mmol POTASSIUM CHLORIDE: 15 mEq POTASSIUM ACETATE: mEq POTASSIUM PHOSPHATE: 25 mmol MAGNESIUM: 10 mEq CALCIUM: 5 mEq INSULIN: units MULTIPLE VITAMIN: 10 ml TRACE ELEMENTS: 1 ml(s) TPN PLAN: -Serum potassium and phos trending down. Increase KPhos to 25 mmol/day. Add KCl 15 mEq/day. -Serum magnesium low and trending down, add mag sulfate 10 mEq/day to TPN. -Reduce calcium to 5 mEq/day due to Ca/Phos ratio. -Add lipids to TPN today, continue with [facility] lipids due to national FFA shortage. -CMP, mag, phos, TG tomorrow. R: Continue TPN @ current rate and above formula. Will monitor electrolytes, glucose, and tolerance to TPN. TESSA LOYA [facility], 10/18/21 [id number]
[2021-10-18] MEDS ORDERED: POTASSIUM PHOSPHATE DIBASIC 15 MMOL in IV NS 100 ML IV ONE (14:00)
--- NOTE | 2021-10-18 14:33 | NUR ---
SS following up with discharge planning. SS reviewed pt chart and discussed with pt RN. Pt is currently on BIPAP and Vapotherm at 100%. COVID19 positive. Pt on TPN, IV Zosyn, and IV Solu-Medrol. Pt on Precedex. Not stable. SS will continue to follow for discharge planning.
[2021-10-18] MEDS: PATCH REMOVAL. MC SCH (20:29)
[2021-10-18] MEDS ORDERED: [UNRECOGNIZED DRUG - OTHER] IV SCH (22:00)
[2021-10-18] MEDS ORDERED: AMINO ACID IV SCH (22:00)
[2021-10-18] MEDS ORDERED: DEXTROSE 70% IV SCH (22:00)
[2021-10-18] MEDS ORDERED: TOTAL PARENTERAL NUTRITION IV SCH (22:00)
[2021-10-19] VITALS (24 sets, daily range): BP systolic 107–180; BP diastolic 59–86
[2021-10-19] MEDS: PIPERACILLIN/TAZOBACTAM 3.375 GM in IV NORMAL SALINE 50ML 50 ML IV SCH ×4 (00:01→18:03)
[2021-10-19] MEDS: DEXMEDETOMIDINE 400 MCG in IV NORMAL SALINE 100ML 96 ML IV PRN ×8 (01:22→21:19)
--- NOTE | 2021-10-19 05:41 | PDOC ---
PULMONARY PROGRESS NOTES DATE: 10/19/21 TIME: 05:38 Subjective on bipap precedex 14/6 fio2 100% Venous Dopplers done 12 9 consistent with bilateral DVT. Vitals Vital Signs Date Time Temp Pulse Resp B/P (MAP) Pulse Ox O2 Delivery O2 Flow Rate FiO2 10/19/21 05:00 73 20 117/66 91 BIPAP/Vapotherm 40.0 10/19/21 04:00 98.2 98.2 General: No acute distress Lungs: Other Cardiovascular: S1, S2 Abdomen: Other (obese) Extremities: No Edema Skin: No Rashes Labs Laboratory Tests Test 10/17/21 10:35 10/18/21 09:35 D-Dimer (Mercedez) 2.14 ug/mlFEU (0.00-0.50) Sodium Level 129 mmol/L (136-145) 135 mmol/L (136-145) Potassium Level 3.6 mmol/L (3.5-5.1) 3.4 mmol/L (3.5-5.1) Chloride Level 92 mmol/L (98-107) 98 mmol/L (98-107) Carbon Dioxide Level 37 mmol/L (21-32) 33 mmol/L (21-32) Anion Gap 0 (6-14) 4 (6-14) Blood Urea Nitrogen 15 mg/dL (8-26) 18 mg/dL (8-26) Creatinine 0.4 mg/dL (0.7-1.3) 0.4 mg/dL (0.7-1.3) Estimated GFR (Cockcroft-Gault) 218.0 218.0 Glucose Level 153 mg/dL (70-99) 117 mg/dL (70-99) Calcium Level 7.8 mg/dL (8.5-10.1) 7.2 mg/dL (8.5-10.1) Phosphorus Level 2.3 mg/dL (2.6-4.7) 2.1 mg/dL (2.6-4.7) Magnesium Level 1.8 mg/dL (1.8-2.4) 1.7 mg/dL (1.8-2.4) Troponin I High Sensitivity 15 ng/L (4-75) Procalcitonin 0.16 ng/mL (0.00-0.10) Laboratory Tests Test 10/18/21 09:35 Sodium Level 135 mmol/L (136-145) Potassium Level 3.4 mmol/L (3.5-5.1) Chloride Level 98 mmol/L (98-107) Carbon Dioxide Level 33 mmol/L (21-32) Anion Gap 4 (6-14) Blood Urea Nitrogen 18 mg/dL (8-26) Creatinine 0.4 mg/dL (0.7-1.3) Estimated GFR (Cockcroft-Gault) 218.0 Glucose Level 117 mg/dL (70-99) Calcium Level 7.2 mg/dL (8.5-10.1) Phosphorus Level 2.1 mg/dL (2.6-4.7) Magnesium Level 1.7 mg/dL (1.8-2.4) Medications Active Scripts Medications Dose Route/Sig Max Daily Dose Days Date Category Oxycodone Hcl 5 Mg Capsule 5 Mg PO PRN Q4HRS PRN 08/01/21 Rx Tramadol Hcl 50 Mg Tablet 50 Mg PO Q4HRS PRN 08/01/21 Rx Warfarin Sodium 4 Mg Tablet 4 Mg PO DAILY 28 08/01/21 Rx Timoptic 0.5% (Timolol Maleate) 10 Ml Drops 1 Drop OD BID 30 07/17/21 Reported Lisinopril 10 Mg Tablet 10 Mg PO DAILY 07/17/21 Reported Comments Venous Dopplers of lower extremity 10/17/2021 1. Deep venous thrombosis involving the right distal posterior tibial and peroneal veins. 2. Deep venous thrombus involving the left peroneal vein Chest x-ray reviewed 10/17/2021. Bilateral interstitial infiltrates. These are diffuse but mildly improved in the right lung Chest x-ray reviewed dated 10/01/2021. Diffuse bilateral interstitial infiltrates. No significant pleural effusion. There is mild progression. No evidence of pneumothorax Impression . 1. Acute hypoxic respiratory failure secondary to COVID-19 viral pneumonia/ARDS.. 2. Development of new fever, chest pain and increasing oxygen requirement 10/17/2021.. Likely related to new acute deep vein thrombosis of the lower extremities and suspected pulmonary embolism . Patient was restarted on antibiotics per infectious disease yesterday. 3. Abnormal chest x-ray with diffuse bilateral infiltrates consistent with viral pneumonia. 4. Mildly increased liver function test. Likely due to COVID. 5. Mild leukopenia. Secondary to COVID. 6. Markedly elevated CRP level of 197. Status post Actemra. He received on 09/30/2021 7. New diagnosis of bilateral lower extremity DVT 10/17/2021 8. Clinically suspected pulmonary embolism 10/17/2021. Patient too unstable to undergo CT angiogram. Plan . 10/19 Updated 10/18 Continue with full dose Lovenox. Will eventually change to Eliquis when off bipap cont bipap setting reviewed increase to 14/ will help oxygenation discussed w rt Antibiotic per infectious disease. All cultures including blood cultures and urine cultures pending. Try Vapotherm 100% FiO2 later today as tolerated on precedex cont steroid. Taper the dose elevate hob continue current support s/p remdesivir and tocilizumab Patient remains DNR. TPN for nutrition. Cannot tolerate off the BiPAP for oral intake. discussed w rn rt Updated 10/[address] Verduzco. Continue with full dose Lovenox. Will eventually change to Eliquis. Antibiotic per infectious disease. All cultures including blood cultures and urine cultures pending. Discussed with respiratory therapist. Continue present 100% oxygen via BiPAP. Try Vapotherm 100% FiO2 later today if tolerates. on precedex cont steroid. Taper the dose elevate hob continue current support s/p remdesivir and tocilizumab Patient remains DNR. TPN for nutrition. Cannot tolerate off the BiPAP for oral intake. discussed w rn rt Discussed with Dr. Brooks Servin and Dr. Loo. Updated 10/[address] Verduzco. Recommend infectious disease consult to reinitiate antibiotic and especially to cover PCP pneumonia. Will obtain all cultures including blood cultures and urine cultures. We will obtain D-dimers and venous Dopplers of the lower extremities. Clinically too unstable to undergo CT angiogram. We will also obtain procalcitonin level./Troponin level. Discussed with respiratory therapist. Continue present 100% oxygen via BiPAP and via Vapotherm. on precedex cont steroid. Taper the dose elevate hob continue current support s/p remdesivir and tocilizumab Patient has elected to DO NOT INTUBATE DO NOT RESUSCITATE TPN for nutrition. Cannot tolerate off the BiPAP for oral intake. discussed w rn rt Discussed with Dr. Brooks Servin and Dr. Loo. Critical care time 30 minutes HELEN SILVA MD Oct 19, 2021 05:41
[2021-10-19 06:19] LABS: ALBUMIN 1.8 g/dL (3.4-5.0); ALBUMIN/GLOBULIN RATIO 0.4 (1.0-1.7); CALCIUM 7.8 mg/dL (8.5-10.1); CREATININE 0.4 mg/dL (0.7-1.3); MAGNESIUM 2.1 mg/dL (1.8-2.4); PHOSPHORUS 2.5 mg/dL (2.6-4.7); POTASSIUM 4.4 mmol/L (3.5-5.1); TOTAL BILIRUBIN 0.4 mg/dL (0.2-1.0); TOTAL PROTEIN 5.9 g/dL (6.4-8.2)
[2021-10-19] MEDS: STERILE WATER for RESP 2,000 ML BAG. INH PRN (06:56)
[2021-10-19] MEDS: PANTOPRAZOLE IV PUSH 40 MG VIAL. IVP SCH (07:30)
--- NOTE | 2021-10-19 07:31 | PDOC ---
Infectious Disease Note Subjective Subjective Patient is still on BiPAP says feeling okay ROS ROS No nausea vomiting diarrhea or fever Vital Sign Vital Signs Vital Signs Date Time Temp Pulse Resp B/P (MAP) Pulse Ox O2 Delivery O2 Flow Rate FiO2 10/19/21 07:00 74 26 135/67 94 BIPAP/Vapotherm 40.0 10/19/21 04:00 98.2 98.2 Physical Exam PHYSICAL EXAM GENERAL: Alert, oriented gentleman who is on 40 liters of oxygen. VITAL SIGNS: Stable HEENT: Both pupils are round and reacting. No conjunctival lesion, no lesion in the mouth. NECK: Supple, no JVP, no lymphadenopathy. LUNGS: Decreased breath sounds. HEART: S1, S2 regular, tachycardic. ABDOMEN: Soft, nontender, no organomegaly. EXTREMITIES: No edema, cyanosis. SKIN: Unremarkable. NEUROLOGIC: The patient is alert, awake, and appropriate. No focal neurologic deficit. Labs Lab Laboratory Tests Test 10/18/21 09:35 10/19/21 05:45 Sodium Level 135 mmol/L (136-145) 133 mmol/L (136-145) Potassium Level 3.4 mmol/L (3.5-5.1) 4.4 mmol/L (3.5-5.1) Chloride Level 98 mmol/L (98-107) 96 mmol/L (98-107) Carbon Dioxide Level 33 mmol/L (21-32) 35 mmol/L (21-32) Anion Gap 4 (6-14) 2 (6-14) Blood Urea Nitrogen 18 mg/dL (8-26) 17 mg/dL (8-26) Creatinine 0.4 mg/dL (0.7-1.3) 0.4 mg/dL (0.7-1.3) Estimated GFR (Cockcroft-Gault) 218.0 218.0 Glucose Level 117 mg/dL (70-99) 150 mg/dL (70-99) Calcium Level 7.2 mg/dL (8.5-10.1) 7.8 mg/dL (8.5-10.1) Phosphorus Level 2.1 mg/dL (2.6-4.7) 2.5 mg/dL (2.6-4.7) Magnesium Level 1.7 mg/dL (1.8-2.4) 2.1 mg/dL (1.8-2.4) BUN/Creatinine Ratio 43 (6-20) Total Bilirubin 0.4 mg/dL (0.2-1.0) Aspartate Amino Transf (AST/SGOT) 15 U/L (15-37) Alanine Aminotransferase (ALT/SGPT) 45 U/L (16-63) Alkaline Phosphatase 101 U/L (46-116) Total Protein 5.9 g/dL (6.4-8.2) Albumin 1.8 g/dL (3.4-5.0) Albumin/Globulin Ratio 0.4 (1.0-1.7) Micro Microbiology 09/25/21 Blood Culture - Final, Complete NO GROWTH AFTER 5 DAYS Objective Assessment IMPRESSION: 1. COVID-19 positive. 2. Pneumonia, bilateral pulmonary infiltrate. 3. New fever and leukocytosis, secondary infection needs to be ruled out. 4. Hypertension. 5. Arthritis. Plan Plan of Care Continue antibiotics. Continue supportive care. MINOR TONY MD Oct 19, 2021 07:31
[2021-10-19] MEDS: ASPIRIN CHEWABLE 81 MG TABLET. PO SCH (08:20)
[2021-10-19] MEDS: TIMOLOL 0.5% OPHTH SOLUTION 5ML BOTTLE. OD SCH ×2 (08:21→20:35)
[2021-10-19] MEDS: METOPROLOL TART IMMED RELEASE 25 MG TABLET. PO SCH ×2 (08:22→20:34)
[2021-10-19] MEDS: SENNOSIDES/DOCUSATE 8.6/50MG TABLET. PO SCH ×2 (08:22→20:34)
[2021-10-19] MEDS: LIDOCAINE (700MG/PATCH) PATCH. TD SCH (08:23)
[2021-10-19] MEDS: SMZ/TMP 800/160MG TABLET. PO SCH ×3 (08:24→20:34)
[2021-10-19] MEDS: TPN PER PHARMACY MC PRN (09:15)
--- NOTE | 2021-10-19 09:18 | NUR ---
Pharmacy TPN Dosing Note S: VANIA THORPE is a 60 year old M Currently receiving Central Continuous TPN started 10/04/21 B:Pertinent PMH: NPO Height: 5 feet, 7 inches Weight: 89.2 kg Current diet: NPO LABS: Sodium: 133 Potassium: 4.4 Chloride: 96 Calcium: 7.8 Corrected Calcium: 9.56 Magnesium: 2.1 CO2: 35 SCr: 0.4 Glucose: 150 Albumin: 1.8 AST: 15 ALT: 45 TPN FORMULA: TPN TYPE: Central Continuous AMINO ACIDS: 80 gm DEXTROSE: 255 gm SODIUM CHLORIDE: 110 mEq POTASSIUM CHLORIDE: 15 mEq POTASSIUM PHOSPHATE: 25 mmol MAGNESIUM: 10 mEq CALCIUM: 5 mEq MULTIPLE VITAMIN: 10 ml TRACE ELEMENTS: 1 ml(s) TPN PLAN: K/Phos/Mag improved.Remove lipids- dosing MWF d/t national shortage. -BMP, Mag and Phos in AM. R: Change TPN as noted above. Will monitor electrolytes, glucose, and tolerance to TPN. ANGELA VILLAVICENCIO [facility], 10/19/21 [id number]
--- NOTE | 2021-10-19 10:11 | PDOC ---
[employer] PROGRESS NOTE Date of Service DOS: DATE: 10/19/21 TIME: 10:10 Chief Complaint Chief Complaint acute Covid-19 Pneumonia status post remdesivir and Actemra Acute hypoxic respiratory failure requiring Vapotherm and bipap support SEPSIS malnutrition Hypertension OA - s/p Knee replacement DVT - 10/17/2021 Chest pain - 10/16/2021, non cardiac, likely due to PE, not stable enough to go for CTPA. On therapeutic Lovenox FEN - TPN PPX - lovenox, Protonix for GI prophylaxis while on steroids CODE - DNR/DNI Dispo - ICU History of Present Illness History of Present Illness Mr Lehman is a 60-year-old male with PMHx HTN brought into the hospital due to cough and trouble breathing for the last 10 days, notes his father was positive for COVID 19 and was hospitalized. He has not been vaccinated against COVID 19. 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 Notably hypoxic on initial examination. Chest x-ray on admission showed multifocal bilateral patchy infiltrates. Rapid COVID 19 positive, started on dexamethasone, Lovenox for DVT prophylaxis along with remdesivir and admitted for further care. On hospital stay with complaint Vapotherm and BiPAP transition TPN as he was unable to take p.o. 10/06/2021. 10/13: Still doing about the same, more alert, follows commands well on BIPAP, is still calm and responsive. abx stopped yesterday, l no fever 10/14: Seen in ICU on Vapotherm 35 L/min 100 percent FiO2 plus BIPAP. In good spirits. Slight cough. No longer with epistaxis. 10/15: Seen in ICU on Vapotherm 30 L/min 80% FiO2 and BiPAP with O2 saturations 96%. He was complaining of some neck and back pain but now has a pillow from home feels that this is helping somewhat. 10/16: Seen in ICU Vapotherm 30l/min 80% FiO2 with support of BiPAP O2 saturations 97%. He has no significant complaints today except that he is hungry. Discussed with RT, increase Vapotherm settings and try to wean off BiPAP 10/17: Trialed on Vapotherm off BiPAP yesterday afternoon. Overnight chest discomfort he was placed back on BiPAP with O2 saturations were below 88%. Still some discomfort today. Required some morphine and fentanyl. Back on Vapotherm. Currently at 100% FiO2 BiPAP support 10/18: US with DVT with right distal posterior tibial peroneal veins and left peroneal vein. Afebrile. Back on Vapotherm 40 L/min with 100% FiO2 supplemental BiPAP with O2 saturations 92%. His chest pain is improving now is on therapeutic Lovenox 10/19: Afebrile last 24 hours. Preliminary repeat blood cultures no growth to date. Chest pain has almost resolved. He is asking if he can have visitors. Still requiring Vapotherm 40 L/min percent FiO2 who with supplemental BiPAP O2 saturations are 92 to 94%. Likely his fevers were due to DVT and possible pulmonary embolism now on therapeutic Lovenox. We will follow up fungal blood cultures and consider repeat chest x-ray in the next 24 to 48 hours cc time 37 min Vitals/I&O Vitals/I&O: Vital Signs Date Time Temp Pulse Resp B/P (MAP) Pulse Ox O2 Delivery O2 Flow Rate FiO2 10/19/21 10:00 79 28 126/67 95 BIPAP/Vapotherm 40.0 10/19/21 08:00 98.7 98.7 I & O0 10/18/21 10/18/21 10/19/21 15:00 23:00 07:00 Intake Total 1087 ml Output Total 325 ml 700 ml 300 ml Balance -325 ml 387 ml -300 ml Physical Exam Physical Exam: GENERAL: Alert, oriented gentleman who is on 40 liters of oxygen. VITAL SIGNS: Stable HEENT: Both pupils are round and reacting. No conjunctival lesion, no lesion in the mouth. NECK: Supple, no JVP, no lymphadenopathy. LUNGS: Decreased breath sounds. HEART: S1, S2 regular, tachycardic. ABDOMEN: Soft, nontender, no organomegaly. EXTREMITIES: No edema, cyanosis. SKIN: Unremarkable. NEUROLOGIC: The patient is alert, awake, and appropriate. No focal neurologic deficit. General: Alert, Oriented X3, Cooperative, mild distress Heart: Regular rate Lungs: Other Abdomen: Normal bowel sounds Extremities: No clubbing, No edema, Normal pulses Skin: No rashes, No significant lesion Labs Labs: Laboratory Tests Test 10/19/21 05:45 Sodium Level 133 mmol/L (136-145) Potassium Level 4.4 mmol/L (3.5-5.1) Chloride Level 96 mmol/L (98-107) Carbon Dioxide Level 35 mmol/L (21-32) Anion Gap 2 (6-14) Blood Urea Nitrogen 17 mg/dL (8-26) Creatinine 0.4 mg/dL (0.7-1.3) Estimated GFR (Cockcroft-Gault) 218.0 BUN/Creatinine Ratio 43 (6-20) Glucose Level 150 mg/dL (70-99) Calcium Level 7.8 mg/dL (8.5-10.1) Phosphorus Level 2.5 mg/dL (2.6-4.7) Magnesium Level 2.1 mg/dL (1.8-2.4) Total Bilirubin 0.4 mg/dL (0.2-1.0) Aspartate Amino Transf (AST/SGOT) 15 U/L (15-37) Alanine Aminotransferase (ALT/SGPT) 45 U/L (16-63) Alkaline Phosphatase 101 U/L (46-116) Total Protein 5.9 g/dL (6.4-8.2) Albumin 1.8 g/dL (3.4-5.0) Albumin/Globulin Ratio 0.4 (1.0-1.7) Assessment and Plan Assessmemt and Plan Problems Medical Problems: (1) Hypoxia Status: Acute (2) Pneumonia due to COVID-19 virus Status: Acute Comment Review of Relevant I have reviewed the following items dino (where applicable) has been applied. Medications: Current Medications Medications (Trade) Dose Ordered Sig/Jody Route PRN Reason Start Time Stop Time Status Last Admin Dose Admin Potassium Phosphate 15 mmol/ Sodium Chloride 105 ml @ 52.5 mls/hr 1X ONCE IV 10/18/21 14:00 10/18/21 15:59 DC 10/18/21 15:39 Magnesium Sulfate 50 ml @ 25 mls/hr 1X ONCE IV 10/18/21 13:00 10/18/21 14:59 DC 10/18/21 13:22 Sodium Chloride 110 meq/Potassium Chloride 15 meq/ Potassium Phosphate 25 mmol/ Magnesium Sulfate 10 meq/Calcium Gluconate 5 meq/ Multivitamins 10 ml/Zinc/Copper/ Manganese/ Selenium 1 ml/ Total Parenteral Nutrition/Amino Acids/Dextrose/ Fat Emulsion Intravenous 1,320 ml @ 55 mls/hr TPN CONT IV 10/18/21 22:00 10/19/21 21:59 10/18/21 21:46 Justifications for Admission Other Justification ERIKA GONZALEZ MD Oct 19, 2021 10:11
[2021-10-19] MEDS: methylPREDNISolone SOD SUCC PF 40 MG/ML VIAL. IV SCH (12:42)
[2021-10-19] MEDS: PATCH REMOVAL. MC SCH (20:35)
[2021-10-19] MEDS ORDERED: AMINO ACID IV SCH (22:00)
[2021-10-19] MEDS ORDERED: DEXTROSE 70% IV SCH (22:00)
[2021-10-19] MEDS ORDERED: [UNRECOGNIZED DRUG - OTHER] IV SCH (22:00)
[2021-10-19] MEDS ORDERED: TOTAL PARENTERAL NUTRITION IV SCH (22:00)
[2021-10-20] VITALS (24 sets, daily range): BP systolic 100–174; BP diastolic 59–90
[2021-10-20] MEDS: DEXMEDETOMIDINE 400 MCG in IV NORMAL SALINE 100ML 96 ML IV PRN ×9 (00:13→22:59)
[2021-10-20] MEDS: PIPERACILLIN/TAZOBACTAM 3.375 GM in IV NORMAL SALINE 50ML 50 ML IV SCH ×4 (00:13→18:22)
--- NOTE | 2021-10-20 05:15 | PDOC ---
PULMONARY PROGRESS NOTES DATE: 10/20/21 TIME: 05:14 Subjective on bipap precedex 14/8 fio2 100% sat 97% Venous Dopplers done 12 9 consistent with bilateral DVT. Vitals Vital Signs Date Time Temp Pulse Resp B/P (MAP) Pulse Ox O2 Delivery O2 Flow Rate FiO2 10/20/21 05:00 67 22 100/62 98 BIPAP/Vapotherm 40.0 10/20/21 04:00 98.2 98.2 General: No acute distress Lungs: Other Cardiovascular: S1, S2 Abdomen: Other (obese) Extremities: No Edema Skin: No Rashes Labs Laboratory Tests Test 10/18/21 09:35 10/19/21 05:45 Sodium Level 135 mmol/L (136-145) 133 mmol/L (136-145) Potassium Level 3.4 mmol/L (3.5-5.1) 4.4 mmol/L (3.5-5.1) Chloride Level 98 mmol/L (98-107) 96 mmol/L (98-107) Carbon Dioxide Level 33 mmol/L (21-32) 35 mmol/L (21-32) Anion Gap 4 (6-14) 2 (6-14) Blood Urea Nitrogen 18 mg/dL (8-26) 17 mg/dL (8-26) Creatinine 0.4 mg/dL (0.7-1.3) 0.4 mg/dL (0.7-1.3) Estimated GFR (Cockcroft-Gault) 218.0 218.0 Glucose Level 117 mg/dL (70-99) 150 mg/dL (70-99) Calcium Level 7.2 mg/dL (8.5-10.1) 7.8 mg/dL (8.5-10.1) Phosphorus Level 2.1 mg/dL (2.6-4.7) 2.5 mg/dL (2.6-4.7) Magnesium Level 1.7 mg/dL (1.8-2.4) 2.1 mg/dL (1.8-2.4) BUN/Creatinine Ratio 43 (6-20) Total Bilirubin 0.4 mg/dL (0.2-1.0) Aspartate Amino Transf (AST/SGOT) 15 U/L (15-37) Alanine Aminotransferase (ALT/SGPT) 45 U/L (16-63) Alkaline Phosphatase 101 U/L (46-116) Total Protein 5.9 g/dL (6.4-8.2) Albumin 1.8 g/dL (3.4-5.0) Albumin/Globulin Ratio 0.4 (1.0-1.7) Laboratory Tests Test 10/19/21 05:45 Sodium Level 133 mmol/L (136-145) Potassium Level 4.4 mmol/L (3.5-5.1) Chloride Level 96 mmol/L (98-107) Carbon Dioxide Level 35 mmol/L (21-32) Anion Gap 2 (6-14) Blood Urea Nitrogen 17 mg/dL (8-26) Creatinine 0.4 mg/dL (0.7-1.3) Estimated GFR (Cockcroft-Gault) 218.0 BUN/Creatinine Ratio 43 (6-20) Glucose Level 150 mg/dL (70-99) Calcium Level 7.8 mg/dL (8.5-10.1) Phosphorus Level 2.5 mg/dL (2.6-4.7) Magnesium Level 2.1 mg/dL (1.8-2.4) Total Bilirubin 0.4 mg/dL (0.2-1.0) Aspartate Amino Transf (AST/SGOT) 15 U/L (15-37) Alanine Aminotransferase (ALT/SGPT) 45 U/L (16-63) Alkaline Phosphatase 101 U/L (46-116) Total Protein 5.9 g/dL (6.4-8.2) Albumin 1.8 g/dL (3.4-5.0) Albumin/Globulin Ratio 0.4 (1.0-1.7) Medications Active Scripts Medications Dose Route/Sig Max Daily Dose Days Date Category Oxycodone Hcl 5 Mg Capsule 5 Mg PO PRN Q4HRS PRN 08/01/21 Rx Tramadol Hcl 50 Mg Tablet 50 Mg PO Q4HRS PRN 08/01/21 Rx Warfarin Sodium 4 Mg Tablet 4 Mg PO DAILY 28 08/01/21 Rx Timoptic 0.5% (Timolol Maleate) 10 Ml Drops 1 Drop OD BID 30 07/17/21 Reported Lisinopril 10 Mg Tablet 10 Mg PO DAILY 07/17/21 Reported Comments Venous Dopplers of lower extremity 10/17/2021 1. Deep venous thrombosis involving the right distal posterior tibial and peroneal veins. 2. Deep venous thrombus involving the left peroneal vein Chest x-ray reviewed 10/17/2021. Bilateral interstitial infiltrates. These are diffuse but mildly improved in the right lung Chest x-ray reviewed dated 10/01/2021. Diffuse bilateral interstitial infiltrates. No significant pleural effusion. There is mild progression. No evidence of pneumothorax Impression . 1. Acute hypoxic respiratory failure secondary to COVID-19 viral pneumonia/ARDS.. 2. Development of new fever, chest pain and increasing oxygen requirement 10/17/2021.. Likely related to new acute deep vein thrombosis of the lower extremities and suspected pulmonary embolism . Patient was restarted on antibiotics per infectious disease yesterday. 3. Abnormal chest x-ray with diffuse bilateral infiltrates consistent with viral pneumonia. 4. Mildly increased liver function test. Likely due to COVID. 5. Mild leukopenia. Secondary to COVID. 6. Markedly elevated CRP level of 197. Status post Actemra. He received on 09/30/2021 7. New diagnosis of bilateral lower extremity DVT 10/17/2021 8. Clinically suspected pulmonary embolism 10/17/2021. Patient too unstable to undergo CT angiogram. Plan . 10/20 Continue with full dose Lovenox. Will eventually change to Eliquis when off bipap cont bipap setting reviewed increased to 14/8 helped oxygenation discussed w rt Antibiotic per infectious disease. All cultures including blood cultures and urine cultures pending. Try Vapotherm 100% FiO2 later today as tolerated on precedex cont steroid. Taper the dose elevate hob continue current support s/p remdesivir and tocilizumab Patient remains DNR. prognosis guarded TPN for nutrition. Cannot tolerate off the BiPAP for oral intake. discussed w rn rt 10/19 Continue with full dose Lovenox. Will eventually change to Eliquis when off bipap cont bipap setting reviewed increase to 14/8 will help oxygenation discussed w rt Antibiotic per infectious disease. All cultures including blood cultures and urine cultures pending. Try Vapotherm 100% FiO2 later today as tolerated on precedex cont steroid. Taper the dose elevate hob continue current support s/p remdesivir and tocilizumab Patient remains DNR. TPN for nutrition. Cannot tolerate off the BiPAP for oral intake. discussed w rn rt Updated 10/[address] Verduzco. Continue with full dose Lovenox. Will eventually change to Eliquis. Antibiotic per infectious disease. All cultures including blood cultures and urine cultures pending. Discussed with respiratory therapist. Continue present 100% oxygen via BiPAP. Try Vapotherm 100% FiO2 later today if tolerates. on precedex cont steroid. Taper the dose elevate hob continue current support s/p remdesivir and tocilizumab Patient remains DNR. TPN for nutrition. Cannot tolerate off the BiPAP for oral intake. discussed w rn rt Discussed with Dr. Brooks Servin and Dr. Loo. Updated 10/[address] Verduzco. Recommend infectious disease consult to reinitiate antibiotic and especially to cover PCP pneumonia. Will obtain all cultures including blood cultures and urine cultures. We will obtain D-dimers and venous Dopplers of the lower extremities. Clinically too unstable to undergo CT angiogram. We will also obtain procalcitonin level./Troponin level. Discussed with respiratory therapist. Continue present 100% oxygen via BiPAP and via Vapotherm. on precedex cont steroid. Taper the dose elevate hob continue current support s/p remdesivir and tocilizumab Patient has elected to DO NOT INTUBATE DO NOT RESUSCITATE TPN for nutrition. Cannot tolerate off the BiPAP for oral intake. discussed w rn rt Discussed with Dr. Brooks Servin and Dr. Loo. Critical care time 30 minutes HELEN SILVA MD Oct 20, 2021 05:15
[2021-10-20] MEDS: STERILE WATER for RESP 2,000 ML BAG. INH PRN (06:20)
[2021-10-20 06:52] LABS: BASO # 0.1 x10^3/uL (0.0-0.2); BASO % 1 % (0-3); EOS % 0 % (0-3); HEMATOCRIT 36.3 % (39.0-53.0); HEMOGLOBIN 11.8 g/dL (13.0-17.5); LYMPH # 0.4 x10^3/uL (1.0-4.8); LYMPH % 6 % (24-48); MEAN CORPUSCULAR HEMOGLOBIN 28 pg (25-35); MEAN CORPUSCULAR HGB CONC 33 g/dL (31-37); MEAN CORPUSCULAR VOLUME 85 fL (79-100); MONO # 0.8 x10^3/uL (0.0-1.1); MONO % 10 % (0-9); NEUT # 6.6 x10^3/uL (1.8-7.7); NEUT % 83 % (31-73); PLATELET COUNT 195 x10^3/uL (140-400); RED BLOOD COUNT 4.25 x10^6/uL (4.30-5.70); RED CELL DISTRIBUTION WIDTH 17.8 % (11.5-14.5); WHITE BLOOD COUNT 7.9 x10^3/uL (4.0-11.0)
[2021-10-20 06:57] LABS: CREATININE 0.4 mg/dL (0.7-1.3); MAGNESIUM 2.1 mg/dL (1.8-2.4); PHOSPHORUS 2.9 mg/dL (2.6-4.7); POTASSIUM 4.8 mmol/L (3.5-5.1)
[2021-10-20] MEDS: PANTOPRAZOLE IV PUSH 40 MG VIAL. IVP SCH (07:38)
[2021-10-20] MEDS: TPN PER PHARMACY MC PRN (08:15)
--- NOTE | 2021-10-20 08:16 | NUR ---
Pharmacy TPN Dosing Note S: JACINTONIKOLASVANIA ENRIQUE is a 60 year old M Currently receiving Central Continuous TPN started 10/04/21 B:Pertinent PMH: NPO Height: 5 feet, 7 inches Weight: 89.1 kg Current diet: NPO LABS: Sodium: 135 Potassium: 4.8 Chloride: 98 Calcium: 8.0 Corrected Calcium: 9.76 Magnesium: 2.1 CO2: 34 SCr: 0.4 Glucose: 145 Albumin: 1.8 AST: 15 ALT: 45 TPN FORMULA: TPN TYPE: Central Continuous AMINO ACIDS: 80 gm DEXTROSE: 255 gm SODIUM CHLORIDE: 110 mEq POTASSIUM CHLORIDE: 15 mEq POTASSIUM PHOSPHATE: 25 mmol MAGNESIUM: 10 mEq CALCIUM: 5 mEq MULTIPLE VITAMIN: 10 ml TRACE ELEMENTS: 1 ml(s) TPN PLAN: TG wnl, cont lipid dosing MWF. Labs stable - cont current TPN formula. R: Continue same TPN formula. Will monitor electrolytes, glucose, and tolerance to TPN. ANGELA VILLAVICENCIO [facility], 10/20/21 [id number]
--- NOTE | 2021-10-20 08:22 | PDOC ---
Infectious Disease Note Subjective Subjective Patient is still on BiPAP says feeling okay ROS ROS No nausea vomiting diarrhea Vital Sign Vital Signs Vital Signs Date Time Temp Pulse Resp B/P (MAP) Pulse Ox O2 Delivery O2 Flow Rate FiO2 10/20/21 07:28 93 BiPAP/CPAP 10/20/21 07:00 72 25 149/72 40.0 10/20/21 04:00 98.2 98.2 Physical Exam PHYSICAL EXAM GENERAL: Alert, oriented gentleman who is on 40 liters of oxygen. VITAL SIGNS: Stable HEENT: Both pupils are round and reacting. No conjunctival lesion, no lesion in the mouth. NECK: Supple, no JVP, no lymphadenopathy. LUNGS: Decreased breath sounds. HEART: S1, S2 regular, tachycardic. ABDOMEN: Soft, nontender, no organomegaly. EXTREMITIES: No edema, cyanosis. SKIN: Unremarkable. NEUROLOGIC: The patient is alert, awake, and appropriate. No focal neurologic deficit. Labs Lab Laboratory Tests Test 10/20/21 06:30 White Blood Count 7.9 x10^3/uL (4.0-11.0) Red Blood Count 4.25 x10^6/uL (4.30-5.70) Hemoglobin 11.8 g/dL (13.0-17.5) Hematocrit 36.3 % (39.0-53.0) Mean Corpuscular Volume 85 fL (79-100) Mean Corpuscular Hemoglobin 28 pg (25-35) Mean Corpuscular Hemoglobin Concent 33 g/dL (31-37) Red Cell Distribution Width 17.8 % (11.5-14.5) Platelet Count 195 x10^3/uL (140-400) Neutrophils (%) (Auto) 83 % (31-73) Lymphocytes (%) (Auto) 6 % (24-48) Monocytes (%) (Auto) 10 % (0-9) Eosinophils (%) (Auto) 0 % (0-3) Basophils (%) (Auto) 1 % (0-3) Neutrophils # (Auto) 6.6 x10^3/uL (1.8-7.7) Lymphocytes # (Auto) 0.4 x10^3/uL (1.0-4.8) Monocytes # (Auto) 0.8 x10^3/uL (0.0-1.1) Eosinophils # (Auto) 0.0 x10^3/uL (0.0-0.7) Basophils # (Auto) 0.1 x10^3/uL (0.0-0.2) Sodium Level 135 mmol/L (136-145) Potassium Level 4.8 mmol/L (3.5-5.1) Chloride Level 98 mmol/L (98-107) Carbon Dioxide Level 34 mmol/L (21-32) Anion Gap 3 (6-14) Blood Urea Nitrogen 16 mg/dL (8-26) Creatinine 0.4 mg/dL (0.7-1.3) Estimated GFR (Cockcroft-Gault) 218.0 Glucose Level 145 mg/dL (70-99) Calcium Level 8.0 mg/dL (8.5-10.1) Phosphorus Level 2.9 mg/dL (2.6-4.7) Magnesium Level 2.1 mg/dL (1.8-2.4) Triglycerides Level 79 mg/dL (0-150) Micro Microbiology 09/25/21 Blood Culture - Final, Complete NO GROWTH AFTER 5 DAYS Objective Assessment IMPRESSION: 1. COVID-19 positive. 2. Pneumonia, bilateral pulmonary infiltrate. 3. New fever and leukocytosis, secondary infection needs to be ruled out. 4. Hypertension. 5. Arthritis. Plan Plan of Care Continue antibiotics. Continue supportive care. MINOR TONY MD Oct 20, 2021 08:22
[2021-10-20] MEDS: ASPIRIN CHEWABLE 81 MG TABLET. PO SCH (08:27)
[2021-10-20] MEDS: SENNOSIDES/DOCUSATE 8.6/50MG TABLET. PO SCH ×2 (08:27→21:02)
[2021-10-20] MEDS: SMZ/TMP 800/160MG TABLET. PO SCH ×3 (08:28→21:02)
[2021-10-20] MEDS: LIDOCAINE (700MG/PATCH) PATCH. TD SCH (08:29)
[2021-10-20] MEDS: METOPROLOL TART IMMED RELEASE 25 MG TABLET. PO SCH ×2 (08:29→21:04)
--- NOTE | 2021-10-20 09:35 | PDOC ---
[employer] PROGRESS NOTE Date of Service DOS: DATE: 10/20/21 TIME: 09:33 Chief Complaint Chief Complaint acute Covid-19 Pneumonia status post remdesivir and Actemra Acute hypoxic respiratory failure requiring Vapotherm and bipap support SEPSIS malnutrition Hypertension OA - s/p Knee replacement DVT - 10/17/2021 Chest pain - 10/16/2021, non cardiac, likely due to PE, not stable enough to go for CTPA. On therapeutic Lovenox FEN - TPN PPX - lovenox, Protonix for GI prophylaxis while on steroids CODE - DNR/DNI Dispo - ICU History of Present Illness History of Present Illness Mr Lehman is a 60-year-old male with PMHx HTN brought into the hospital due to cough and trouble breathing for the last 10 days, notes his father was positive for COVID 19 and was hospitalized. He has not been vaccinated against COVID 19. 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 Notably hypoxic on initial examination. Chest x-ray on admission showed multifocal bilateral patchy infiltrates. Rapid COVID 19 positive, started on dexamethasone, Lovenox for DVT prophylaxis along with remdesivir and admitted for further care. On hospital stay with complaint Vapotherm and BiPAP transition TPN as he was unable to take p.o. 10/06/2021. 10/13: Still doing about the same, more alert, follows commands well on BIPAP, is still calm and responsive. abx stopped yesterday, l no fever 10/14: Seen in ICU on Vapotherm 35 L/min 100 percent FiO2 plus BIPAP. In good spirits. Slight cough. No longer with epistaxis. 10/15: Seen in ICU on Vapotherm 30 L/min 80% FiO2 and BiPAP with O2 saturations 96%. He was complaining of some neck and back pain but now has a pillow from home feels that this is helping somewhat. 10/16: Seen in ICU Vapotherm 30l/min 80% FiO2 with support of BiPAP O2 saturations 97%. He has no significant complaints today except that he is hungry. Discussed with RT, increase Vapotherm settings and try to wean off BiPAP 10/17: Trialed on Vapotherm off BiPAP yesterday afternoon. Overnight chest discomfort he was placed back on BiPAP with O2 saturations were below 88%. Still some discomfort today. Required some morphine and fentanyl. Back on Vapotherm. Currently at 100% FiO2 BiPAP support 10/18: US with DVT with right distal posterior tibial peroneal veins and left peroneal vein. Afebrile. Back on Vapotherm 40 L/min with 100% FiO2 supplemental BiPAP with O2 saturations 92%. His chest pain is improving now is on therapeutic Lovenox 10/19: Afebrile last 24 hours. Preliminary repeat blood cultures no growth to date. Chest pain has almost resolved. He is asking if he can have visitors. Still requiring Vapotherm 40 L/min percent FiO2 who with supplemental BiPAP O2 saturations are 92 to 94%. Likely his fevers were due to DVT and possible pulmonary embolism now on therapeutic Lovenox. We will follow up fungal blood cultures and consider repeat chest x-ray in the next 24 to 48 hours 10/20: Afebrile. Blood cultures no growth to date. Chest pain resolved. Still on Vapotherm 40 L/min with 100% FiO2 with supplemental BiPAP O2 saturations any where from 92% to 97%. WBC normalized. cc time 33 min Vitals/I&O Vitals/I&O: Vital Signs Date Time Temp Pulse Resp B/P (MAP) Pulse Ox O2 Delivery O2 Flow Rate FiO2 10/20/21 08:29 72 149/72 10/20/21 08:00 98.6 26 92 BIPAP/Vapotherm 40.0 98.6 I & O 10/19/21 10/19/21 10/20/21 15:00 23:00 07:00 Intake Total 964.1 ml 2640.99 ml 557 ml Output Total 535 ml 920 ml 425 ml Balance 429.1 ml 1720.99 ml 132 ml Physical Exam Physical Exam: GENERAL: Alert, oriented gentleman who is on 40 liters of oxygen. VITAL SIGNS: Stable HEENT: Both pupils are round and reacting. No conjunctival lesion, no lesion in the mouth. NECK: Supple, no JVP, no lymphadenopathy. LUNGS: Decreased breath sounds. HEART: S1, S2 regular, tachycardic. ABDOMEN: Soft, nontender, no organomegaly. EXTREMITIES: No edema, cyanosis. SKIN: Unremarkable. NEUROLOGIC: The patient is alert, awake, and appropriate. No focal neurologic deficit. General: Alert, Oriented X3, Cooperative, mild distress Heart: Regular rate Lungs: Other Abdomen: Normal bowel sounds Extremities: No clubbing, No edema, Normal pulses Skin: No rashes, No significant lesion Labs Labs: Laboratory Tests Test 10/20/21 06:30 White Blood Count 7.9 x10^3/uL (4.0-11.0) Red Blood Count 4.25 x10^6/uL (4.30-5.70) Hemoglobin 11.8 g/dL (13.0-17.5) Hematocrit 36.3 % (39.0-53.0) Mean Corpuscular Volume 85 fL (79-100) Mean Corpuscular Hemoglobin 28 pg (25-35) Mean Corpuscular Hemoglobin Concent 33 g/dL (31-37) Red Cell Distribution Width 17.8 % (11.5-14.5) Platelet Count 195 x10^3/uL (140-400) Neutrophils (%) (Auto) 83 % (31-73) Lymphocytes (%) (Auto) 6 % (24-48) Monocytes (%) (Auto) 10 % (0-9) Eosinophils (%) (Auto) 0 % (0-3) Basophils (%) (Auto) 1 % (0-3) Neutrophils # (Auto) 6.6 x10^3/uL (1.8-7.7) Lymphocytes # (Auto) 0.4 x10^3/uL (1.0-4.8) Monocytes # (Auto) 0.8 x10^3/uL (0.0-1.1) Eosinophils # (Auto) 0.0 x10^3/uL (0.0-0.7) Basophils # (Auto) 0.1 x10^3/uL (0.0-0.2) Sodium Level 135 mmol/L (136-145) Potassium Level 4.8 mmol/L (3.5-5.1) Chloride Level 98 mmol/L (98-107) Carbon Dioxide Level 34 mmol/L (21-32) Anion Gap 3 (6-14) Blood Urea Nitrogen 16 mg/dL (8-26) Creatinine 0.4 mg/dL (0.7-1.3) Estimated GFR (Cockcroft-Gault) 218.0 Glucose Level 145 mg/dL (70-99) Calcium Level 8.0 mg/dL (8.5-10.1) Phosphorus Level 2.9 mg/dL (2.6-4.7) Magnesium Level 2.1 mg/dL (1.8-2.4) Triglycerides Level 79 mg/dL (0-150) Assessment and Plan Assessmemt and Plan Problems Medical Problems: (1) Hypoxia Status: Acute (2) Pneumonia due to COVID-19 virus Status: Acute Comment Review of Relevant I have reviewed the following items dino (where applicable) has been applied. Medications: Current Medications Medications (Trade) Dose Ordered Sig/Jody Route PRN Reason Start Time Stop Time Status Last Admin Dose Admin Sodium Chloride 110 meq/Potassium Chloride 15 meq/ Potassium Phosphate 25 mmol/ Magnesium Sulfate 10 meq/Calcium Gluconate 5 meq/ Multivitamins 10 ml/Zinc/Copper/ Manganese/ Selenium 1 ml/ Total Parenteral Nutrition/Amino Acids/Dextrose 1,320 ml @ 55 mls/hr TPN CONT IV 10/19/21 22:00 10/20/21 21:59 10/19/21 21:21 Justifications for Admission Other Justification ERIKA GONZALEZ MD Oct 20, 2021 09:35
[2021-10-20] MEDS: TIMOLOL 0.5% OPHTH SOLUTION 5ML BOTTLE. OD SCH ×2 (09:47→21:05)
[2021-10-20] MEDS: methylPREDNISolone SOD SUCC PF 40 MG/ML VIAL. IV SCH (12:51)
[2021-10-20] MEDS: SODIUM CHLORIDE 0.65% NASAL SPRAY 45ML BOTTLE. NS PRN (14:38)
[2021-10-20] MEDS: PATCH REMOVAL. MC SCH (21:00)
[2021-10-20] MEDS ORDERED: AMINO ACID IV SCH (22:00)
[2021-10-20] MEDS ORDERED: TOTAL PARENTERAL NUTRITION IV SCH (22:00)
[2021-10-20] MEDS ORDERED: DEXTROSE 70% IV SCH (22:00)
[2021-10-20] MEDS ORDERED: [UNRECOGNIZED DRUG - OTHER] IV SCH (22:00)
[2021-10-21] VITALS (23 sets, daily range): BP systolic 97–168; BP diastolic 58–92
[2021-10-21] MEDS: PIPERACILLIN/TAZOBACTAM 3.375 GM in IV NORMAL SALINE 50ML 50 ML IV SCH ×4 (00:10→18:00)
[2021-10-21] MEDS: DEXMEDETOMIDINE 400 MCG in IV NORMAL SALINE 100ML 96 ML IV PRN ×6 (01:50→21:37)
[2021-10-21] MEDS: guaiFENesin/CODEINE 100mg/10mg 5 ML LIQUID PO PRN ×2 (04:46→22:12)
[2021-10-21 05:14] LABS: CALCIUM 8.2 mg/dL (8.5-10.1); CREATININE 0.4 mg/dL (0.7-1.3); MAGNESIUM 2.1 mg/dL (1.8-2.4); POTASSIUM 4.8 mmol/L (3.5-5.1)
--- NOTE | 2021-10-21 07:50 | PDOC ---
Infectious Disease Note Subjective Subjective Patient is still on BiPAP says feeling better ROS ROS No nausea vomiting diarrhea or fever Vital Sign Vital Signs Vital Signs Date Time Temp Pulse Resp B/P (MAP) Pulse Ox O2 Delivery O2 Flow Rate FiO2 10/21/21 07:42 92 BiPAP/CPAP 10/21/21 07:13 76 30 117/67 30.0 10/21/21 04:00 98.8 98.8 Physical Exam PHYSICAL EXAM GENERAL: Alert, oriented gentleman who is on 40 liters of oxygen. VITAL SIGNS: Stable HEENT: Both pupils are round and reacting. No conjunctival lesion, no lesion in the mouth. NECK: Supple, no JVP, no lymphadenopathy. LUNGS: Decreased breath sounds. HEART: S1, S2 regular, tachycardic. ABDOMEN: Soft, nontender, no organomegaly. EXTREMITIES: No edema, cyanosis. SKIN: Unremarkable. NEUROLOGIC: The patient is alert, awake, and appropriate. No focal neurologic deficit. Labs Lab Laboratory Tests Test 10/21/21 04:54 Sodium Level 132 mmol/L (136-145) Potassium Level 4.8 mmol/L (3.5-5.1) Chloride Level 95 mmol/L (98-107) Carbon Dioxide Level 34 mmol/L (21-32) Anion Gap 3 (6-14) Blood Urea Nitrogen 14 mg/dL (8-26) Creatinine 0.4 mg/dL (0.7-1.3) Estimated GFR (Cockcroft-Gault) 218.0 Glucose Level 139 mg/dL (70-99) Calcium Level 8.2 mg/dL (8.5-10.1) Phosphorus Level 3.0 mg/dL (2.6-4.7) Magnesium Level 2.1 mg/dL (1.8-2.4) Micro Microbiology 09/25/21 Blood Culture - Final, Complete NO GROWTH AFTER 5 DAYS Objective Assessment IMPRESSION: 1. COVID-19 positive. 2. Pneumonia, bilateral pulmonary infiltrate. 3. New fever and leukocytosis, secondary infection needs to be ruled out. 4. Hypertension. 5. Arthritis. Plan Plan of Care Continue antibiotics. Continue supportive care. MINOR TONY MD Oct 21, 2021 07:50
--- NOTE | 2021-10-21 08:54 | PDOC ---
PULMONARY PROGRESS NOTES DATE: 10/21/21 TIME: 08:54 Subjective Patient currently on BiPAP 100% FiO2 Feels about the same No new complaints Vitals Vital Signs Date Time Temp Pulse Resp B/P (MAP) Pulse Ox O2 Delivery O2 Flow Rate FiO2 10/21/21 08:00 97.7 76 25 128/68 94 BIPAP/Vapotherm 30.0 97.7 ROS: No Nausea, No Chest Pain, No Abdominal Pain, No Increase Cough General: No acute distress Lungs: Other Cardiovascular: S1, S2 Abdomen: Other (obese) Extremities: No Edema Skin: No Rashes Labs Laboratory Tests Test 10/20/21 06:30 10/21/21 04:54 White Blood Count 7.9 x10^3/uL (4.0-11.0) Red Blood Count 4.25 x10^6/uL (4.30-5.70) Hemoglobin 11.8 g/dL (13.0-17.5) Hematocrit 36.3 % (39.0-53.0) Mean Corpuscular Volume 85 fL (79-100) Mean Corpuscular Hemoglobin 28 pg (25-35) Mean Corpuscular Hemoglobin Concent 33 g/dL (31-37) Red Cell Distribution Width 17.8 % (11.5-14.5) Platelet Count 195 x10^3/uL (140-400) Neutrophils (%) (Auto) 83 % (31-73) Lymphocytes (%) (Auto) 6 % (24-48) Monocytes (%) (Auto) 10 % (0-9) Eosinophils (%) (Auto) 0 % (0-3) Basophils (%) (Auto) 1 % (0-3) Neutrophils # (Auto) 6.6 x10^3/uL (1.8-7.7) Lymphocytes # (Auto) 0.4 x10^3/uL (1.0-4.8) Monocytes # (Auto) 0.8 x10^3/uL (0.0-1.1) Eosinophils # (Auto) 0.0 x10^3/uL (0.0-0.7) Basophils # (Auto) 0.1 x10^3/uL (0.0-0.2) Sodium Level 135 mmol/L (136-145) 132 mmol/L (136-145) Potassium Level 4.8 mmol/L (3.5-5.1) 4.8 mmol/L (3.5-5.1) Chloride Level 98 mmol/L (98-107) 95 mmol/L (98-107) Carbon Dioxide Level 34 mmol/L (21-32) 34 mmol/L (21-32) Anion Gap 3 (6-14) 3 (6-14) Blood Urea Nitrogen 16 mg/dL (8-26) 14 mg/dL (8-26) Creatinine 0.4 mg/dL (0.7-1.3) 0.4 mg/dL (0.7-1.3) Estimated GFR (Cockcroft-Gault) 218.0 218.0 Glucose Level 145 mg/dL (70-99) 139 mg/dL (70-99) Calcium Level 8.0 mg/dL (8.5-10.1) 8.2 mg/dL (8.5-10.1) Phosphorus Level 2.9 mg/dL (2.6-4.7) 3.0 mg/dL (2.6-4.7) Magnesium Level 2.1 mg/dL (1.8-2.4) 2.1 mg/dL (1.8-2.4) Triglycerides Level 79 mg/dL (0-150) Laboratory Tests Test 10/21/21 04:54 Sodium Level 132 mmol/L (136-145) Potassium Level 4.8 mmol/L (3.5-5.1) Chloride Level 95 mmol/L (98-107) Carbon Dioxide Level 34 mmol/L (21-32) Anion Gap 3 (6-14) Blood Urea Nitrogen 14 mg/dL (8-26) Creatinine 0.4 mg/dL (0.7-1.3) Estimated GFR (Cockcroft-Gault) 218.0 Glucose Level 139 mg/dL (70-99) Calcium Level 8.2 mg/dL (8.5-10.1) Phosphorus Level 3.0 mg/dL (2.6-4.7) Magnesium Level 2.1 mg/dL (1.8-2.4) Medications Active Scripts Medications Dose Route/Sig Max Daily Dose Days Date Category Oxycodone Hcl 5 Mg Capsule 5 Mg PO PRN Q4HRS PRN 08/01/21 Rx Tramadol Hcl 50 Mg Tablet 50 Mg PO Q4HRS PRN 08/01/21 Rx Warfarin Sodium 4 Mg Tablet 4 Mg PO DAILY 28 08/01/21 Rx Timoptic 0.5% (Timolol Maleate) 10 Ml Drops 1 Drop OD BID 30 07/17/21 Reported Lisinopril 10 Mg Tablet 10 Mg PO DAILY 07/17/21 Reported Comments Venous Dopplers of lower extremity 10/17/2021 1. Deep venous thrombosis involving the right distal posterior tibial and peroneal veins. 2. Deep venous thrombus involving the left peroneal vein Chest x-ray reviewed 10/17/2021. Bilateral interstitial infiltrates. These are diffuse but mildly improved in the right lung Chest x-ray reviewed dated 10/01/2021. Diffuse bilateral interstitial infiltrates. No significant pleural effusion. There is mild progression. No evidence of pneumothorax Impression . 1. Acute hypoxic respiratory failure secondary to COVID-19 viral pneumonia/ARDS.. 2. Development of new fever, chest pain and increasing oxygen requirement 10/17/2021.. Likely related to new acute deep vein thrombosis of the lower extremities and suspected pulmonary embolism . 3. Abnormal chest x-ray with diffuse bilateral infiltrates consistent with viral pneumonia. 4. Mildly increased liver function test. Likely due to COVID. 5. Leukocytosis 6. Markedly elevated CRP level of 197. Status post Actemra. He received on 09/30/2021 7. New diagnosis of bilateral lower extremity DVT 10/17/2021 8. Clinically suspected pulmonary embolism 10/17/2021. 9. DVT Plan . Updated 10/21 Continue Lovenox full dose, therapeutic dose Continue BiPAP Antibiotics per ID So far cultures are negative Status post remdesivir and tocilizumab Nutritional support per TPN 10/20 Continue with full dose Lovenox. Will eventually change to Eliquis when off bipap cont bipap setting reviewed increased to 22/06 helped oxygenation discussed w rt Antibiotic per infectious disease. All cultures including blood cultures and urine cultures pending. Try Vapotherm 100% FiO2 later today as tolerated on precedex cont steroid. Taper the dose elevate hob continue current support s/p remdesivir and tocilizumab Patient remains DNR. prognosis guarded TPN for nutrition. Cannot tolerate off the BiPAP for oral intake. discussed w rn rt KRAIG YADAV MD Oct 21, 2021 08:54
[2021-10-21] MEDS: LIDOCAINE (700MG/PATCH) PATCH. TD SCH (09:00)
[2021-10-21] MEDS: SENNOSIDES/DOCUSATE 8.6/50MG TABLET. PO SCH ×2 (09:18→21:03)
[2021-10-21] MEDS: SMZ/TMP 800/160MG TABLET. PO SCH ×3 (09:18→21:03)
[2021-10-21] MEDS: PANTOPRAZOLE IV PUSH 40 MG VIAL. IVP SCH (09:18)
[2021-10-21] MEDS: methylPREDNISolone SOD SUCC PF 40 MG/ML VIAL. IV SCH (09:18)
[2021-10-21] MEDS: ASPIRIN CHEWABLE 81 MG TABLET. PO SCH (09:19)
[2021-10-21] MEDS: METOPROLOL TART IMMED RELEASE 25 MG TABLET. PO SCH ×2 (09:19→21:05)
[2021-10-21] MEDS: TIMOLOL 0.5% OPHTH SOLUTION 5ML BOTTLE. OD SCH ×2 (09:19→21:04)
[2021-10-21] MEDS: TPN PER PHARMACY MC PRN (09:43)
--- NOTE | 2021-10-21 09:45 | NUR ---
Pharmacy TPN Dosing Note S: ILAVANIA is a 60 year old M Currently receiving Central Continuous TPN started 10/04/21 B:Pertinent PMH: NPO Height: 5 feet, 7 inches Weight: 89.3 kg Current diet: NPO LABS: Sodium: 132 Potassium: 4.8 Chloride: 95 Calcium: 8.2 Corrected Calcium: 9.96 Magnesium: 2.1 CO2: 34 SCr: 0.4 Glucose: 139 Albumin: 1.8 AST: 15 ALT: 45 TPN FORMULA: TPN TYPE: Central Continuous AMINO ACIDS: 80 gm DEXTROSE: 255 gm LIPIDS: 30 gm SODIUM CHLORIDE: 110 mEq POTASSIUM CHLORIDE: 15 mEq POTASSIUM PHOSPHATE: 25 mmol MAGNESIUM: 10 mEq CALCIUM: 5 mEq MULTIPLE VITAMIN: 10 ml TRACE ELEMENTS: 1 ml(s) TPN PLAN: Lipids added per MWF schedule R: Change TPN per plan and ordered formula Will monitor electrolytes, glucose, and tolerance to TPN. Mariana Mcfarlane [facility], 10/21/21 0921
--- NOTE | 2021-10-21 10:43 | NUR ---
SS following up with discharge planning. SS reviewed pt chart and discussed with pt RN. Pt is currently on Vapotherm at 30 liters and 100% and BIPAP. Pt on TPN, IV Zosyn, IV Solu-Medrol, and PO Bactrim. Pt on Precedex. Not stable. SS will continue to follow for discharge planning.
--- NOTE | 2021-10-21 16:57 | PDOC ---
[employer] PROGRESS NOTE Date of Service DOS: DATE: 10/21/21 TIME: 16:57 Chief Complaint Chief Complaint acute Covid-19 Pneumonia status post remdesivir and Actemra Acute hypoxic respiratory failure requiring Vapotherm and bipap support SEPSIS malnutrition Hypertension OA - s/p Knee replacement DVT - 10/17/2021 Chest pain - 10/16/2021, non cardiac, likely due to PE, not stable enough to go for CTPA. On therapeutic Lovenox History of Present Illness History of Present Illness FEN - TPN PPX - lovenox, Protonix for GI prophylaxis while on steroids CODE - DNR/DNI Dispo - ICU care, Mr Lehman is a 60-year-old male with PMHx HTN brought into the hospital due to cough and trouble breathing for the last 10 days, notes his father was positive for COVID 19 and was hospitalized. He has not been vaccinated against COVID 19. 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 Notably hypoxic on initial examination. Chest x-ray on admission showed multifocal bilateral patchy infiltrates. Rapid COVID 19 positive, started on dexamethasone, Lovenox for DVT prophylaxis along with remdesivir and admitted for further care. On hospital stay with complaint Vapotherm and BiPAP transition TPN as he was unable to take p.o. 10/06/2021. 10/21: Afebrile. Blood cultures no growth to date. no Chest pain today. Still on a lot of oxygen support to maintain sats, - Vapotherm 40 L/min with 100% FiO2 with supplemental BiPAP O2 saturations anywhere from 92% to 97%. WBC cc time 24 min Vitals/I&O Vitals/I&O: Vital Signs Date Time Temp Pulse Resp B/P (MAP) Pulse Ox O2 Delivery O2 Flow Rate FiO2 10/21/21 16:00 97.9 100 28 145/79 93 BIPAP/Vapotherm 30.0 97.9 I & O 10/20/21 10/20/21 10/21/21 15:00 23:00 07:00 Intake Total 50 ml 1884.85 ml 1340 ml Output Total 700 ml 875 ml 1975 ml Balance -650 ml 1009.85 ml -635 ml Physical Exam Physical Exam: GENERAL: Alert, oriented gentleman who is on 40 liters of oxygen. VITAL SIGNS: Stable HEENT: Both pupils are round and reacting. No conjunctival lesion, no lesion in the mouth. NECK: Supple, no JVP, no lymphadenopathy. LUNGS: Decreased breath sounds. HEART: S1, S2 regular, tachycardic. ABDOMEN: Soft, nontender, no organomegaly. EXTREMITIES: No edema, cyanosis. SKIN: Unremarkable. NEUROLOGIC: The patient is alert, awake, and appropriate. No focal neurologic deficit. General: Alert, Oriented X3, Cooperative, mild distress Heart: Regular rate Lungs: Other Abdomen: Normal bowel sounds Extremities: No clubbing, No edema, Normal pulses Skin: No rashes, No significant lesion Labs Labs: Laboratory Tests Test 10/21/21 04:54 Sodium Level 132 mmol/L (136-145) Potassium Level 4.8 mmol/L (3.5-5.1) Chloride Level 95 mmol/L (98-107) Carbon Dioxide Level 34 mmol/L (21-32) Anion Gap 3 (6-14) Blood Urea Nitrogen 14 mg/dL (8-26) Creatinine 0.4 mg/dL (0.7-1.3) Estimated GFR (Cockcroft-Gault) 218.0 Glucose Level 139 mg/dL (70-99) Calcium Level 8.2 mg/dL (8.5-10.1) Phosphorus Level 3.0 mg/dL (2.6-4.7) Magnesium Level 2.1 mg/dL (1.8-2.4) Assessment and Plan Assessmemt and Plan Problems Medical Problems: (1) Hypoxia Status: Acute (2) Pneumonia due to COVID-19 virus Status: Acute Comment Review of Relevant I have reviewed the following items dino (where applicable) has been applied. Medications: Current Medications Medications (Trade) Dose Ordered Sig/Jody Route PRN Reason Start Time Stop Time Status Last Admin Dose Admin Sodium Chloride 110 meq/Potassium Chloride 15 meq/ Potassium Phosphate 25 mmol/ Magnesium Sulfate 10 meq/Calcium Gluconate 5 meq/ Multivitamins 10 ml/Zinc/Copper/ Manganese/ Selenium 1 ml/ Total Parenteral Nutrition/Amino Acids/Dextrose 1,320 ml @ 55 mls/hr TPN CONT IV 10/20/21 22:00 10/21/21 21:59 10/20/21 21:04 Justifications for Admission Other Justification NANCY MAN MD Oct 21, 2021 16:57
[2021-10-21] MEDS: PATCH REMOVAL. MC SCH (21:00)
[2021-10-21] MEDS ORDERED: [UNRECOGNIZED DRUG - OTHER] IV SCH (22:00)
[2021-10-21] MEDS ORDERED: TOTAL PARENTERAL NUTRITION IV SCH (22:00)
[2021-10-21] MEDS ORDERED: DEXTROSE 70% IV SCH (22:00)
[2021-10-21] MEDS ORDERED: AMINO ACID IV SCH (22:00)
[2021-10-22] VITALS (24 sets, daily range): BP systolic 88–138; BP diastolic 55–81
[2021-10-22] MEDS: DEXMEDETOMIDINE 400 MCG in IV NORMAL SALINE 100ML 96 ML IV PRN ×6 (00:34→22:12)
[2021-10-22 05:21] LABS: BASO # 0.1 x10^3/uL (0.0-0.2); BASO % 1 % (0-3); EOS # 0.7 x10^3/uL (0.0-0.7); EOS % 5 % (0-3); HEMOGLOBIN 12.9 g/dL (13.0-17.5); LYMPH # 0.8 x10^3/uL (1.0-4.8); LYMPH % 6 % (24-48); MEAN CORPUSCULAR HEMOGLOBIN 28 pg (25-35); MEAN CORPUSCULAR HGB CONC 33 g/dL (31-37); MEAN CORPUSCULAR VOLUME 85 fL (79-100); MONO % 7 % (0-9); NEUT # 11.4 x10^3/uL (1.8-7.7); NEUT % 81 % (31-73); PLATELET COUNT 266 x10^3/uL (140-400); RED CELL DISTRIBUTION WIDTH 17.4 % (11.5-14.5)
[2021-10-22] MEDS ORDERED: SALIVA STIMULANT AGENT 44ML SPRAY BOTTLE. PO PRN (05:30)
[2021-10-22 05:32] LABS: CALCIUM 8.2 mg/dL (8.5-10.1); CREATININE 0.5 mg/dL (0.7-1.3); GFR 168.5; POTASSIUM 4.5 mmol/L (3.5-5.1)
[2021-10-22] MEDS: PIPERACILLIN/TAZOBACTAM 3.375 GM in IV NORMAL SALINE 50ML 50 ML IV SCH ×4 (05:52→17:39)
--- NOTE | 2021-10-22 07:44 | PDOC ---
Infectious Disease Note Subjective Subjective Patient is still on BiPAP says feeling better ROS ROS no n/v/d/ Vital Sign Vital Signs Vital Signs Date Time Temp Pulse Resp B/P (MAP) Pulse Ox O2 Delivery O2 Flow Rate FiO2 10/22/21 07:16 102 19 126/74 92 Vapotherm 30.0 10/22/21 04:00 97.9 97.9 Physical Exam PHYSICAL EXAM GENERAL: Alert, oriented gentleman who is on 40 liters of oxygen. VITAL SIGNS: Stable HEENT: Both pupils are round and reacting. No conjunctival lesion, no lesion in the mouth. NECK: Supple, no JVP, no lymphadenopathy. LUNGS: Decreased breath sounds. HEART: S1, S2 regular, tachycardic. ABDOMEN: Soft, nontender, no organomegaly. EXTREMITIES: No edema, cyanosis. SKIN: Unremarkable. NEUROLOGIC: The patient is alert, awake, and appropriate. No focal neurologic deficit. Labs Lab Laboratory Tests Test 10/22/21 05:14 White Blood Count 14.0 x10^3/uL (4.0-11.0) Red Blood Count 4.60 x10^6/uL (4.30-5.70) Hemoglobin 12.9 g/dL (13.0-17.5) Hematocrit 39.0 % (39.0-53.0) Mean Corpuscular Volume 85 fL (79-100) Mean Corpuscular Hemoglobin 28 pg (25-35) Mean Corpuscular Hemoglobin Concent 33 g/dL (31-37) Red Cell Distribution Width 17.4 % (11.5-14.5) Platelet Count 266 x10^3/uL (140-400) Neutrophils (%) (Auto) 81 % (31-73) Lymphocytes (%) (Auto) 6 % (24-48) Monocytes (%) (Auto) 7 % (0-9) Eosinophils (%) (Auto) 5 % (0-3) Basophils (%) (Auto) 1 % (0-3) Neutrophils # (Auto) 11.4 x10^3/uL (1.8-7.7) Lymphocytes # (Auto) 0.8 x10^3/uL (1.0-4.8) Monocytes # (Auto) 1.0 x10^3/uL (0.0-1.1) Eosinophils # (Auto) 0.7 x10^3/uL (0.0-0.7) Basophils # (Auto) 0.1 x10^3/uL (0.0-0.2) Sodium Level 129 mmol/L (136-145) Potassium Level 4.5 mmol/L (3.5-5.1) Chloride Level 92 mmol/L (98-107) Carbon Dioxide Level 33 mmol/L (21-32) Anion Gap 4 (6-14) Blood Urea Nitrogen 17 mg/dL (8-26) Creatinine 0.5 mg/dL (0.7-1.3) Estimated GFR (Cockcroft-Gault) 168.5 Glucose Level 137 mg/dL (70-99) Calcium Level 8.2 mg/dL (8.5-10.1) Micro Microbiology 09/25/21 Blood Culture - Final, Complete NO GROWTH AFTER 5 DAYS Objective Assessment IMPRESSION: 1. COVID-19 positive. 2. Pneumonia, bilateral pulmonary infiltrate. 3. New fever and leukocytosis, secondary infection needs to be ruled out. 4. Hypertension. 5. Arthritis. Plan Plan of Care Continue antibiotics. Continue supportive care. no need for isolation MINOR TONY MD Oct 22, 2021 07:44
[2021-10-22] MEDS: SENNOSIDES/DOCUSATE 8.6/50MG TABLET. PO SCH ×2 (07:48→21:20)
[2021-10-22] MEDS: SMZ/TMP 800/160MG TABLET. PO SCH ×3 (07:49→21:18)
[2021-10-22] MEDS: ASPIRIN CHEWABLE 81 MG TABLET. PO SCH (07:49)
[2021-10-22] MEDS: METOPROLOL TART IMMED RELEASE 25 MG TABLET. PO SCH ×2 (07:49→21:20)
[2021-10-22] MEDS: PANTOPRAZOLE IV PUSH 40 MG VIAL. IVP SCH (07:51)
[2021-10-22] MEDS: LIDOCAINE (700MG/PATCH) PATCH. TD SCH (07:51)
[2021-10-22] MEDS: TIMOLOL 0.5% OPHTH SOLUTION 5ML BOTTLE. OD SCH ×2 (07:51→21:18)
--- NOTE | 2021-10-22 08:08 | PDOC ---
PULMONARY PROGRESS NOTES DATE: 10/22/21 TIME: 08:08 Subjective Patient currently on BiPAP 100% FiO2 Feels about the same No new complaints Vitals Vital Signs Date Time Temp Pulse Resp B/P (MAP) Pulse Ox O2 Delivery O2 Flow Rate FiO2 10/22/21 07:49 102 126/74 10/22/21 07:16 19 92 Vapotherm 30.0 10/22/21 04:00 97.9 97.9 ROS: No Nausea, No Chest Pain, No Abdominal Pain, No Increase Cough General: No acute distress Lungs: Other Cardiovascular: S1, S2 Abdomen: Other (obese) Extremities: No Edema Skin: No Rashes Labs Laboratory Tests Test 10/21/21 04:54 10/22/21 05:14 Sodium Level 132 mmol/L (136-145) 129 mmol/L (136-145) Potassium Level 4.8 mmol/L (3.5-5.1) 4.5 mmol/L (3.5-5.1) Chloride Level 95 mmol/L (98-107) 92 mmol/L (98-107) Carbon Dioxide Level 34 mmol/L (21-32) 33 mmol/L (21-32) Anion Gap 3 (6-14) 4 (6-14) Blood Urea Nitrogen 14 mg/dL (8-26) 17 mg/dL (8-26) Creatinine 0.4 mg/dL (0.7-1.3) 0.5 mg/dL (0.7-1.3) Estimated GFR (Cockcroft-Gault) 218.0 168.5 Glucose Level 139 mg/dL (70-99) 137 mg/dL (70-99) Calcium Level 8.2 mg/dL (8.5-10.1) 8.2 mg/dL (8.5-10.1) Phosphorus Level 3.0 mg/dL (2.6-4.7) Magnesium Level 2.1 mg/dL (1.8-2.4) White Blood Count 14.0 x10^3/uL (4.0-11.0) Red Blood Count 4.60 x10^6/uL (4.30-5.70) Hemoglobin 12.9 g/dL (13.0-17.5) Hematocrit 39.0 % (39.0-53.0) Mean Corpuscular Volume 85 fL (79-100) Mean Corpuscular Hemoglobin 28 pg (25-35) Mean Corpuscular Hemoglobin Concent 33 g/dL (31-37) Red Cell Distribution Width 17.4 % (11.5-14.5) Platelet Count 266 x10^3/uL (140-400) Neutrophils (%) (Auto) 81 % (31-73) Lymphocytes (%) (Auto) 6 % (24-48) Monocytes (%) (Auto) 7 % (0-9) Eosinophils (%) (Auto) 5 % (0-3) Basophils (%) (Auto) 1 % (0-3) Neutrophils # (Auto) 11.4 x10^3/uL (1.8-7.7) Lymphocytes # (Auto) 0.8 x10^3/uL (1.0-4.8) Monocytes # (Auto) 1.0 x10^3/uL (0.0-1.1) Eosinophils # (Auto) 0.7 x10^3/uL (0.0-0.7) Basophils # (Auto) 0.1 x10^3/uL (0.0-0.2) Laboratory Tests Test 10/22/21 05:14 White Blood Count 14.0 x10^3/uL (4.0-11.0) Red Blood Count 4.60 x10^6/uL (4.30-5.70) Hemoglobin 12.9 g/dL (13.0-17.5) Hematocrit 39.0 % (39.0-53.0) Mean Corpuscular Volume 85 fL (79-100) Mean Corpuscular Hemoglobin 28 pg (25-35) Mean Corpuscular Hemoglobin Concent 33 g/dL (31-37) Red Cell Distribution Width 17.4 % (11.5-14.5) Platelet Count 266 x10^3/uL (140-400) Neutrophils (%) (Auto) 81 % (31-73) Lymphocytes (%) (Auto) 6 % (24-48) Monocytes (%) (Auto) 7 % (0-9) Eosinophils (%) (Auto) 5 % (0-3) Basophils (%) (Auto) 1 % (0-3) Neutrophils # (Auto) 11.4 x10^3/uL (1.8-7.7) Lymphocytes # (Auto) 0.8 x10^3/uL (1.0-4.8) Monocytes # (Auto) 1.0 x10^3/uL (0.0-1.1) Eosinophils # (Auto) 0.7 x10^3/uL (0.0-0.7) Basophils # (Auto) 0.1 x10^3/uL (0.0-0.2) Sodium Level 129 mmol/L (136-145) Potassium Level 4.5 mmol/L (3.5-5.1) Chloride Level 92 mmol/L (98-107) Carbon Dioxide Level 33 mmol/L (21-32) Anion Gap 4 (6-14) Blood Urea Nitrogen 17 mg/dL (8-26) Creatinine 0.5 mg/dL (0.7-1.3) Estimated GFR (Cockcroft-Gault) 168.5 Glucose Level 137 mg/dL (70-99) Calcium Level 8.2 mg/dL (8.5-10.1) Medications Active Scripts Medications Dose Route/Sig Max Daily Dose Days Date Category Oxycodone Hcl 5 Mg Capsule 5 Mg PO PRN Q4HRS PRN 08/01/21 Rx Tramadol Hcl 50 Mg Tablet 50 Mg PO Q4HRS PRN 08/01/21 Rx Warfarin Sodium 4 Mg Tablet 4 Mg PO DAILY 28 08/01/21 Rx Timoptic 0.5% (Timolol Maleate) 10 Ml Drops 1 Drop OD BID 30 07/17/21 Reported Lisinopril 10 Mg Tablet 10 Mg PO DAILY 07/17/21 Reported Comments Venous Dopplers of lower extremity 10/17/2021 1. Deep venous thrombosis involving the right distal posterior tibial and peroneal veins. 2. Deep venous thrombus involving the left peroneal vein Chest x-ray reviewed 10/17/2021. Bilateral interstitial infiltrates. These are diffuse but mildly improved in the right lung Chest x-ray reviewed dated 10/01/2021. Diffuse bilateral interstitial infiltrates. No significant pleural effusion. There is mild progression. No evidence of pneumothorax Impression . 1. Acute hypoxic respiratory failure secondary to COVID-19 viral pneumonia/ARDS.. 2. Development of new fever, chest pain and increasing oxygen requirement 10/17/2021.. Likely related to new acute deep vein thrombosis of the lower extremities and suspected pulmonary embolism . 3. Abnormal chest x-ray with diffuse bilateral infiltrates consistent with viral pneumonia. 4. Mildly increased liver function test. Likely due to COVID. 5. Leukocytosis 6. Markedly elevated CRP level of 197. Status post Actemra. He received on 09/30/2021 7. New diagnosis of bilateral lower extremity DVT 10/17/2021 8. Clinically suspected pulmonary embolism 10/17/2021. 9. DVT Plan . Updated 10/22 Patient continues to be critically ill, Continue current support Antibiotics per ID Updated 10/21 Continue Lovenox full dose, therapeutic dose Continue BiPAP Antibiotics per ID So far cultures are negative Status post remdesivir and tocilizumab Nutritional support per TPN KRAIG YADAV MD Oct 22, 2021 08:08
--- NOTE | 2021-10-22 10:13 | NUR ---
SS following up with discharge planning. SS reviewed pt chart and discussed with pt RN. Pt is currently on Vapotherm at 30 liters and 90% and BIPAP. Pt on TPN, IV Zosyn, IV Solu-Medrol, and PO Bactrim. Pt on Precedex. Not stable. SS will continue to follow for discharge planning.
--- NOTE | 2021-10-22 11:13 | PDOC ---
[employer] PROGRESS NOTE Date of Service DOS: DATE: 10/22/21 TIME: 11:12 Chief Complaint Chief Complaint acute Covid-19 Pneumonia status post remdesivir and Actemra Acute hypoxic respiratory failure requiring Vapotherm and bipap support SEPSIS malnutrition Hypertension OA - s/p Knee replacement DVT - 10/17/2021 Chest pain - 10/16/2021, non cardiac, likely due to PE, not stable enough to go for CTPA. On therapeutic Lovenox History of Present Illness History of Present Illness FEN - TPN PPX - lovenox, Protonix for GI prophylaxis while on steroids CODE - DNR/DNI Dispo - ICU care, Mr Lehman is a 60-year-old male with PMHx HTN brought into the hospital due to cough and trouble breathing for the last 10 days, notes his father was positive for COVID 19 and was hospitalized. He has not been vaccinated against COVID 19. 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 Notably hypoxic on initial examination. Chest x-ray on admission showed multifocal bilateral patchy infiltrates. Rapid COVID 19 positive, started on dexamethasone, Lovenox for DVT prophylaxis along with remdesivir and admitted for further care. On hospital stay with complaint Vapotherm and BiPAP transition TPN taking PO ok 10/22, feels well, hoping to improve soon, tolerating the lack of progress well, his mental status is great, in good spirits Afebrile. Blood cultures no growth to date. no Chest pain today. Still on a lot of oxygen support to maintain sats, - Vapotherm 40 L/min with 100% FiO2 with supplemental BiPAP O2 saturations anywhere from 92% to 97%. WBC cc time 24 min Vitals/I&O Vitals/I&O: Vital Signs Date Time Temp Pulse Resp B/P (MAP) Pulse Ox O2 Delivery O2 Flow Rate FiO2 10/22/21 10:08 98 36 126/71 90 Vapotherm 30.0 10/22/21 08:00 98.9 98.9 I & O 10/21/21 10/21/21 10/22/21 15:00 23:00 07:00 Intake Total 100 ml 200 ml 2202.1 ml Output Total 1800 ml 2325 ml 700 ml Balance -1700 ml -2125 ml 1502.1 ml Physical Exam Physical Exam: GENERAL: Alert, oriented gentleman who is on 40 liters of oxygen. VITAL SIGNS: Stable HEENT: Both pupils are round and reacting. No conjunctival lesion, no lesion in the mouth. NECK: Supple, no JVP, no lymphadenopathy. LUNGS: Decreased breath sounds. HEART: S1, S2 regular, tachycardic. ABDOMEN: Soft, nontender, no organomegaly. EXTREMITIES: No edema, cyanosis. SKIN: Unremarkable. NEUROLOGIC: The patient is alert, awake, and appropriate. No focal neurologic deficit. General: Alert, Oriented X3, Cooperative, mild distress Heart: Regular rate Lungs: Other Abdomen: Normal bowel sounds Extremities: No clubbing, No edema, Normal pulses Skin: No rashes, No significant lesion Labs Labs: Laboratory Tests Test 10/22/21 05:14 White Blood Count 14.0 x10^3/uL (4.0-11.0) Red Blood Count 4.60 x10^6/uL (4.30-5.70) Hemoglobin 12.9 g/dL (13.0-17.5) Hematocrit 39.0 % (39.0-53.0) Mean Corpuscular Volume 85 fL (79-100) Mean Corpuscular Hemoglobin 28 pg (25-35) Mean Corpuscular Hemoglobin Concent 33 g/dL (31-37) Red Cell Distribution Width 17.4 % (11.5-14.5) Platelet Count 266 x10^3/uL (140-400) Neutrophils (%) (Auto) 81 % (31-73) Lymphocytes (%) (Auto) 6 % (24-48) Monocytes (%) (Auto) 7 % (0-9) Eosinophils (%) (Auto) 5 % (0-3) Basophils (%) (Auto) 1 % (0-3) Neutrophils # (Auto) 11.4 x10^3/uL (1.8-7.7) Lymphocytes # (Auto) 0.8 x10^3/uL (1.0-4.8) Monocytes # (Auto) 1.0 x10^3/uL (0.0-1.1) Eosinophils # (Auto) 0.7 x10^3/uL (0.0-0.7) Basophils # (Auto) 0.1 x10^3/uL (0.0-0.2) Sodium Level 129 mmol/L (136-145) Potassium Level 4.5 mmol/L (3.5-5.1) Chloride Level 92 mmol/L (98-107) Carbon Dioxide Level 33 mmol/L (21-32) Anion Gap 4 (6-14) Blood Urea Nitrogen 17 mg/dL (8-26) Creatinine 0.5 mg/dL (0.7-1.3) Estimated GFR (Cockcroft-Gault) 168.5 Glucose Level 137 mg/dL (70-99) Calcium Level 8.2 mg/dL (8.5-10.1) Review of Systems Review of Systems: weakneas, dyspnea no pain Assessment and Plan Assessmemt and Plan Problems Medical Problems: (1) Hypoxia Status: Acute (2) Pneumonia due to COVID-19 virus Status: Acute Comment Review of Relevant I have reviewed the following items dino (where applicable) has been applied. Medications: Current Medications Medications (Trade) Dose Ordered Sig/Jody Route PRN Reason Start Time Stop Time Status Last Admin Dose Admin Sodium Chloride 110 meq/Potassium Chloride 15 meq/ Potassium Phosphate 25 mmol/ Magnesium Sulfate 10 meq/Calcium Gluconate 5 meq/ Multivitamins 10 ml/Zinc/Copper/ Manganese/ Selenium 1 ml/ Total Parenteral Nutrition/Amino Acids/Dextrose/ Fat Emulsion Intravenous 1,320 ml @ 55 mls/hr TPN CONT IV 10/21/21 22:00 10/22/21 21:59 10/21/21 21:00 Saliva Substitute (Biotene Moisturizing Mouth) 2 spray PRN Q15MIN PRN PO DRY MOUTH 10/22/21 05:30 10/22/21 05:33 Justifications for Admission Other Justification NANCY MAN MD Oct 22, 2021 11:13
[2021-10-22] MEDS: TPN PER PHARMACY MC PRN (13:13)
--- NOTE | 2021-10-22 13:13 | NUR ---
Pharmacy TPN Dosing Note S: ILAVANIA Cipriano is a 60 year old M Currently receiving Central Continuous TPN started 10/04/21 B:Pertinent PMH: ON BIPAP, CANNOT TOLERATE TAKING PO Height: 5 feet, 7 inches Weight: 89.4 kg Current diet: CARDIAC LABS: Sodium: 129 Potassium: 4.5 Chloride: 92 Calcium: 8.2 Corrected Calcium: 9.96 Magnesium: 2.1 CO2: 33 SCr: 0.5 Glucose: 137 Albumin: 1.8 AST: 15 ALT: 45 TPN FORMULA: TPN TYPE: Central Continuous AMINO ACIDS: 80 gm DEXTROSE: 255 gm LIPIDS: 0 gm SODIUM CHLORIDE: 130 mEq POTASSIUM CHLORIDE: 15 mEq POTASSIUM PHOSPHATE: 25 mmol MAGNESIUM: 10 mEq CALCIUM: 5 mEq MULTIPLE VITAMIN: 10 ml TRACE ELEMENTS: 1 ml TPN PLAN: -Serum sodium low, cannot concentrate TPN any further. Increase NaCl to 130 mEq/day. -Remove lipids due to national FFA shortage. -BMP tomorrow. R: Continue TPN @ current rate and above formula. Will monitor electrolytes, glucose, and tolerance to TPN. TESSA LOYA [facility], 10/22/21 [id number]
[2021-10-22] MEDS: methylPREDNISolone SOD SUCC PF 40 MG/ML VIAL. IV SCH (14:28)
[2021-10-22] MEDS: fentaNYL PF VIAL 100 MCG/2 ML VIAL IVP PRN (14:34)
[2021-10-22] MEDS: METOPROLOL IV PUSH 5 MG/5 ML VIAL. IVP PRN (14:45)
[2021-10-22] MEDS: PATCH REMOVAL. MC SCH (21:00)
[2021-10-22] MEDS ORDERED: AMINO ACID IV SCH (22:00)
[2021-10-22] MEDS ORDERED: TOTAL PARENTERAL NUTRITION IV SCH (22:00)
[2021-10-22] MEDS ORDERED: DEXTROSE 70% IV SCH (22:00)
[2021-10-22] MEDS ORDERED: [UNRECOGNIZED DRUG - OTHER] IV SCH (22:00)
[2021-10-23] VITALS (23 sets, daily range): BP systolic 87–148; BP diastolic 51–78
[2021-10-23] MEDS: PIPERACILLIN/TAZOBACTAM 3.375 GM in IV NORMAL SALINE 50ML 50 ML IV SCH ×4 (00:03→17:33)
[2021-10-23] MEDS: DEXMEDETOMIDINE 400 MCG in IV NORMAL SALINE 100ML 96 ML IV PRN ×6 (02:33→20:49)
[2021-10-23 06:48] LABS: CALCIUM 8.2 mg/dL (8.5-10.1); CREATININE 0.5 mg/dL (0.7-1.3); GFR 168.5; POTASSIUM 4.8 mmol/L (3.5-5.1)
--- NOTE | 2021-10-23 08:02 | PDOC ---
Infectious Disease Note Subjective Subjective Patient is still on BiPAP says feeling better ROS ROS no n/v/d/ Vital Sign Vital Signs Vital Signs Date Time Temp Pulse Resp B/P (MAP) Pulse Ox O2 Delivery O2 Flow Rate FiO2 10/23/21 07:00 83 16 120/70 91 Vapotherm 30.0 10/23/21 04:00 99.2 99.2 Physical Exam PHYSICAL EXAM GENERAL: Alert, oriented gentleman who is on 40 liters of oxygen. VITAL SIGNS: Stable HEENT: Both pupils are round and reacting. No conjunctival lesion, no lesion in the mouth. NECK: Supple, no JVP, no lymphadenopathy. LUNGS: Decreased breath sounds. HEART: S1, S2 regular, tachycardic. ABDOMEN: Soft, nontender, no organomegaly. EXTREMITIES: No edema, cyanosis. SKIN: Unremarkable. NEUROLOGIC: The patient is alert, awake, and appropriate. No focal neurologic deficit. Labs Lab Laboratory Tests Test 10/22/21 15:42 10/23/21 06:25 Magnesium Level 2.0 mg/dL (1.8-2.4) Sodium Level 131 mmol/L (136-145) Potassium Level 4.8 mmol/L (3.5-5.1) Chloride Level 93 mmol/L (98-107) Carbon Dioxide Level 33 mmol/L (21-32) Anion Gap 5 (6-14) Blood Urea Nitrogen 18 mg/dL (8-26) Creatinine 0.5 mg/dL (0.7-1.3) Estimated GFR (Cockcroft-Gault) 168.5 Glucose Level 136 mg/dL (70-99) Calcium Level 8.2 mg/dL (8.5-10.1) Micro Microbiology 09/25/21 Blood Culture - Final, Complete NO GROWTH AFTER 5 DAYS Objective Assessment IMPRESSION: 1. COVID-19 positive. 2. Pneumonia, bilateral pulmonary infiltrate. 3. New fever and leukocytosis, secondary infection needs to be ruled out. 4. Hypertension. 5. Arthritis. Plan Plan of Care Continue antibiotics. Continue supportive care. no need for isolation MINOR TONY MD Oct 23, 2021 08:02
[2021-10-23] MEDS: PANTOPRAZOLE IV PUSH 40 MG VIAL. IVP SCH (08:04)
[2021-10-23] MEDS: TIMOLOL 0.5% OPHTH SOLUTION 5ML BOTTLE. OD SCH ×2 (08:04→20:50)
[2021-10-23] MEDS: ASPIRIN CHEWABLE 81 MG TABLET. PO SCH (08:04)
[2021-10-23] MEDS: SMZ/TMP 800/160MG TABLET. PO SCH ×3 (08:05→20:49)
[2021-10-23] MEDS: METOPROLOL TART IMMED RELEASE 25 MG TABLET. PO SCH ×2 (08:06→20:50)
[2021-10-23] MEDS: SENNOSIDES/DOCUSATE 8.6/50MG TABLET. PO SCH ×2 (08:07→20:49)
[2021-10-23] MEDS: LIDOCAINE (700MG/PATCH) PATCH. TD SCH (08:11)
--- NOTE | 2021-10-23 08:11 | PDOC ---
PULMONARY PROGRESS NOTES DATE: 10/23/21 TIME: 08:11 Subjective Patient currently on BiPAP 100% FiO2 Feels about the same No new complaints Vitals Vital Signs Date Time Temp Pulse Resp B/P (MAP) Pulse Ox O2 Delivery O2 Flow Rate FiO2 10/23/21 08:06 83 120/70 10/23/21 07:00 16 91 Vapotherm 30.0 10/23/21 04:00 99.2 99.2 ROS: No Nausea, No Chest Pain, No Abdominal Pain, No Increase Cough General: No acute distress Lungs: Other Cardiovascular: S1, S2 Abdomen: Other (obese) Extremities: No Edema Skin: No Rashes Labs Laboratory Tests Test 10/22/21 05:14 10/22/21 15:42 10/23/21 06:25 White Blood Count 14.0 x10^3/uL (4.0-11.0) Red Blood Count 4.60 x10^6/uL (4.30-5.70) Hemoglobin 12.9 g/dL (13.0-17.5) Hematocrit 39.0 % (39.0-53.0) Mean Corpuscular Volume 85 fL (79-100) Mean Corpuscular Hemoglobin 28 pg (25-35) Mean Corpuscular Hemoglobin Concent 33 g/dL (31-37) Red Cell Distribution Width 17.4 % (11.5-14.5) Platelet Count 266 x10^3/uL (140-400) Neutrophils (%) (Auto) 81 % (31-73) Lymphocytes (%) (Auto) 6 % (24-48) Monocytes (%) (Auto) 7 % (0-9) Eosinophils (%) (Auto) 5 % (0-3) Basophils (%) (Auto) 1 % (0-3) Neutrophils # (Auto) 11.4 x10^3/uL (1.8-7.7) Lymphocytes # (Auto) 0.8 x10^3/uL (1.0-4.8) Monocytes # (Auto) 1.0 x10^3/uL (0.0-1.1) Eosinophils # (Auto) 0.7 x10^3/uL (0.0-0.7) Basophils # (Auto) 0.1 x10^3/uL (0.0-0.2) Sodium Level 129 mmol/L (136-145) 131 mmol/L (136-145) Potassium Level 4.5 mmol/L (3.5-5.1) 4.8 mmol/L (3.5-5.1) Chloride Level 92 mmol/L (98-107) 93 mmol/L (98-107) Carbon Dioxide Level 33 mmol/L (21-32) 33 mmol/L (21-32) Anion Gap 4 (6-14) 5 (6-14) Blood Urea Nitrogen 17 mg/dL (8-26) 18 mg/dL (8-26) Creatinine 0.5 mg/dL (0.7-1.3) 0.5 mg/dL (0.7-1.3) Estimated GFR (Cockcroft-Gault) 168.5 168.5 Glucose Level 137 mg/dL (70-99) 136 mg/dL (70-99) Calcium Level 8.2 mg/dL (8.5-10.1) 8.2 mg/dL (8.5-10.1) Magnesium Level 2.0 mg/dL (1.8-2.4) Laboratory Tests Test 10/22/21 15:42 10/23/21 06:25 Magnesium Level 2.0 mg/dL (1.8-2.4) Sodium Level 131 mmol/L (136-145) Potassium Level 4.8 mmol/L (3.5-5.1) Chloride Level 93 mmol/L (98-107) Carbon Dioxide Level 33 mmol/L (21-32) Anion Gap 5 (6-14) Blood Urea Nitrogen 18 mg/dL (8-26) Creatinine 0.5 mg/dL (0.7-1.3) Estimated GFR (Cockcroft-Gault) 168.5 Glucose Level 136 mg/dL (70-99) Calcium Level 8.2 mg/dL (8.5-10.1) Medications Active Scripts Medications Dose Route/Sig Max Daily Dose Days Date Category Oxycodone Hcl 5 Mg Capsule 5 Mg PO PRN Q4HRS PRN 08/01/21 Rx Tramadol Hcl 50 Mg Tablet 50 Mg PO Q4HRS PRN 08/01/21 Rx Warfarin Sodium 4 Mg Tablet 4 Mg PO DAILY 28 08/01/21 Rx Timoptic 0.5% (Timolol Maleate) 10 Ml Drops 1 Drop OD BID 30 07/17/21 Reported Lisinopril 10 Mg Tablet 10 Mg PO DAILY 07/17/21 Reported Comments Venous Dopplers of lower extremity 10/17/2021 1. Deep venous thrombosis involving the right distal posterior tibial and peroneal veins. 2. Deep venous thrombus involving the left peroneal vein Chest x-ray reviewed 10/17/2021. Bilateral interstitial infiltrates. These are diffuse but mildly improved in the right lung Chest x-ray reviewed dated 10/01/2021. Diffuse bilateral interstitial infiltrates. No significant pleural effusion. There is mild progression. No evidence of pneumothorax Impression . 1. Acute hypoxic respiratory failure secondary to COVID-19 viral pneumon ia/ARDS.. 2. Development of new fever, chest pain and increasing oxygen requirement 10/17/2021.. Likely related to new acute deep vein thrombosis of the lower extremities and suspected pulmonary embolism . 3. Abnormal chest x-ray with diffuse bilateral infiltrates consistent with viral pneumonia. 4. Mildly increased liver function test. Likely due to COVID. 5. Leukocytosis 6. Markedly elevated CRP level of 197. Status post Actemra. He received on 09/30/2021 7. New diagnosis of bilateral lower extremity DVT 10/17/2021 8. Clinically suspected pulmonary embolism 10/17/2021. 9. DVT Plan . Updated 10/23 Full dose Lovenox Patient remains critically ill Antibiotics per ID Oxygen supplementation updated 10/22 Patient continues to be critically ill, Continue current support Antibiotics per ID Updated 10/21 Continue Lovenox full dose, therapeutic dose Continue BiPAP Antibiotics per ID So far cultures are negative Status post remdesivir and tocilizumab Nutritional support per TPN KRAIG YADAV MD Oct 23, 2021 08:11
[2021-10-23] MEDS: TPN PER PHARMACY MC PRN (10:42)
--- NOTE | 2021-10-23 10:44 | NUR ---
Pharmacy TPN Dosing Note S: JACINTOAILYNVANIA Yarbrough is a 60 year old M Currently receiving Central Continuous TPN started 10/04/21 B:Pertinent PMH: ON BIPAP, CANNOT TOLERATE TAKING PO Height: 5 feet, 7 inches Weight: 89.0 kg Current diet: CARDIAC LABS: Sodium: 131 Potassium: 4.8 Chloride: 93 Calcium: 8.2 Corrected Calcium: 9.96 Magnesium: 2 CO2: 33 SCr: 0.5 Glucose: 136 Albumin: 1.8 AST: 15 ALT: 45 TPN FORMULA: TPN TYPE: Central Continuous AMINO ACIDS: 80 gm DEXTROSE: 255 gm LIPIDS: 30 gm SODIUM CHLORIDE: 130 mEq SODIUM ACETATE: mEq SODIUM PHOSPHATE: mmol POTASSIUM CHLORIDE: - mEq POTASSIUM ACETATE: mEq POTASSIUM PHOSPHATE: 25 mmol MAGNESIUM: 10 mEq CALCIUM: 5 mEq INSULIN: units MULTIPLE VITAMIN: 10 ml TRACE ELEMENTS: 1 ml(s) TPN PLAN: Sodium added to TPN yesterday, Na improved slightly today, will leave as is for now Potassium near upper limit, will remove 15meq KCl BMP, phos tomorrow. R: Continue TPN as written above. Will monitor electrolytes, glucose, and tolerance to TPN. MARCELO BEAR [facility], 10/23/21 [id number]
[2021-10-23] MEDS: METOPROLOL IV PUSH 5 MG/5 ML VIAL. IVP PRN (10:49)
[2021-10-23] MEDS: methylPREDNISolone SOD SUCC PF 40 MG/ML VIAL. IV SCH (12:14)
[2021-10-23] MEDS ORDERED: DIGOXIN IV 500 MCG/2 ML AMPUL. IV ONE (12:15)
--- NOTE | 2021-10-23 12:51 | PDOC ---
[employer] PROGRESS NOTE Date of Service DOS: DATE: 10/23/21 TIME: 12:50 Chief Complaint Chief Complaint acute Covid-19 Pneumonia status post remdesivir and Actemra Acute hypoxic respiratory failure requiring Vapotherm and bipap support SEPSIS malnutrition Hypertension OA - s/p Knee replacement DVT - 10/17/2021 Chest pain - 10/16/2021, non cardiac, likely due to PE, not stable enough to go for CTPA. On therapeutic Lovenox History of Present Illness History of Present Illness FEN - TPN PPX - lovenox, Protonix for GI prophylaxis while on steroids CODE - DNR/DNI Dispo - ICU care, Mr Lehman is a 60-year-old male with PMHx HTN brought into the hospital due to cough and trouble breathing for the last 10 days, notes his father was positive for COVID 19 and was hospitalized. He has not been vaccinated against COVID 19. 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 Notably hypoxic on initial examination. Chest x-ray on admission showed multifocal bilateral patchy infiltrates. Rapid COVID 19 positive, started on dexamethasone, Lovenox for DVT prophylaxis along with remdesivir and admitted for further care. On hospital stay with complaint Vapotherm and BiPAP transition TPN taking PO ok 10/23, mental status is excellnet, he has been very positive in attitude through this cnt current Afebrile. Blood cultures no growth to date. no Chest pain today. Vitals/I&O Vitals/I&O: Vital Signs Date Time Temp Pulse Resp B/P (MAP) Pulse Ox O2 Delivery O2 Flow Rate FiO2 10/23/21 12:20 128 105/65 10/23/21 12:00 34 84 Vapotherm 30.0 10/23/21 08:31 97.9 97.9 I & O 10/22/21 10/22/21 10/23/21 15:00 23:00 07:00 Intake Total 170 ml 1525 ml 1739.8 ml Output Total 450 ml 1750 ml 551 ml Balance -280 ml -225 ml 1188.8 ml Physical Exam Physical Exam: GENERAL: Alert, oriented gentleman who is on 40 liters of oxygen. VITAL SIGNS: Stable HEENT: Both pupils are round and reacting. No conjunctival lesion, no lesion in the mouth. NECK: Supple, no JVP, no lymphadenopathy. LUNGS: Decreased breath sounds. HEART: S1, S2 regular, tachycardic. ABDOMEN: Soft, nontender, no organomegaly. EXTREMITIES: No edema, cyanosis. SKIN: Unremarkable. NEUROLOGIC: The patient is alert, awake, and appropriate. No focal neurologic deficit. General: Alert, Oriented X3, Cooperative, mild distress Heart: Regular rate Lungs: Other Abdomen: Normal bowel sounds Extremities: No clubbing, No edema, Normal pulses Skin: No rashes, No significant lesion Labs Labs: Laboratory Tests Test 10/22/21 15:42 10/23/21 06:25 Magnesium Level 2.0 mg/dL (1.8-2.4) Sodium Level 131 mmol/L (136-145) Potassium Level 4.8 mmol/L (3.5-5.1) Chloride Level 93 mmol/L (98-107) Carbon Dioxide Level 33 mmol/L (21-32) Anion Gap 5 (6-14) Blood Urea Nitrogen 18 mg/dL (8-26) Creatinine 0.5 mg/dL (0.7-1.3) Estimated GFR (Cockcroft-Gault) 168.5 Glucose Level 136 mg/dL (70-99) Calcium Level 8.2 mg/dL (8.5-10.1) Assessment and Plan Assessmemt and Plan Problems Medical Problems: (1) Hypoxia Status: Acute (2) Pneumonia due to COVID-19 virus Status: Acute Comment Review of Relevant I have reviewed the following items dino (where applicable) has been applied. Medications: Current Medications Medications (Trade) Dose Ordered Sig/Jody Route PRN Reason Start Time Stop Time Status Last Admin Dose Admin Sodium Chloride 130 meq/Potassium Chloride 15 meq/ Potassium Phosphate 25 mmol/ Magnesium Sulfate 10 meq/Calcium Gluconate 5 meq/ Multivitamins 10 ml/Zinc/Copper/ Manganese/ Selenium 1 ml/ Total Parenteral Nutrition/Amino Acids/Dextrose 1,320 ml @ 55 mls/hr TPN CONT IV 10/22/21 22:00 10/23/21 21:59 10/22/21 21:21 Digoxin (Lanoxin) 500 mcg 1X ONCE IV 10/23/21 12:15 10/23/21 12:16 DC 10/23/21 12:20 Justifications for Admission Other Justification NANCY MAN MD Oct 23, 2021 12:51
--- NOTE | 2021-10-23 14:00 | NUR ---
SS following up with discharge planning. SS reviewed pt chart and discussed with pt RN. Pt is currently on Vapotherm at 30 liters and 90% and BIPAP. COVID19 recovered. Pt on Precedex. Pt on TPN, IV Zosyn, PO Bactrim, and IV Solu-Medrol. Not ready. SS will continue to follow for discharge planning.
[2021-10-23] MEDS: PATCH REMOVAL. MC SCH (20:25)
[2021-10-23] MEDS ORDERED: [UNRECOGNIZED DRUG - OTHER] IV SCH (22:00)
[2021-10-23] MEDS ORDERED: TOTAL PARENTERAL NUTRITION IV SCH (22:00)
[2021-10-23] MEDS ORDERED: AMINO ACID IV SCH (22:00)
[2021-10-23] MEDS ORDERED: DEXTROSE 70% IV SCH (22:00)
[2021-10-24] VITALS (23 sets, daily range): BP systolic 96–208; BP diastolic 55–90
[2021-10-24] MEDS: PIPERACILLIN/TAZOBACTAM 3.375 GM in IV NORMAL SALINE 50ML 50 ML IV SCH ×4 (00:04→17:11)
[2021-10-24] MEDS: DEXMEDETOMIDINE 400 MCG in IV NORMAL SALINE 100ML 96 ML IV PRN ×8 (00:29→23:34)
[2021-10-24 06:46] LABS: CALCIUM 7.9 mg/dL (8.5-10.1); CREATININE 0.5 mg/dL (0.7-1.3); GFR 168.5; PHOSPHORUS 2.7 mg/dL (2.6-4.7); POTASSIUM 4.7 mmol/L (3.5-5.1)
--- NOTE | 2021-10-24 07:37 | PDOC ---
Infectious Disease Note Subjective Subjective Patient is still on BiPAP says feeling better Vital Sign Vital Signs Vital Signs Date Time Temp Pulse Resp B/P (MAP) Pulse Ox O2 Delivery O2 Flow Rate FiO2 10/24/21 07:00 100 31 109/62 86 Vapotherm 30.0 10/24/21 04:00 99.4 99.4 Physical Exam PHYSICAL EXAM GENERAL: Alert, oriented gentleman who is on 40 liters of oxygen. VITAL SIGNS: Stable HEENT: Both pupils are round and reacting. No conjunctival lesion, no lesion in the mouth. NECK: Supple, no JVP, no lymphadenopathy. LUNGS: Decreased breath sounds. HEART: S1, S2 regular, tachycardic. ABDOMEN: Soft, nontender, no organomegaly. EXTREMITIES: No edema, cyanosis. SKIN: Unremarkable. NEUROLOGIC: The patient is alert, awake, and appropriate. No focal neurologic deficit. Labs Lab Laboratory Tests Test 10/24/21 05:45 Sodium Level 130 mmol/L (136-145) Potassium Level 4.7 mmol/L (3.5-5.1) Chloride Level 96 mmol/L (98-107) Carbon Dioxide Level 32 mmol/L (21-32) Anion Gap 2 (6-14) Blood Urea Nitrogen 16 mg/dL (8-26) Creatinine 0.5 mg/dL (0.7-1.3) Estimated GFR (Cockcroft-Gault) 168.5 Glucose Level 140 mg/dL (70-99) Calcium Level 7.9 mg/dL (8.5-10.1) Phosphorus Level 2.7 mg/dL (2.6-4.7) Micro Microbiology 09/25/21 Blood Culture - Final, Complete NO GROWTH AFTER 5 DAYS Objective Assessment IMPRESSION: 1. COVID-19 positive. 2. Pneumonia, bilateral pulmonary infiltrate. 3. New fever and leukocytosis, secondary infection needs to be ruled out. 4. Hypertension. 5. Arthritis. Plan Plan of Care Continue antibiotics. Continue supportive care. no need for isolation MINOR TONY MD Oct 24, 2021 07:37
[2021-10-24] MEDS: PANTOPRAZOLE IV PUSH 40 MG VIAL. IVP SCH (08:28)
[2021-10-24] MEDS: SODIUM CHLORIDE 0.65% NASAL SPRAY 45ML BOTTLE. NS PRN (08:28)
[2021-10-24] MEDS: ASPIRIN CHEWABLE 81 MG TABLET. PO SCH (08:28)
[2021-10-24] MEDS: SMZ/TMP 800/160MG TABLET. PO SCH ×3 (08:29→21:39)
[2021-10-24] MEDS: TIMOLOL 0.5% OPHTH SOLUTION 5ML BOTTLE. OD SCH ×2 (08:29→21:36)
[2021-10-24] MEDS: SENNOSIDES/DOCUSATE 8.6/50MG TABLET. PO SCH ×2 (08:29→21:39)
[2021-10-24] MEDS: METOPROLOL TART IMMED RELEASE 25 MG TABLET. PO SCH ×2 (08:29→21:38)
[2021-10-24] MEDS: LIDOCAINE (700MG/PATCH) PATCH. TD SCH (08:30)
--- NOTE | 2021-10-24 08:32 | PDOC ---
PULMONARY PROGRESS NOTES DATE: 10/24/21 TIME: 08:32 Subjective Patient currently on BiPAP 100% FiO2 Feels about the same No new complaints Vitals Vital Signs Date Time Temp Pulse Resp B/P (MAP) Pulse Ox O2 Delivery O2 Flow Rate FiO2 10/24/21 08:30 91 BiPAP/CPAP 10/24/21 08:29 100 109/62 10/24/21 07:00 31 30.0 10/24/21 04:00 99.4 99.4 ROS: No Nausea, No Chest Pain, No Abdominal Pain, No Increase Cough General: No acute distress Lungs: Other Cardiovascular: S1, S2 Abdomen: Other (obese) Extremities: No Edema Skin: No Rashes Labs Laboratory Tests Test 10/22/21 15:42 10/23/21 06:25 10/24/21 05:45 Magnesium Level 2.0 mg/dL (1.8-2.4) Sodium Level 131 mmol/L (136-145) 130 mmol/L (136-145) Potassium Level 4.8 mmol/L (3.5-5.1) 4.7 mmol/L (3.5-5.1) Chloride Level 93 mmol/L (98-107) 96 mmol/L (98-107) Carbon Dioxide Level 33 mmol/L (21-32) 32 mmol/L (21-32) Anion Gap 5 (6-14) 2 (6-14) Blood Urea Nitrogen 18 mg/dL (8-26) 16 mg/dL (8-26) Creatinine 0.5 mg/dL (0.7-1.3) 0.5 mg/dL (0.7-1.3) Estimated GFR (Cockcroft-Gault) 168.5 168.5 Glucose Level 136 mg/dL (70-99) 140 mg/dL (70-99) Calcium Level 8.2 mg/dL (8.5-10.1) 7.9 mg/dL (8.5-10.1) Phosphorus Level 2.7 mg/dL (2.6-4.7) Laboratory Tests Test 10/24/21 05:45 Sodium Level 130 mmol/L (136-145) Potassium Level 4.7 mmol/L (3.5-5.1) Chloride Level 96 mmol/L (98-107) Carbon Dioxide Level 32 mmol/L (21-32) Anion Gap 2 (6-14) Blood Urea Nitrogen 16 mg/dL (8-26) Creatinine 0.5 mg/dL (0.7-1.3) Estimated GFR (Cockcroft-Gault) 168.5 Glucose Level 140 mg/dL (70-99) Calcium Level 7.9 mg/dL (8.5-10.1) Phosphorus Level 2.7 mg/dL (2.6-4.7) Medications Active Scripts Medications Dose Route/Sig Max Daily Dose Days Date Category Oxycodone Hcl 5 Mg Capsule 5 Mg PO PRN Q4HRS PRN 08/01/21 Rx Tramadol Hcl 50 Mg Tablet 50 Mg PO Q4HRS PRN 08/01/21 Rx Warfarin Sodium 4 Mg Tablet 4 Mg PO DAILY 28 08/01/21 Rx Timoptic 0.5% (Timolol Maleate) 10 Ml Drops 1 Drop OD BID 30 07/17/21 Reported Lisinopril 10 Mg Tablet 10 Mg PO DAILY 07/17/21 Reported Comments Venous Dopplers of lower extremity 10/17/2021 1. Deep venous thrombosis involving the right distal posterior tibial and peroneal veins. 2. Deep venous thrombus involving the left peroneal vein Chest x-ray reviewed 10/17/2021. Bilateral interstitial infiltrates. These are diffuse but mildly improved in the right lung Chest x-ray reviewed dated 10/01/2021. Diffuse bilateral interstitial infiltrates. No significant pleural effusion. There is mild progression. No evidence of pneumothorax Impression . 1. Acute hypoxic respiratory failure secondary to COVID-19 viral pneumonia/ARDS.. 2. Development of new fever, chest pain and increasing oxygen requirement 10/17/2021.. Likely related to new acute deep vein thrombosis of the lower extremities and suspected pulmonary embolism . 3. Abnormal chest x-ray with diffuse bilateral infiltrates consistent with viral pneumonia. 4. Mildly increased liver function test. Likely due to COVID. 5. Leukocytosis 6. Markedly elevated CRP level of 197. Status post Actemra. He received on 09/30/2021 7. New diagnosis of bilateral lower extremity DVT 10/17/2021 8. Clinically suspected pulmonary embolism 10/17/2021. 9. DVT Plan . Updated 10/24 respiratory status is tenuous, critically ill. Continue full dose Lovenox Antibiotics per ID Discontinue isolation Updated 10/23 Full dose Lovenox Patient remains critically ill Antibiotics per ID Oxygen supplementation KRAIG YADAV MD Oct 24, 2021 08:32
--- NOTE | 2021-10-24 10:04 | NUR ---
SS following up with discharge planning. SS reviewed pt chart and discussed with pt RN. Pt is currently on Vapotherm at 30 liters and 90% and BIPAP. COVID19 recovered. Pt on Precedex. Pt IV Zosyn, PO Bactrim, and IV Solu-Medrol. TPN discontinued. Not ready. SS will continue to follow for discharge planning.
[2021-10-24] MEDS: methylPREDNISolone SOD SUCC PF 40 MG/ML VIAL. IV SCH (13:04)
--- NOTE | 2021-10-24 15:51 | PDOC ---
[facility] PROGRESS NOTE Date of Service DOS: DATE: 10/24/21 TIME: 15:49 Chief Complaint Chief Complaint acute Covid-19 Pneumonia status post remdesivir and Actemra Acute hypoxic respiratory failure requiring Vapotherm and bipap support SEPSIS malnutrition Hypertension OA - s/p Knee replacement DVT - 10/17/2021 Chest pain - 10/16/2021, non cardiac, likely due to PE, not stable enough to go for CTPA. On therapeutic Lovenox History of Present Illness History of Present Illness FEN - TPN PPX - lovenox, Protonix for GI prophylaxis while on steroids CODE - DNR/DNI Dispo - ICU care, Mr Lehman is a 60-year-old male with PMHx HTN brought into the hospital due to cough and trouble breathing for the last 10 days, notes his father was positive for COVID 19 and was hospitalized. He has not been vaccinated against COVID 19. 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 Notably hypoxic on initial examination. Chest x-ray on admission showed multifocal bilateral patchy infiltrates. Rapid COVID 19 positive, started on dexamethasone, Lovenox for DVT prophylaxis along with remdesivir and admitted for further care. On hospital stay with complaint Vapotherm and BiPAP transition TPN taking PO ok 10/24, not much changed, daily about the same, mental status has been great positive attitude noted Afebrile. Blood cultures no growth to date. no Chest pain today. Vitals/I&O Vitals/I&O: Vital Signs Date Time Temp Pulse Resp B/P (MAP) Pulse Ox O2 Delivery O2 Flow Rate FiO2 10/24/21 15:09 92 BiPAP/CPAP 10/24/21 14:00 103 32 137/76 30.0 10/24/21 13:02 99.4 99.4 I & O 10/23/21 10/23/21 10/24/21 15:00 23:00 07:00 Intake Total 310 ml 1322 ml 579.3 ml Output Total 475 ml 1075 ml 775 ml Balance -165 ml 247 ml -195.7 ml Physical Exam Physical Exam: GENERAL: Alert, oriented gentleman who is on 40 liters of oxygen. VITAL SIGNS: Stable HEENT: Both pupils are round and reacting. No conjunctival lesion, no lesion in the mouth. NECK: Supple, no JVP, no lymphadenopathy. LUNGS: Decreased breath sounds. HEART: S1, S2 regular, tachycardic. ABDOMEN: Soft, nontender, no organomegaly. EXTREMITIES: No edema, cyanosis. SKIN: Unremarkable. NEUROLOGIC: The patient is alert, awake, and appropriate. No focal neurologic deficit. General: Alert, Oriented X3, Cooperative, mild distress Heart: Regular rate Lungs: Other Abdomen: Normal bowel sounds Extremities: No clubbing, No edema, Normal pulses Skin: No rashes, No significant lesion Labs Labs: Laboratory Tests Test 10/24/21 05:45 Sodium Level 130 mmol/L (136-145) Potassium Level 4.7 mmol/L (3.5-5.1) Chloride Level 96 mmol/L (98-107) Carbon Dioxide Level 32 mmol/L (21-32) Anion Gap 2 (6-14) Blood Urea Nitrogen 16 mg/dL (8-26) Creatinine 0.5 mg/dL (0.7-1.3) Estimated GFR (Cockcroft-Gault) 168.5 Glucose Level 140 mg/dL (70-99) Calcium Level 7.9 mg/dL (8.5-10.1) Phosphorus Level 2.7 mg/dL (2.6-4.7) Assessment and Plan Assessmemt and Plan Problems Medical Problems: (1) Hypoxia Status: Acute (2) Pneumonia due to COVID-19 virus Status: Acute Comment Review of Relevant I have reviewed the following items dino (where applicable) has been applied. Medications: Current Medications Medications (Trade) Dose Ordered Sig/Jody Route PRN Reason Start Time Stop Time Status Last Admin Dose Admin Sodium Chloride 130 meq/Potassium Phosphate 25 mmol/ Magnesium Sulfate 10 meq/Calcium Gluconate 5 meq/ Multivitamins 10 ml/Zinc/Copper/ Manganese/ Selenium 1 ml/ Total Parenteral Nutrition/Amino Acids/Dextrose/ Fat Emulsion Intravenous 1,320 ml @ 55 mls/hr TPN CONT IV 10/23/21 22:00 10/24/21 09:14 DC 10/23/21 20:49 Justifications for Admission Other Justification NANCY MNA MD Oct 24, 2021 15:51
[2021-10-24] MEDS: PATCH REMOVAL. MC SCH (20:35)
[2021-10-24] MEDS ORDERED: IV NORMAL SALINE 1000ML BAG 1,000 ML IV SCH (23:30)
[2021-10-24] MEDS ORDERED: NALOXONE 0.4 MG/ML VIAL. IV PRN (23:30)
[2021-10-24] MEDS ORDERED: MORPHINE SULFATE 30 ML IV PRN (23:30)
[2021-10-24] MEDS: MORPHINE SULFATE 2 MG/ML INJ. IVP PRN (23:36)
[2021-10-25] VITALS: BP 99/59
[2021-10-25 00:32] VITALS: BP_SYST 0
--- NOTE | 2021-10-25 00:32 | NUR ---
Patient was A&O at beginning of the shift. Watching [employer] on the TV and eating chips. Bipap and Vapotherm on. About 2250 patient c/o right sided chest pain, O2 sat dropped and b/p was elevated. Called Dr. Kevin. Patient was placed on a Morphine drip and family was called. Multiple family members were here when patients saturation was 20's. Patient was extremely cyanotic and became unresponsive. Patient at 0032 with multiple family members at bedside. Son, Estiven, took patients belongings and the blue band ring on his right hand.
--- NOTE | 2021-10-25 08:11 | PDOC ---
PULMONARY PROGRESS NOTES DATE: 10/25/21 TIME: 08:10 Subjective Patient currently on BiPAP 100% FiO2 Feels about the same No new complaints Vitals Vital Signs Date Time Temp Pulse Resp B/P (MAP) Pulse Ox O2 Delivery O2 Flow Rate FiO2 10/24/21 23:22 BiPAP/CPAP 10/24/21 21:38 100 115/58 10/24/21 20:14 97 10/24/21 18:00 99.1 39 30.0 99.1 ROS: No Nausea, No Chest Pain, No Abdominal Pain, No Increase Cough General: No acute distress Lungs: Other Cardiovascular: S1, S2 Abdomen: Other (obese) Extremities: No Edema Skin: No Rashes Labs Laboratory Tests Test 10/24/21 05:45 Sodium Level 130 mmol/L (136-145) Potassium Level 4.7 mmol/L (3.5-5.1) Chloride Level 96 mmol/L (98-107) Carbon Dioxide Level 32 mmol/L (21-32) Anion Gap 2 (6-14) Blood Urea Nitrogen 16 mg/dL (8-26) Creatinine 0.5 mg/dL (0.7-1.3) Estimated GFR (Cockcroft-Gault) 168.5 Glucose Level 140 mg/dL (70-99) Calcium Level 7.9 mg/dL (8.5-10.1) Phosphorus Level 2.7 mg/dL (2.6-4.7) Medications Active Scripts Medications Dose Route/Sig Max Daily Dose Days Date Category Oxycodone Hcl 5 Mg Capsule 5 Mg PO PRN Q4HRS PRN 08/01/21 Rx Tramadol Hcl 50 Mg Tablet 50 Mg PO Q4HRS PRN 08/01/21 Rx Warfarin Sodium 4 Mg Tablet 4 Mg PO DAILY 28 08/01/21 Rx Timoptic 0.5% (Timolol Maleate) 10 Ml Drops 1 Drop OD BID 30 07/17/21 Reported Lisinopril 10 Mg Tablet 10 Mg PO DAILY 07/17/21 Reported Comments Venous Dopplers of lower extremity 10/17/2021 1. Deep venous thrombosis involving the right distal posterior tibial and peroneal veins. 2. Deep venous thrombus involving the left peroneal vein Chest x-ray reviewed 10/17/2021. Bilateral interstitial infiltrates. These are diffuse but mildly improved in the right lung Chest x-ray reviewed dated 10/01/2021. Diffuse bilateral interstitial infiltrates. No significant pleural effusion. There is mild progression. No evidence of pneumothorax Impression . 1. Acute hypoxic respiratory failure secondary to COVID-19 viral pneumonia/ARDS.. 2. Development of new fever, chest pain and increasing oxygen requirement 10/17/2021.. Likely related to new acute deep vein thrombosis of the lower extremities and suspected pulmonary embolism . 3. Abnormal chest x-ray with diffuse bilateral infiltrates consistent with viral pneumonia. 4. Mildly increased liver function test. Likely due to COVID. 5. Leukocytosis 6. Markedly elevated CRP level of 197. Status post Actemra. He received on 09/30/2021 7. New diagnosis of bilateral lower extremity DVT 10/17/2021 8. Clinically suspected pulmonary embolism 10/17/2021. 9. DVT Plan . Updated 10/24 respiratory status is tenuous, critically ill. Continue full dose Lovenox Antibiotics per ID Discontinue isolation Updated 10/23 Full dose Lovenox Patient remains critically ill Antibiotics per ID Oxygen supplementation KRAIG YADAV MD Oct 25, 2021 08:11
== END 2021-10-25 00:32 | DRG 871 ==
LOC: ER 07:02 → ED HOLD 09:16 → 6 SOUTH 11:15 → 1 WEST ICU 09-30 10:16
PROVIDERS: ADMIT Student in an Organized Health Care Education/Training Program; ATTEND Student in an Organized Health Care Education/Training Program
PROC: XW033E5 Introduction of Remdesivir Anti-infective into Peripheral Vein, Percutaneous Approach, New Technology Group 5 (ICD-10-PCS; principal; 2021-09-25)
PROC: 5A09557 Assistance with Respiratory Ventilation, Greater than 96 Consecutive Hours, Continuous Positive Airway Pressure (ICD-10-PCS; 2021-10-25)
DX: A41.89 Other specified sepsis (principal); U07.1 COVID-19; J12.82 Pneumonia due to coronavirus disease 2019; J96.01 Acute respiratory failure with hypoxia; E46 Unspecified protein-calorie malnutrition; I47.1 Supraventricular tachycardia; I48.92 Unspecified atrial flutter; I82.403 Acute embolism and thrombosis of unspecified deep veins of lower extremity, bilateral; E05.90 Thyrotoxicosis, unspecified without thyrotoxic crisis or storm; E87.5 Hyperkalemia; E87.6 Hypokalemia; F41.9 Anxiety disorder, unspecified; I10 Essential (primary) hypertension; M19.90 Unspecified osteoarthritis, unspecified site; Z66 Do not resuscitate; Z79.01 Long term (current) use of anticoagulants; Z82.49 Family history of ischemic heart disease and other diseases of the circulatory system; Z96.652 Presence of left artificial knee joint
CPT/HCPCS: 36415; 36569; 36600; 71045; 80048; 80053; 80076; 82805; 82962; 83605; 83735; 83880; 84100; 84145; 84439; 84443; 84478; 84480; 84484; 85007; 85025; 85027; 85379; 85610; 85730; 86140; 87040; 87103; 87426; 93005; 93970; 94660; 94760; 96365; 96375; C9113; J0360; J0456; J0610; J0696; J1100; J1160; J1650; J1940; J2270; J2543; J2704; J2920; J2930; J2997; J3010; J3262; J3475; J3480; J3490; J7030; J7050; J7060; 99285-25; G0378